=== PATIENT | male | born 1935 | race Caucasian/White ===

== ENCOUNTER 2017-08-25 19:29 | Observation (INO) | payer MEDICARE, OTHER, SELFPAY ==
[2017-08-25] VITALS (11 sets, daily range): BP systolic 167–218; BP diastolic 79–108; PULSE 74–81; RESP 12–24; TEMP 37.1; O2SAT 92–97; BMI 24.2
--- NOTE | 2017-08-25 19:33 | EKG12_ITS ---
Test Reason : STROKE Blood Pressure : / mmHG Vent. Rate : 084 BPM Atrial Rate : 084 BPM P-R Int : 138 ms QRS Dur : 072 ms QT Int : 364 ms P-R-T Axes : 038 -33 -03 degrees QTc Int : 430 ms Normal sinus rhythm Left axis deviation Nonspecific ST abnormality Abnormal ECG Confirmed by DAVE RIVERA, MARTIN ([id number]), photograph editor CORBY JOSUE ([id number]) on 08/29/2017 1:08:22 PM Referred By: DR BARAHONA Confirmed By:MARTIN ACOSTA MD
--- NOTE | 2017-08-25 19:33 | CT_ITS ---
STUDY: CT BRAIN WITHOUT CONTRAST REASON FOR EXAM: Male, 82 years old. Stroke symptoms RADIATION DOSAGE (If Supplied By Facility): CTDIvol = ( 44.99 ) mGy, DLP = ( 796.11 ) mGycm TECHNIQUE: Transaxial CT imaging of the brain was performed without administration of intravenous contrast material. Individualized dose optimization techniques were used for this CT. COMPARISON: None. FINDINGS: Normal soft tissue structures. Normal calvarium. There is mild cerebral atrophy with widening of the extra-axial spaces and ventricular dilatation. There are areas of decreased attenuation within the white matter tracts of the supratentorial brain, consistent with microvascular disease changes. Normal basal ganglia and thalami. Normal brainstem. Normal cerebellum. There is no intracranial hemorrhage. There are no findings of an acute ischemic infarction. Normal visualized paranasal sinuses. CT/Brain/Head without Contrast IMPRESSION: Chronic involutional changes of the brain. There is no intracranial hemorrhage or evidence of acute infarct. If acute infarct is clinically suspected, MRI may be helpful for further evaluation at this time. N.B. : The above information has been verbally conveyed by Wade Wolfe MD to Connor Schreiber, Referring Physician, on 08/25/2017 20:06:56 (ET). Electronically Signed: Wade Wolfe MD at 20:03 EDT , Service support , N.B. : The above information has been verbally conveyed by Wade Wolfe MD to Connor Schreiber, Referring Physician, on 08/25/2017 20:06:56 (ET).
[2017-08-25] MEDS: Labetalol 100 MG/20 ML Vial 10 MG IV (19:52)
[2017-08-25 19:56] LABS: Absolute Lymphocyte Count 2.03 X10^3/ul (0.83-4.51); Absolute Neutrophil Count 5.8 X10^3/uL (2.0-7.7); Basophil# 0.02 X10^3/uL; Basophil% 0.2 % (0-1); Eosinophil# 0.23 X10^3/uL; Eosinophils% 2.5 % (0-5); Hematocrit 41.9 % (40-54); Hemoglobin 14.6 g/dl (13.0-16.5); Lymphocyte # 2.03 X10^3/ul (4.0); Lymphocyte % 22.5 % (19-41); Mean Corp Hgb Conc 34.8 g/gl (32-36); Mean Corpuscular Hgb 31.9 pg (27.0-32.0); Mean Corpuscular Volume 91.5 fL (80-94); Mean Platelet Vol. 11.4 fl (6.2-12.0); Neutrophil # 5.84 X10^3/uL (2.7-7.7); Neutrophil % 64.6 % (47-70); Platelet Count 211 K/mm3 (150-450); RBC Distribution Width CV 12.9 % (11.6-14.6); Red Blood Count 4.58 M/mm3 (4.6-6.2)
[2017-08-25 19:58] LABS: POSITIVE COUNT NO; POSITIVE DIFFERENTIAL NO; POSITIVE MORPHOLOGY NO
[2017-08-25 20:02] LABS: International Normalized Ratio 0.9; Partial Thromboplast Time 34.8 Seconds (24.1-36.2); Prothrombin Time (Protime)PT. 12.4 SECONDS (11.7-14.9)
--- NOTE | 2017-08-25 20:06 | CT_ITS ---
STUDY: CTA OF THE BRAIN REASON FOR EXAM: Male, 82 years old. Stroke. RADIATION DOSAGE (If Supplied By Facility): CTDIvol = ( 22.75 ) mGy, DLP = ( 598.16 ) mGycm TECHNIQUE: CT angiography was performed with a multi-detector CT scanner. Data acquisition was obtained from the skull base through the vertex following intravenous administration of ml of . MIP images were reconstructed from the axial data set. Post-processing of the angiographic images was performed, with multiplanar reformation and 3D reconstruction. Individualized dose optimization techniques were used for this CT. COMPARISON: None. FINDINGS: Normal bilateral petrous carotid arteries. Normal right cavernous carotid artery with a normal supraclinoid bifurcation. Normal left cavernous carotid artery with a normal supraclinoid bifurcation. Normal right A1 segments of the anterior cerebral artery. Normal left A1 segments of the anterior cerebral artery. Normal intact anterior communicating artery (ACOM). Normal bilateral A2 segments of the anterior cerebral arteries. Normal right M1 and M2 segments of the middle cerebral arteries, with a normal M1 bifurcation. Normal left M1 and M2 segments of the middle cerebral arteries, with a normal M1 bifurcation. Normal right posterior communicating artery (PCOM). Normal left posterior communicating artery (PCOM). Normal bilateral vertebral arteries. Normal basilar artery with a normal basilar bifurcation. The visualized bilateral superior cerebellar (SCA) arteries are normal. Normal bilateral P1, P2 and visualized P3 segments of the posterior cerebral arteries. There is no demonstrated aneurysm of the [place]. There is no demonstrated abnormality of the visualized brain. CT/CTA Head W/WO Contrast IMPRESSION: Normal [place] without a demonstrated aneurysm or hemodynamically significant stenosis. Electronically Signed: Lionel Edward MD at 22:46 EDT , Service support ,
--- NOTE | 2017-08-25 20:06 | CT_ITS ---
STUDY: CTA NECK WITH CONTRAST REASON FOR EXAM: Male, 82 years old. Stroke RADIATION DOSAGE (If Supplied By Facility): CTDIvol = ( 22.75 ) mGy, DLP = ( 598.16 ) mGycm TECHNIQUE: CT angiography with multi-detector data acquisition was performed from the aortic arch to the skull base following intravenous administration of 100 ml of Isovue 370 contrast. MIP images were reconstructed from the axial data set. Post-processing of the angiographic images was performed, with multiplanar reformation and 3D reconstruction. Individualized dose optimization techniques were used for this CT. COMPARISON: None. FINDINGS: AORTIC ARCH: Normal visualized aortic arch. Normal origins of the brachiocephalic, left common carotid, and left subclavian arteries. RIGHT CAROTID ARTERIES: Normal right common carotid artery (CCA). Mild eccentric calcified plaque in the carotid bulb. Normal origin of the right internal carotid (ICA) artery without a hemodynamically significant stenosis. Normal visualized cervical portion of the right internal carotid artery. Normal origin of the right external carotid artery (ECA). LEFT CAROTID ARTERIES: Normal left common carotid artery (CCA). Mild eccentric calcified plaque in the carotid bulb. Normal origin of the left internal carotid (ICA) artery without a hemodynamically significant stenosis. Normal visualized cervical portion of the left internal carotid artery. Normal origin of the left external carotid artery (ECA). VERTEBRAL ARTERIES: Normal bilateral vertebral arteries. CT/CTA Neck W/WO Contrast IMPRESSION: No CTA evidence of significant arterial pathology in the neck. Electronically Signed: Kyle Alvarez MD at 22:54 EDT Tel , Service support ,
[2017-08-25 20:11] LABS: Anion Gap 7 (5-15); BUN 24 mg/dL (7-18); BUN/Creat Ratio 22.4 RATIO (10-20); Calcium,Total 9.3 mg/dL (8.5-10.1); Chloride 100 mmol/L (98-107); Creatinine, Serum 1.07 mg/dL (0.70-1.30); EST Glomerular Filtration Rate 70 mL/min (>60); Est Glom Filt Rate - Afr Amer 85 mL/min (>60); Estimated Creatinine Clearance 48.03 ml/min; Glucose 128 mg/dL (74-106); Potassium 4.7 mmol/L (3.5-5.1); Sodium Level 134 mmol/L (136-145)
[2017-08-25] MEDS: 0.9% Normal Saline 1,000 ML 100 ML IV (20:11)
--- NOTE | 2017-08-25 23:57 | HP.PCM_ITS ---
Problem List (1) HTN (hypertension) Status: Chronic (2) DMII (diabetes mellitus, type 2) Status: Acute (3) Lipidemia Status: Acute History of Present Illness Date of Admission: 08/25/17 Chief Complaint: Right facial droop The patient is a 82 year old male w/ h/o HTN, lipidemia and DMII admitted for right facial droop. He is a poor historian. History is taken from staff. He developed right facial droop, right leg weakness and slurred speech while with family. Family noted his symptoms and called parameds. He had improvement of his symptoms over the minutes to hours. He had no other symptoms. Past Medical History Past Medical History (Chronic Problems): Chronic Problems HTN (hypertension) (Chronic) Allergies iodine Allergy (Verified 08/25/17 20:20) Rash Home Medications: Ambulatory Orders Medication Instructions Recorded Lisinopril [Zestril] 20 mg PO DAILY 08/25/17 Metformin HCl [Glucophage] 1,000 mg PO BID 08/25/17 Metoprolol Succinate [Toprol Xl] 25 mg PO DAILY 08/25/17 Oxybutynin [Ditropan] 5 mg PO DAILY 08/25/17 Simvastatin [Zocor] 40 mg PO QHS 08/25/17 glipiZIDE [Glucotrol] 10 mg PO BID 08/25/17 Lives: Spouse/ Significant Other Smoking Status: Never smoker Alcohol: None Drugs: None - *Family History Maternal History Items: No pertinent history Review of Systems Constitutional: Denies: Chills, Fever, Weight Change HEENT: Denies: Head Aches, Sinus Congestion, Sinus Drainage Cardiovascular: Denies: Chest Pain, Palpitations Respiratory: Denies: Cough, Shortness of breath at rest, Sputum production Gastrointestinal: Denies: Abdominal Pain, Nausea, Vomiting Genitourinary: Denies: Dysuria Musculoskeletal: Denies: Joint Pain, Joint Tenderness Skin: Denies: Rash, Wounds Neurological: Reports: Slurred speech, Confusion, Focal weakness - Right sided weakness. Denies: Numbness, Tingling Psychiatric: Denies: Anxiety, Depression, Homicidal Ideations, Suicidal Ideations Hematologic/ Lymphatic: Denies: Easy Bruising, Easy Bleeding VTE Information - Inpt Only VTE Present on Admission: No VTE Mechan Device Prophylaxis: SCD's VTE Pharm Prophylaxis ordered?: Yes Patient Problems: Active and Suspected Problems DMII (diabetes mellitus, type 2) (Acute) Lipidemia (Acute) - Physical Exam General: Alert, Oriented x3, Cooperative HEENT: PERRLA, EOMI, Normocephalic, - - Right eye swelling secondary to trauma Neck: Supple, No JVD, Negative Carotid Bruits Lungs: Clear to auscultation, Normal air movement Cardiovascular: Regular rate, No murmurs Abdomen: Bowel Sounds Present, Soft, Non Tender Extremities: No edema, Capillary Refill Less than 3 Seconds Skin: No rashes, No breakdown Musculoskeletal: No Tenderness to Palpation of Joints or Extremities Neurological: Cranial nerves II-XII grossly intact Psych/Mental Status: Normal Affect, Appropriate Vital Signs Temp Pulse Resp BP Pulse Ox 98.8 F 79 16 167/89 H 94 08/25/17 19:30 08/25/17 23:00 08/25/17 23:00 08/25/17 23:00 08/25/17 23:00 Oxygen Flow Rate (L/min) 2 Oxygen Delivery Method Room Air Weight: 68 kg Body Mass Index (BMI) 24.2 Finger Stick Blood Glucose 124 Laboratory Tests Past 24 Hrs 08/25/17 08/25/17 08/25/17 19:35 19:35 19:35 WBC 9.0 RBC 4.58 L Hgb 14.6 Hct 41.9 MCV 91.5 MCH 31.9 MCHC 34.8 RDW 12.9 RDW Differential 43.0 Plt Count 211 MPV 11.4 Immature Gran % (Auto) 0.200 Neut % (Auto) 64.6 Lymph % (Auto) 22.5 Sharkey % (Auto) 10.0 Eos % (Auto) 2.5 Baso % (Auto) 0.2 Absolute Neuts (auto) 5.8 Absolute Lymphs (auto) 2.03 Total Counted Not Reportable PT 12.4 INR 0.9 APTT 34.8 Sodium 134 L Potassium 4.7 Chloride 100 Carbon Dioxide 27.0 Anion Gap 7 BUN 24 H Creatinine 1.07 Estim Creat Clear Calc 48.03 Est GFR (MDRD) Af Amer 85 Est GFR (MDRD) Non-Af 70 BUN/Creatinine Ratio 22.4 H Glucose 128 H Calcium 9.3 Troponin I < 0.015 Assessment/Plan All Active Problems DMII (diabetes mellitus, type 2) (Acute) Lipidemia (Acute) 82 year old male w/ h/o HTN, lipidemia and DMII admitted for right facial droop. 1) Right facial droop, right leg weakness, slurred speech, and expressive aphasia: Resolved. CT head negative. CTA head shows normal [place]. CTA of the neck shows no significant disease. EKG unremarkable. C/w ASA and statin. Will get ECHO and MRI in AM. 2) HTN: Resume home meds. Labetalol IV PRN. Supportive care. 3) DMII: Resume home meds. 4) Prophylaxis: SCD / heparin.
[2017-08-26] VITALS (21 sets, daily range): BP systolic 158–256; BP diastolic 73–118; PULSE 66–98; RESP 16–18; TEMP 36.6–37.2; O2SAT 93–98; BMI 22.8; BMI 22.9
--- NOTE | 2017-08-26 01:09 | MRI_ITS ---
STUDY: MRI BRAIN WITHOUT CONTRAST REASON FOR EXAM: Male, 82 years old. CVA, bruised eyes and forehead. TECHNIQUE: Standardized multiplanar fat and water weighted pulse sequences were obtained. COMPARISON: None. FINDINGS: There is moderate cerebral atrophy with widening of the extra-axial spaces and ventricular dilatation. There are multiple white matter hyperintensities, distributed throughout the deep white matter tracts of the cerebral hemispheres, consistent with moderate chronic white matter ischemic changes. There is no evidence for recent intracranial ischemia or other cause of cytotoxic edema on diffusion weighted imaging (DWI). Normal T2* images of the brain without demonstrated susceptibility artifact. There is no demonstrated hemosiderin stain. There are prominent perivascular spaces (PVS) involving the basal ganglia. Normal thalami. There is no extra-axial fluid accumulation. Normal flow voids within the major intracranial circulation suggesting patency by spin echo criteria. Normal sella turcica, pituitary gland, infundibular stalk, optic chiasm and hypothalamus. Normal tectal plate and pineal gland. Normal midbrain, genia and medulla. Normal cerebellum. Normal basal cisterns. Normal bilateral temporal bones. Normal bilateral internal auditory canals. No demonstrated orbital abnormality, within the constraints of a routine brain study. Normal visualized paranasal sinuses. Normal calvarium and skull base. Normal visualized soft tissue structures. Normal visualized upper cervical spine. MRI/Brain without Contrast IMPRESSION: Senescent changes with no evidence of acute intracranial bleed, mass or ischemia. Electronically Signed: Shreyas Yusuf DO at 21:24 EDT , Service support ,
--- NOTE | 2017-08-26 01:09 | ECHOD_ITS ---
Reason For Study: TIA/CVA Procedure This was a 2D Doppler, Color Flow transthoracic echocardiogram. Exam performed portable in patient room. Left Ventricle Normal LV size. Mild concentric left ventricular hypertrophy. Left ventricular systolic function is normal. The estimated ejection fraction is 60 %. Transmitral and pulmonary venous doppler flow suggestive of impaired relaxation of left ventricle. Transmitral diastolic flow velocities suggest mild (stage 1) diastolic dysfunction (reversed pattern). No regional wall motion abnormalities noted. Right Ventricle Normal RV size. Normal systolic function. Atria Normal left atrium. Normal right atrium. Bubble contrast study negative for right to left interatrial shunt. Mitral Valve There is mild to moderate mitral annular calcification. Mild (1+) eccentric mitral valve insufficiency. Tricuspid Valve Normal tricuspid valve. Mild (1+) tricuspid valve insufficiency. Pulmonary artery systolic pressure is 33 mmHg. Aortic Valve Trisinus/trileaflet aortic valve. Mild focal aortic valve calcification. Pulmonic Valve The pulmonic valve is not well visualized. Great Vessels Normal aortic root. The pulmonary artery is normal size. Normal inferior vena cava. Pericardium/Pleural No pericardial effusion. Medication Performed a rapid injection of agitated mix of 9 cc saline and 1cc air to assess for atrial septal defect. MMode/2D Measurements & Calculations LVIDd: 4.3 cm IVSd: 1.2 cm Ao root diam: 3.5 cm LVIDs: 3.0 cm LVPWd: 1.2 cm RVDd: 2.4 cm FS: 30.3 % LAV(MOD-bp): 46.3 ml LAV(MOD-bp) Indexed: 26.8 ml/m2 LA A4 area: 15.9 cm2 LAV(MOD-sp2): 43.0 ml LAV(MOD-sp4): 44.1 ml Doppler Measurements & Calculations MV E max gus: 88.8 cm/sec Lat Peak E' Gus: 8.9 cm/sec Med Peak E' Gus: 3.8 cm/sec MV A max gus: 145.2 cm/sec E/E' lat: 10.0 E/E' med: 23.5 MV E/A: 0.61 Ao V2 max: 130.4 cm/sec AI max gus: 304.2 cm/sec LV V1 max: 113.8 cm/sec Ao max P.8 mmHg AI max P.0 mmHg LV V1 max P.2 mmHg AI dec slope: 232.4 cm/sec2 AI P1/2t: 383.4 msec PA V2 max: 95.2 cm/sec TR max gus: 270.4 cm/sec TR max P.3 mmHg Interpretation Summary Normal LV size. Mild concentric left ventricular hypertrophy. Left ventricular systolic function is normal. The estimated ejection fraction is 60 %. Transmitral diastolic flow velocities suggest mild (stage 1) diastolic dysfunction (reversed pattern). Bubble contrast study negative for right to left interatrial shunt. Pulmonary artery systolic pressure is 33 mmHg. Ordering Physician: Lars Torres Referring Physician: Christopher Angeles M.D. Performed By: Natalya Louie RDCS, RVT
--- NOTE | 2017-08-26 01:10 | ED.VISSUMM ---
- ER Visit Summary Date of Service: 08/26/17 Chief Complaint: Stroke History of Present Illness: The patient is a [address] Vora. Family reports that he was in his usual state state of health until approximately 6:30 PM when he developed a right facial droop, right leg weakness, slurred speech, and expressive aphasia. Of note the patient fell 3 days ago. He did not have a loss of consciousness. He is not on any blood thinners. Review of systems: General: No fever, chills, cold sweats. Cardiovascular: No chest pain, palpitations. Respiratory: No cough, shortness of breath, dyspnea on exertion. Gastrointestinal: No abdominal pain, nausea, vomiting, diarrhea, melena, or hematochezia. Genitourinary: No dysuria, frequency, hematuria. Skin: No rash. Neuro: No headache. Physical Examination: Vitals: 98.8, 213/100, 87, 24, 96% on room air which is not hypoxic. General: Well-nourished and well-developed. Head: Normocephalic, contusion/soft tissue swelling to the right eyebrow and right maxilla that appears old. Neck: Supple, no lymphadenopathy. No JVD. Nontender. Cardiovascular: Regular rate and rhythm. 2 out of 6 systolic murmur. Respiratory: No respiratory distress. Clear to auscultation bilaterally. Abdominal: Soft, nontender, nondistended, normal bowel sounds. No guarding, rebound, or peritoneal signs. Back: Nontender. Extremities: Nontender, no edema. Skin: Normal color, no rash. Neurologic: Alert. Upon arrival to the emergency department patient has a paucity of speech. He is unable to tell his birthdate. He does have slurred speech. He has a mild right facial droop. He has normal strength and sensation. He has no hemineglect. His NIH scale is 3. Psych: Normal affect. Test Results: CBC is normal. Chem-7 is more for sodium 134, BUN 24, glucose 128. Coags are normal. Troponins negative. EKG is sinus at [address] head shows no acute disease. CTA head shows normal [place]. CTA of the neck shows no significant disease. Emergency Department Course and Treatment: Upon arrival to the emergency department the patient's symptoms had already improved. Patient's family arrived shortly after the squad. When the patient returned from CT his speech had greatly improved as well. His expressive aphasia headaches essentially resolved. His slurred speech was much improved. His NIH scale was 1. He is not a TPA candidate. Patient was given a dose of labetalol IV. Subsequent blood pressures have ranged from 160-200 systolic. Treatment Plan: Patient was discussed with Dr. Serge bailey and Dr. Torres. He will be admitted to the hospital for further evaluation and treatment. Disposition: Admitted in improved condition. Impression: 1. CVA. 2. Hypertension. 3. Critical care time 30 minutes. This note was generated with [employer] dictation software. It may contain incorrect words, spelling, and punctuation that were not noted in review of the chart prior to signing ED Disposition - Plan for ED Patient: Disposition: Acute Care Hospital [facility] Chief Complaint: Neuro S/Sx
--- NOTE | 2017-08-26 01:13 | ED.DCSUM_ITS ---
- ER Visit Summary Date of Service: 08/26/17 Chief Complaint: Stroke History of Present Illness: The patient is a [address] Vora. Family reports that he was in his usual state state of health until approximately 6:30 PM when he developed a right facial droop, right leg weakness, slurred speech, and expressive aphasia. Of note the patient fell 3 days ago. He did not have a loss of consciousness. He is not on any blood thinners. Review of systems: General: No fever, chills, cold sweats. Cardiovascular: No chest pain, palpitations. Respiratory: No cough, shortness of breath, dyspnea on exertion. Gastrointestinal: No abdominal pain, nausea, vomiting, diarrhea, melena, or hematochezia. Genitourinary: No dysuria, frequency, hematuria. Skin: No rash. Neuro: No headache. Physical Examination: Vitals: 98.8, 213/100, 87, 24, 96% on room air which is not hypoxic. General: Well-nourished and well-developed. Head: Normocephalic, contusion/soft tissue swelling to the right eyebrow and right maxilla that appears old. Neck: Supple, no lymphadenopathy. No JVD. Nontender. Cardiovascular: Regular rate and rhythm. 2 out of 6 systolic murmur. Respiratory: No respiratory distress. Clear to auscultation bilaterally. Abdominal: Soft, nontender, nondistended, normal bowel sounds. No guarding, rebound, or peritoneal signs. Back: Nontender. Extremities: Nontender, no edema. Skin: Normal color, no rash. Neurologic: Alert. Upon arrival to the emergency department patient has a paucity of speech. He is unable to tell his birthdate. He does have slurred speech. He has a mild right facial droop. He has normal strength and sensation. He has no hemineglect. His NIH scale is 3. Psych: Normal affect. Test Results: CBC is normal. Chem-7 is more for sodium 134, BUN 24, glucose 128. Coags are normal. Troponins negative. EKG is sinus at [address] head shows no acute disease. CTA head shows normal [place]. CTA of the neck shows no significant disease. Emergency Department Course and Treatment: Upon arrival to the emergency department the patient's symptoms had already improved. Patient's family arrived shortly after the squad. When the patient returned from CT his speech had greatly improved as well. His expressive aphasia headaches essentially resolved. His slurred speech was much improved. His NIH scale was 1. He is not a TPA candidate. Patient was given a dose of labetalol IV. Subsequent blood pressures have ranged from 160-200 systolic. Treatment Plan: Patient was discussed with Dr. Serge bailey and Dr. Torres. He will be admitted to the hospital for further evaluation and treatment. Disposition: Admitted in improved condition. Impression: 1. CVA. 2. Hypertension. 3. Critical care time 30 minutes. This note was generated with [employer] dictation software. It may contain incorrect words, spelling, and punctuation that were not noted in review of the chart prior to signing ED Disposition - Plan for ED Patient: Disposition: Acute Care Hospital [facility] Chief Complaint: Neuro S/Sx
[2017-08-26] MEDS: 0.9% NaCl Peripheral Flush Adult/Peds IV (02:23)
[2017-08-26 02:39] LABS: Thyroid Stim Hormone (TSH) 3.24 uIU/mL (0.358-3.74)
[2017-08-26] MEDS: Lisinopril 20 MG Tablet PO ×2 (02:41→09:29)
[2017-08-26 02:46] LABS: Amphetamine Urine VISTA NEGATIVE (<1000 ng/mL); Barbiturate Urine VISTA NEGATIVE (< 200 ng/mL); Benzodiazepine Urine VISTA NEGATIVE (< 200 ng/mL); Cocaine Urine VISTA NEGATIVE (< 300 ng/mL); Ecstacy Urine VISTA NEGATIVE (< 500 ng/mL); Methadone Urine VISTA NEGATIVE (< 300 ng/mL); PCP Urine VISTA NEGATIVE (< 25 ng/mL); THC Urine VISTA NEGATIVE (< 50 ng/mL); Vista UDS pH Range 7
[2017-08-26 02:50] LABS: Bedside Glucose 186 mg/dL (70-110)
[2017-08-26 03:52] LABS: Bacteria 0 SEEN /hpf (None Seen); Mucous, Urine 0 SEEN /hpf (<or=2+); Red Blood Cells-Urine 0 SEEN /hpf (0-5); Squamous Epithelial Cells - UA 0 SEEN /hpf (0-5); White Blood Cells 0 SEEN /hpf (0-5)
[2017-08-26 04:42] LABS: Color, Urine Yellow (Yellow); Glucose, Dipstick Normal (Normal); Ketone-Dipstick Negative (Negative); Leukocyte Esterase-Dipstick Negative /ul (Negative); Nitrite-Dipstick Negative (Negative); Occult Blood-Urine Negative /ul (Negative); Protein-Dipstick 100 mg/dl (Negative); Urine Bilirubin Dipstick Negative (Negative); Urine Clarity Clear (Clear); Urine Urobilinogen Normal (Normal)
[2017-08-26 05:08] LABS: Hematocrit 38.4 % (40-54); Hemoglobin 13.6 g/dl (13.0-16.5); Mean Corp Hgb Conc 35.4 g/gl (32-36); Mean Corpuscular Volume 90.4 fL (80-94); Mean Platelet Vol. 11.2 fl (6.2-12.0); Platelet Count 192 K/mm3 (150-450); RBC Distribution Width CV 12.5 % (11.6-14.6); Red Blood Count 4.25 M/mm3 (4.6-6.2); White Blood Count 12.7 K/mm3 (4.4-11.0)
[2017-08-26 06:32] LABS: Scan Indicated on CBC? Y/N NO
[2017-08-26] MEDS: Acetaminophen 325 MG Tablet 650 MG PO ×2 (06:45→20:40)
[2017-08-26 07:06] LABS: Bedside Glucose 168 mg/dL (70-110)
[2017-08-26] MEDS: Aspirin 81 MG TAB.CHEW PO (09:28)
[2017-08-26] MEDS: Metoprolol(XL)Succ 25 MG Tablet PO (09:28)
[2017-08-26] MEDS: glipiZIDE 5 MG Tablet 10 MG PO ×2 (09:28→16:55)
[2017-08-26] MEDS: Oxybutynin 5 MG Tablet PO (09:28)
[2017-08-26 11:35] LABS: Bedside Glucose 182 mg/dL (70-110)
[2017-08-26] MEDS: 0.9% Normal Saline 1,000 ML 100 ML IV ×2 (13:02→23:32)
--- NOTE | 2017-08-26 13:07 | PCM.PN.HOSP ---
Patient Problems: Active and Suspected Problems DMII (diabetes mellitus, type 2) (Acute) Lipidemia (Acute) Subjective: Patient is an 82-year-old male with a history of hypertension, diabetes and hyperlipidemia. He was admitted from home for a complaint of right facial droop. Patient is a poor historian and history could not be obtained from him apparently. Was noted to have developed a right facial droop with right leg weakness and slurred speech as well as with family and so they called the paramedics. Last known well is unknown. Prominent note, he had improvement of his symptoms over minutes. He has been managed for TIA. She is seen and examined. He could not tell me why he was in the hospital. He was alert and oriented ?3. However he said he did not think anything had been wrong with him and he was brought in. He admitted to falling several times over the past few weeks at home and actually had a resolving bruise over the right eye. He lives at home with his and he is able to move around on his own and carry out his activities of daily living. He has no one else coming to help him and is only held by his . He states after a fall he was put in the senior care for rehab some months ago but he does not think it helped much. Vitals/I&O's: Vital Signs Temp Pulse Resp BP Pulse Ox 97.8 F 88 18 178/95 H 98 08/26/17 11:27 08/26/17 11:31 08/26/17 11:27 08/26/17 11:27 08/26/17 11:27 Oxygen Delivery Method Room Air Weight: 145 lb 15.136 oz Body Mass Index (BMI) 22.8 Orthostatic Vital Signs Start: 08/26/17 11:11 Freq: q24h Status: Active Protocol: Activity Type Activity Date Activity User E-Sign Co-Sign Detail Recorded Client Recorded Date Recorded By Document 08/26/17 11:15 TNG [id number] 08/26/17 11:27 TNG 08/26/17 11:15 Orthostatic Vitals Standing -Blood Pressure (90/60-120/80) 178/95 H -Extremity Use Right Arm -Pulse Rate (60-100) 87 Sitting -Blood Pressure (90/60-120/80) 178/88 H -Extremity Use Right Arm -Pulse Rate (60-100) 78 Lying -Blood Pressure (90/60-120/80) 172/82 H -Extremity Use Right Arm -Pulse Rate (60-100) 78 Intake and Output for Last 24 Hours 08/24/17 08/25/17 08/26/17 23:59 23:59 23:59 Intake Total 527 / 527 Output Total 550 / 550 Balance - / General: Alert, Oriented x3, Cooperative, No apparent distress HEENT: Atraumatic, PERRLA, EOMI, Normocephalic, - - Resolving bruise over left eye which he states he sustained after he fell about a week ago. Oral: Moist Mucosa Neck: Supple, No JVD, Negative Carotid Bruits Lungs: Clear to auscultation, Normal air movement, No rhonchi, No wheeze, No rales Cardiovascular: Regular rate, Regular Rhythm, Normal S1, Normal S2, No murmurs Abdomen: Bowel Sounds Present, Soft, Non Tender, Non-Distended, No Hepato-splenomegaly Extremities: No clubbing, No cyanosis, No edema, Capillary Refill Less than 3 Seconds Skin: No rashes, No breakdown Musculoskeletal: No Tenderness to Palpation of Joints or Extremities Lymphatic: No Cervical, Supraclavicular, or Inguinal Adenopathy Neurological: Cranial nerves II-XII grossly intact, Neuro grossly intact, Motor Exam 5/5 strength throughout Psych/Mental Status: Normal Affect, Appropriate, Alert and oriented to time, place, person, mood and affect Laboratory Results 08/26/17 01:17: Troponin I < 0.015, TSH 3.24 08/26/17 01:25: Urine Color Yellow, Urine Clarity Clear, Urine pH 7.0, Ur Specific [place] 1.010, Urine Protein 100 H, Urine Glucose (UA) Normal, Urine Ketones Negative, Urine Occult Blood Negative, Urine Nitrite Negative, Urine Bilirubin Negative, Urine Urobilinogen Normal, Ur Leukocyte Esterase Negative, Urine RBC 0 SEEN, Urine WBC 0 SEEN, Ur Squamous Epith Cells 0 SEEN, Urine Bacteria 0 SEEN, Urine Mucus 0 SEEN 08/26/17 01:45: Urine Opiates Screen NEGATIVE, Urine Methadone Screen NEGATIVE, Ur Barbiturates Screen NEGATIVE, Ur Phencyclidine Scrn NEGATIVE, Ur Amphetamines Screen NEGATIVE, U Methamphetamin-MDMA NEGATIVE, U Benzodiazepines Scrn NEGATIVE, Urine Cocaine Screen NEGATIVE, U Cannabinoids Screen NEGATIVE, Ur Drug Screen Comment 08/26/17 02:48: POC Glucose 186 H 08/26/17 04:46: WBC 12.7 H, RBC 4.25 L, Hgb 13.6, Hct 38.4 L, MCV 90.4, MCH 32.0, MCHC 35.4, RDW 12.5, RDW Differential 41.0, Plt Count 192, MPV 11.2 08/26/17 04:46: Sodium Pending, Potassium Pending, Chloride Pending, Carbon Dioxide Pending, Anion Gap Pending, BUN Pending, Creatinine Pending, Est GFR (MDRD) Af Amer Pending, Est GFR (MDRD) Non-Af Pending, BUN/Creatinine Ratio Pending, Glucose Pending, Calcium Pending, Triglycerides Pending, Cholesterol Pending, LDL Cholesterol Pending, VLDL Cholesterol Pending, HDL Cholesterol Pending 08/26/17 04:46: Troponin I < 0.015 08/26/17 06:43: POC Glucose 168 H 08/26/17 06:47: Troponin I < 0.015 08/26/17 11:09: POC Glucose 182 H Current Medications Acetaminophen (Tylenol) 650 mg PO Q6H PRN PRN PRN Reason: PAIN Last Admin: 08/26/17 06:45 Dose: 650 mg Aspirin (Aspirin, Baby) 81 mg PO DAILY@0800 [facility] Last Admin: 08/26/17 09:28 Dose: 81 mg Atorvastatin Calcium (Lipitor) 20 mg PO QHS [facility] Glipizide (Glucotrol) 10 mg PO BIDAC [facility] Last Admin: 08/26/17 09:28 Dose: 10 mg Sodium Chloride () 1,000 mls @ 100 mls/hr IV .Q10H [facility] Last Admin: 08/26/17 13:02 Dose: 100 mls/hr Lisinopril (Zestril) 20 mg PO DAILY [facility] Last Admin: 08/26/17 09:29 Dose: 20 mg Magnesium Hydroxide (Milk Of Magnesia) 30 ml PO DAILY PRN PRN PRN Reason: Constipation Metformin HCl (Glucophage) 1,000 mg PO BIDCM [facility] Last Admin: 08/26/17 09:30 Dose: Not Given Metoprolol Succinate (Toprol Xl (Beta Sunny)) 25 mg PO DAILY [facility] Last Admin: 08/26/17 09:28 Dose: 25 mg Oxybutynin Chloride (Ditropan) 5 mg PO DAILY [facility] Last Admin: 08/26/17 09:28 Dose: 5 mg Sodium Chloride () 5 - 30 ml IV UD PRN PRN Reason: SALINE FLUSH Last Admin: 08/26/17 02:23 Dose: 10 ml Medical Necessity - Tobacco Use Smoking Status: Never smoker Tobacco Use: Non-smoker Assessment/Plan All Active Problems DMII (diabetes mellitus, type 2) (Acute) Lipidemia (Acute) 82 y/o male with a history of hypertension, hyperlipidemia presenting with a complaint of right facial droop as noted by family. Had resolved by time of presentaion 1. TIA Resolved. Had right facial droop which is not present at time of review. Patient has no recollection of event. He does admit to frequent falls at home. CT of the head was negative and CT showed normal [facility] [place]. Echo and MRI and MRA pending. NIHSS-0 this morning Lipid panel normal Aspirin and statin. Will get neurology consult. 2. Frequent falls due to general debility Patient has been falling very frequently at home and has a resolving bruise over his right eye and healing excoriations from the falls PT/OT consult. denies use of any new meds may need placement 3. HTN poorly controlled. BP is in 170s systolic on lisinopril and metoprolol. Will increase metoprolol from 25mg daily to 50mg daily due to poor BP control. hydralazine prn 4. Diabetes mellitus: on metformin nand glipizide 5. BPH: had a distended bladder this morning, and complained of inability to urinate. On oxybutinin 5mg daily, possibly for incontinence. Mauryt tried passing urine on his own but passed very little. Will pass Beckwith catheter. This is not have an enlarged prostate is not on any medication for it. Will start on Flomax. 6. DVT prophylaxis: Heparin This note was generated with Webcomation software. It may contain incorrect words, spelling, and punctuation that were not noted in checking the note before signing. Code Visit OBSV E&M: 07679 Subsequent observation care L2
[2017-08-26 13:12] LABS: Anion Gap 10 (5-15); BUN 20 mg/dL (7-18); BUN/Creat Ratio 20.1 RATIO (10-20); Calcium,Total 8.6 mg/dL (8.5-10.1); Chloride 100 mmol/L (98-107); Cholesterol 137 mg/dL (200); EST Glomerular Filtration Rate 77 mL/min (>60); Est Glom Filt Rate - Afr Amer 93 mL/min (>60); Estimated Creatinine Clearance 53.25 ml/min; Glucose 174 mg/dL (74-106); High Density Lipoprotein 42 mg/dL; Potassium 4.1 mmol/L (3.5-5.1); Sodium Level 135 mmol/L (136-145); Triglycerides 86 mg/dL; Very Low Density Lipoprotein 17 mg/dL (5-40)
--- NOTE | 2017-08-26 13:29 | PN_ITS ---
Patient Problems: Active and Suspected Problems DMII (diabetes mellitus, type 2) (Acute) Lipidemia (Acute) Subjective: Patient is an 82-year-old male with a history of hypertension, diabetes and hyperlipidemia. He was admitted from home for a complaint of right facial droop. Patient is a poor historian and history could not be obtained from him apparently. Was noted to have developed a right facial droop with right leg weakness and slurred speech as well as with family and so they called the paramedics. Last known well is unknown. Prominent note, he had improvement of his symptoms over minutes. He has been managed for TIA. She is seen and examined. He could not tell me why he was in the hospital. He was alert and oriented ?3. However he said he did not think anything had been wrong with him and he was brought in. He admitted to falling several times over the past few weeks at home and actually had a resolving bruise over the right eye. He lives at home with his and he is able to move around on his own and carry out his activities of daily living. He has no one else coming to help him and is only held by his . He states after a fall he was put in the residential for rehab some months ago but he does not think it helped much. Vitals/I&O's: Vital Signs Temp Pulse Resp BP Pulse Ox 97.8 F 88 18 178/95 H 98 08/26/17 11:27 08/26/17 11:31 08/26/17 11:27 08/26/17 11:27 08/26/17 11:27 Oxygen Delivery Method Room Air Weight: 145 lb 15.136 oz Body Mass Index (BMI) 22.8 Orthostatic Vital Signs Start: 08/26/17 11:11 Freq: q24h Status: Active Protocol: Activity Type Activity Date Activity User E-Sign Co-Sign Detail Recorded Client Recorded Date Recorded By Document 08/26/17 11:15 TNG [id number] 08/26/17 11:27 TNG 08/26/17 11:15 Orthostatic Vitals Standing -Blood Pressure (90/60-120/80) 178/95 H -Extremity Use Right Arm -Pulse Rate (60-100) 87 Sitting -Blood Pressure (90/60-120/80) 178/88 H -Extremity Use Right Arm -Pulse Rate (60-100) 78 Lying -Blood Pressure (90/60-120/80) 172/82 H -Extremity Use Right Arm -Pulse Rate (60-100) 78 Intake and Output for Last 24 Hours 08/24/17 08/25/17 08/26/17 23:59 23:59 23:59 Intake Total 527 / 527 Output Total 550 / 550 Balance - / General: Alert, Oriented x3, Cooperative, No apparent distress HEENT: Atraumatic, PERRLA, EOMI, Normocephalic, - - Resolving bruise over left eye which he states he sustained after he fell about a week ago. Oral: Moist Mucosa Neck: Supple, No JVD, Negative Carotid Bruits Lungs: Clear to auscultation, Normal air movement, No rhonchi, No wheeze, No rales Cardiovascular: Regular rate, Regular Rhythm, Normal S1, Normal S2, No murmurs Abdomen: Bowel Sounds Present, Soft, Non Tender, Non-Distended, No Hepato- splenomegaly Extremities: No clubbing, No cyanosis, No edema, Capillary Refill Less than 3 Seconds Skin: No rashes, No breakdown Musculoskeletal: No Tenderness to Palpation of Joints or Extremities Lymphatic: No Cervical, Supraclavicular, or Inguinal Adenopathy Neurological: Cranial nerves II-XII grossly intact, Neuro grossly intact, Motor Exam 5/5 strength throughout Psych/Mental Status: Normal Affect, Appropriate, Alert and oriented to time, place, person, mood and affect Laboratory Results 08/26/17 01:17: Troponin I < 0.015, TSH 3.24 08/26/17 01:25: Urine Color Yellow, Urine Clarity Clear, Urine pH 7.0, Ur Specific [place] 1.010, Urine Protein 100 H, Urine Glucose (UA) Normal, Urine Ketones Negative, Urine Occult Blood Negative, Urine Nitrite Negative, Urine Bilirubin Negative, Urine Urobilinogen Normal, Ur Leukocyte Esterase Negative, Urine RBC 0 SEEN, Urine WBC 0 SEEN, Ur Squamous Epith Cells 0 SEEN, Urine Bacteria 0 SEEN, Urine Mucus 0 SEEN 08/26/17 01:45: Urine Opiates Screen NEGATIVE, Urine Methadone Screen NEGATIVE, Ur Barbiturates Screen NEGATIVE, Ur Phencyclidine Scrn NEGATIVE, Ur Amphetamines Screen NEGATIVE, U Methamphetamin-MDMA NEGATIVE, U Benzodiazepines Scrn NEGATIVE, Urine Cocaine Screen NEGATIVE, U Cannabinoids Screen NEGATIVE, Ur Drug Screen Comment 08/26/17 02:48: POC Glucose 186 H 08/26/17 04:46: WBC 12.7 H, RBC 4.25 L, Hgb 13.6, Hct 38.4 L, MCV 90.4, MCH 32.0 , MCHC 35.4, RDW 12.5, RDW Differential 41.0, Plt Count 192, MPV 11.2 08/26/17 04:46: Sodium Pending, Potassium Pending, Chloride Pending, Carbon Dioxide Pending, Anion Gap Pending, BUN Pending, Creatinine Pending, Est GFR ( MDRD) Af Amer Pending, Est GFR (MDRD) Non-Af Pending, BUN/Creatinine Ratio Pending, Glucose Pending, Calcium Pending, Triglycerides Pending, Cholesterol Pending, LDL Cholesterol Pending, VLDL Cholesterol Pending, HDL Cholesterol Pending 08/26/17 04:46: Troponin I < 0.015 08/26/17 06:43: POC Glucose 168 H 08/26/17 06:47: Troponin I < 0.015 08/26/17 11:09: POC Glucose 182 H Current Medications Acetaminophen (Tylenol) 650 mg PO Q6H PRN PRN PRN Reason: PAIN Last Admin: 08/26/17 06:45 Dose: 650 mg Aspirin (Aspirin, Baby) 81 mg PO DAILY@0800 [facility] Last Admin: 08/26/17 09:28 Dose: 81 mg Atorvastatin Calcium (Lipitor) 20 mg PO QHS [facility] Glipizide (Glucotrol) 10 mg PO BIDAC [facility] Last Admin: 08/26/17 09:28 Dose: 10 mg Sodium Chloride () 1,000 mls @ 100 mls/hr IV .Q10H [facility] Last Admin: 08/26/17 13:02 Dose: 100 mls/hr Lisinopril (Zestril) 20 mg PO DAILY [facility] Last Admin: 08/26/17 09:29 Dose: 20 mg Magnesium Hydroxide (Milk Of Magnesia) 30 ml PO DAILY PRN PRN PRN Reason: Constipation Metformin HCl (Glucophage) 1,000 mg PO BIDCM [facility] Last Admin: 08/26/17 09:30 Dose: Not Given Metoprolol Succinate (Toprol Xl (Beta Sunny)) 25 mg PO DAILY [facility] Last Admin: 08/26/17 09:28 Dose: 25 mg Oxybutynin Chloride (Ditropan) 5 mg PO DAILY [facility] Last Admin: 08/26/17 09:28 Dose: 5 mg Sodium Chloride () 5 - 30 ml IV UD PRN PRN Reason: SALINE FLUSH Last Admin: 08/26/17 02:23 Dose: 10 ml Medical Necessity - Tobacco Use Smoking Status: Never smoker Tobacco Use: Non-smoker Assessment/Plan All Active Problems DMII (diabetes mellitus, type 2) (Acute) Lipidemia (Acute) 82 y/o male with a history of hypertension, hyperlipidemia presenting with a complaint of right facial droop as noted by family. Had resolved by time of presentaion 1. TIA * Resolved. Had right facial droop which is not present at time of review. * Patient has no recollection of event. He does admit to frequent falls at home. * CT of the head was negative and CT showed normal [place] [facility] [place]. Echo and MRI and MRA pending. * NIHSS-0 this morning * Lipid panel normal * Aspirin and statin. Will get neurology consult. * 2. Frequent falls due to general debility * Patient has been falling very frequently at home and has a resolving bruise over his right eye and healing excoriations from the falls * PT/OT consult. * denies use of any new meds * may need placement * 3. HTN * poorly controlled. BP is in 170s systolic * on lisinopril and metoprolol. Will increase metoprolol from 25mg daily to 50mg daily due to poor BP control. * hydralazine prn * 4. Diabetes mellitus: on metformin nand glipizide 5. BPH: had a distended bladder this morning, and complained of inability to urinate. On oxybutinin 5mg daily, possibly for incontinence. Mauryt tried passing urine on his own but passed very little. Will pass Beckwith catheter. This is not have an enlarged prostate is not on any medication for it. Will start on Flomax. 6. DVT prophylaxis: Heparin This note was generated with [employer] Comp[employer]ation software. It may contain incorrect words, spelling, and punctuation that were not noted in checking the note before signing. Code Visit OBSV E&M: 45997 Subsequent observation care L2
--- NOTE | 2017-08-26 13:32 | CASEMGMT ---
Social Work Note PCU Reason for referral: possible SNF at discharge related to possible Informant: medical record, patient, Gail Joseph, and daughter Angel. Summary: Mental Status: Patient alert and oriented to person, place, situation (knew granddaughter was worried about speech prior to coming to hospital and that fell last ), and aware of his visitors in the room. Patient pleasant, slightly confused with timeframes of events leading up to hospitalization, but overall seemed to do well and was not contradicted by family members when gave input. Patient does reportedly have some confusion, possible diagnosis of dementia. Patient tearful intermittently only stating that things have been happening fast. Medical Diagnoses: HTN, lipidemia and DMII admitted for right facial droop. Patient reportedly with history of Parkinson and possibly early dementia. Outpatient Medical Providers: Patient has a PCP Dr. Angeles and a neurologist, Dr. Valentine. Living Situation: Patient lives with his , one story home, one step into the home. Patient has cane for ambulation, also has access to a forward wheeled walker though does not like to use this. 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 Financial/Insurance: Medicare is primary insurance. Patient is supported by senior care, no concerns or issues reported with finances at this time. 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 Resources/Agencies: Just finished outpatient therapy at [facility]'s outpatient therapy department. Denies any past SNF placement, but Angel reports to have some awareness of this from dealing with patient's parents years ago. Family mentioned familiarity with [facility]. No medical Alert, but discussed this with patient and family as an option at home. Support System: many years helps out. Patient has 3 children locally, a child in [place] (patient and actually just sold their winter home in [place] couple of months ago to stay in [place] fulltime), and a child in [place]. Grandchildren in the area. Patient reports family is supportive and helpful. Daughter Angel is reportedly the [facility]. Asked family to bring in documents. Substance Use History: No tobacco history, no alcohol usage, nor any drug use history. Mental Health: No reported diagnosis of any emotional health issues such as depression or anxiety at this time. Interventions: Educated to social work role and reason for visit. Broached outpatient therapy, HHC, SNF, and Acute rehab as different levels of care that some people need when discharging from hospital. Daughter asked if Medicare covers all services mentioned. Educted that Medicare has benefits for all, but that to access SNF benefits would need to be inpatient for 3 midnights at the hospital, otherwise room and board is private pay but could access therapy through Medicare Part B. Introduced to Rehab level of care, some of the qualifying diagnoses, and 3 hour therapy rule a day. Plan: Will re-evaluate for needs once patient's testing is completed and PT and OT have been able to evaluate patient. Family not indicating thoughts for discharge at this point, so will follow up once it is known further recommendations for aftercare. -DAISHA Fox, [employer]
[2017-08-26] MEDS: Metoprolol Tartrate 25 MG Tablet PO (14:55)
--- NOTE | 2017-08-26 15:27 | CASEMGMT ---
Social Work Note PCU Noted PT and OT evaluations. Recommendations for rehabilitation/further skilled therapy at discharge. Called Ria in [facility] and asked that patient be evaluated for appropriateness of rehab admission. Presented to patient's room. Patient sleeping soundly and at bedside reading. Met with at bedside, updated to therapy evaluations and call to rehab unit. Educted that patient remains observation status, so if rehab is not an option and patient still needed more care, and family wanted to look at SNF this would be private pay. By 's facial expression, private pay does not seem like something that would be interested in, however no outright discussion as to whether feasible or not. in agreement to look at inpatient rehab option and expressed appreciation. Plan: Continue to follow and assist. Await outcome of rehab referral. -DAISHA Fox, JIG INSPECTOR
[2017-08-26 17:05] LABS: Bedside Glucose 238 mg/dL (70-110)
[2017-08-26] MEDS: Atorvastatin Calcium 20 MG Tablet PO (20:40)
[2017-08-26 23:26] LABS: Bedside Glucose 238 mg/dL (70-110)
[2017-08-26] MEDS: Insulin Lispro 100 UNIT/ML INSULN.PEN SC (23:31)
[2017-08-27] VITALS (19 sets, daily range): BP systolic 164–208; BP diastolic 70–97; PULSE 61–80; RESP 16–18; TEMP 36.5–37.2; O2SAT 94–97; BMI 22.8
[2017-08-27 00:50] LABS: Bedside Glucose 232 mg/dL (70-110)
--- NOTE | 2017-08-27 01:09 | EKG12_ITS ---
Test Reason : AM EKG Blood Pressure : / mmHG Vent. Rate : 063 BPM Atrial Rate : 063 BPM P-R Int : 138 ms QRS Dur : 090 ms QT Int : 428 ms P-R-T Axes : 043 -24 -15 degrees QTc Int : 437 ms Normal sinus rhythm Leftward axis Confirmed by DAVE RIVERA, MARTIN ([id number]), advertising editor CORBY JOSUE ([id number] on 08/29/2017 2:03:37 PM Referred By: DIONY Confirmed By:MARTIN ACOSTA MD
[2017-08-27] MEDS: traMADol 50 MG Tablet PO (02:02)
[2017-08-27 02:11] LABS: Bedside Glucose 170 mg/dL (70-110)
[2017-08-27] MEDS: Acetaminophen 325 MG Tablet 650 MG PO (03:43)
[2017-08-27 07:05] LABS: Bedside Glucose 198 mg/dL (70-110)
[2017-08-27] MEDS: amLODIPine 5 MG Tablet PO (07:11)
[2017-08-27 08:12] LABS: Absolute Lymphocyte Count 0.99 X10^3/ul (0.83-4.51); Absolute Neutrophil Count 9.2 X10^3/uL (2.0-7.7); Basophil# 0.01 X10^3/uL; Basophil% 0.1 % (0-1); Eosinophil# 0.06 X10^3/uL; Eosinophils% 0.5 % (0-5); Hemoglobin 13.1 g/dl (13.0-16.5); Lymphocyte # 0.99 X10^3/ul (4.0); Lymphocyte % 8.9 % (19-41); Mean Corp Hgb Conc 34.5 g/gl (32-36); Mean Corpuscular Hgb 31.3 pg (27.0-32.0); Mean Corpuscular Volume 90.7 fL (80-94); Mean Platelet Vol. 11.2 fl (6.2-12.0); Monocyte# 0.94 X10^3/uL; Monocyte% 8.4 % (0-10); Neutrophil # 9.16 X10^3/uL (2.7-7.7); Platelet Count 182 K/mm3 (150-450); RBC Distribution Width SD 42.9 fl (35.1-43.9); Red Blood Count 4.19 M/mm3 (4.6-6.2); White Blood Count 11.2 K/mm3 (4.4-11.0)
[2017-08-27] MEDS: Aspirin 81 MG TAB.CHEW PO (08:12)
[2017-08-27] MEDS: glipiZIDE 5 MG Tablet 10 MG PO ×2 (08:12→17:16)
[2017-08-27] MEDS: Insulin Lispro 100 UNIT/ML INSULN.PEN SC ×4 (08:12→23:08)
[2017-08-27 08:14] LABS: POSITIVE COUNT NO; POSITIVE DIFFERENTIAL NO; POSITIVE MORPHOLOGY NO
[2017-08-27 08:29] LABS: Anion Gap 9 (5-15); BUN 15 mg/dL (7-18); Calcium,Total 8.5 mg/dL (8.5-10.1); Chloride 100 mmol/L (98-107); Creatinine, Serum 0.79 mg/dL (0.70-1.30); EST Glomerular Filtration Rate 100 mL/min (>60); Est Glom Filt Rate - Afr Amer 121 mL/min (>60); Estimated Creatinine Clearance 53.25 ml/min; Glucose 193 mg/dL (74-106); Potassium 3.7 mmol/L (3.5-5.1); Sodium Level 133 mmol/L (136-145)
--- NOTE | 2017-08-27 08:38 | MRI_ITS ---
STUDY: MRI LUMBAR SPINE WITHOUT CONTRAST REASON FOR EXAM: Male, 82 years old. right hip pain/ leg pain, falls. TECHNIQUE: Standardized fat and water weighted pulse sequences were obtained in the sagittal and axial planes. COMPARISON: None FINDINGS: T12-L1: There is minimal disc space narrowing. There is no significant disc herniation, spinal canal or foramina stenosis.. Normal lumbar lordosis. There is no substantial scoliosis. Normal conus medullaris that terminates at the T12 L1-2: There is mild disc space narrowing and endplate spondylosis. There is a mild disc bulge and facet hypertrophy with mild central canal stenosis. There is mild bilateral foraminal stenosis. L2-3: There is mild disc space narrowing and endplate spondylosis. There is a mild disc bulge and bilateral facet hypertrophy with mild central canal stenosis. There is mild bilateral foraminal stenosis. L3-4: There is moderate disc space narrowing and endplate spondylosis. There is mild disc bulge and facet hypertrophy with moderate central canal stenosis. There is inferiorly directed right paracentral disc extrusion (1.4 x 0.8 x 2.0 cm) with severe right lateral recess narrowing. There is mild bilateral foraminal stenosis. L4-5: There is severe disc space narrowing and endplate spondylosis. There is a moderate disc osteophyte complex and facet arthropathy with moderate central canal stenosis. There is moderate right and moderate left foraminal stenosis. L5-S1: There is severe disc space narrowing and endplate spondylosis. There is interbody osseous fusion. There is grade 1 anterolisthesis. There is no significant central canal stenosis. There is severe bilateral foraminal stenosis. Normal visualized sacral ala. Normal visualized paraspinous soft tissue structures. MRI/Spine Lumbar (Routine) IMPRESSION: L3/L4: Right disc extrusion with severe right lateral recess narrowing. Moderate central canal stenosis. L4/L5: Moderate central canal stenosis. Moderate bilateral foraminal stenosis. L5/S1: Grade 1 anterolisthesis. Osseous fusion. Severe bilateral foraminal stenosis. Electronically Signed: Samer Salhab, MD at 13:28 EDT Tel , Service support ,
[2017-08-27 09:31] LABS: Bedside Glucose 124 mg/dL (70-110)
[2017-08-27 09:36] LABS: Hemoglobin A1c 7.1 % (4.2-6.3)
--- NOTE | 2017-08-27 09:44 | NURSING ---
Per Dr. Rodrigues will have loop recorder interrogated if any problem exists Dr. Kirkpatrick will come see patient
--- NOTE | 2017-08-27 09:54 | CON.PCM_ITS ---
Problem List (1) TIA (transient ischemic attack) Status: Acute Reason for Consult Date of Consultation: 08/27/17 Reason for Consultation: TIA History of Present Illness: The patient is a 82 year old CM with PMH HTN, HLD, DM, DM Neuropathy, H/O Syncope s/p loop recorder implantation admitted with slurred speech and right sided weakness. History is obtained from patient, his , and medical records. Per patient and his , he had slurred speech, right sided weakness on Saturday evening (08/25/17), started at about 6 PM, symptoms started improving by the time he came to the [facility] ED, symptoms resolved in about 1 hour per family. Per ED documentation, his NIHSS was 1 on admission,and he was not an Ivtpa candidate. At present patient denies any SUH, visual symptoms, focal motor weakness or sensory loss. Per he had a fall about 3-4 days prior to this event, per patient he had a mechanical fall, he uses cane/walker to ambulate, denies any frequent falls, may have 1 fall in the past 6 months, does not need any assistance for his ADLs, had syncopal episode in April 2016 when he was in [place] and had loop recorder implanted at that time. Patient does complaint of low back pain but denies any radicular symptoms and per has been scheduled for MRI Lumbar spine this Saturday. Denies neck pain or radicular symptoms. MRI brain reported normal since admission, CTA head/neck reported negative for hemodynamically significant stenosis or occlusion. [] Past Medical History Past Medical History (Chronic Problems): Chronic Problems HTN (hypertension) (Chronic) Allergies iodine Allergy (Verified 08/25/17 20:20) Rash Home Medications: Ambulatory Orders Medication Instructions Recorded Lisinopril [Zestril] 20 mg PO DAILY 08/25/17 Metformin HCl [Glucophage] 1,000 mg PO BID 08/25/17 Metoprolol Succinate [Toprol Xl] 25 mg PO DAILY 08/25/17 Oxybutynin [Ditropan] 5 mg PO DAILY 08/25/17 Simvastatin [Zocor] 40 mg PO QHS 08/25/17 glipiZIDE [Glucotrol] 10 mg PO BID 08/25/17 Lives: Spouse/ Significant Other Smoking Status: Never smoker Tobacco Use: Non-smoker Alcohol: None Drugs: None - *Family History Maternal History Items: No pertinent history Review of Systems Constitutional: Reports: - - complete ROS negative except as documented in HPI Patient Problems: Active and Suspected Problems DMII (diabetes mellitus, type 2) (Acute) Lipidemia (Acute) TIA (transient ischemic attack) (Acute) - Physical Exam General: Alert HEENT: Normocephalic Neck: Supple Lungs: Clear to auscultation Cardiovascular: Normal S1, Normal S2 Extremities: No cyanosis Skin: - - Bruise around right eye s/p fall Neurological: - - consious, alert, AoAx3, CN 2-12 grossly intact, power 5/5 all 4 extremities, no sensory loss, gait deferred, Reflexes + B/L B/S/T/K/A, NIHSS 0 at present, mRS 0 at baseline. Psych/Mental Status: Normal Affect Vital Signs Temp Pulse Resp BP Pulse Ox 98.7 F 61 18 195/81 H 97 08/27/17 06:38 08/27/17 07:00 08/27/17 06:38 08/27/17 06:42 08/27/17 06:38 Oxygen Delivery Method Room Air Weight: 66.2 kg Body Mass Index (BMI) 22.8 Orthostatic Vital Signs Start: 08/26/17 11:11 Freq: q24h Status: Active Protocol: Activity Type Activity Date Activity User E-Sign Co-Sign Detail Recorded Client Recorded Date Recorded By Document 08/27/17 06:42 KDB [id number] 08/27/17 06:45 KDB 08/27/17 06:42 Orthostatic Vitals Standing -Blood Pressure (90/60-120/80) 191/97 H -Extremity Use Right Arm -Pulse Rate (60-100) 71 Sitting -Blood Pressure (90/60-120/80) 208/85 H -Extremity Use Right Arm -Pulse Rate (60-100) 62 Lying -Blood Pressure (90/60-120/80) 195/81 H -Extremity Use Right Arm -Pulse Rate (60-100) 63 Intake and Output for Last 24 Hours 08/25/17 08/26/17 08/27/17 23:59 23:59 23:59 Intake Total 2682 / 2682 757 / 757 Output Total 2925 / 2925 750 / 750 Balance -243 / -243 7 / Laboratory Tests Past 24 Hrs 08/26/17 08/27/17 08/27/17 04:46 07:46 07:46 WBC 11.2 H RBC 4.19 L Hgb 13.1 Hct 38.0 L MCV 90.7 MCH 31.3 MCHC 34.5 RDW 13.0 RDW Differential 42.9 Plt Count 182 MPV 11.2 Immature Gran % (Auto) 0.100 Neut % (Auto) 82.0 H Lymph % (Auto) 8.9 L [place] % (Auto) 8.4 Eos % (Auto) 0.5 Baso % (Auto) 0.1 Absolute Neuts (auto) 9.2 H Absolute Lymphs (auto) 0.99 Total Counted Not Reportable Sodium 135 L 133 L Potassium 4.1 3.7 Chloride 100 100 Carbon Dioxide 25.0 24.0 Anion Gap 10 9 BUN 20 H 15 Creatinine 1.00 0.79 Estim Creat Clear Calc 53.25 53.25 Est GFR (MDRD) Af Amer 93 121 Est GFR (MDRD) Non-Af 77 100 BUN/Creatinine Ratio 20.1 H 19.0 Glucose 174 H 193 H Hemoglobin A1c Calcium 8.6 8.5 Triglycerides 86 Cholesterol 137 LDL Cholesterol 78 VLDL Cholesterol 17 HDL Cholesterol 42 08/27/17 07:46 WBC RBC Hgb Hct MCV MCH MCHC RDW RDW Differential Plt Count MPV Immature Gran % (Auto) Neut % (Auto) Lymph % (Auto) [place] % (Auto) Eos % (Auto) Baso % (Auto) Absolute Neuts (auto) Absolute Lymphs (auto) Total Counted Sodium Potassium Chloride Carbon Dioxide Anion Gap BUN Creatinine Estim Creat Clear Calc Est GFR (MDRD) Af Amer Est GFR (MDRD) Non-Af BUN/Creatinine Ratio Glucose Hemoglobin A1c 7.1 H Calcium Triglycerides Cholesterol LDL Cholesterol VLDL Cholesterol HDL Cholesterol POC Glucose 08/27/17 08/27/17 08/26/17 06:47 01:42 23:27 POC Glucose 198 H 170 H 232 H 08/26/17 08/26/17 08/26/17 20:35 16:52 11:09 POC Glucose 238 H 238 H 182 H Assessment/Plan All Active Problems DMII (diabetes mellitus, type 2) (Acute) Lipidemia (Acute) TIA (transient ischemic attack) (Acute) The patient is a 82 year old CM with PMH HTN, HLD, DM, DM Neuropathy, H/O Syncope s/p loop recorder implantation admitted with slurred speech and right sided weakness. History is obtained from patient, his , and medical records. Per patient and his , he had slurred speech, right sided weakness on Saturday evening (08/25/17), started at about 6 PM, symptoms started improving by the time he came to the [facility] ED, symptoms resolved in about 1 hour per family. Per ED documentation, his NIHSS was 1 on admission,and he was not an Ivtpa candidate. At present patient denies any SUH, visual symptoms, focal motor weakness or sensory loss. Per he had a fall about 3-4 days prior to this event, per patient he had a mechanical fall, he uses cane/walker to ambulate, denies any frequent falls, may have 1 fall in the past 6 months, does not need any assistance for his ADLs, does drive, had syncopal episode in April 2016 when he was in [place] and had loop recorder implanted at that time. Patient does complaint of low back pain but denies any radicular symptoms and per has been scheduled for MRI Lumbar spine this Saturday. Denies neck pain or radicular symptoms. Denies any resting tremors, has h/o action tremors per patient, denies REM behavior sleep d/o, visual hallucinations. MRI brain reported normal since admission, CTA head/neck reported negative for hemodynamically significant stenosis or occlusion. Per patient was on ASA at baseline Impression Probable TIA Uncontrolled HTN Plan -On ASA 81 mg PO once daily. Start Plavix 75 mg PO once daily, dual AP for 3 weeks, then switch to single AP. Bleeding risks discussed in detail with the patient. -Increase Lipitor to 40 mg PO q hs -MRI brain images reviewed- no acute infarct -CTA head/neck -no hemodynamically significant stenosis or occlusion -TTE-EF 60%, normal LA size, no PFO -LDL-78, Ziw0d-5.1% -Goal BP < 130/80 mmHg and goal Hba1c < 7% -Better BP control, will defer to primary team. -Cardiology evaluation for loop recorder evaluation -Stroke risk factors discussed in detail and stroke education provided -Recommend MRI L spine w/o contrast -PT/OT/ST -Fall precautions -GI/DVT prophylaxis -Neurology follow up as outpatient, has an appointment with Neurology the coming week -Please call with questions if any -Thank you for allowing us to participate in patient's care and management I spent 60 minutes taking history, doing physical examination, reviewing medical records, coordinating care and counseling the patient. Code Visit Inpatient E&M: 46891 Init Hosp L3
--- NOTE | 2017-08-27 10:02 | NURSING ---
unable to complete vitals on time per [facility]SA d/t pt being at MRI
[2017-08-27] MEDS: Lisinopril 20 MG Tablet PO ×2 (10:04→17:16)
[2017-08-27] MEDS: Metoprolol(XL)Succ 50 MG Tablet PO (10:04)
[2017-08-27] MEDS: Magnesium Hydroxide 30 ML UDC PO (10:04)
[2017-08-27] MEDS: Oxybutynin 5 MG Tablet PO (10:04)
[2017-08-27] MEDS: 0.9% Normal Saline 1,000 ML 100 ML IV ×2 (11:11→23:12)
[2017-08-27] MEDS: Clopidogrel Bisulfate 75 MG Tablet PO (11:11)
--- NOTE | 2017-08-27 13:33 | PCM.DC ---
- Discharge Diagnoses Current Active Problems: Current Active and Chronic Problems HTN (hypertension) (Chronic) DMII (diabetes mellitus, type 2) (Acute) Lipidemia (Acute) TIA (transient ischemic attack) (Acute) You will use the following diet at home:: Cardiac Discharge Activity: Return to Normal Activity Call your doctor if you observe: Shortness of breath, Dizziness, Fainting spells, Chest pain Allergies/Adverse Reactions: Allergies iodine Allergy (Verified 08/25/17 20:20) Rash Medications to take at Discharge Metformin HCl [Glucophage] 1,000 mg PO BID 08/25/17 Oxybutynin [Ditropan] 5 mg PO DAILY 08/25/17 Simvastatin [Zocor] 40 mg PO QHS 08/25/17 glipiZIDE [Glucotrol] 10 mg PO BID 08/25/17 Acetaminophen [Tylenol Tablet] 650 mg PO Q6H PRN PRN tablet 08/27/17 Amlodipine [Norvasc] 10 mg PO DAILY #30 tablet 08/27/17 Aspirin [Aspirin, Baby] 81 mg PO DAILY@0800 tab.chew 08/27/17 Atorvastatin Calcium [Lipitor] 40 mg PO QHS tablet 08/27/17 Clopidogrel Bisulfate [Plavix] 75 mg PO DAILY tablet 08/27/17 Insulin Lispro [Humalog KwikPen] See Protocol SC ACHS insuln.pen 08/27/17 Lisinopril [Zestril] 40 mg PO DAILY #30 tablet 08/27/17 Metoprolol(XL)Succ [Toprol Xl (Beta Sunny)] 50 mg PO DAILY tablet 08/27/17 Tamsulosin HCl [Flomax] 0.4 mg PO DAILY@1730 capsule 08/27/17 The following prescriptions were given: Amlodipine [Norvasc] 10 mg PO DAILY #30 tablet Lisinopril [Zestril] 40 mg PO DAILY #30 tablet Primary Care Physician: Christopher Angeles MD [Primary Care Provider] - Please follow up with your Primary Care Physician in: 1 Week Test Results: Test results from this visit will be discussed in further detail at your follow-up appointment, if applicable. Please Follow Up With: Jessie Valentine MD When: As scheduled Proposed Discharge Date: 08/27/17
--- NOTE | 2017-08-27 13:37 | DCINST_ITS ---
- Discharge Diagnoses Current Active Problems: Current Active and Chronic Problems HTN (hypertension) (Chronic) DMII (diabetes mellitus, type 2) (Acute) Lipidemia (Acute) TIA (transient ischemic attack) (Acute) You will use the following diet at home:: Cardiac Discharge Activity: Return to Normal Activity Call your doctor if you observe: Shortness of breath, Dizziness, Fainting spells , Chest pain Allergies/Adverse Reactions: Allergies iodine Allergy (Verified 08/25/17 20:20) Rash Medications to take at Discharge Metformin HCl [Glucophage] 1,000 mg PO BID 08/25/17 Oxybutynin [Ditropan] 5 mg PO DAILY 08/25/17 Simvastatin [Zocor] 40 mg PO QHS 08/25/17 glipiZIDE [Glucotrol] 10 mg PO BID 08/25/17 Acetaminophen [Tylenol Tablet] 650 mg PO Q6H PRN PRN tablet 08/27/17 Amlodipine [Norvasc] 10 mg PO DAILY #30 tablet 08/27/17 Aspirin [Aspirin, Baby] 81 mg PO DAILY@0800 tab.chew 08/27/17 Atorvastatin Calcium [Lipitor] 40 mg PO QHS tablet 08/27/17 Clopidogrel Bisulfate [Plavix] 75 mg PO DAILY tablet 08/27/17 Insulin Lispro [Humalog KwikPen] See Protocol SC ACHS insuln.pen 08/27/17 Lisinopril [Zestril] 40 mg PO DAILY #30 tablet 08/27/17 Metoprolol(XL)Succ [Toprol Xl (Beta Sunny)] 50 mg PO DAILY tablet 08/27/17 Tamsulosin HCl [Flomax] 0.4 mg PO DAILY@1730 capsule 08/27/17 The following prescriptions were given: Amlodipine [Norvasc] 10 mg PO DAILY #30 tablet Lisinopril [Zestril] 40 mg PO DAILY #30 tablet Primary Care Physician: Christopher Angeles MD [Primary Care Provider] - Please follow up with your Primary Care Physician in: 1 Week Test Results: Test results from this visit will be discussed in further detail at your follow- up appointment, if applicable. Please Follow Up With: Jessie Valentine MD When: As scheduled Proposed Discharge Date: 08/27/17
--- NOTE | 2017-08-27 13:40 | PCM.DC.SUM ---
<Jennifer Arizmendi - Last Filed: 08/27/17 13:52> Discharge Date and Diagnosis Date of Admission: 08/25/17 Date of Discharge: 08/27/17 - Primary Discharge Diagnosis Active and Suspected Problems 1. TIA 2. Frequent falls due to General physical debility 3. Hypertension, poorly controlled 4. Urinary retention secondary to BPH - Secondary Discharge Diagnosis Chronic Problems HTN (hypertension) (Chronic) Type 2 diabetes mellitus Hospital Course and Treatment Imaging Results: Diagnostic Data Brain CT 08/25/17 19:33 IMPRESSION: Chronic involutional changes of the brain. There is no intracranial hemorrhage or evidence of acute infarct. If acute infarct is clinically suspected, MRI may be helpful for further evaluation at this time. N.B. : The above information has been verbally conveyed by Wade Wolfe MD to Connor Schreiber, Referring Physician, on 08/25/2017 20:06:56 (ET). Electronically Signed: Wade Wolfe MD at 20:03 EDT , Service support , N.B. : The above information has been verbally conveyed by Wade Wolfe MD to Connor Schreiber, Referring Physician, on 08/25/2017 20:06:56 (ET). Head CTA 08/25/17 20:06 IMPRESSION: Normal [place] of [place] without a demonstrated aneurysm or hemodynamically significant stenosis. Electronically Signed: Lionel Edward MD at 22:46 EDT , Service support , Neck CTA 08/25/17 20:06 IMPRESSION: No CTA evidence of significant arterial pathology in the neck. Electronically Signed: Kyle Alvarez MD at 22:54 EDT Tel , Service support , Brain MRI 08/26/17 01:09 IMPRESSION: Senescent changes with no evidence of acute intracranial bleed, mass or ischemia. 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 Moderate central canal stenosis. L4/L5: Moderate central canal stenosis. Moderate bilateral foraminal stenosis. L5/S1: Grade 1 anterolisthesis. Osseous fusion. Severe bilateral foraminal stenosis. Electronically Signed: Femi Bolton MD at 13:28 EDT Tel , Service support , Dr. Valentine- Neurology Operations: None Procedures: 2-D Echocardiogram Summary of Care Provided: The patient is a 82 year old M admitted 08/25/2017 due to right facial droop. He has a past medical history of hypertension, hyperlipidemia, type 2 diabetes mellitus. His also reports frequent falls at home and difficulty caring for himself due to generalized weakness. Patient suspected to have TIA which resolved. Neurology consulted. MRI of brain without acute stroke. CT of head negative. Patient will continue aspirin, statin, Plavix with the dual antiplatelet therapy for 3 weeks. Follow-up with neurology as scheduled. Patient will be discharged to rehab unit for general debility with frequent falls. Hypertension poorly controlled during admission. His home lisinopril regimen increased. Patient started on amlodipine 10 mg daily. Metoprolol increased to 50 mg daily. Continue to monitor closely at rehab unit and by primary care physician. Patient was noted to have urinary retention suspected secondary to BPH. Beckwith catheter placed. Patient was started on Flomax. Will need voiding trial prior to discharge from rehab unit. Lumbar spine MRI pending at discharge and can be followed up at upcoming neurology appointment. Echocardiogram showed an EF of 60%, stage I diastolic dysfunction, pulmonary artery systolic pressure 33 mmHg. Next CTA showed no significant arterial pathology in the neck. Patient is stable for discharge to rehab unit for further skilled therapy. General: Alert, Oriented x3, Cooperative HEENT: PERRLA, EOMI, Normocephalic, right eye, facial ecchymosis Neck: Supple, No JVD, Negative Carotid Bruits Lungs: Clear to auscultation, Normal air movement Cardiovascular: Regular rate, No murmurs Abdomen: Bowel Sounds Present, Soft, Non Tender Extremities: No edema, Capillary Refill Less than 3 Seconds Skin: No rashes, No breakdown Musculoskeletal: No Tenderness to Palpation of Joints or Extremities Neurological: Cranial nerves II-XII grossly intact Psych/Mental Status: Normal Affect, Appropriate Patient seen exam prior to discharge. Physical assessment as noted above. Patient stable for discharge to rehab unit. This patient was seen by ANTONINO Bergman under the supervision of Dr. Rodrigues. Discharge Diet: Low fat/ Low Cholesterol Discharge Activity: Return to Normal Activity Call your doctor if you observe: Shortness of breath, Dizziness, Fainting spells, Chest pain Home Medications: Medications to take at Discharge Metformin HCl [Glucophage] 1,000 mg PO BID 08/25/17 Oxybutynin [Ditropan] 5 mg PO DAILY 08/25/17 Simvastatin [Zocor] 40 mg PO QHS 08/25/17 glipiZIDE [Glucotrol] 10 mg PO BID 08/25/17 Acetaminophen [Tylenol Tablet] 650 mg PO Q6H PRN PRN tablet 08/27/17 Amlodipine [Norvasc] 10 mg PO DAILY #30 tablet 08/27/17 Aspirin [Aspirin, Baby] 81 mg PO DAILY@0800 tab.chew 08/27/17 Atorvastatin Calcium [Lipitor] 40 mg PO QHS tablet 08/27/17 Clopidogrel Bisulfate [Plavix] 75 mg PO DAILY tablet 08/27/17 Insulin Lispro [Humalog KwikPen] See Protocol SC ACHS insuln.pen 08/27/17 Lisinopril [Zestril] 40 mg PO DAILY #30 tablet 08/27/17 Metoprolol(XL)Succ [Toprol Xl (Beta Sunny)] 50 mg PO DAILY tablet 08/27/17 Tamsulosin HCl [Flomax] 0.4 mg PO DAILY@1730 capsule 08/27/17 Following Prescrptions Were Given to Patient: Amlodipine [Norvasc] 10 mg PO DAILY #30 tablet Lisinopril [Zestril] 40 mg PO DAILY #30 tablet Primary Care Physician: Christopher Angeles MD [Primary Care Provider] - Please follow up with your Primary Care Physician in: 1 Week Please Follow Up With: Jessie Valentine MD When: As scheduled Disposition: Inpt Rehab Unit/Facility Minutes spent on discharge:: 35 Patient Condition:: Stable Medical Necessity - Tobacco Use Smoking Status: Never smoker Tobacco Use: Non-smoker Meaningful Use Info Meaningful Use Diagnoses (Choose all that apply): None applicable <Oksana Rodrigues - Last Filed: 08/27/17 14:18> Discharge Date and Diagnosis - Secondary Discharge Diagnosis Chronic Problems HTN (hypertension) (Chronic) Hospital Course and Treatment Imaging Results: 08/27/17 08:38 MRI Lumbar [Spine Lumbar (Routine)] [MRI] Urgent Summary of Care Provided: Patient seen by Jennifer MUÑIZ under my supervision. Agree with above note and assessment and plan. The patient is a 82 year old male admitted on 08/25/2017 with complaint of right facial droop. He has a past medical history as mentioned above. He has had a few falls at home and unable to care for himself very well. He was managed for TIA which is now resolved. Neurology was consulted. MRI, CT of the head were both negative. He is on aspirin, statin and Plavix and remained stable. MRI of the lumbar spine showed L3/4 right disc extrusion with severe right lateral recess narrowing and moderate central canal stenosis, moderate canal stenosis in L4-5 and L5/S1 showed grade 1 anterolisthesis, severe bilateral foraminal stenosis. He had urinary obstruction during admission, which was resolved with passage of urinary catheter. Patient remained stable, and was dced to rehab facility on 08/27/17 with urinary catheter in situ. He is to follow up with PCP, neurologist. Referral given to patient to see urologist in one week o/a of urinary retention. Catheter to be taken out in rehab facility within a week to prevent any UTI. Patient seen and examined prior to discharge. He had no complaints and felt well. Review of systems otherwise negative. Daughter and were at his bedside. O/E:[] General: Alert, Oriented x3, Cooperative HEENT: PERRLA, EOMI, Normocephalic, resolving right eye ecchymosis Neck: Supple, No JVD, Negative Carotid Bruits Lungs: Clear to auscultation, Normal air movement Cardiovascular: Regular rate, No murmurs Abdomen: Bowel Sounds Present, Soft, Non Tender Extremities: No edema, Capillary Refill Less than 3 Seconds Skin: No rashes, No breakdown Musculoskeletal: No Tenderness to Palpation of Joints or Extremities Neurological: Cranial nerves II-XII grossly intact Psych/Mental Status: Normal Affect, Appropriate Plan as documented above. Code Visit Inpatient E&M: 79089 Disch Hosp
--- NOTE | 2017-08-27 13:42 | CASEMGMT ---
LUBA spoke with Ira from rehab and Dr Valentine will take patient in the rehab unit. Patient's was going to call their daughter to make sure this is okay. Arminda ALBERT MSW
[2017-08-27 13:46] LABS: Bedside Glucose 239 mg/dL (70-110)
--- NOTE | 2017-08-27 13:51 | DS.PCM_ITS ---
<Jennifer Arizmendi - Last Filed: 08/27/17 13:52> Discharge Date and Diagnosis Date of Admission: 08/25/17 Date of Discharge: 08/27/17 - Primary Discharge Diagnosis Active and Suspected Problems 1. TIA 2. Frequent falls due to General physical debility 3. Hypertension, poorly controlled 4. Urinary retention secondary to BPH - Secondary Discharge Diagnosis Chronic Problems HTN (hypertension) (Chronic) Type 2 diabetes mellitus Hospital Course and Treatment Imaging Results: Diagnostic Data Brain CT 08/25/17 19:33 IMPRESSION: Chronic involutional changes of the brain. There is no intracranial hemorrhage or evidence of acute infarct. If acute infarct is clinically suspected, MRI may be helpful for further evaluation at this time. N.B. : The above information has been verbally conveyed by Wade Wolfe MD to Connor Schreiber, Referring Physician, on 08/25/2017 20:06:56 (ET). Electronically Signed: Wade Wolfe MD at 20:03 EDT , Service support , N.B. : The above information has been verbally conveyed by Wade Wolfe MD to Connor Schreiber, Referring Physician, on 08/25/2017 20:06:56 (ET). Head CTA 08/25/17 20:06 IMPRESSION: Normal [place] without a demonstrated aneurysm or hemodynamically significant stenosis. Electronically Signed: Lionel Edward MD at 22:46 EDT , Service support , Neck CTA 08/25/17 20:06 IMPRESSION: No CTA evidence of significant arterial pathology in the neck. Electronically Signed: Kyle Alvarez MD at 22:54 EDT Tel , Service support , Brain MRI 08/26/17 01:09 IMPRESSION: Senescent changes with no evidence of acute intracranial bleed, mass or ischemia. 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 Moderate central canal stenosis. L4/L5: Moderate central canal stenosis. Moderate bilateral foraminal stenosis. L5/S1: Grade 1 anterolisthesis. Osseous fusion. Severe bilateral foraminal stenosis. Electronically Signed: Femi Bolton MD at 13:28 EDT Tel , Service support , Dr. Valentine- Neurology Operations: None Procedures: 2-D Echocardiogram Summary of Care Provided: The patient is a 82 year old M admitted 08/25/2017 due to right facial droop. He has a past medical history of hypertension, hyperlipidemia, type 2 diabetes mellitus. His also reports frequent falls at home and difficulty caring for himself due to generalized weakness. Patient suspected to have TIA which resolved. Neurology consulted. MRI of brain without acute stroke. CT of head negative. Patient will continue aspirin, statin, Plavix with the dual antiplatelet therapy for 3 weeks. Follow-up with neurology as scheduled. Patient will be discharged to rehab unit for general debility with frequent falls. Hypertension poorly controlled during admission. His home lisinopril regimen increased. Patient started on amlodipine 10 mg daily. Metoprolol increased to 50 mg daily. Continue to monitor closely at rehab unit and by primary care physician. Patient was noted to have urinary retention suspected secondary to BPH. Beckwith catheter placed. Patient was started on Flomax. Will need voiding trial prior to discharge from rehab unit. Lumbar spine MRI pending at discharge and can be followed up at upcoming neurology appointment. Echocardiogram showed an EF of 60%, stage I diastolic dysfunction, pulmonary artery systolic pressure 33 mmHg. Next CTA showed no significant arterial pathology in the neck. Patient is stable for discharge to rehab unit for further skilled therapy. General: Alert, Oriented x3, Cooperative HEENT: PERRLA, EOMI, Normocephalic, right eye, facial ecchymosis Neck: Supple, No JVD, Negative Carotid Bruits Lungs: Clear to auscultation, Normal air movement Cardiovascular: Regular rate, No murmurs Abdomen: Bowel Sounds Present, Soft, Non Tender Extremities: No edema, Capillary Refill Less than 3 Seconds Skin: No rashes, No breakdown Musculoskeletal: No Tenderness to Palpation of Joints or Extremities Neurological: Cranial nerves II-XII grossly intact Psych/Mental Status: Normal Affect, Appropriate Patient seen exam prior to discharge. Physical assessment as noted above. Patient stable for discharge to rehab unit. This patient was seen by ANTONINO Bergman under the supervision of Dr. Rodrigues. Discharge Diet: Low fat/ Low Cholesterol Discharge Activity: Return to Normal Activity Call your doctor if you observe: Shortness of breath, Dizziness, Fainting spells , Chest pain Home Medications: Medications to take at Discharge Metformin HCl [Glucophage] 1,000 mg PO BID 08/25/17 Oxybutynin [Ditropan] 5 mg PO DAILY 08/25/17 Simvastatin [Zocor] 40 mg PO QHS 08/25/17 glipiZIDE [Glucotrol] 10 mg PO BID 08/25/17 Acetaminophen [Tylenol Tablet] 650 mg PO Q6H PRN PRN tablet 08/27/17 Amlodipine [Norvasc] 10 mg PO DAILY #30 tablet 08/27/17 Aspirin [Aspirin, Baby] 81 mg PO DAILY@0800 tab.chew 08/27/17 Atorvastatin Calcium [Lipitor] 40 mg PO QHS tablet 08/27/17 Clopidogrel Bisulfate [Plavix] 75 mg PO DAILY tablet 08/27/17 Insulin Lispro [Humalog KwikPen] See Protocol SC ACHS insuln.pen 08/27/17 Lisinopril [Zestril] 40 mg PO DAILY #30 tablet 08/27/17 Metoprolol(XL)Succ [Toprol Xl (Beta Sunny)] 50 mg PO DAILY tablet 08/27/17 Tamsulosin HCl [Flomax] 0.4 mg PO DAILY@1730 capsule 08/27/17 Following Prescrptions Were Given to Patient: Amlodipine [Norvasc] 10 mg PO DAILY #30 tablet Lisinopril [Zestril] 40 mg PO DAILY #30 tablet Primary Care Physician: Christopher Angeles MD [Primary Care Provider] - Please follow up with your Primary Care Physician in: 1 Week Please Follow Up With: Jessie Valentine MD When: As scheduled Disposition: Inpt Rehab Unit/Facility Minutes spent on discharge:: 35 Patient Condition:: Stable Medical Necessity - Tobacco Use Smoking Status: Never smoker Tobacco Use: Non-smoker Meaningful Use Info Meaningful Use Diagnoses (Choose all that apply): None applicable <Oksana Rodrigues - Last Filed: 08/27/17 14:18> Discharge Date and Diagnosis - Secondary Discharge Diagnosis Chronic Problems HTN (hypertension) (Chronic) Hospital Course and Treatment Imaging Results: 08/27/17 08:38 MRI Lumbar [Spine Lumbar (Routine)] [MRI] Urgent Summary of Care Provided: Patient seen by Jennifer MUÑIZ under my supervision. Agree with above note and assessment and plan. The patient is a 82 year old male admitted on 08/25/2017 with complaint of right facial droop. He has a past medical history as mentioned above. He has had a few falls at home and unable to care for himself very well. He was managed for TIA which is now resolved. Neurology was consulted. MRI, CT of the head were both negative. He is on aspirin, statin and Plavix and remained stable. MRI of the lumbar spine showed L3/4 right disc extrusion with severe right lateral recess narrowing and moderate central canal stenosis, moderate canal stenosis in L4-5 and L5/S1 showed grade 1 anterolisthesis, severe bilateral foraminal stenosis. He had urinary obstruction during admission, which was resolved with passage of urinary catheter. Patient remained stable, and was dced to rehab facility on 08/27/17 with urinary catheter in situ. He is to follow up with PCP, neurologist. Referral given to patient to see urologist in one week o/a of urinary retention. Catheter to be taken out in rehab facility within a week to prevent any UTI. Patient seen and examined prior to discharge. He had no complaints and felt well. Review of systems otherwise negative. Daughter and were at his bedside. O/E:[] General: Alert, Oriented x3, Cooperative HEENT: PERRLA, EOMI, Normocephalic, resolving right eye ecchymosis Neck: Supple, No JVD, Negative Carotid Bruits Lungs: Clear to auscultation, Normal air movement Cardiovascular: Regular rate, No murmurs Abdomen: Bowel Sounds Present, Soft, Non Tender Extremities: No edema, Capillary Refill Less than 3 Seconds Skin: No rashes, No breakdown Musculoskeletal: No Tenderness to Palpation of Joints or Extremities Neurological: Cranial nerves II-XII grossly intact Psych/Mental Status: Normal Affect, Appropriate Plan as documented above. Code Visit Inpatient E&M: 57016 Disch Hosp
--- NOTE | 2017-08-27 14:21 | CASEMGMT ---
Everyone is in agreement with patient going to 4th floor inpatient rehab unit. SW spoke with Ira and she is aware. SW spoke with patient and his and they are in agreement. Plan: [facility] 4th floor rehab unit [place] SHIPMAN
[2017-08-27 16:41] LABS: Bedside Glucose 194 mg/dL (70-110)
--- NOTE | 2017-08-27 16:58 | PCM.PROGNOTE ---
<Jennifer Arizmendi - Last Filed: 08/27/17 17:03> Subjective: Patient seen and examined. Discharge to rehab unit on hold given elevated blood pressure. Medications adjusted. Continue to monitor with plans for discharge to rehab unit tomorrow. Patient denies current complaints. Wishes to discharge to rehab unit for further therapy. - Physical Exam General: Alert, Oriented x3, Cooperative, No apparent distress HEENT: Atraumatic, PERRLA, EOMI, Normocephalic Neck: Supple, No JVD, Negative Carotid Bruits Lungs: Clear to auscultation, Normal air movement Cardiovascular: Regular rate, No murmurs Abdomen: Bowel Sounds Present, Soft, Non Tender, Non-Distended Extremities: No clubbing, No cyanosis, No edema, Capillary Refill Less than 3 Seconds Skin: No rashes, No breakdown Musculoskeletal: No Tenderness to Palpation of Joints or Extremities Neurological: Cranial nerves II-XII grossly intact, Neuro grossly intact Psych/Mental Status: Normal Affect, Appropriate Vital Signs Temp Pulse Resp BP Pulse Ox 98.4 F 71 16 165/70 H 94 08/27/17 13:55 08/27/17 14:29 08/27/17 13:55 08/27/17 13:55 08/27/17 14:43 Oxygen Delivery Method Room Air Weight: 66.2 kg Body Mass Index (BMI) 22.8 Orthostatic Vital Signs Start: 08/26/17 11:11 Freq: q24h Status: Active Protocol: Activity Type Activity Date Activity User E-Sign Co-Sign Detail Recorded Client Recorded Date Recorded By Document 08/27/17 06:42 KD [id number] 08/27/17 06:45 KDB 08/27/17 06:42 Orthostatic Vitals Standing -Blood Pressure (90/60-120/80 mm Hg) 191/97 H -Extremity Use Right Arm -Pulse Rate (60-100 beats/min) 71 Sitting -Blood Pressure (90/60-120/80 mm Hg) 208/85 H -Extremity Use Right Arm -Pulse Rate (60-100 beats/min) 62 Lying -Blood Pressure (90/60-120/80 mm Hg) 195/81 H -Extremity Use Right Arm -Pulse Rate (60-100 beats/min) 63 Intake and Output for Last 24 Hours 08/25/17 08/26/17 08/27/17 23:59 23:59 23:59 Intake Total 2682 / 2682 1841 / 1841 Output Total 2925 / 2925 1400 / 1400 Balance -243 / -243 441 / 441 Laboratory Tests Past 24 Hrs 08/27/17 08/27/17 08/27/17 07:46 07:46 07:46 WBC 11.2 H RBC 4.19 L Hgb 13.1 Hct 38.0 L MCV 90.7 MCH 31.3 MCHC 34.5 RDW 13.0 RDW Differential 42.9 Plt Count 182 MPV 11.2 Immature Gran % (Auto) 0.100 Neut % (Auto) 82.0 H Lymph % (Auto) 8.9 L [place] % (Auto) 8.4 Eos % (Auto) 0.5 Baso % (Auto) 0.1 Absolute Neuts (auto) 9.2 H Absolute Lymphs (auto) 0.99 Total Counted Not Reportable Sodium 133 L Potassium 3.7 Chloride 100 Carbon Dioxide 24.0 Anion Gap 9 BUN 15 Creatinine 0.79 Estim Creat Clear Calc 53.25 Est GFR (MDRD) Af Amer 121 Est GFR (MDRD) Non-Af 100 BUN/Creatinine Ratio 19.0 Glucose 193 H Hemoglobin A1c 7.1 H Calcium 8.5 POC Glucose 08/27/17 08/27/17 08/27/17 16:38 11:10 06:47 POC Glucose 194 H 239 H 198 H 08/27/17 08/26/17 08/26/17 01:42 23:27 20:35 POC Glucose 170 H 232 H 238 H 08/26/17 16:52 POC Glucose 238 H Medical Necessity - Tobacco Use Smoking Status: Never smoker Tobacco Use: Non-smoker Assessment/Plan All Active Problems DMII (diabetes mellitus, type 2) (Acute) Lipidemia (Acute) TIA (transient ischemic attack) (Acute) The patient is a 82 year old M admitted 08/25/2017 due to right facial droop. He has a past medical history of hypertension, hyperlipidemia, type 2 diabetes mellitus. 1. TIA-Neurology consulted. MRI of brain without acute stroke. CT of head negative. Patient will continue aspirin, statin, Plavix with the dual antiplatelet therapy for 3 weeks. Follow-up with neurology as scheduled. Patient will be discharged to rehab unit for general debility with frequent falls. 2. Frequent falls due to General physical debility-PT/OT. Rehab at discharge. 3. Hypertension, uncontrolled-lisinopril regimen increased to 40 mg daily. Amlodipine 10 mg daily. Metoprolol increased to 50 mg daily. Continue to monitor and make adjustments as necessary. 4. Urinary retention suspected secondary to BPH-Beckwith in place. Patient started on Flomax. Will need voiding trial at rehab unit. 5. Lumbar spine stenosis-MRI of lumbar spine showed L3-L4 right disc extrusion with severe right lateral recess narrowing, moderate central canal stenosis. L4-L5 moderate central canal stenosis. Moderate bilateral foraminal stenosis. L5/S1 grade 1 anterolisthesis. Osseous fusion. Severe bilateral foraminal stenosis. Follow-up with orthopedics/configuration management specialist at discharge. 6. Hyperlipidemia-continue statin. 7. Type 2 diabetes [id number] before meals at bedtime with sliding scale insulin. DVT prophylaxis-Lovenox subcu. This patient was seen by ANTONINO Bergman under the supervision of Dr. Rodrigues. <Oksana Rodrigues - Last Filed: 08/27/17 17:29> - Physical Exam Vital Signs Temp Pulse Resp BP Pulse Ox 98.4 F 71 16 165/70 H 94 08/27/17 13:55 08/27/17 14:29 08/27/17 13:55 08/27/17 13:55 08/27/17 14:43 Oxygen Delivery Method Room Air Weight: 145 lb 15.136 oz Body Mass Index (BMI) 22.8 Orthostatic Vital Signs Start: 08/26/17 11:11 Freq: q24h Status: Active Protocol: Activity Type Activity Date Activity User E-Sign Co-Sign Detail Recorded Client Recorded Date Recorded By Document 08/27/17 06:42 KDB [id number] 08/27/17 06:45 KDB 08/27/17 06:42 Orthostatic Vitals Standing -Blood Pressure (90/60-120/80) 191/97 H -Extremity Use Right Arm -Pulse Rate (60-100) 71 Sitting -Blood Pressure (90/60-120/80) 208/85 H -Extremity Use Right Arm -Pulse Rate (60-100) 62 Lying -Blood Pressure (90/60-120/80) 195/81 H -Extremity Use Right Arm -Pulse Rate (60-100) 63 Intake and Output for Last 24 Hours 08/25/17 08/26/17 08/27/17 23:59 23:59 23:59 Intake Total 2682 / 2682 1960 / 1 Output Total 2925 / 2925 1800 / 1800 Balance -243 / -243 161 / 161 Laboratory Tests Past 24 Hrs 08/27/17 08/27/17 08/27/17 07:46 07:46 07:46 WBC 11.2 H RBC 4.19 L Hgb 13.1 Hct 38.0 L MCV 90.7 MCH 31.3 MCHC 34.5 RDW 13.0 RDW Differential 42.9 Plt Count 182 MPV 11.2 Immature Gran % (Auto) 0.100 Neut % (Auto) 82.0 H Lymph % (Auto) 8.9 L [place] % (Auto) 8.4 Eos % (Auto) 0.5 Baso % (Auto) 0.1 Absolute Neuts (auto) 9.2 H Absolute Lymphs (auto) 0.99 Total Counted Not Reportable Sodium 133 L Potassium 3.7 Chloride 100 Carbon Dioxide 24.0 Anion Gap 9 BUN 15 Creatinine 0.79 Estim Creat Clear Calc 53.25 Est GFR (MDRD) Af Amer 121 Est GFR (MDRD) Non-Af 100 BUN/Creatinine Ratio 19.0 Glucose 193 H Hemoglobin A1c 7.1 H Calcium 8.5 POC Glucose 08/27/17 08/27/17 08/27/17 16:38 11:10 06:47 POC Glucose 194 H 239 H 198 H 08/27/17 08/26/17 08/26/17 01:42 23:27 20:35 POC Glucose 170 H 232 H 238 H Assessment/Plan Patient seen by Jennifer Arizmendi NP-David under my supervision. Agree with above note and assessment and plan. The patient is a 82 year old male admitted on 08/25/2017 with complaint of right facial droop. He has a past medical history as mentioned above. He has had a few falls at home and unable to care for himself very well. He was managed for TIA which is now resolved. Neurology was consulted. MRI, CT of the head were both negative. He is on aspirin, statin and Plavix and remained stable. MRI of the lumbar spine showed L3/4 right disc extrusion with severe right lateral recess narrowing and moderate central canal stenosis, moderate canal stenosis in L4-5 and L5/S1 showed grade 1 anterolisthesis, severe bilateral foraminal stenosis. He had urinary obstruction during admission, which was resolved with passage of urinary catheter. Patient remained stable, Blood pressure remains poorly controlled. lisinopril increased to 40mg daily and metoprolol XL increased to 50mg daily. Patient seen and examined today. He had no complaints and felt well. Review of systems otherwise negative. Daughter and were at his bedside. O/E:[] General: Alert, Oriented x3, Cooperative HEENT: PERRLA, EOMI, Normocephalic, resolving right eye ecchymosis Neck: Supple, No JVD, Negative Carotid Bruits Lungs: Clear to auscultation, Normal air movement Cardiovascular: Regular rate, No murmurs Abdomen: Bowel Sounds Present, Soft, Non Tender Extremities: No edema, Capillary Refill Less than 3 Seconds Skin: No rashes, No breakdown Musculoskeletal: No Tenderness to Palpation of Joints or Extremities Neurological: Cranial nerves II-XII grossly intact Psych/Mental Status: Normal Affect, Appropriate Assessment and plan 1. TIA: resolved. Neuro on board. MRI and CT of brain normal 2. Poorly controlled hypertension: home meds were metoprolol XL 25mg daily, lisinopril 20mg daily and amlodipine 5mg daily. Metoprolol increased to 50mg daily, and lisinopril increased to 40mg daily. Will monitor and increase amlodipine tomorrow as neeeded. Rest of management as per Jennifer Arizmendi NP-C's note Code Visit OBSV E&M: 69072 Subsequent observation care L3
--- NOTE | 2017-08-27 17:03 | PN_ITS ---
<Jennifer Arizmendi - Last Filed: 08/27/17 17:03> Subjective: Patient seen and examined. Discharge to rehab unit on hold given elevated blood pressure. Medications adjusted. Continue to monitor with plans for discharge to rehab unit tomorrow. Patient denies current complaints. Wishes to discharge to rehab unit for further therapy. - Physical Exam General: Alert, Oriented x3, Cooperative, No apparent distress HEENT: Atraumatic, PERRLA, EOMI, Normocephalic Neck: Supple, No JVD, Negative Carotid Bruits Lungs: Clear to auscultation, Normal air movement Cardiovascular: Regular rate, No murmurs Abdomen: Bowel Sounds Present, Soft, Non Tender, Non-Distended Extremities: No clubbing, No cyanosis, No edema, Capillary Refill Less than 3 Seconds Skin: No rashes, No breakdown Musculoskeletal: No Tenderness to Palpation of Joints or Extremities Neurological: Cranial nerves II-XII grossly intact, Neuro grossly intact Psych/Mental Status: Normal Affect, Appropriate Vital Signs Temp Pulse Resp BP Pulse Ox 98.4 F 71 16 165/70 H 94 08/27/17 13:55 08/27/17 14:29 08/27/17 13:55 08/27/17 13:55 08/27/17 14:43 Oxygen Delivery Method Room Air Weight: 66.2 kg Body Mass Index (BMI) 22.8 Orthostatic Vital Signs Start: 08/26/17 11:11 Freq: q24h Status: Active Protocol: Activity Type Activity Date Activity User E-Sign Co-Sign Detail Recorded Client Recorded Date Recorded By Document 08/27/17 06:42 KD [id number] 08/27/17 06:45 KDB 08/27/17 06:42 Orthostatic Vitals Standing -Blood Pressure (90/60-120/80 mm Hg) 191/97 H -Extremity Use Right Arm -Pulse Rate (60-100 beats/min) 71 Sitting -Blood Pressure (90/60-120/80 mm Hg) 208/85 H -Extremity Use Right Arm -Pulse Rate (60-100 beats/min) 62 Lying -Blood Pressure (90/60-120/80 mm Hg) 195/81 H -Extremity Use Right Arm -Pulse Rate (60-100 beats/min) 63 Intake and Output for Last 24 Hours 08/25/17 08/26/17 08/27/17 23:59 23:59 23:59 Intake Total 2682 / 2682 1841 / 1841 Output Total 2925 / 2925 1400 / 1400 Balance -243 / -243 441 / 441 Laboratory Tests Past 24 Hrs 08/27/17 08/27/17 08/27/17 07:46 07:46 07:46 WBC 11.2 H RBC 4.19 L Hgb 13.1 Hct 38.0 L MCV 90.7 MCH 31.3 MCHC 34.5 RDW 13.0 RDW Differential 42.9 Plt Count 182 MPV 11.2 Immature Gran % (Auto) 0.100 Neut % (Auto) 82.0 H Lymph % (Auto) 8.9 L Rad[place] % (Auto) 8.4 Eos % (Auto) 0.5 Baso % (Auto) 0.1 Absolute Neuts (auto) 9.2 H Absolute Lymphs (auto) 0.99 Total Counted Not Reportable Sodium 133 L Potassium 3.7 Chloride 100 Carbon Dioxide 24.0 Anion Gap 9 BUN 15 Creatinine 0.79 Estim Creat Clear Calc 53.25 Est GFR (MDRD) Af Amer 121 Est GFR (MDRD) Non-Af 100 BUN/Creatinine Ratio 19.0 Glucose 193 H Hemoglobin A1c 7.1 H Calcium 8.5 POC Glucose 08/27/17 08/27/17 08/27/17 16:38 11:10 06:47 POC Glucose 194 H 239 H 198 H 08/27/17 08/26/17 08/26/17 01:42 23:27 20:35 POC Glucose 170 H 232 H 238 H 08/26/17 16:52 POC Glucose 238 H Medical Necessity - Tobacco Use Smoking Status: Never smoker Tobacco Use: Non-smoker Assessment/Plan All Active Problems DMII (diabetes mellitus, type 2) (Acute) Lipidemia (Acute) TIA (transient ischemic attack) (Acute) The patient is a 82 year old M admitted 08/25/2017 due to right facial droop. He has a past medical history of hypertension, hyperlipidemia, type 2 diabetes mellitus. 1. TIA-Neurology consulted. MRI of brain without acute stroke. CT of head negative. Patient will continue aspirin, statin, Plavix with the dual antiplatelet therapy for 3 weeks. Follow-up with neurology as scheduled. Patient will be discharged to rehab unit for general debility with frequent falls. 2. Frequent falls due to General physical debility-PT/OT. Rehab at discharge. 3. Hypertension, uncontrolled-lisinopril regimen increased to 40 mg daily. Amlodipine 10 mg daily. Metoprolol increased to 50 mg daily. Continue to monitor and make adjustments as necessary. 4. Urinary retention suspected secondary to BPH-Beckwith in place. Patient started on Flomax. Will need voiding trial at rehab unit. 5. Lumbar spine stenosis-MRI of lumbar spine showed L3-L4 right disc extrusion with severe right lateral recess narrowing, moderate central canal stenosis. L4 -L5 moderate central canal stenosis. Moderate bilateral foraminal stenosis. L5 /S1 grade 1 anterolisthesis. Osseous fusion. Severe bilateral foraminal stenosis. Follow-up with orthopedics/chargemaster specialist at discharge. 6. Hyperlipidemia-continue statin. 7. Type 2 diabetes [id number] before meals at bedtime with sliding scale insulin. DVT prophylaxis-Lovenox subcu. This patient was seen by ANTONINO Bergman under the supervision of Dr. Rodrigues. <Oksana Rodrigues - Last Filed: 08/27/17 17:29> - Physical Exam Vital Signs Temp Pulse Resp BP Pulse Ox 98.4 F 71 16 165/70 H 94 08/27/17 13:55 08/27/17 14:29 08/27/17 13:55 08/27/17 13:55 08/27/17 14:43 Oxygen Delivery Method Room Air Weight: 145 lb 15.136 oz Body Mass Index (BMI) 22.8 Orthostatic Vital Signs Start: 08/26/17 11:11 Freq: q24h Status: Active Protocol: Activity Type Activity Date Activity User E-Sign Co-Sign Detail Recorded Client Recorded Date Recorded By Document 08/27/17 06:42 KDB [id number] 08/27/17 06:45 KDB 08/27/17 06:42 Orthostatic Vitals Standing -Blood Pressure (90/60-120/80) 191/97 H -Extremity Use Right Arm -Pulse Rate (60-100) 71 Sitting -Blood Pressure (90/60-120/80) 208/85 H -Extremity Use Right Arm -Pulse Rate (60-100) 62 Lying -Blood Pressure (90/60-120/80) 195/81 H -Extremity Use Right Arm -Pulse Rate (60-100) 63 Intake and Output for Last 24 Hours 08/25/17 08/26/17 08/27/17 23:59 23:59 23:59 Intake Total 2682 / 2682 1960 / 1 Output Total 2925 / 2925 1800 / 1800 Balance -243 / -243 161 / 161 Laboratory Tests Past 24 Hrs 08/27/17 08/27/17 08/27/17 07:46 07:46 07:46 WBC 11.2 H RBC 4.19 L Hgb 13.1 Hct 38.0 L MCV 90.7 MCH 31.3 MCHC 34.5 RDW 13.0 RDW Differential 42.9 Plt Count 182 MPV 11.2 Immature Gran % (Auto) 0.100 Neut % (Auto) 82.0 H Lymph % (Auto) 8.9 L Radford % (Auto) 8.4 Eos % (Auto) 0.5 Baso % (Auto) 0.1 Absolute Neuts (auto) 9.2 H Absolute Lymphs (auto) 0.99 Total Counted Not Reportable Sodium 133 L Potassium 3.7 Chloride 100 Carbon Dioxide 24.0 Anion Gap 9 BUN 15 Creatinine 0.79 Estim Creat Clear Calc 53.25 Est GFR (MDRD) Af Amer 121 Est GFR (MDRD) Non-Af 100 BUN/Creatinine Ratio 19.0 Glucose 193 H Hemoglobin A1c 7.1 H Calcium 8.5 POC Glucose 08/27/17 08/27/17 08/27/17 16:38 11:10 06:47 POC Glucose 194 H 239 H 198 H 08/27/17 08/26/17 08/26/17 01:42 23:27 20:35 POC Glucose 170 H 232 H 238 H Assessment/Plan Patient seen by Jennifer Arizmendi NP-David under my supervision. Agree with above note and assessment and plan. The patient is a 82 year old male admitted on 08/25/2017 with complaint of right facial droop. He has a past medical history as mentioned above. He has had a few falls at home and unable to care for himself very well. He was managed for TIA which is now resolved. Neurology was consulted. MRI, CT of the head were both negative. He is on aspirin, statin and Plavix and remained stable. MRI of the lumbar spine showed L3/4 right disc extrusion with severe right lateral recess narrowing and moderate central canal stenosis, moderate canal stenosis in L4-5 and L5/S1 showed grade 1 anterolisthesis, severe bilateral foraminal stenosis. He had urinary obstruction during admission, which was resolved with passage of urinary catheter. Patient remained stable, Blood pressure remains poorly controlled. lisinopril increased to 40mg daily and metoprolol XL increased to 50mg daily. Patient seen and examined today. He had no complaints and felt well. Review of systems otherwise negative. Daughter and were at his bedside. O/E:[] General: Alert, Oriented x3, Cooperative HEENT: PERRLA, EOMI, Normocephalic, resolving right eye ecchymosis Neck: Supple, No JVD, Negative Carotid Bruits Lungs: Clear to auscultation, Normal air movement Cardiovascular: Regular rate, No murmurs Abdomen: Bowel Sounds Present, Soft, Non Tender Extremities: No edema, Capillary Refill Less than 3 Seconds Skin: No rashes, No breakdown Musculoskeletal: No Tenderness to Palpation of Joints or Extremities Neurological: Cranial nerves II-XII grossly intact Psych/Mental Status: Normal Affect, Appropriate Assessment and plan 1. TIA: resolved. Neuro on board. MRI and CT of brain normal 2. Poorly controlled hypertension: home meds were metoprolol XL 25mg daily, lisinopril 20mg daily and amlodipine 5mg daily. Metoprolol increased to 50mg daily, and lisinopril increased to 40mg daily. Will monitor and increase amlodipine tomorrow as neeeded. Rest of management as per Jennifer Arizmendi NP-C's note Code Visit OBSV E&M: [id number] Subsequent observation care L3
[2017-08-27] MEDS: Tamsulosin HCl 0.4 MG Capsule PO (17:22)
[2017-08-27] MEDS: 0.9% NaCl Peripheral Flush Adult/Peds IV (18:23)
[2017-08-27] MEDS: Atorvastatin Calcium 40 MG Tablet PO (23:10)
[2017-08-27 23:55] LABS: Bedside Glucose 195 mg/dL (70-110)
[2017-08-28] VITALS (11 sets, daily range): BP systolic 145–194; BP diastolic 72–101; PULSE 63–77; RESP 16–18; TEMP 36.5–36.7; O2SAT 94–95; BMI 22.8
[2017-08-28] MEDS: traMADol 50 MG Tablet PO (00:04)
[2017-08-28 02:35] LABS: Bedside Glucose 196 mg/dL (70-110)
[2017-08-28 07:05] LABS: Bedside Glucose 180 mg/dL (70-110)
[2017-08-28] MEDS: amLODIPine 10 MG Tablet PO (08:17)
[2017-08-28] MEDS: Metoprolol(XL)Succ 50 MG Tablet PO (08:17)
[2017-08-28] MEDS: Aspirin 81 MG TAB.CHEW PO (08:17)
[2017-08-28] MEDS: Lisinopril 40 MG Tablet PO (08:17)
[2017-08-28] MEDS: glipiZIDE 5 MG Tablet 10 MG PO (08:17)
[2017-08-28] MEDS: Insulin Lispro 100 UNIT/ML INSULN.PEN SC ×2 (08:18→11:12)
[2017-08-28] MEDS: metFORMIN HCl 1,000 MG Tablet 1000 MG PO (08:18)
[2017-08-28] MEDS: hydrALAZINE 25 MG Tablet PO (08:49)
[2017-08-28] MEDS: Enoxaparin 40 MG/0.4 ML Syringe SC (09:35)
[2017-08-28] MEDS: Oxybutynin 5 MG Tablet PO (09:35)
[2017-08-28] MEDS: Clopidogrel Bisulfate 75 MG Tablet PO (09:35)
[2017-08-28] MEDS: 0.9% Normal Saline 1,000 ML 100 ML IV (09:35)
[2017-08-28 11:21] LABS: Bedside Glucose 262 mg/dL (70-110)
--- NOTE | 2017-08-28 11:40 | NURSING ---
Called report to music rehabilitation therapist
== END 2017-08-28 13:20 ==
LOC: ED 21:37 → PCU 08-26 00:39
PROVIDERS: Psychiatry & Neurology Neurology; Admitting Provider Internal Medicine; Emergency Provider Emergency Medicine; Family Provider Family Medicine; PCP Family Medicine; Visit Provider Student in an Organized Health Care Education/Training Program
DX: G45.9 Transient cerebral ischemic attack, unspecified (principal); I10 Essential (primary) hypertension; E78.5 Hyperlipidemia, unspecified; R53.1 Weakness; R29.810 Facial weakness; R47.81 Slurred speech; Z79.899 Other long term (current) drug therapy; Z79.84 Long term (current) use of oral hypoglycemic drugs; S00.11XD Contusion of right eyelid and periocular area, subsequent encounter; W19.XXXD Unspecified fall, subsequent encounter; E11.40 Type 2 diabetes mellitus with diabetic neuropathy, unspecified; R29.701 NIHSS score 1
CPT/HCPCS: 36415; 70450; 70496; 70498; 70551; 72148; 80048; 80061; 80307; 81001; 82962; 83036; 84443; 84484; 85025; 85027; 85610; 85730; 92523; 93005; 93306; 96361; 96372; 96374; 96376; 97110; 97116; 97162; 97165; 97530; 99218; 99285; J7030; Q9967; A4216; G0378

== ENCOUNTER 2017-08-28 13:25 | Inpatient (IN) | payer MEDICARE, OTHER, SELFPAY ==
[2017-08-28 13:34] VITALS: BP 134/66; PULSE 67; RESP 16; TEMP 36.7; O2SAT 95; BMI 21.9; BMI 22.0
[2017-08-28 13:48] VITALS: BP 134/66; PULSE 67; RESP 16; TEMP 36.7; O2SAT 95
--- NOTE | 2017-08-28 14:26 | NURSING ---
patient has an appt per with dr mercedes aquino at [facility] on 09/12 @ 1020 for his back.
--- NOTE | 2017-08-28 14:28 | REHABEVAL_ITS ---
Admission Information Status Changes from Prescreening?: No changes Identified Actual Problem List:: Mobility Impaired, Self Care Deficit, BP, Hypertension Potential Problem List:: DVT, Bleeding, Infection, UTI, Aspiration, Falls, Skin Integrity, Depression Risk of Complications DVT: LMWH, SOURAV Hose, Sequential Compression Device Bleeding: Monitor Lab Values, Nursing to Teach Precautions for anti-coagulation therapy., Wound, if applicable, to be assessed every shift., Stroke patients assessed for lethargy or change in status. Infection: Clinical Staff to Monitor for S/S of infection:, S/S of infection include fever, redness, warmth, etc. Urinary Tract Infection: Monitor for frequency, burning, discomfort, or incontinence., Nursing will obtain urine sample for urinalysis and C&S when ordered. Aspiration: Clinical staff will monitor for coughing, drooling, congestion., Speech will evaluate swallowing and dsyphasia., Nursing will monitor patient swallowing during meals. Falls: Patient will be evaluated for Fall Precautions, Patient will be placed on Fall Precautions as indicated per protocol. Skin Breakdown: Nursing will assess skin daily using assessment tool., Nursing will place on Skin Breakdown Precautions as indicated. Pain: Clinical staff will assess patient's pain level per protocol., Medications will be given, if needed, and the pain level reassessed., Other methods: Massage, distraction, decrease stimulus, etc. used PRN. Plan of Care Patient requires physician specializing in physical medicine and rehab oversight to provide close medical supervision of rehab issues including: Pain Management, Sleep Problems, Bowel and Bladder, Medical and co-morbidity Management, DVT prophylaxis, Rehabilitation Leadership, Coordination of treatment team Patient needs Physical Therapy: For a minimum of 1 hour, At least 5 out of 7 days Patient needs Physical Therapy to improve:: Mobility, Mobility, Mobility, Strengthening, Transfers, Stretching, ROM, Endurance, Stairs, Gait, Balance Patient needs Occupational Therapy: For a minimum of 1 hour, At least 5 out of 7 days Patient needs Occupational Therapy to improve ADL's incl.: Eating, Grooming, Bathing, Dressing, Toileting, Toilet transfers, Community Reintegration, Higher functioning activities, Household tasks, Adaptive Equipment, Splinting, Other activities as determined Patient requires speech therapy: For a minimum of 1 hour, At least 5 out of 7 days Patient requires speech therapy for: Swallowing, Cognition, Language Skills, Compensatory Strategies Patient requires 10/09 Rehabilitation Nursing for: Pain Issues, Identifying and preventing risk factors, Monitoring and reporting current medical conditions, Assisting with ambulation, transfer, and all ADL's, Teaching patients about disease process and medications, Family teaching, Providing safe environment, Bowel and Bladder Issues, Skin integrity, Medication Management Patient needs Scarfing Machine Operator/ Case Management for: Discharge Planning, Arranging Home Equipment or Services, Family Interventions Patient needs Dietary and Nutrition Services for: Adequate Nutrition, Nutritional Supplements, Nutritional Education Goals Patient will remain: free from falls, or injury at time of discharge. Patient will perform bed mobility at: MOD I level of assist. Patient will complete transfers from bed to chair at: MOD I level of assist. Patient will ambulate: 100 feet, with MOD I assist, with LRD Patient will complete upper body dressing at: MOD I level of assist. Patient will complete lower body dressing at: MOD I level of assist. Patient will complete toileting at: MOD I level of assist. Patient will perform bathing at: MOD I level of assist. Patient will complete grooming at: MOD I level of assist. Patient will complete home management skills at: MOD I level of assist. Patient will achieve: 12 stairs, at MOD I assist Patient will have pain level of: of 3 or less Patient's skin will: remain intact, free from infection. Patient will receive: adequate nutrition. Discharge Planning Pt Prognosis for Sig. Practical Improv. w/in Reasonable Time: Good Estimated Length of stay (days): 16 Anticipated D/C Destination: Home Was Preadmission Assessment Accurate?: Yes
--- NOTE | 2017-08-28 16:26 | PCM.HP.COS ---
History of Present Illness Date of Admission: 08/28/17 Chief Complaint: Debility The patient is a 82 year old right handed male who was admitted to the rehab unit for rehabilitation for debility. Initially he was admitted to [facility] on 08/25/17 with symptoms of a possible stroke, right sided facial droop, slurred speech and right sided weakness. He has a history of HTN, HLD, DM, DM Neuropathy, h/o syncope s/p loop recorder implantation, and some generalized weakness. The patient was suspected of having a TIA symptoms which resolved. A CT head was negative, an MRI brain showed no acute stroke or acute abnormalities. . An Echocardiogram showed an EF of 60%, stage I diastolic dysfunction, pulmonary artery systolic pressure 33 mmHg. CTA head/neck was negative for hemodynamically significant stenosis or occlusion. Per ED documentation, his NIHSS was 1 on admission,and he was not an Ivtpa candidate. It was noted to have poorly controlled blood pressure , he was on metoprolol XL 25 mg daily at home and lisinopril 20 mg daily. the Metoprolol was increased to 50 mg daily and lisinopril was increased 40 mg daily. He was also started on amlodipine 10 mg daily. He lives with his in a two story home with 1 step to get into the home from the garage and no steps to get in using the front door. He was previously completely functionally independent and is admitted to the rehab unit in order to restore her previous level of functional independence. He was on aspirin, Plavix and a statin, prior to this admission. Past Medical History Past Medical History (Chronic Problems): Chronic Problems HTN (hypertension) (Chronic) Allergies iodine Allergy (Verified 08/28/17 16:06) Rash Home Medications: Ambulatory Orders Medication Instructions Recorded Metformin HCl [Glucophage] 1,000 mg PO BID 08/25/17 glipiZIDE [Glucotrol] 10 mg PO BID 08/25/17 Acetaminophen [Tylenol Tablet] 650 mg PO Q6H PRN PRN tablet 08/27/17 Amlodipine [Norvasc] 10 mg PO DAILY 08/28/17 Aspirin [Aspirin, Baby] 81 mg PO DAILY@0800 08/28/17 Atorvastatin Calcium [Lipitor] 40 mg PO QHS 08/28/17 Clopidogrel Bisulfate [Plavix] 75 mg PO DAILY 08/28/17 Lisinopril [Zestril] 40 mg PO DAILY 08/28/17 Metoprolol(XL)Succ [Toprol Xl 50 mg PO DAILY 08/28/17 (Beta Sunny)] Tamsulosin HCl [Flomax] 0.4 mg PO DAILY@1730 08/28/17 Lives: Spouse/ Significant Other Smoking Status: Never smoker Tobacco Use: Non-smoker Alcohol: None Drugs: None - *Family History Maternal History Items: No pertinent history Review of Systems Constitutional: Denies: Chills, Fever, Weight Change HEENT: Denies: Head Aches, Sinus Congestion, Sinus Drainage Cardiovascular: Denies: Chest Pain, Palpitations Respiratory: Denies: Cough, Shortness of breath at rest, Sputum production Gastrointestinal: Denies: Abdominal Pain, Nausea, Vomiting Genitourinary: Denies: Dysuria Musculoskeletal: Denies: Joint Pain, Joint Tenderness Skin: Denies: Rash, Wounds Neurological: Denies: Numbness, Tingling, Focal weakness Psychiatric: Denies: Anxiety, Depression, Homicidal Ideations, Suicidal Ideations Hematologic/ Lymphatic: Denies: Easy Bruising, Easy Bleeding VTE Information - Inpt Only VTE Present on Admission: No VTE Mechan Device Prophylaxis: SCD's, Knee High SOURAV Hose VTE Pharm Prophylaxis ordered?: Yes - Physical Exam General: Alert, Oriented x3, Cooperative HEENT: Atraumatic, PERRLA, EOMI, Normocephalic Neck: Supple, No JVD, Negative Carotid Bruits Lungs: Clear to auscultation, Normal air movement Cardiovascular: Regular rate, No murmurs Abdomen: Bowel Sounds Present, Soft, Non Tender Extremities: No edema, Capillary Refill Less than 3 Seconds Skin: No rashes, No breakdown Musculoskeletal: No Tenderness to Palpation of Joints or Extremities Neurological: Cranial nerves II-XII grossly intact Psych/Mental Status: Normal Affect, Appropriate, Alert and oriented to time, place, person, mood and affect Vital Signs Temp Pulse Resp BP Pulse Ox 98.0 F 67 16 134/66 H 95 08/28/17 13:48 08/28/17 13:48 08/28/17 13:48 08/28/17 13:48 08/28/17 13:48 Oxygen Delivery Method Room Air Weight: 63.6 kg Body Mass Index (BMI) 21.9 Finger Stick Blood Glucose 124 Active Medications Acetaminophen (Tylenol) 650 mg PO Q6H PRN PRN PRN Reason: PAIN Amlodipine Besylate (Norvasc) 10 mg PO DAILY [facility] Aspirin (Aspirin, Baby) 81 mg PO DAILY@0800 [facility] Atorvastatin Calcium (Lipitor) 40 mg PO QHS [facility] Bisacodyl (Dulcolax) 10 mg RECTAL .PRN X 1 PRN PRN Reason: Constipation Clopidogrel Bisulfate (Plavix) 75 mg PO DAILY [facility] Enoxaparin Sodium (Lovenox) 40 mg SC DAILY@0600 [facility] Glipizide (Glucotrol) 10 mg PO BIDAC [facility] Insulin Human Lispro (Humalog Kwikpen (Bkc)) 0 unit SC ACHS [facility] PRN Reason: Protocol Lisinopril (Zestril) 40 mg PO DAILY [facility] Magnesium Hydroxide (Milk Of Magnesia) 30 ml PO .PRN X 1 PRN PRN Reason: Constipation Metformin HCl (Glucophage) 1,000 mg PO BIDCM [facility] Metoprolol Succinate (Toprol Xl (Beta Sunny)) 50 mg PO DAILY [facility] Senna/Docusate Sodium (Senokot-S, Margarita-Colace) 2 tablet PO BID [facility] Tamsulosin HCl (Flomax) 0.4 mg PO DAILY@1730 [facility] Assessment/Plan All Active Problems DMII (diabetes mellitus, type 2) (Acute) Lipidemia (Acute) TIA (transient ischemic attack) (Acute) Debility s/p generalized weakness. Complicated by HTN, HLD, frequent falls, dm, and peripheral neuropathy due to diabetes. Goal of rehab is yazidi of functional independence. Plan: - Physical therapy for gait and balance - Occupational Therapy for ADLs - As needed analgesics - Bowel protocol - Stroke prevention on ASA, Statin and Plavix 75mg dual AP for 3 weeks, then switch to single AP. - DVT prophylaxis: SCDs, ASA, Lovenox - Hypertension: Stable with good control, continue home medication. Keep BP < 130/80 mmHg - Diabetes type 2 => continue home medication. - CTA head/neck -no hemodynamically significant stenosis or occlusion - TTE-EF 60%, normal LA size, no PFO - LDL-78, Vwi9u-1.1% - Cardiology evaluation for loop recorder evaluation - Fall precautions
--- NOTE | 2017-08-28 16:47 | HP.PCM.COS_ITS ---
History of Present Illness Date of Admission: 08/28/17 Chief Complaint: Debility The patient is a 82 year old right handed male who was admitted to the rehab unit for rehabilitation for debility. Initially he was admitted to [facility] on with symptoms of a possible stroke, right sided facial droop, slurred speech and right sided weakness. He has a history of HTN, HLD, DM, DM Neuropathy , h/o syncope s/p loop recorder implantation, and some generalized weakness. The patient was suspected of having a TIA symptoms which resolved. A CT head was negative, an MRI brain showed no acute stroke or acute abnormalities. . An Echocardiogram showed an EF of 60%, stage I diastolic dysfunction, pulmonary artery systolic pressure 33 mmHg. CTA head/neck was negative for hemodynamically significant stenosis or occlusion. Per ED documentation, his NIHSS was 1 on admission,and he was not an Ivtpa candidate. It was noted to have poorly controlled blood pressure , he was on metoprolol XL 25 mg daily at home and lisinopril 20 mg daily. the Metoprolol was increased to 50 mg daily and lisinopril was increased 40 mg daily. He was also started on amlodipine 10 mg daily. He lives with his in a two story home with 1 step to get into the home from the garage and no steps to get in using the front door. He was previously completely functionally independent and is admitted to the rehab unit in order to restore her previous level of functional independence. He was on aspirin, Plavix and a statin, prior to this admission. Past Medical History Past Medical History (Chronic Problems): Chronic Problems HTN (hypertension) (Chronic) Allergies iodine Allergy (Verified 08/28/17 16:06) Rash Home Medications: Ambulatory Orders Medication Instructions Recorded Metformin HCl [Glucophage] 1,000 mg PO BID 08/25/17 glipiZIDE [Glucotrol] 10 mg PO BID 08/25/17 Acetaminophen [Tylenol Tablet] 650 mg PO Q6H PRN PRN tablet 08/27/17 Amlodipine [Norvasc] 10 mg PO DAILY 08/28/17 Aspirin [Aspirin, Baby] 81 mg PO DAILY@0800 08/28/17 Atorvastatin Calcium [Lipitor] 40 mg PO QHS 08/28/17 Clopidogrel Bisulfate [Plavix] 75 mg PO DAILY 08/28/17 Lisinopril [Zestril] 40 mg PO DAILY 08/28/17 Metoprolol(XL)Succ [Toprol Xl 50 mg PO DAILY 08/28/17 (Beta Sunny)] Tamsulosin HCl [Flomax] 0.4 mg PO DAILY@1730 08/28/17 Lives: Spouse/ Significant Other Smoking Status: Never smoker Tobacco Use: Non-smoker Alcohol: None Drugs: None - *Family History Maternal History Items: No pertinent history Review of Systems Constitutional: Denies: Chills, Fever, Weight Change HEENT: Denies: Head Aches, Sinus Congestion, Sinus Drainage Cardiovascular: Denies: Chest Pain, Palpitations Respiratory: Denies: Cough, Shortness of breath at rest, Sputum production Gastrointestinal: Denies: Abdominal Pain, Nausea, Vomiting Genitourinary: Denies: Dysuria Musculoskeletal: Denies: Joint Pain, Joint Tenderness Skin: Denies: Rash, Wounds Neurological: Denies: Numbness, Tingling, Focal weakness Psychiatric: Denies: Anxiety, Depression, Homicidal Ideations, Suicidal Ideations Hematologic/ Lymphatic: Denies: Easy Bruising, Easy Bleeding VTE Information - Inpt Only VTE Present on Admission: No VTE Mechan Device Prophylaxis: SCD's, Knee High SOURAV Hose VTE Pharm Prophylaxis ordered?: Yes - Physical Exam General: Alert, Oriented x3, Cooperative HEENT: Atraumatic, PERRLA, EOMI, Normocephalic Neck: Supple, No JVD, Negative Carotid Bruits Lungs: Clear to auscultation, Normal air movement Cardiovascular: Regular rate, No murmurs Abdomen: Bowel Sounds Present, Soft, Non Tender Extremities: No edema, Capillary Refill Less than 3 Seconds Skin: No rashes, No breakdown Musculoskeletal: No Tenderness to Palpation of Joints or Extremities Neurological: Cranial nerves II-XII grossly intact Psych/Mental Status: Normal Affect, Appropriate, Alert and oriented to time, place, person, mood and affect Vital Signs Temp Pulse Resp BP Pulse Ox 98.0 F 67 16 134/66 H 95 08/28/17 13:48 08/28/17 13:48 08/28/17 13:48 08/28/17 13:48 08/28/17 13:48 Oxygen Delivery Method Room Air Weight: 63.6 kg Body Mass Index (BMI) 21.9 Finger Stick Blood Glucose 124 Active Medications Acetaminophen (Tylenol) 650 mg PO Q6H PRN PRN PRN Reason: PAIN Amlodipine Besylate (Norvasc) 10 mg PO DAILY [facility] Aspirin (Aspirin, Baby) 81 mg PO DAILY@0800 [facility] Atorvastatin Calcium (Lipitor) 40 mg PO QHS [facility] Bisacodyl (Dulcolax) 10 mg RECTAL .PRN X 1 PRN PRN Reason: Constipation Clopidogrel Bisulfate (Plavix) 75 mg PO DAILY [facility] Enoxaparin Sodium (Lovenox) 40 mg SC DAILY@0600 [facility] Glipizide (Glucotrol) 10 mg PO BIDAC [facility] Insulin Human Lispro (Humalog Kwikpen (Bkc)) 0 unit SC ACHS [facility] PRN Reason: Protocol Lisinopril (Zestril) 40 mg PO DAILY [facility] Magnesium Hydroxide (Milk Of Magnesia) 30 ml PO .PRN X 1 PRN PRN Reason: Constipation Metformin HCl (Glucophage) 1,000 mg PO BIDCM [facility] Metoprolol Succinate (Toprol Xl (Beta Sunny)) 50 mg PO DAILY [facility] Senna/Docusate Sodium (Senokot-S, Margarita-Colace) 2 tablet PO BID [facility] Tamsulosin HCl (Flomax) 0.4 mg PO DAILY@1730 [facility] Assessment/Plan All Active Problems DMII (diabetes mellitus, type 2) (Acute) Lipidemia (Acute) TIA (transient ischemic attack) (Acute) Debility s/p generalized weakness. Complicated by HTN, HLD, frequent falls, dm , and peripheral neuropathy due to diabetes. Goal of rehab is jew of functional independence. Plan: - Physical therapy for gait and balance - Occupational Therapy for ADLs - As needed analgesics - Bowel protocol - Stroke prevention on ASA, Statin and Plavix 75mg dual AP for 3 weeks, then switch to single AP. - DVT prophylaxis: SCDs, ASA, Lovenox - Hypertension: Stable with good control, continue home medication. Keep BP < 130/80 mmHg - Diabetes type 2 => continue home medication. - CTA head/neck -no hemodynamically significant stenosis or occlusion - TTE-EF 60%, normal LA size, no PFO - LDL-78, Smp0i-0.1% - Cardiology evaluation for loop recorder evaluation - Fall precautions
[2017-08-28 17:11] LABS: Bedside Glucose 145 mg/dL (70-110)
[2017-08-28] MEDS: metFORMIN HCl 1,000 MG Tablet 1000 MG PO (17:14)
[2017-08-28] MEDS: Tamsulosin HCl 0.4 MG Capsule PO (17:14)
[2017-08-28] MEDS: glipiZIDE 5 MG Tablet 10 MG PO (17:14)
[2017-08-28 19:29] VITALS: BP 97/61; PULSE 76; RESP 16; TEMP 36.7; O2SAT 92
[2017-08-28 20:56] LABS: Bedside Glucose 192 mg/dL (70-110)
[2017-08-28] MEDS: Acetaminophen 325 MG Tablet 650 MG PO (21:00)
[2017-08-28] MEDS: Insulin Lispro 100 UNIT/ML INSULN.PEN SC (21:06)
[2017-08-28] MEDS: Atorvastatin Calcium 40 MG Tablet PO (21:07)
[2017-08-29] MEDS: Enoxaparin 40 MG/0.4 ML Syringe SC (05:31)
[2017-08-29 05:47] LABS: Hematocrit 38.9 % (40-54); Hemoglobin 13.9 g/dl (13.0-16.5); Mean Corp Hgb Conc 35.7 g/gl (32-36); Mean Corpuscular Hgb 31.8 pg (27.0-32.0); Platelet Count 199 K/mm3 (150-450); RBC Distribution Width CV 12.3 % (11.6-14.6); RBC Distribution Width SD 39.1 fl (35.1-43.9); Red Blood Count 4.37 M/mm3 (4.6-6.2); White Blood Count 9.3 K/mm3 (4.4-11.0)
[2017-08-29 06:00] LABS: Anion Gap 10 (5-15); BUN 15 mg/dL (7-18); Chloride 100 mmol/L (98-107); Creatinine, Serum 0.83 mg/dL (0.70-1.30); EST Glomerular Filtration Rate 94 mL/min (>60); Est Glom Filt Rate - Afr Amer 113 mL/min (>60); Estimated Creatinine Clearance 61.73 ml/min; Glucose 180 mg/dL (74-106); Magnesium 1.6 mg/dL (1.6-2.6); Potassium 3.8 mmol/L (3.5-5.1); Sodium Level 136 mmol/L (136-145)
[2017-08-29 06:01] LABS: Scan Indicated on CBC? Y/N NO
[2017-08-29 06:06] LABS: Phosphorus 2.3 mg/dL (2.5-4.9)
[2017-08-29 06:31] LABS: Bedside Glucose 250 mg/dL (70-110)
[2017-08-29 06:45] VITALS: O2SAT 94
[2017-08-29 07:27] VITALS: BP 156/86; PULSE 72; RESP 18; TEMP 36.8; O2SAT 96
[2017-08-29 07:46] VITALS: PULSE 72
[2017-08-29] MEDS: glipiZIDE 5 MG Tablet 10 MG PO ×2 (07:46→17:51)
[2017-08-29] MEDS: amLODIPine 10 MG Tablet PO (07:46)
[2017-08-29] MEDS: Metoprolol(XL)Succ 50 MG Tablet PO (07:46)
[2017-08-29] MEDS: Aspirin 81 MG TAB.CHEW PO (07:46)
[2017-08-29] MEDS: Insulin Lispro 100 UNIT/ML INSULN.PEN SC ×4 (07:46→20:26)
[2017-08-29] MEDS: metFORMIN HCl 1,000 MG Tablet 1000 MG PO ×2 (07:46→17:51)
[2017-08-29] MEDS: Clopidogrel Bisulfate 75 MG Tablet PO (07:46)
[2017-08-29] MEDS: Lisinopril 40 MG Tablet PO (07:47)
[2017-08-29 11:30] LABS: Bedside Glucose 161 mg/dL (70-110)
--- NOTE | 2017-08-29 15:07 | NURSING ---
urine was clear this am to a yellow color from yesterday on admission was bright red. This afternoon now urine in dark red with small blood clots. dr cantu here and seen patient new order to consult urology, dr rosario consulted, PSA level, scds, and d/c lovenox.
--- NOTE | 2017-08-29 15:29 | PCM.PN.HOSP ---
Subjective: The patient is a 82 year old M admitted in the rehab unit on 08/28/17. He was initially admitted on 08/28/17 in [facility] with a complaitn of right facial droop. He has a past medical history of hypertension, hyperlipidemia, type 2 diabetes mellitus. His also reports frequent falls at home and difficulty caring for himself due to generalized weakness. Patient suspected to have TIA which resolved. Neurology consulted. MRI of brain without acute stroke. CT of head negative. Patient was noted to have very poorly controlled blood pressure. Echocardiogram showed an EF of 60%, stage I diastolic dysfunction, pulmonary artery systolic pressure 33 mmHg. Next CTA showed no significant arterial pathology in the neck. He was on aspirin, plavix and statin, which he was to continue. He was on metoprolol XL 25 mg daily at home and lisinopril 20 mg daily. Metoprolol was increased to 50 mg daily and lisinopril was increased 40 mg daily. He was also started on amlodipine 10 mg daily. Also on admission, he was noted to be in urinary retention and a catheter was passed. Patient was initially slightly bloody and was thought to be due to a traumatic catheter passage. Urine subsequently cleared up and was discharged to rehab with a catheter in place, for voiding trial whilst in rehab and urology follow-up. Patient seen and examined in the rehab unit today. Per his nurse, urine was noted to be bloody again today with passage of blood clots. Patient feels well and has no complaints. He denies any fever or chills, and cough or chest pain, shortness of breath, abdominal pain, any diarrhea vomiting. Review of systems otherwise negative. He is on Flomax. Vitals/I&O's: Vital Signs Temp Pulse Resp BP Pulse Ox 98.2 F 72 18 156/86 H 96 08/29/17 07:27 08/29/17 07:46 08/29/17 07:27 08/29/17 07:27 08/29/17 07:27 Oxygen Delivery Method Room Air Weight: 140 lb 3.424 oz Body Mass Index (BMI) 21.9 Finger Stick Blood Glucose 124 Intake and Output for Last 24 Hours 08/27/17 08/28/17 08/29/17 23:59 23:59 23:59 Intake Total 360 / 360 Output Total 1800 / 1800 Balance -1440 / -1440 General: Alert, Oriented x3, Cooperative, No apparent distress HEENT: Atraumatic, PERRLA, EOMI, Normocephalic Oral: Moist Mucosa Neck: Supple, No JVD, Negative Carotid Bruits Lungs: Clear to auscultation, Normal air movement, No rhonchi, No wheeze, No rales Cardiovascular: Regular rate, Regular Rhythm, Normal S1, Normal S2, No murmurs Abdomen: Bowel Sounds Present, Soft, Non Tender, Non-Distended, No Hepato-splenomegaly Extremities: No clubbing, No cyanosis, No edema, Capillary Refill Less than 3 Seconds Skin: No rashes, No breakdown Musculoskeletal: No Tenderness to Palpation of Joints or Extremities Lymphatic: No Cervical, Supraclavicular, or Inguinal Adenopathy Neurological: Cranial nerves II-XII grossly intact Psych/Mental Status: Normal Affect, Appropriate, Alert and oriented to time, place, person, mood and affect Comment: urine bag contained blood tinged urine. urine in catheter tubing was clear Laboratory Results 08/28/17 17:06: POC Glucose 145 H 08/28/17 20:47: POC Glucose 192 H 08/29/17 05:35: WBC 9.3, RBC 4.37 L, Hgb 13.9, Hct 38.9 L, MCV 89.0, MCH 31.8, MCHC 35.7, RDW 12.3, RDW Differential 39.1, Plt Count 199, MPV 11.0 08/29/17 05:35: Sodium 136, Potassium 3.8, Chloride 100, Carbon Dioxide 26.0, Anion Gap 10, BUN 15, Creatinine 0.83, Estim Creat Clear Calc 61.73, Est GFR (MDRD) Af Amer 113, Est GFR (MDRD) Non-Af 94, BUN/Creatinine Ratio 18.0, Glucose 180 H, Calcium 9.0, Magnesium 1.6 08/29/17 05:35: Phosphorus 2.3 L 08/29/17 06:19: POC Glucose 250 H 08/29/17 11:26: POC Glucose 161 H Current Medications Acetaminophen (Tylenol) 650 mg PO Q6H PRN PRN PRN Reason: PAIN Last Admin: 08/28/17 21:00 Dose: 650 mg Amlodipine Besylate (Norvasc) 10 mg PO DAILY [facility] Last Admin: 08/29/17 07:46 Dose: 10 mg Aspirin (Aspirin, Baby) 81 mg PO DAILY@0800 [facility] Last Admin: 08/29/17 07:46 Dose: 81 mg Atorvastatin Calcium (Lipitor) 40 mg PO QHS [facility] Last Admin: 08/28/17 21:07 Dose: 40 mg Bisacodyl (Dulcolax) 10 mg RECTAL .PRN X 1 PRN PRN Reason: Constipation Clopidogrel Bisulfate (Plavix) 75 mg PO DAILY [facility] Last Admin: 08/29/17 07:46 Dose: 75 mg Glipizide (Glucotrol) 10 mg PO BIDAC [facility] Last Admin: 08/29/17 07:46 Dose: 10 mg Insulin Human Lispro (Humalog Kwikpen (Bkc)) 0 unit SC ACHS [facility] PRN Reason: Protocol Last Admin: 08/29/17 11:47 Dose: 1 u Lisinopril (Zestril) 40 mg PO DAILY [facility] Last Admin: 08/29/17 07:47 Dose: 40 mg Magnesium Hydroxide (Milk Of Magnesia) 30 ml PO .PRN X 1 PRN PRN Reason: Constipation Metformin HCl (Glucophage) 1,000 mg PO BIDCM [facility] Last Admin: 08/29/17 07:46 Dose: 1,000 mg Metoprolol Succinate (Toprol Xl (Beta Sunny)) 50 mg PO DAILY [facility] Last Admin: 08/29/17 07:46 Dose: 50 mg Senna/Docusate Sodium (Senokot-S, Margarita-Colace) 2 tablet PO BID [facility] Last Admin: 08/29/17 07:47 Dose: Not Given Tamsulosin HCl (Flomax) 0.4 mg PO DAILY@1730 [facility] Last Admin: 08/28/17 17:14 Dose: 0.4 mg Medical Necessity - Tobacco Use Smoking Status: Never smoker Tobacco Use: Non-smoker Assessment/Plan All Active Problems DMII (diabetes mellitus, type 2) (Acute) Lipidemia (Acute) TIA (transient ischemic attack) (Acute) 1. Hematuria due to BPH had urinary retention whilst on admission on the floor; had a catheter inserted. Urine was initially bloody on the floor, but it cleared up. Was thought to be due to traumatic catheter insertion. was dced to the TCU with the catheter in situ. Was started on flomax whilst on admission. now having hematuria, with passage of clots earlier today will check PSH. urology consulted hold heparin for now, and give SCDs for dvt prophylaxis 2. Frequent falls due to debility stable PT/OT on board 3. HTN: poorly controlled. ON lisinopril 40mg daily, amlodipine 10mg daily and metoprolol XL 50mg daily. WIll monitor 4. History of TIA resolved on aspirin, plavix and statin 5. Diabetes mellitus: on metformin and glipizide. Accuchecks ACHS. ISS 6, DVT prophylaxis: SCDs Code Visit Inpatient E&M: 80720 Subs Hosp L3
--- NOTE | 2017-08-29 15:37 | PN_ITS ---
Subjective: The patient is a 82 year old M admitted in the rehab unit on 08/28/17. He was initially admitted on 08/28/17 in [facility] with a complaitn of right facial droop. He has a past medical history of hypertension, hyperlipidemia, type 2 diabetes mellitus. His also reports frequent falls at home and difficulty caring for himself due to generalized weakness. Patient suspected to have TIA which resolved. Neurology consulted. MRI of brain without acute stroke. CT of head negative. Patient was noted to have very poorly controlled blood pressure. Echocardiogram showed an EF of 60%, stage I diastolic dysfunction, pulmonary artery systolic pressure 33 mmHg. Next CTA showed no significant arterial pathology in the neck. He was on aspirin, plavix and statin, which he was to continue. He was on metoprolol XL 25 mg daily at home and lisinopril 20 mg daily. Metoprolol was increased to 50 mg daily and lisinopril was increased 40 mg daily. He was also started on amlodipine 10 mg daily. Also on admission, he was noted to be in urinary retention and a catheter was passed. Patient was initially slightly bloody and was thought to be due to a traumatic catheter passage. Urine subsequently cleared up and was discharged to rehab with a catheter in place, for voiding trial whilst in rehab and urology follow-up. Patient seen and examined in the rehab unit today. Per his nurse, urine was noted to be bloody again today with passage of blood clots. Patient feels well and has no complaints. He denies any fever or chills, and cough or chest pain, shortness of breath, abdominal pain, any diarrhea vomiting. Review of systems otherwise negative. He is on Flomax. Vitals/I&O's: Vital Signs Temp Pulse Resp BP Pulse Ox 98.2 F 72 18 156/86 H 96 08/29/17 07:27 08/29/17 07:46 08/29/17 07:27 08/29/17 07:27 08/29/17 07:27 Oxygen Delivery Method Room Air Weight: 140 lb 3.424 oz Body Mass Index (BMI) 21.9 Finger Stick Blood Glucose 124 Intake and Output for Last 24 Hours 08/27/17 08/28/17 08/29/17 23:59 23:59 23:59 Intake Total 360 / 360 Output Total 1800 / 1800 Balance -1440 / -1440 General: Alert, Oriented x3, Cooperative, No apparent distress HEENT: Atraumatic, PERRLA, EOMI, Normocephalic Oral: Moist Mucosa Neck: Supple, No JVD, Negative Carotid Bruits Lungs: Clear to auscultation, Normal air movement, No rhonchi, No wheeze, No rales Cardiovascular: Regular rate, Regular Rhythm, Normal S1, Normal S2, No murmurs Abdomen: Bowel Sounds Present, Soft, Non Tender, Non-Distended, No Hepato- splenomegaly Extremities: No clubbing, No cyanosis, No edema, Capillary Refill Less than 3 Seconds Skin: No rashes, No breakdown Musculoskeletal: No Tenderness to Palpation of Joints or Extremities Lymphatic: No Cervical, Supraclavicular, or Inguinal Adenopathy Neurological: Cranial nerves II-XII grossly intact Psych/Mental Status: Normal Affect, Appropriate, Alert and oriented to time, place, person, mood and affect Comment: urine bag contained blood tinged urine. urine in catheter tubing was clear Laboratory Results 08/28/17 17:06: POC Glucose 145 H 08/28/17 20:47: POC Glucose 192 H 08/29/17 05:35: WBC 9.3, RBC 4.37 L, Hgb 13.9, Hct 38.9 L, MCV 89.0, MCH 31.8, MCHC 35.7, RDW 12.3, RDW Differential 39.1, Plt Count 199, MPV 11.0 08/29/17 05:35: Sodium 136, Potassium 3.8, Chloride 100, Carbon Dioxide 26.0, Anion Gap 10, BUN 15, Creatinine 0.83, Estim Creat Clear Calc 61.73, Est GFR ( MDRD) Af Amer 113, Est GFR (MDRD) Non-Af 94, BUN/Creatinine Ratio 18.0, Glucose 180 H, Calcium 9.0, Magnesium 1.6 08/29/17 05:35: Phosphorus 2.3 L 08/29/17 06:19: POC Glucose 250 H 08/29/17 11:26: POC Glucose 161 H Current Medications Acetaminophen (Tylenol) 650 mg PO Q6H PRN PRN PRN Reason: PAIN Last Admin: 08/28/17 21:00 Dose: 650 mg Amlodipine Besylate (Norvasc) 10 mg PO DAILY [facility] Last Admin: 08/29/17 07:46 Dose: 10 mg Aspirin (Aspirin, Baby) 81 mg PO DAILY@0800 [facility] Last Admin: 08/29/17 07:46 Dose: 81 mg Atorvastatin Calcium (Lipitor) 40 mg PO QHS [facility] Last Admin: 08/28/17 21:07 Dose: 40 mg Bisacodyl (Dulcolax) 10 mg RECTAL .PRN X 1 PRN PRN Reason: Constipation Clopidogrel Bisulfate (Plavix) 75 mg PO DAILY [facility] Last Admin: 08/29/17 07:46 Dose: 75 mg Glipizide (Glucotrol) 10 mg PO BIDAC [facility] Last Admin: 08/29/17 07:46 Dose: 10 mg Insulin Human Lispro (Humalog Kwikpen (Bkc)) 0 unit SC ACHS [facility] PRN Reason: Protocol Last Admin: 08/29/17 11:47 Dose: 1 u Lisinopril (Zestril) 40 mg PO DAILY [facility] Last Admin: 08/29/17 07:47 Dose: 40 mg Magnesium Hydroxide (Milk Of Magnesia) 30 ml PO .PRN X 1 PRN PRN Reason: Constipation Metformin HCl (Glucophage) 1,000 mg PO BIDCM [facility] Last Admin: 08/29/17 07:46 Dose: 1,000 mg Metoprolol Succinate (Toprol Xl (Beta Sunny)) 50 mg PO DAILY [facility] Last Admin: 08/29/17 07:46 Dose: 50 mg Senna/Docusate Sodium (Senokot-S, Margarita-Colace) 2 tablet PO BID [facility] Last Admin: 08/29/17 07:47 Dose: Not Given Tamsulosin HCl (Flomax) 0.4 mg PO DAILY@1730 [facility] Last Admin: 08/28/17 17:14 Dose: 0.4 mg Medical Necessity - Tobacco Use Smoking Status: Never smoker Tobacco Use: Non-smoker Assessment/Plan All Active Problems DMII (diabetes mellitus, type 2) (Acute) Lipidemia (Acute) TIA (transient ischemic attack) (Acute) 1. Hematuria due to BPH * had urinary retention whilst on admission on the floor; had a catheter inserted. Urine was initially bloody on the floor, but it cleared up. Was thought to be due to traumatic catheter insertion. * was dced to the TCU with the catheter in situ. Was started on flomax whilst on admission. * now having hematuria, with passage of clots earlier today * will check PSH. urology consulted * hold heparin for now, and give SCDs for dvt prophylaxis * 2. Frequent falls due to debility * stable * PT/OT on board * 3. HTN: poorly controlled. ON lisinopril 40mg daily, amlodipine 10mg daily and metoprolol XL 50mg daily. WIll monitor 4. History of TIA * resolved * on aspirin, plavix and statin * 5. Diabetes mellitus: on metformin and glipizide. Accuchecks ACHS. ISS * 6, DVT prophylaxis: SCDs Code Visit Inpatient E&M: 66361 Subs Hosp L3
[2017-08-29 16:30] LABS: Bedside Glucose 238 mg/dL (70-110)
[2017-08-29] MEDS: Tamsulosin HCl 0.4 MG Capsule PO (17:52)
[2017-08-29] MEDS: Atorvastatin Calcium 40 MG Tablet PO (20:27)
[2017-08-29 20:36] VITALS: BP 157/76; PULSE 79; RESP 18; TEMP 36.5; O2SAT 94
--- NOTE | 2017-08-30 00:48 | NURSING ---
Reviewed and agree with LPNs fims and handoff
[2017-08-30 02:35] LABS: Bedside Glucose 288 mg/dL (70-110)
[2017-08-30 06:36] LABS: Bedside Glucose 179 mg/dL (70-110)
[2017-08-30 07:15] VITALS: O2SAT 98
[2017-08-30 08:00] VITALS: BP 132/80; PULSE 80; RESP 18; TEMP 36.4; O2SAT 93
[2017-08-30] MEDS: Lisinopril 40 MG Tablet PO (08:05)
[2017-08-30] MEDS: Clopidogrel Bisulfate 75 MG Tablet PO (08:05)
[2017-08-30] MEDS: Insulin Lispro 100 UNIT/ML INSULN.PEN SC ×4 (08:05→21:54)
[2017-08-30 08:06] VITALS: PULSE 80
[2017-08-30] MEDS: Metoprolol(XL)Succ 50 MG Tablet PO (08:06)
[2017-08-30] MEDS: metFORMIN HCl 1,000 MG Tablet 1000 MG PO ×2 (08:06→17:11)
[2017-08-30] MEDS: Aspirin 81 MG TAB.CHEW PO (08:06)
[2017-08-30] MEDS: amLODIPine 10 MG Tablet PO (08:06)
[2017-08-30] MEDS: glipiZIDE 5 MG Tablet 10 MG PO ×2 (08:06→17:11)
--- NOTE | 2017-08-30 10:03 | PCM.PN.NEU ---
Subjective: Patient seen and examined. Right eye is still slightly swollen. Denies any blurry vision, double vision, or trouble seeing. Denies any shortness of breath or weakness. Tolerating therapy. No issue with GI/. - Physical Exam General: Alert, Oriented x3, Cooperative HEENT: Atraumatic, PERRLA, EOMI, Normocephalic Neck: Supple, No JVD, Negative Carotid Bruits Lungs: Clear to auscultation, Normal air movement Cardiovascular: Regular rate, No murmurs Abdomen: Bowel Sounds Present, Soft, Non Tender Extremities: No edema, Capillary Refill Less than 3 Seconds Skin: No rashes, No breakdown Musculoskeletal: No Tenderness to Palpation of Joints or Extremities Neurological: Cranial nerves II-XII grossly intact Psych/Mental Status: Normal Affect, Appropriate, Alert and oriented to time, place, person, mood and affect Vital Signs Temp Pulse Resp BP Pulse Ox 97.7 F L 80 18 157/76 H 98 08/29/17 20:36 08/30/17 08:06 08/29/17 20:36 08/29/17 20:36 08/30/17 07:15 Oxygen Delivery Method Room Air Weight: 63.6 kg Body Mass Index (BMI) 21.9 Finger Stick Blood Glucose 124 Intake and Output for Last 24 Hours 08/28/17 08/29/17 08/30/17 23:59 23:59 23:59 Intake Total 720 / 720 Output Total 2325 / 2325 Balance -1605 / -1605 Laboratory Tests Past 24 Hrs 08/29/17 21:03 Total PSA 36.20 H POC Glucose 08/30/17 08/29/17 08/29/17 06:30 20:25 16:27 POC Glucose 179 H 288 H 238 H 08/29/17 11:26 POC Glucose 161 H Active Medications Acetaminophen (Tylenol) 650 mg PO Q6H PRN PRN PRN Reason: PAIN Last Admin: 08/28/17 21:00 Dose: 650 mg Amlodipine Besylate (Norvasc) 10 mg PO DAILY [facility] Last Admin: 08/30/17 08:06 Dose: 10 mg Aspirin (Aspirin, Baby) 81 mg PO DAILY@0800 [facility] Last Admin: 08/30/17 08:06 Dose: 81 mg Atorvastatin Calcium (Lipitor) 40 mg PO QHS [facility] Last Admin: 08/29/17 20:27 Dose: 40 mg Bisacodyl (Dulcolax) 10 mg RECTAL .PRN X 1 PRN PRN Reason: Constipation Clopidogrel Bisulfate (Plavix) 75 mg PO DAILY [facility] Last Admin: 08/30/17 08:05 Dose: 75 mg Glipizide (Glucotrol) 10 mg PO BIDAC [facility] Last Admin: 08/30/17 08:06 Dose: 10 mg Insulin Human Lispro (Humalog Kwikpen (Bkc)) 0 unit SC ACHS [facility] PRN Reason: Protocol Last Admin: 08/30/17 08:05 Dose: 1 u Lisinopril (Zestril) 40 mg PO DAILY [facility] Last Admin: 08/30/17 08:05 Dose: 40 mg Magnesium Hydroxide (Milk Of Magnesia) 30 ml PO .PRN X 1 PRN PRN Reason: Constipation Metformin HCl (Glucophage) 1,000 mg PO BIDCM [facility] Last Admin: 08/30/17 08:06 Dose: 1,000 mg Metoprolol Succinate (Toprol Xl (Beta Sunny)) 50 mg PO DAILY [facility] Last Admin: 08/30/17 08:06 Dose: 50 mg Senna/Docusate Sodium (Senokot-S, Margarita-Colace) 2 tablet PO BID [facility] Last Admin: 08/30/17 08:07 Dose: Not Given Tamsulosin HCl (Flomax) 0.4 mg PO DAILY@1730 [facility] Last Admin: 08/29/17 17:52 Dose: 0.4 mg Medical Necessity - Tobacco Use Smoking Status: Never smoker Tobacco Use: Non-smoker Assessment/Plan All Active Problems DMII (diabetes mellitus, type 2) (Acute) Lipidemia (Acute) TIA (transient ischemic attack) (Acute) Debility s/p generalized weakness. Complicated by HTN, HLD, frequent falls, dm, and peripheral neuropathy due to diabetes. Goal of rehab is latter day of functional independence. Plan: - Physical therapy for gait and balance - Occupational Therapy for ADLs - As needed analgesics - Bowel protocol - Stroke prevention on ASA, Statin and Plavix 75mg dual AP for 3 weeks, then switch to single AP. - DVT prophylaxis: SCDs, ASA, Lovenox - Hypertension: Stable with good control, continue home medication. Keep BP < 130/80 mmHg - Diabetes type 2 => continue home medication. - CTA head/neck -no hemodynamically significant stenosis or occlusion - TTE-EF 60%, normal LA size, no PFO - LDL-78, Pmg4s-3.1% - Cardiology evaluation for loop recorder evaluation - Fall precautions
[2017-08-30 11:41] LABS: Bedside Glucose 183 mg/dL (70-110)
--- NOTE | 2017-08-30 14:57 | CHAPLAIN ---
Type of Pastoral Visit _x__ Initial Visit ___ Follow-up Visit ___ On-call Visit ___ General Patient Visit ___ Spiritual Assessment ___ Family Conference ___ Bereavement ___ Rapid Response ___ Code Blue ___ Other (describe below) Pastoral Care Referral From _x__ Patient ___ Family ___ Nurse ___ Physician ___ Cyber Security Analyst ___ Hide House Supervisor ___ Other (describe below) Sacrament/Intervention _x__ Active listening ___ Anointing ___ Methodist ___ Bereavement ___ Communion _x__ Lyly exploration ___ _x__ Life review _x__ Prayer ___ Reconciliation ___ Sacrament of Sick ___ Supportive presence ___ Wedding ___ Other (describe below) Pastoral Comments
--- NOTE | 2017-08-30 15:50 | PN_ITS ---
Subjective: The patient is a 82 year old M admitted in the rehab unit on 08/28/17. He was initially admitted on 08/28/17 in [facility] with a complaitn of right facial droop. He has a past medical history of hypertension, hyperlipidemia, type 2 diabetes mellitus. His also reports frequent falls at home and difficulty caring for himself due to generalized weakness. Patient suspected to have TIA which resolved. Neurology consulted. MRI of brain without acute stroke. CT of head negative. Patient was noted to have very poorly controlled blood pressure. Echocardiogram showed an EF of 60%, stage I diastolic dysfunction, pulmonary artery systolic pressure 33 mmHg. Next CTA showed no significant arterial pathology in the neck. He was on aspirin, plavix and statin, which he was to continue. He was on metoprolol XL 25 mg daily at home and lisinopril 20 mg daily. Metoprolol was increased to 50 mg daily and lisinopril was increased 40 mg daily. He was also started on amlodipine 10 mg daily. Also on admission, he was noted to be in urinary retention and a catheter was passed. Patient was initially slightly bloody and was thought to be due to a traumatic catheter passage. Urine subsequently cleared up and was discharged to rehab with a catheter in place, for voiding trial whilst in rehab and urology follow-up. Patient started having worsening hematuria in the TCU on 08/29/2017 and urology was consulted. Patient seen and examined today. He was sitting comfortably in bed and had no complaints. According to his notes, hematuria is getting better and is likely because patient keeps on pulling on his catheter resulted in the hematuria. 12 system review otherwise negative. Vitals/I&O's: Vital Signs Temp Pulse Resp BP Pulse Ox 97.6 F L 80 18 132/80 H 93 08/30/17 08:00 08/30/17 08:06 08/30/17 08:00 08/30/17 08:00 08/30/17 08:00 Oxygen Delivery Method Room Air Weight: 140 lb 3.424 oz Body Mass Index (BMI) 21.9 Finger Stick Blood Glucose 124 Intake and Output for Last 24 Hours 08/28/17 08/29/17 08/30/17 23:59 23:59 23:59 Intake Total 720 / 720 240 / 240 Output Total 2325 / 2325 Balance -1605 / -1605 240 / 240 General: Alert, Oriented x3, Cooperative, No apparent distress HEENT: Atraumatic, PERRLA, EOMI, Normocephalic Oral: Moist Mucosa Neck: Supple, No JVD, Negative Carotid Bruits Lungs: Clear to auscultation, Normal air movement, No rhonchi, No wheeze, No rales Cardiovascular: Regular rate, Regular Rhythm, Normal S1, Normal S2, No murmurs Abdomen: Bowel Sounds Present, Soft, Non Tender, Non-Distended, No Hepato- splenomegaly Extremities: No clubbing, No cyanosis, No edema, Capillary Refill Less than 3 Seconds Skin: No rashes, No breakdown, - - resolving bruise over right eye; nearly healed Musculoskeletal: No Tenderness to Palpation of Joints or Extremities Lymphatic: No Cervical, Supraclavicular, or Inguinal Adenopathy Neurological: Cranial nerves II-XII grossly intact, Motor Exam 5/5 strength throughout Psych/Mental Status: Normal Affect, Appropriate, Alert and oriented to time, place, person, mood and affect Laboratory Results 08/29/17 16:27: POC Glucose 238 H 08/29/17 20:25: POC Glucose 288 H 08/29/17 21:03: Total PSA 36.20 H 08/30/17 06:30: POC Glucose 179 H 08/30/17 11:37: POC Glucose 183 H Current Medications Acetaminophen (Tylenol) 650 mg PO Q6H PRN PRN PRN Reason: PAIN Last Admin: 08/28/17 21:00 Dose: 650 mg Amlodipine Besylate (Norvasc) 10 mg PO DAILY [facility] Last Admin: 08/30/17 08:06 Dose: 10 mg Aspirin (Aspirin, Baby) 81 mg PO DAILY@0800 [facility] Last Admin: 08/30/17 08:06 Dose: 81 mg Atorvastatin Calcium (Lipitor) 40 mg PO QHS [facility] Last Admin: 08/29/17 20:27 Dose: 40 mg Bisacodyl (Dulcolax) 10 mg RECTAL .PRN X 1 PRN PRN Reason: Constipation Clopidogrel Bisulfate (Plavix) 75 mg PO DAILY [facility] Last Admin: 08/30/17 08:05 Dose: 75 mg Glipizide (Glucotrol) 10 mg PO BIDAC [facility] Last Admin: 08/30/17 08:06 Dose: 10 mg Insulin Human Lispro (Humalog Kwikpen (Bkc)) 0 unit SC ACHS [facility] PRN Reason: Protocol Last Admin: 08/30/17 12:00 Dose: 1 u Lisinopril (Zestril) 40 mg PO DAILY [facility] Last Admin: 08/30/17 08:05 Dose: 40 mg Magnesium Hydroxide (Milk Of Magnesia) 30 ml PO .PRN X 1 PRN PRN Reason: Constipation [facility] Last Admin: 08/30/17 08:06 Dose: 1,000 mg Metoprolol Succinate (Toprol Xl (Beta Sunny)) 50 mg PO DAILY [facility] Last Admin: 08/30/17 08:06 Dose: 50 mg Senna/Docusate Sodium (Senokot-S, Margarita-Colace) 2 tablet PO BID [facility] Last Admin: 08/30/17 08:07 Dose: Not Given Tamsulosin HCl (Flomax) 0.4 mg PO DAILY@1730 [facility] Last Admin: 08/29/17 17:52 Dose: 0.4 mg Medical Necessity - Tobacco Use Smoking Status: Never smoker Tobacco Use: Non-smoker Assessment/Plan All Active Problems DMII (diabetes mellitus, type 2) (Acute) Lipidemia (Acute) TIA (transient ischemic attack) (Acute) 1. Hematuria due to BPH * improving. Patient's frequent pulling on catheter is also a contributory factor * urine in catheter tubing is clear * PSA:36.20 * on flomax * urology consulted. Will await rec's * 2. Frequent falls due to debility * stable * PT/OT on board * 3. HTN: * control improving. ON lisinopril 40mg daily, amlodipine 10mg daily and metoprolol XL 50mg daily. WIll monitor 4. History of TIA * resolved * on aspirin, plavix and statin * 5. Diabetes mellitus: on metformin and glipizide. Accuchecks ACHS. ISS * 6, DVT prophylaxis: SCDs; will resume heparin as hematuria is resolving Code Visit Inpatient E&M: 24741 Subs Hosp L2
--- NOTE | 2017-08-30 16:42 | PCM.CONS.U ---
Reason for Consult Date of Consultation: 08/30/17 Reason for Consultation: hematuria after gonzáles placed History of Present Illness: The patient is a 82 year old male with TIA had gonzáles placed, started on flomax. h/o tuna procedure in the past also reported pulling on catheter. PSA check high at 36 but could be trauma. Past Medical History Past Medical History (Chronic Problems): Chronic Problems HTN (hypertension) (Chronic) Allergies iodine Allergy (Verified 08/28/17 16:06) Rash Home Medications: Ambulatory Orders Medication Instructions Recorded Metformin HCl [Glucophage] 1,000 mg PO BID 08/25/17 glipiZIDE [Glucotrol] 10 mg PO BID 08/25/17 Acetaminophen [Tylenol Tablet] 650 mg PO Q6H PRN PRN tablet 08/27/17 Amlodipine [Norvasc] 10 mg PO DAILY 08/28/17 Aspirin [Aspirin, Baby] 81 mg PO DAILY@0800 08/28/17 Atorvastatin Calcium [Lipitor] 40 mg PO QHS 08/28/17 Clopidogrel Bisulfate [Plavix] 75 mg PO DAILY 08/28/17 Lisinopril [Zestril] 40 mg PO DAILY 08/28/17 Metoprolol(XL)Succ [Toprol Xl 50 mg PO DAILY 08/28/17 (Beta Sunny)] Tamsulosin HCl [Flomax] 0.4 mg PO DAILY@1730 08/28/17 Lives: Spouse/ Significant Other Smoking Status: Never smoker Tobacco Use: Non-smoker Alcohol: None Drugs: None - *Family History Maternal History Items: No pertinent history Review of Systems Constitutional: Denies: Chills, Fever, Weight Change HEENT: Denies: Head Aches, Sinus Congestion, Sinus Drainage Cardiovascular: Denies: Chest Pain, Palpitations Respiratory: Denies: Cough, Shortness of breath at rest, Sputum production Gastrointestinal: Denies: Abdominal Pain, Nausea, Vomiting Genitourinary: Reports: Retention Musculoskeletal: Denies: Joint Pain, Joint Tenderness Skin: Denies: Rash, Wounds Neurological: Denies: Numbness, Tingling, Focal weakness Physical Exam - Physical Exam Vital Signs Temp 97.6 F L 08/30/17 08:00 Pulse 80 08/30/17 08:06 Resp 18 08/30/17 08:00 BP 132/80 H 08/30/17 08:00 Pulse Ox 93 08/30/17 08:00 Intake & Output 08/28/17 08/29/17 08/30/17 23:59 23:59 23:59 Intake Total 720 / 720 240 / 240 Output Total 2325 / 2325 Balance -1605 / -1605 240 / 240 Weight: 63.6 kg 63.6 kg Intake: Oral 720 / 720 240 / 240 Output: Urine 2325 / 2325 Other: Number of Bowel Movements 1 General: Alert, Oriented x3 HEENT: Atraumatic Oral: Moist Mucosa Neck: Supple Lungs: Normal air movement Cardiovascular: Regular Rhythm Abdomen: Bowel Sounds Present Laboratory Tests Past 24 Hrs 08/29/17 21:03 Total PSA 36.20 H Assessment/Plan All Active Problems DMII (diabetes mellitus, type 2) (Acute) Lipidemia (Acute) TIA (transient ischemic attack) (Acute) remove gonzáles for voiding trial per protocol after starting flomax psa high. have him follow up with me in the office for check up, PVR, CHRISTINE and recheck of PSA in a few weeks call with questions.
[2017-08-30 17:11] LABS: Bedside Glucose 173 mg/dL (70-110)
[2017-08-30] MEDS: Tamsulosin HCl 0.4 MG Capsule PO (17:11)
[2017-08-30] MEDS: Heparin Injection (Vial) 5,000 UNIT/ML VIAL 5000 UNIT SC (21:54)
[2017-08-30] MEDS: Atorvastatin Calcium 40 MG Tablet PO (21:55)
[2017-08-30 22:00] VITALS: BP 137/70; PULSE 72; RESP 18; TEMP 36.6; O2SAT 95
[2017-08-30 22:06] LABS: Bedside Glucose 228 mg/dL (70-110)
--- NOTE | 2017-08-31 02:40 | NURSING ---
REVIEWED AND AGREE WITH CUSTODIAL OFFICER'S FIM AND HANDOFF CHARTING.
[2017-08-31] MEDS: Heparin Injection (Vial) 5,000 UNIT/ML VIAL 5000 UNIT SC ×3 (06:36→20:59)
[2017-08-31 06:51] LABS: Bedside Glucose 160 mg/dL (70-110)
[2017-08-31 07:30] VITALS: BP 140/72; PULSE 73; RESP 20; TEMP 36.7; O2SAT 96
[2017-08-31 07:59] VITALS: PULSE 77
[2017-08-31] MEDS: Clopidogrel Bisulfate 75 MG Tablet PO (07:59)
[2017-08-31] MEDS: Metoprolol(XL)Succ 50 MG Tablet PO (07:59)
[2017-08-31] MEDS: metFORMIN HCl 1,000 MG Tablet 1000 MG PO ×2 (07:59→16:51)
[2017-08-31] MEDS: amLODIPine 10 MG Tablet PO (07:59)
[2017-08-31] MEDS: Aspirin 81 MG TAB.CHEW PO (07:59)
[2017-08-31] MEDS: glipiZIDE 5 MG Tablet 10 MG PO ×2 (07:59→16:54)
[2017-08-31] MEDS: Lisinopril 40 MG Tablet PO (07:59)
[2017-08-31] MEDS: Insulin Lispro 100 UNIT/ML INSULN.PEN SC ×4 (08:00→20:59)
[2017-08-31 11:24] VITALS: O2SAT 95
[2017-08-31 12:11] LABS: Bedside Glucose 178 mg/dL (70-110)
[2017-08-31] MEDS: Tamsulosin HCl 0.4 MG Capsule PO (16:52)
[2017-08-31 16:55] LABS: Bedside Glucose 186 mg/dL (70-110)
[2017-08-31 19:44] VITALS: BP 136/74; PULSE 76; RESP 18; TEMP 36.6; O2SAT 95
[2017-08-31 21:00] VITALS: PULSE 76; RESP 18; O2SAT 95
[2017-08-31] MEDS: Atorvastatin Calcium 40 MG Tablet PO (21:00)
[2017-08-31 21:11] LABS: Bedside Glucose 169 mg/dL (70-110)
--- NOTE | 2017-09-01 02:28 | NURSING ---
REVIEWED AND AGREE WITH PRINTED CIRCUIT BOARDS BEVELER'S HANDOFF CHARTING.
[2017-09-01] MEDS: Heparin Injection (Vial) 5,000 UNIT/ML VIAL 5000 UNIT SC ×3 (05:28→21:04)
--- NOTE | 2017-09-01 05:42 | NURSING ---
gonzáles d/c'd at this time and pt tolerated the procedure well. 1125cc of clear yellow urine was emptied from gonzáles bag. will continue to monitor urine out put today
[2017-09-01 07:05] LABS: Bedside Glucose 161 mg/dL (70-110)
[2017-09-01] MEDS: Aspirin 81 MG TAB.CHEW PO (07:29)
[2017-09-01] MEDS: glipiZIDE 5 MG Tablet 10 MG PO ×2 (07:29→16:32)
[2017-09-01] MEDS: metFORMIN HCl 1,000 MG Tablet 1000 MG PO ×2 (07:29→16:33)
[2017-09-01] MEDS: Clopidogrel Bisulfate 75 MG Tablet PO (07:29)
[2017-09-01] MEDS: Insulin Lispro 100 UNIT/ML INSULN.PEN SC ×4 (07:30→21:03)
[2017-09-01 07:35] VITALS: BP 139/72; PULSE 75; RESP 18; TEMP 36.8; O2SAT 95
[2017-09-01 08:05] VITALS: PULSE 70
[2017-09-01] MEDS: Metoprolol(XL)Succ 50 MG Tablet PO (08:05)
[2017-09-01] MEDS: amLODIPine 10 MG Tablet PO (08:05)
[2017-09-01] MEDS: Lisinopril 40 MG Tablet PO (08:05)
[2017-09-01 11:31] LABS: Bedside Glucose 181 mg/dL (70-110)
[2017-09-01] MEDS: Tamsulosin HCl 0.4 MG Capsule PO (16:32)
[2017-09-01 16:45] LABS: Bedside Glucose 164 mg/dL (70-110)
[2017-09-01 20:00] VITALS: BP 147/89; PULSE 82; RESP 18; TEMP 36.9; O2SAT 95
[2017-09-01] MEDS: Atorvastatin Calcium 40 MG Tablet PO (21:03)
[2017-09-01 21:16] LABS: Bedside Glucose 173 mg/dL (70-110)
[2017-09-01] MEDS: Acetaminophen 325 MG Tablet 650 MG PO (22:01)
--- NOTE | 2017-09-02 03:47 | NURSING ---
REVIEWED AND AGREE WITH PIANO PLAYER'S FIM AND HANDOFF CHARTING.
[2017-09-02] MEDS: Heparin Injection (Vial) 5,000 UNIT/ML VIAL 5000 UNIT SC ×3 (05:28→20:21)
[2017-09-02] MEDS: Acetaminophen 325 MG Tablet 650 MG PO ×2 (06:11→20:19)
[2017-09-02 07:01] LABS: Bedside Glucose 154 mg/dL (70-110)
[2017-09-02 07:26] VITALS: BP 142/71; PULSE 71; RESP 18; TEMP 36.5; O2SAT 98
[2017-09-02 07:27] VITALS: PULSE 71
[2017-09-02] MEDS: glipiZIDE 5 MG Tablet 10 MG PO ×2 (07:27→17:07)
[2017-09-02] MEDS: Insulin Lispro 100 UNIT/ML INSULN.PEN SC ×4 (07:27→20:20)
[2017-09-02] MEDS: metFORMIN HCl 1,000 MG Tablet 1000 MG PO ×2 (07:27→17:08)
[2017-09-02] MEDS: Clopidogrel Bisulfate 75 MG Tablet PO (07:27)
[2017-09-02] MEDS: Lisinopril 40 MG Tablet PO (07:27)
[2017-09-02] MEDS: Aspirin 81 MG TAB.CHEW PO (07:27)
[2017-09-02] MEDS: Metoprolol(XL)Succ 50 MG Tablet PO (07:27)
[2017-09-02] MEDS: amLODIPine 10 MG Tablet PO (07:28)
--- NOTE | 2017-09-02 10:22 | PCM.PN.NEU ---
Subjective: Staffed in team. Family was at bedside, questions answered. With Physical therapy, he requires a light hand to get to his feet. He is able to walk 250 feet with a waker with a light hand for balance at times. He does occasionally require cues to take longer steps. He is able to go up and down 6 steps using 2 hand rails at contact guard. With Occupational therapy, he is able to do his personal care with minimal assistance for balance. He occasionally requires a light hand for toileting while pulling up his pants. With Speech therapy, he requires help with cognitive issues, memory strategies, and word finding strategies, will continue to work on these issues. With Nursing, his Beckwith catheter was removed, he is urinating with difficulty He has a follow up appointment with Dr. Norberto Chatman for lumbar spinal stenosis. The family asked about tremors, which is causing problems when he is eating or drinking, will start low dose of Primidone 50mg early evening. Will re-team next Saturday 09/09. - Physical Exam General: Alert, Oriented x3, Cooperative HEENT: Atraumatic, PERRLA, EOMI, Normocephalic Neck: Supple, No JVD, Negative Carotid Bruits Lungs: Clear to auscultation, Normal air movement Cardiovascular: Regular rate, No murmurs Abdomen: Bowel Sounds Present, Soft, Non Tender Extremities: No edema, Capillary Refill Less than 3 Seconds Skin: No rashes, No breakdown Musculoskeletal: No Tenderness to Palpation of Joints or Extremities Neurological: Cranial nerves II-XII grossly intact Psych/Mental Status: Normal Affect, Appropriate, Alert and oriented to time, place, person, mood and affect Vital Signs Temp Pulse Resp BP Pulse Ox 97.7 F L 71 18 142/71 H 98 09/02/17 07:26 09/02/17 07:27 09/02/17 07:26 09/02/17 07:26 09/02/17 07:26 Oxygen Delivery Method Room Air Weight: 63.6 kg Body Mass Index (BMI) 21.9 Finger Stick Blood Glucose 124 Intake and Output for Last 24 Hours 08/31/17 09/01/17 09/02/17 23:59 23:59 23:59 Intake Total 960 / 960 600 / 600 260 / 260 Output Total 800 / 800 2525 / 2525 250 / 250 Balance 160 / 160 -1925 / -1925 POC Glucose 09/02/17 09/01/17 09/01/17 06:31 21:02 16:31 POC Glucose 154 H 173 H 164 H 09/01/17 11:23 POC Glucose 181 H Active Medications Acetaminophen (Tylenol) 650 mg PO Q6H PRN PRN PRN Reason: PAIN Last Admin: 09/02/17 06:11 Dose: 650 mg Amlodipine Besylate (Norvasc) 10 mg PO DAILY [facility] Last Admin: 09/02/17 07:28 Dose: 10 mg Aspirin (Aspirin, Baby) 81 mg PO DAILY@0800 [facility] Last Admin: 09/02/17 07:27 Dose: 81 mg Atorvastatin Calcium (Lipitor) 40 mg PO QHS [facility] Last Admin: 09/01/17 21:03 Dose: 40 mg Bisacodyl (Dulcolax) 10 mg RECTAL .PRN X 1 PRN PRN Reason: Constipation Clopidogrel Bisulfate (Plavix) 75 mg PO DAILY [facility] Last Admin: 09/02/17 07:27 Dose: 75 mg Glipizide (Glucotrol) 10 mg PO BIDAC [facility] Last Admin: 09/02/17 07:27 Dose: 10 mg Heparin Sodium (Porcine) (Heparin Na) 5,000 unit SC Q8 [facility] Last Admin: 09/02/17 05:28 Dose: 5,000 u Insulin Human Lispro (Humalog Kwikpen (Bkc)) 0 unit SC ACHS [facility] PRN Reason: Protocol Last Admin: 09/02/17 07:27 Dose: 1 u Lisinopril (Zestril) 40 mg PO DAILY [facility] Last Admin: 09/02/17 07:27 Dose: 40 mg Magnesium Hydroxide (Milk Of Magnesia) 30 ml PO .PRN X 1 PRN PRN Reason: Constipation Metformin HCl (Glucophage) 1,000 mg PO BIDCM [facility] Last Admin: 09/02/17 07:27 Dose: 1,000 mg Metoprolol Succinate (Toprol Xl (Beta Sunny)) 50 mg PO DAILY [facility] Last Admin: 09/02/17 07:27 Dose: 50 mg Primidone (Mysoline) 50 mg PO 1600 [facility] Senna/Docusate Sodium (Senokot-S, Margarita-Colace) 2 tablet PO BID [facility] Last Admin: 09/02/17 07:28 Dose: Not Given Tamsulosin HCl (Flomax) 0.4 mg PO DAILY@1730 [facility] Last Admin: 09/01/17 16:32 Dose: 0.4 mg Medical Necessity - Tobacco Use Smoking Status: Never smoker Tobacco Use: Non-smoker Assessment/Plan All Active Problems DMII (diabetes mellitus, type 2) (Acute) Lipidemia (Acute) TIA (transient ischemic attack) (Acute) Debility s/p generalized weakness. Complicated by HTN, HLD, frequent falls, dm, and peripheral neuropathy due to diabetes. Goal of rehab is taoist of functional independence. Plan: - Physical therapy for gait and balance - Occupational Therapy for ADLs - As needed analgesics - Bowel protocol - Stroke prevention on ASA, Statin and Plavix 75mg dual AP for 3 weeks, then switch to single AP. - DVT prophylaxis: SCDs, ASA, Lovenox - Hypertension: Stable with good control, continue home medication. Keep BP < 130/80 mmHg - Diabetes type 2 => continue home medication. - CTA head/neck -no hemodynamically significant stenosis or occlusion - TTE-EF 60%, normal LA size, no PFO - LDL-78, [id number]-7.1% - Cardiology evaluation for loop recorder evaluation - Fall precautions - Tremors -> start low dose of Primidone 50mg at 1600 hours - Hx Lumbar spinal stenosis on MRI has an appointment with Dr. Norberto Chatman on 09/12 for evaluation and treatment plan
--- NOTE | 2017-09-02 10:36 | PN.NEURO_ITS ---
Subjective: Staffed in team. Family was at bedside, questions answered. With Physical therapy, he requires a light hand to get to his feet. He is able to walk 250 feet with a waker with a light hand for balance at times. He does occasionally require cues to take longer steps. He is able to go up and down 6 steps using 2 hand rails at contact guard. With Occupational therapy, he is able to do his personal care with minimal assistance for balance. He occasionally requires a light hand for toileting while pulling up his pants. With Speech therapy, he requires help with cognitive issues, memory strategies, and word finding strategies, will continue to work on these issues. With Nursing, his Beckwith catheter was removed, he is urinating with difficulty He has a follow up appointment with Dr. Norberto Chatman for lumbar spinal stenosis. The family asked about tremors, which is causing problems when he is eating or drinking, will start low dose of Primidone 50mg early evening. Will re-team next Saturday 09/09. - Physical Exam General: Alert, Oriented x3, Cooperative HEENT: Atraumatic, PERRLA, EOMI, Normocephalic Neck: Supple, No JVD, Negative Carotid Bruits Lungs: Clear to auscultation, Normal air movement Cardiovascular: Regular rate, No murmurs Abdomen: Bowel Sounds Present, Soft, Non Tender Extremities: No edema, Capillary Refill Less than 3 Seconds Skin: No rashes, No breakdown Musculoskeletal: No Tenderness to Palpation of Joints or Extremities Neurological: Cranial nerves II-XII grossly intact Psych/Mental Status: Normal Affect, Appropriate, Alert and oriented to time, place, person, mood and affect Vital Signs Temp Pulse Resp BP Pulse Ox 97.7 F L 71 18 142/71 H 98 09/02/17 07:26 09/02/17 07:27 09/02/17 07:26 09/02/17 07:26 09/02/17 07:26 Oxygen Delivery Method Room Air Weight: 63.6 kg Body Mass Index (BMI) 21.9 Finger Stick Blood Glucose 124 Intake and Output for Last 24 Hours 08/31/17 09/01/17 09/02/17 23:59 23:59 23:59 Intake Total 960 / 960 600 / 600 260 / 260 Output Total 800 / 800 2525 / 2525 250 / 250 Balance 160 / 160 -1925 / -1925 POC Glucose 09/02/17 09/01/17 09/01/17 06:31 21:02 16:31 POC Glucose 154 H 173 H 164 H 09/01/17 11:23 POC Glucose 181 H Active Medications Acetaminophen (Tylenol) 650 mg PO Q6H PRN PRN PRN Reason: PAIN Last Admin: 09/02/17 06:11 Dose: 650 mg Amlodipine Besylate (Norvasc) 10 mg PO DAILY [facility] Last Admin: 09/02/17 07:28 Dose: 10 mg Aspirin (Aspirin, Baby) 81 mg PO DAILY@0800 [facility] Last Admin: 09/02/17 07:27 Dose: 81 mg Atorvastatin Calcium (Lipitor) 40 mg PO QHS [facility] Last Admin: 09/01/17 21:03 Dose: 40 mg Bisacodyl (Dulcolax) 10 mg RECTAL .PRN X 1 PRN PRN Reason: Constipation Clopidogrel Bisulfate (Plavix) 75 mg PO DAILY [facility] Last Admin: 09/02/17 07:27 Dose: 75 mg Glipizide (Glucotrol) 10 mg PO BIDAC [facility] Last Admin: 09/02/17 07:27 Dose: 10 mg Heparin Sodium (Porcine) (Heparin Na) 5,000 unit SC Q8 [facility] Last Admin: 09/02/17 05:28 Dose: 5,000 u Insulin Human Lispro (Humalog Kwikpen (Bkc)) 0 unit SC ACHS [facility] PRN Reason: Protocol Last Admin: 09/02/17 07:27 Dose: 1 u Lisinopril (Zestril) 40 mg PO DAILY [facility] Last Admin: 09/02/17 07:27 Dose: 40 mg Magnesium Hydroxide (Milk Of Magnesia) 30 ml PO .PRN X 1 PRN PRN Reason: Constipation Metformin HCl (Glucophage) 1,000 mg PO BIDCM [facility] Last Admin: 09/02/17 07:27 Dose: 1,000 mg Metoprolol Succinate (Toprol Xl (Beta Sunny)) 50 mg PO DAILY [facility] Last Admin: 09/02/17 07:27 Dose: 50 mg Primidone (Mysoline) 50 mg PO 1600 [facility] Senna/Docusate Sodium (Senokot-S, Margarita-Colace) 2 tablet PO BID [facility] Last Admin: 09/02/17 07:28 Dose: Not Given Tamsulosin HCl (Flomax) 0.4 mg PO DAILY@1730 [facility] Last Admin: 09/01/17 16:32 Dose: 0.4 mg Medical Necessity - Tobacco Use Smoking Status: Never smoker Tobacco Use: Non-smoker Assessment/Plan All Active Problems DMII (diabetes mellitus, type 2) (Acute) Lipidemia (Acute) TIA (transient ischemic attack) (Acute) Debility s/p generalized weakness. Complicated by HTN, HLD, frequent falls, dm , and peripheral neuropathy due to diabetes. Goal of rehab is roman catholic of functional independence. Plan: - Physical therapy for gait and balance - Occupational Therapy for ADLs - As needed analgesics - Bowel protocol - Stroke prevention on ASA, Statin and Plavix 75mg dual AP for 3 weeks, then switch to single AP. - DVT prophylaxis: SCDs, ASA, Lovenox - Hypertension: Stable with good control, continue home medication. Keep BP < 130/80 mmHg - Diabetes type 2 => continue home medication. - CTA head/neck -no hemodynamically significant stenosis or occlusion - TTE-EF 60%, normal LA size, no PFO - LDL-78, Usq5e-6.1% - Cardiology evaluation for loop recorder evaluation - Fall precautions - Tremors -> start low dose of Primidone 50mg at 1600 hours - Hx Lumbar spinal stenosis on MRI has an appointment with Dr. Norberto Chatman on for evaluation and treatment plan
[2017-09-02 11:45] LABS: Bedside Glucose 201 mg/dL (70-110)
--- NOTE | 2017-09-02 11:56 | CASEMGMT ---
Team meeting held. Patient present as well as patient spouse and family. No discharge date set at this time. Patient to continue with further care and treatment on the Inpatient Rehab Unit. Patient approved 15 Medicare days with a discharge on or by 09/12/17. Patient plans to discharge home with spouse at time of discharge. Patient to continue and be re-teamed next week. Support given. Will continue to follow. Susan HERNANDEZ, WAREHOUSE SHIPPING ASSOCIATE
--- NOTE | 2017-09-02 16:18 | PCM.PN.HOSP ---
Subjective: Patient is an 82-year-old gentleman admitted with strokelike symptoms later diagnosed with TIA transferred to the inpatient rehab unit where patient has since been managed Objective: GENERAL: cooperative HEENT: Clear conjunctiva, NECK; supple, normal thyroid, CHEST: Clear to auscultation bilaterally, HEART: Regular S1 S2, ABDOMEN: soft, normoactive bowel sounds, RECTAL: deferred EXTREMITIES: No edema, no clubbing, PRINTING ASSISTANT: Awake; SKIN: No Rash Vitals/I&O's: Vital Signs Temp Pulse Resp BP Pulse Ox 97.7 F L 71 18 142/71 H 98 09/02/17 07:26 09/02/17 07:27 09/02/17 07:26 09/02/17 07:26 09/02/17 07:26 Oxygen Delivery Method Room Air Weight: 63.6 kg Body Mass Index (BMI) 21.9 Finger Stick Blood Glucose 124 Intake and Output for Last 24 Hours 08/31/17 09/01/17 09/02/17 23:59 23:59 23:59 Intake Total 960 / 960 600 / 600 260 / 260 Output Total 800 / 800 2525 / 2525 250 / 250 Balance 160 / 160 -1925 / -1925 10 Laboratory Results 09/01/17 16:31: POC Glucose 164 H 09/01/17 21:02: POC Glucose 173 H 09/02/17 06:31: POC Glucose 154 H 09/02/17 11:30: POC Glucose 201 H Current Medications Acetaminophen (Tylenol) 650 mg PO Q6H PRN PRN PRN Reason: PAIN Last Admin: 09/02/17 06:11 Dose: 650 mg Amlodipine Besylate (Norvasc) 10 mg PO DAILY [facility] Last Admin: 09/02/17 07:28 Dose: 10 mg Aspirin (Aspirin, Baby) 81 mg PO DAILY@0800 [facility] Last Admin: 09/02/17 07:27 Dose: 81 mg Atorvastatin Calcium (Lipitor) 40 mg PO QHS [facility] Last Admin: 09/01/17 21:03 Dose: 40 mg Bisacodyl (Dulcolax) 10 mg RECTAL .PRN X 1 PRN PRN Reason: Constipation Clopidogrel Bisulfate (Plavix) 75 mg PO DAILY [facility] Last Admin: 09/02/17 07:27 Dose: 75 mg Glipizide (Glucotrol) 10 mg PO BIDAC [facility] Last Admin: 09/02/17 07:27 Dose: 10 mg Heparin Sodium (Porcine) (Heparin Na) 5,000 unit SC Q8 [facility] Last Admin: 09/02/17 13:43 Dose: 5,000 u Insulin Human Lispro (Humalog Kwikpen (Bkc)) 0 unit SC ACHS [facility] PRN Reason: Protocol Last Admin: 09/02/17 11:54 Dose: 1 u Lisinopril (Zestril) 40 mg PO DAILY [facility] Last Admin: 09/02/17 07:27 Dose: 40 mg Magnesium Hydroxide (Milk Of Magnesia) 30 ml PO .PRN X 1 PRN PRN Reason: Constipation Metformin HCl (Glucophage) 1,000 mg PO BIDCM [facility] Last Admin: 09/02/17 07:27 Dose: 1,000 mg Metoprolol Succinate (Toprol Xl (Beta Sunny)) 50 mg PO DAILY [facility] Last Admin: 09/02/17 07:27 Dose: 50 mg Primidone (Mysoline) 50 mg PO 1600 [facility] Senna/Docusate Sodium (Senokot-S, Margarita-Colace) 2 tablet PO BID [facility] Last Admin: 09/02/17 07:28 Dose: Not Given Tamsulosin HCl (Flomax) 0.4 mg PO DAILY@1730 [facility] Last Admin: 09/01/17 16:32 Dose: 0.4 mg Medical Necessity - Tobacco Use Smoking Status: Never smoker Tobacco Use: Non-smoker Assessment/Plan All Active Problems DMII (diabetes mellitus, type 2) (Acute) Lipidemia (Acute) TIA (transient ischemic attack) (Acute) Patient is an 82-year-old gentleman admitted with strokelike symptoms later diagnosed with TIA transferred to the inpatient rehab unit where patient has since been managed 1. TIA-like symptoms: PT OT as tolerated currently on dual antiplatelet therapy in addition to starting therapy 2. Hematuria secondary to BPH with elevated PSA patient is on Flomax consultation was placed to Dr. Haddad with urology 3. Physical debility with frequent falls PT OT as tolerated 4. Diabetes mellitus type 2 on metformin and glipizide in addition to Accu-Cheks before meals and at bedtime with sliding scale coverage 5. Assessment hypertension 6. DVT prophylaxis: SCDs; Code Visit Inpatient E&M: [id number] [facility] Hosp L2
--- NOTE | 2017-09-02 16:21 | PN_ITS ---
Subjective: Patient is an 82-year-old gentleman admitted with strokelike symptoms later diagnosed with TIA transferred to the inpatient rehab unit where patient has since been managed Objective: GENERAL: cooperative HEENT: Clear conjunctiva, NECK; supple, normal thyroid, CHEST: Clear to auscultation bilaterally, HEART: Regular S1 S2, ABDOMEN: soft, normoactive bowel sounds, RECTAL: deferred EXTREMITIES: No edema, no clubbing, JAVA DEVELOPMENT MANAGER: Awake; SKIN: No Rash Vitals/I&O's: Vital Signs Temp Pulse Resp BP Pulse Ox 97.7 F L 71 18 142/71 H 98 09/02/17 07:26 09/02/17 07:27 09/02/17 07:26 09/02/17 07:26 09/02/17 07:26 Oxygen Delivery Method Room Air Weight: 63.6 kg Body Mass Index (BMI) 21.9 Finger Stick Blood Glucose 124 Intake and Output for Last 24 Hours 08/31/17 09/01/17 09/02/17 23:59 23:59 23:59 Intake Total 960 / 960 600 / 600 260 / 260 Output Total 800 / 800 2525 / 2525 250 / 250 Balance 160 / 160 -1925 / -1925 10 Laboratory Results 09/01/17 16:31: POC Glucose 164 H 09/01/17 21:02: POC Glucose 173 H 09/02/17 06:31: POC Glucose 154 H 09/02/17 11:30: POC Glucose 201 H Current Medications Acetaminophen (Tylenol) 650 mg PO Q6H PRN PRN PRN Reason: PAIN Last Admin: 09/02/17 06:11 Dose: 650 mg Amlodipine Besylate (Norvasc) 10 mg PO DAILY [facility] Last Admin: 09/02/17 07:28 Dose: 10 mg Aspirin (Aspirin, Baby) 81 mg PO DAILY@0800 [facility] Last Admin: 09/02/17 07:27 Dose: 81 mg Atorvastatin Calcium (Lipitor) 40 mg PO QHS [facility] Last Admin: 09/01/17 21:03 Dose: 40 mg Bisacodyl (Dulcolax) 10 mg RECTAL .PRN X 1 PRN PRN Reason: Constipation Clopidogrel Bisulfate (Plavix) 75 mg PO DAILY [facility] Last Admin: 09/02/17 07:27 Dose: 75 mg Glipizide (Glucotrol) 10 mg PO BIDAC [facility] Last Admin: 09/02/17 07:27 Dose: 10 mg Heparin Sodium (Porcine) (Heparin Na) 5,000 unit SC Q8 [facility] Last Admin: 09/02/17 13:43 Dose: 5,000 u Insulin Human Lispro (Humalog Kwikpen (Bkc)) 0 unit SC ACHS [facility] PRN Reason: Protocol Last Admin: 09/02/17 11:54 Dose: 1 u Lisinopril (Zestril) 40 mg PO DAILY [facility] Last Admin: 09/02/17 07:27 Dose: 40 mg Magnesium Hydroxide (Milk Of Magnesia) 30 ml PO .PRN X 1 PRN PRN Reason: Constipation Metformin HCl (Glucophage) 1,000 mg PO BIDCM [facility] Last Admin: 09/02/17 07:27 Dose: 1,000 mg Metoprolol Succinate (Toprol Xl (Beta Sunny)) 50 mg PO DAILY [facility] Last Admin: 09/02/17 07:27 Dose: 50 mg Primidone (Mysoline) 50 mg PO 1600 [facility] Senna/Docusate Sodium (Senokot-S, Margarita-Colace) 2 tablet PO BID [facility] Last Admin: 09/02/17 07:28 Dose: Not Given Tamsulosin HCl (Flomax) 0.4 mg PO DAILY@1730 [facility] Last Admin: 09/01/17 16:32 Dose: 0.4 mg Medical Necessity - Tobacco Use Smoking Status: Never smoker Tobacco Use: Non-smoker Assessment/Plan All Active Problems DMII (diabetes mellitus, type 2) (Acute) Lipidemia (Acute) TIA (transient ischemic attack) (Acute) Patient is an 82-year-old gentleman admitted with strokelike symptoms later diagnosed with TIA transferred to the inpatient rehab unit where patient has since been managed 1. TIA-like symptoms: PT OT as tolerated currently on dual antiplatelet therapy in addition to starting therapy 2. Hematuria secondary to BPH with elevated PSA patient is on Flomax consultation was placed to Dr. Haddad with urology 3. Physical debility with frequent falls PT OT as tolerated 4. Diabetes mellitus type 2 on metformin and glipizide in addition to Accu- Cheks before meals and at bedtime with sliding scale coverage 5. Assessment hypertension 6. DVT prophylaxis: SCDs; Code Visit Inpatient E&M: [id number] [facility] Hosp L2
[2017-09-02 16:51] LABS: Bedside Glucose 167 mg/dL (70-110)
[2017-09-02] MEDS: Primidone 50 MG Tablet PO (17:08)
[2017-09-02] MEDS: Tamsulosin HCl 0.4 MG Capsule PO (17:08)
[2017-09-02] MEDS: Atorvastatin Calcium 40 MG Tablet PO (20:20)
[2017-09-02 20:30] VITALS: BP 119/74; PULSE 81; RESP 16; TEMP 36.6; O2SAT 96
[2017-09-02 20:36] LABS: Bedside Glucose 196 mg/dL (70-110)
[2017-09-03 00:52] VITALS: BP 127/72; PULSE 86; RESP 18; TEMP 36.8; O2SAT 94
--- NOTE | 2017-09-03 00:54 | NURSING ---
0010 pt bed alarm was going off and pt was noted to have legs dangling oob and leaning heavily to the right. pt speech was delayed when asked questions and blinking eyes several times like he was trying to focus. pt was asked several questions and had difficulty answering. patient was assisted back into the bed. pt was asked to bagman/woman this workers hands pt looked at me then closed his eyes. 0015 rn called to come and assess pt, vs take and were as follows t-98.2, ap-86, resp-18, bp-127/72 and spo2 was 94% on ra; blood sugar was 123. pt was then noted to be incontinent of a large amt of urine. pt was able to state were he was and his name when asked by the rn. pt continued to blink, looking around room, and had lengthy pauses in answering questions by staff. pt asked if he was having pain and he whispered no. pt also denied h/a or changes in vision. staff to clean up pt from urine incontinence, still needed to be cued to raise his arms to be changed and cued frequently to roll when bed linens were changed. When assessed earlier pt was alert and oriented times 3, was able to ambulate to the bathroom with walker and one assist; pt was smiling and responded immediately to questions asked; able to get into bed per self. pt was noted to more unsteady in the br while brushing teeth this evening no other unusual observations were noted at that time
--- NOTE | 2017-09-03 01:21 | NURSING ---
nurse rechecked pt and found pt resting quietly. pt gave prompt answers in identifying name and place. Pt answered query of identifying any needs to which pt replied, I don't think so. Pt smiled at nurse and provided clear answers. Pt denies pain and denies needs. Will continue to monitor.
--- NOTE | 2017-09-03 01:32 | NURSING ---
Reviewed and agree with BASTING MARKER documentation and [facility] charting.
[2017-09-03 02:36] LABS: Bedside Glucose 123 mg/dL (70-110)
--- NOTE | 2017-09-03 02:54 | NURSING ---
pt used call light to alert staff of toileting needs. Pt walked with assistance to toilet and was continent. Pt able to state name, birthdate, and current day. Pt denies pain and further needs.
--- NOTE | 2017-09-03 03:05 | NURSING ---
0225 pt rings to go the br, when questioned how he was feeling, pt reports that he felt confused earlier and didn't understand what had happened pt follows commands well, alert and oriented x's 3 and continent of urine. pt denied any h/a, swallowing issues or changes in vision, is noted to be more steady at this time.
[2017-09-03] MEDS: Heparin Injection (Vial) 5,000 UNIT/ML VIAL 5000 UNIT SC ×3 (05:13→21:30)
[2017-09-03 07:06] LABS: Bedside Glucose 166 mg/dL (70-110)
[2017-09-03 07:15] LABS: ALB/GLOB Ratio 0.9 RATIO (0.9-2.4); AST(SGOT) 17 U/L (15-37); Alanine Aminotransfer ALT/SGPT 33 U/L (16-61); Albumin, Serum 3.6 g/dL (3.2-5.0); Alkaline Phosphatase 73 U/L (45-117); Anion Gap 9 (5-15); BUN 23 mg/dL (7-18); BUN/Creat Ratio 21.7 RATIO (10-20); Calcium,Total 9.2 mg/dL (8.5-10.1); Chloride 99 mmol/L (98-107); Creatinine, Serum 1.06 mg/dL (0.70-1.30); EST Glomerular Filtration Rate 71 mL/min (>60); Est Glom Filt Rate - Afr Amer 86 mL/min (>60); Estimated Creatinine Clearance 48.33 ml/min; Globulin 3.9 g/dL (2.2-4.2); Glucose 163 mg/dL (74-106); Potassium 4.4 mmol/L (3.5-5.1); Protein, Total 7.5 g/dL (6.4-8.2); Sodium Level 134 mmol/L (136-145)
[2017-09-03 07:31] VITALS: BP 120/66; PULSE 78; RESP 18; TEMP 36.6; O2SAT 96
[2017-09-03] MEDS: Insulin Lispro 100 UNIT/ML INSULN.PEN SC ×4 (07:42→21:30)
[2017-09-03 07:43] VITALS: PULSE 78
[2017-09-03] MEDS: metFORMIN HCl 1,000 MG Tablet 1000 MG PO ×2 (07:43→17:24)
[2017-09-03] MEDS: glipiZIDE 5 MG Tablet 10 MG PO ×2 (07:43→17:24)
[2017-09-03] MEDS: Aspirin 81 MG TAB.CHEW PO (07:43)
[2017-09-03] MEDS: Metoprolol(XL)Succ 50 MG Tablet PO (07:43)
[2017-09-03] MEDS: amLODIPine 10 MG Tablet PO (07:43)
[2017-09-03] MEDS: Lisinopril 40 MG Tablet PO (07:44)
[2017-09-03] MEDS: Clopidogrel Bisulfate 75 MG Tablet PO (07:44)
--- NOTE | 2017-09-03 10:39 | PCM.PN.NEU ---
Subjective: Patient seen, lying quietly in bed napping, easily aroused. During the night around midnight, woke from a deep sleep very confused and disoriented, was easily reoriented, and quickly return to baseline, with no further incidence noted. Tolerating therapy. Denies any blurry vision, double vision or dizziness. No issues with GI/. - Physical Exam General: Alert, Oriented x3, Cooperative HEENT: Atraumatic, PERRLA, EOMI, Normocephalic Neck: Supple, No JVD, Negative Carotid Bruits Lungs: Clear to auscultation, Normal air movement Cardiovascular: Regular rate, No murmurs Abdomen: Bowel Sounds Present, Soft, Non Tender Extremities: No edema, Capillary Refill Less than 3 Seconds Skin: No rashes, No breakdown Musculoskeletal: No Tenderness to Palpation of Joints or Extremities Neurological: Cranial nerves II-XII grossly intact Psych/Mental Status: Normal Affect, Appropriate, Alert and oriented to time, place, person, mood and affect Vital Signs Temp Pulse Resp BP Pulse Ox 97.8 F 78 18 120/66 96 09/03/17 07:31 09/03/17 07:43 09/03/17 07:31 09/03/17 07:31 09/03/17 07:31 Oxygen Delivery Method Room Air Weight: 63.6 kg Body Mass Index (BMI) 21.9 Finger Stick Blood Glucose 124 Intake and Output for Last 24 Hours 09/01/17 09/02/17 09/03/17 23:59 23:59 23:59 Intake Total 600 / 600 260 / 260 Output Total 2525 / 2525 250 / 250 Balance -192 / -192 Laboratory Tests Past 24 Hrs 09/03/17 06:40 Sodium 134 L Potassium 4.4 Chloride 99 Carbon Dioxide 26.0 Anion Gap 9 BUN 23 H Creatinine 1.06 Estim Creat Clear Calc 48.33 Est GFR (MDRD) Af Amer 86 Est GFR (MDRD) Non-Af 71 BUN/Creatinine Ratio 21.7 H Glucose 163 H Calcium 9.2 Phosphorus 3.0 Total Bilirubin 0.50 AST 17 ALT 33 Alkaline Phosphatase 73 Total Protein 7.5 Albumin 3.6 Globulin 3.9 Albumin/Globulin Ratio 0.9 POC Glucose 09/03/17 09/03/17 09/02/17 06:32 00:28 20:18 POC Glucose 166 H 123 H 196 H 07/16/18 07/16/18 16:45 11:30 POC Glucose 167 H 201 H Active Medications Acetaminophen (Tylenol) 650 mg PO Q6H PRN PRN PRN Reason: PAIN Last Admin: 09/02/17 20:19 Dose: 650 mg Amlodipine Besylate (Norvasc) 10 mg PO DAILY [facility] Last Admin: 09/03/17 07:43 Dose: 10 mg Aspirin (Aspirin, Baby) 81 mg PO DAILY@0800 [facility] Last Admin: 09/03/17 07:43 Dose: 81 mg Atorvastatin Calcium (Lipitor) 40 mg PO QHS [facility] Last Admin: 09/02/17 20:20 Dose: 40 mg Bisacodyl (Dulcolax) 10 mg RECTAL .PRN X 1 PRN PRN Reason: Constipation Clopidogrel Bisulfate (Plavix) 75 mg PO DAILY [facility] Last Admin: 09/03/17 07:44 Dose: 75 mg Glipizide (Glucotrol) 10 mg PO BIDAC [facility] Last Admin: 09/03/17 07:43 Dose: 10 mg Heparin Sodium (Porcine) (Heparin Na) 5,000 unit SC Q8 [facility] Last Admin: 09/03/17 05:13 Dose: 5,000 u Insulin Human Lispro (Humalog Kwikpen (Bkc)) 0 unit SC ACHS [facility] PRN Reason: Protocol Last Admin: 09/03/17 07:42 Dose: 1 u Lisinopril (Zestril) 40 mg PO DAILY [facility] Last Admin: 09/03/17 07:44 Dose: 40 mg Magnesium Hydroxide (Milk Of Magnesia) 30 ml PO .PRN X 1 PRN PRN Reason: Constipation Metformin HCl (Glucophage) 1,000 mg PO BIDCM [facility] Last Admin: 09/03/17 07:43 Dose: 1,000 mg Metoprolol Succinate (Toprol Xl (Beta Sunny)) 50 mg PO DAILY [facility] Last Admin: 09/03/17 07:43 Dose: 50 mg Primidone (Mysoline) 50 mg PO 1600 [facility] Last Admin: 09/02/17 17:08 Dose: 50 mg Senna/Docusate Sodium (Senokot-S, Margarita-Colace) 2 tablet PO BID [facility] Last Admin: 09/03/17 07:33 Dose: Not Given Tamsulosin HCl (Flomax) 0.4 mg PO DAILY@1730 [facility] Last Admin: 09/02/17 17:08 Dose: 0.4 mg Medical Necessity - Tobacco Use Smoking Status: Never smoker Tobacco Use: Non-smoker Assessment/Plan All Active Problems DMII (diabetes mellitus, type 2) (Acute) Lipidemia (Acute) TIA (transient ischemic attack) (Acute) Debility s/p generalized weakness. Complicated by HTN, HLD, frequent falls, dm, and peripheral neuropathy due to diabetes. Goal of rehab is buddhism of functional independence. Plan: - Physical therapy for gait and balance - Occupational Therapy for ADLs - As needed analgesics - Bowel protocol - Stroke prevention on ASA, Statin and Plavix 75mg dual AP for 3 weeks, then switch to single AP. - DVT prophylaxis: SCDs, ASA, Lovenox - Hypertension: Stable with good control, continue home medication. Keep BP < 130/80 mmHg - Diabetes type 2 => continue home medication. - CTA head/neck -no hemodynamically significant stenosis or occlusion - TTE-EF 60%, normal LA size, no PFO - LDL-78, Nrg5i-1.1% - Cardiology evaluation for loop recorder evaluation - Fall precautions - Tremors -> start low dose of Primidone 50mg at 1600 hours - Hx Lumbar spinal stenosis on MRI has an appointment with Dr. Norberto Chatman on 09/12 for evaluation and treatment plan
[2017-09-03 11:26] LABS: Bedside Glucose 224 mg/dL (70-110)
--- NOTE | 2017-09-03 11:26 | NURSING ---
a/o x3 this shift, denies blurred vision, sob, dizziness, headache, chest pain or tightness. no acute distress noted.
[2017-09-03] MEDS: Primidone 50 MG Tablet PO (16:32)
[2017-09-03 16:45] LABS: Bedside Glucose 158 mg/dL (70-110)
[2017-09-03] MEDS: Tamsulosin HCl 0.4 MG Capsule PO (17:24)
[2017-09-03 19:42] VITALS: BP 125/56; PULSE 83; RESP 18; TEMP 36.9; O2SAT 94
[2017-09-03] MEDS: Atorvastatin Calcium 40 MG Tablet PO (21:31)
[2017-09-03 21:45] LABS: Bedside Glucose 187 mg/dL (70-110)
--- NOTE | 2017-09-04 01:39 | NURSING ---
Reviewed and agree with WELDING MACHINE OPERATOR THERMIT documentation and [facility] charting.
[2017-09-04] MEDS: Heparin Injection (Vial) 5,000 UNIT/ML VIAL 5000 UNIT SC ×3 (06:32→21:02)
[2017-09-04 06:50] LABS: Bedside Glucose 161 mg/dL (70-110)
[2017-09-04 07:33] VITALS: BP 133/71; PULSE 69; RESP 17; TEMP 36.6; O2SAT 95
[2017-09-04] MEDS: Insulin Lispro 100 UNIT/ML INSULN.PEN SC ×4 (07:55→20:58)
[2017-09-04] MEDS: Clopidogrel Bisulfate 75 MG Tablet PO (07:56)
[2017-09-04] MEDS: metFORMIN HCl 1,000 MG Tablet 1000 MG PO ×2 (07:56→17:16)
[2017-09-04] MEDS: glipiZIDE 5 MG Tablet 10 MG PO ×2 (07:56→17:16)
[2017-09-04] MEDS: Aspirin 81 MG TAB.CHEW PO (07:56)
[2017-09-04 07:57] VITALS: PULSE 77
[2017-09-04] MEDS: Metoprolol(XL)Succ 50 MG Tablet PO (07:57)
[2017-09-04] MEDS: amLODIPine 10 MG Tablet PO (07:57)
[2017-09-04] MEDS: Lisinopril 40 MG Tablet PO (07:58)
--- NOTE | 2017-09-04 09:23 | PN.NEURO_ITS ---
Subjective: Patient seen and examined. Complaining of frequency, and urgency, had a Beckwith on admission, which was removed several days ago. Will obtain a UA, for possible UTI. Tolerating therapy. Denies any shortness of breath, dizziness or double vision. His right eye is no longer ecchymotic, or swollen, still has a faint abrasion over the eyebrow. Tolerating regular diet, no issues with GI. - Physical Exam General: Alert, Oriented x3, Cooperative HEENT: Atraumatic, PERRLA, EOMI, Normocephalic Neck: Supple, No JVD, Negative Carotid Bruits Lungs: Clear to auscultation, Normal air movement Cardiovascular: Regular rate, No murmurs Abdomen: Bowel Sounds Present, Soft, Non Tender Extremities: No edema, Capillary Refill Less than 3 Seconds Skin: No rashes, No breakdown Musculoskeletal: No Tenderness to Palpation of Joints or Extremities Neurological: Cranial nerves II-XII grossly intact Psych/Mental Status: Normal Affect, Appropriate, Alert and oriented to time, place, person, mood and affect Vital Signs Temp Pulse Resp BP Pulse Ox 98 F 77 17 133/71 H 95 09/04/17 07:33 09/04/17 07:57 09/04/17 07:33 09/04/17 07:33 09/04/17 07:33 Oxygen Delivery Method Room Air Weight: 64.7 kg Body Mass Index (BMI) 21.9 Finger Stick Blood Glucose 124 Intake and Output for Last 24 Hours 09/02/17 09/03/17 09/04/17 23:59 23:59 23:59 Intake Total 260 / 260 240 / 240 Output Total 250 / 250 Balance 240 / 240 POC Glucose 09/04/17 09/03/17 09/03/17 06:39 21:29 16:30 POC Glucose 161 H 187 H 158 H 09/03/17 11:21 POC Glucose 224 H Active Medications Acetaminophen (Tylenol) 650 mg PO Q6H PRN PRN PRN Reason: PAIN Last Admin: 09/02/17 20:19 Dose: 650 mg Amlodipine Besylate (Norvasc) 10 mg PO DAILY [facility] Last Admin: 09/04/17 07:57 Dose: 10 mg Aspirin (Aspirin, Baby) 81 mg PO DAILY@0800 [facility] Last Admin: 09/04/17 07:56 Dose: 81 mg Atorvastatin Calcium (Lipitor) 40 mg PO QHS [facility] Last Admin: 09/03/17 21:31 Dose: 40 mg Bisacodyl (Dulcolax) 10 mg RECTAL .PRN X 1 PRN PRN Reason: Constipation Clopidogrel Bisulfate (Plavix) 75 mg PO DAILY [facility] Last Admin: 09/04/17 07:56 Dose: 75 mg Glipizide (Glucotrol) 10 mg PO BIDAC [facility] Last Admin: 09/04/17 07:56 Dose: 10 mg Heparin Sodium (Porcine) (Heparin Na) 5,000 unit SC Q8 [facility] Last Admin: 09/04/17 06:32 Dose: 5,000 u Insulin Human Lispro (Humalog Kwikpen (Bkc)) 0 unit SC ACHS [facility] PRN Reason: Protocol Last Admin: 09/04/17 07:55 Dose: 1 u Lisinopril (Zestril) 40 mg PO DAILY [facility] Last Admin: 09/04/17 07:58 Dose: 40 mg Magnesium Hydroxide (Milk Of Magnesia) 30 ml PO .PRN X 1 PRN PRN Reason: Constipation Metformin HCl (Glucophage) 1,000 mg PO BIDCM [facility] Last Admin: 09/04/17 07:56 Dose: 1,000 mg Metoprolol Succinate (Toprol Xl (Beta Sunny)) 50 mg PO DAILY [facility] Last Admin: 09/04/17 07:57 Dose: 50 mg Primidone (Mysoline) 50 mg PO 1600 [facility] Last Admin: 09/03/17 16:32 Dose: 50 mg Senna/Docusate Sodium (Senokot-S, Margarita-Colace) 2 tablet PO BID [facility] Last Admin: 09/04/17 08:00 Dose: Not Given Tamsulosin HCl (Flomax) 0.4 mg PO DAILY@1730 [facility] Last Admin: 09/03/17 17:24 Dose: 0.4 mg Medical Necessity - Tobacco Use Smoking Status: Never smoker Tobacco Use: Non-smoker Assessment/Plan All Active Problems DMII (diabetes mellitus, type 2) (Acute) Lipidemia (Acute) TIA (transient ischemic attack) (Acute) Debility s/p generalized weakness. Complicated by HTN, HLD, frequent falls, dm , and peripheral neuropathy due to diabetes. Goal of rehab is hindu of functional independence. Plan: - Physical therapy for gait and balance - Occupational Therapy for ADLs - As needed analgesics - Bowel protocol - Stroke prevention on ASA, Statin and Plavix 75mg dual AP for 3 weeks, then switch to single AP. - DVT prophylaxis: SCDs, ASA, Lovenox - Hypertension: Stable with good control, continue home medication. Keep BP < 130/80 mmHg - Diabetes type 2 => continue home medication. - CTA head/neck -no hemodynamically significant stenosis or occlusion - TTE-EF 60%, normal LA size, no PFO - LDL-78, Mpw5i-0.1% - Cardiology evaluation for loop recorder evaluation - Fall precautions - Tremors -> start low dose of Primidone 50mg at 1600 hours - Hx Lumbar spinal stenosis on MRI has an appointment with Dr. Norberto Chatman on for evaluation and treatment plan - Urinalysis to check for possible UTI, has frequency, and urgency.
[2017-09-04 11:51] LABS: Bedside Glucose 222 mg/dL (70-110)
[2017-09-04 12:24] LABS: Mucous, Urine 0 SEEN /hpf (<or=2+); Squamous Epithelial Cells - UA 0 SEEN /hpf (0-5)
[2017-09-04 12:31] LABS: Color, Urine Yellow (Yellow); Glucose, Dipstick 250 mg/dl (Normal); Ketone-Dipstick Negative (Negative); Leukocyte Esterase-Dipstick 500 /ul (Negative); Nitrite-Dipstick Negative (Negative); Occult Blood-Urine 50 /ul (Negative); Protein-Dipstick 30 mg/dl (Negative); Urine Bilirubin Dipstick Negative (Negative); Urine Clarity Sl. Cloudy (Clear); Urine Urobilinogen Normal (Normal)
[2017-09-04 12:40] LABS: White Blood Cells 50-100 SEEN /hpf (0-5)
[2017-09-04 12:41] LABS: Bacteria RARE /hpf (None Seen); Red Blood Cells-Urine 0-5 SEEN /hpf (0-5)
--- NOTE | 2017-09-04 13:36 | PCM.PN.HOSP ---
Subjective: Patient seen participating in physical therapy. Patient did complain of urinary incontinence as well as frequency urinalysis obtained came back consistent with acute cystitis subsequently started on Keflex Objective: GENERAL: cooperative HEENT: Clear conjunctiva, NECK; supple, normal thyroid, CHEST: Clear to auscultation bilaterally, HEART: Regular S1 S2, ABDOMEN: soft, normoactive bowel sounds, RECTAL: deferred EXTREMITIES: No edema, no clubbing, [employer]: Awake; SKIN: No Rash Vitals/I&O's: Vital Signs Temp Pulse Resp BP Pulse Ox 98 F 77 17 133/71 H 95 09/04/17 07:33 09/04/17 07:57 09/04/17 07:33 09/04/17 07:33 09/04/17 07:33 Oxygen Delivery Method Room Air Weight: 64.7 kg Body Mass Index (BMI) 21.9 Finger Stick Blood Glucose 124 Intake and Output for Last 24 Hours 09/02/17 09/03/17 09/04/17 23:59 23:59 23:59 Intake Total 260 / 260 240 / 240 Output Total 250 / 250 Balance 240 / 240 Laboratory Results 09/03/17 16:30: POC Glucose 158 H 09/03/17 21:29: POC Glucose 187 H 09/04/17 06:39: POC Glucose 161 H 09/04/17 11:47: POC Glucose 222 H 09/04/17 12:00: Urine Color Yellow, Urine Clarity Sl. Cloudy, Urine pH 6.0, Ur Specific [place] 1.010, Urine Protein 30 H, Urine Glucose (UA) 250 H, Urine Ketones Negative, Urine Occult Blood 50 H, Urine Nitrite Negative, Urine Bilirubin Negative, Urine Urobilinogen Normal, Ur Leukocyte Esterase 500 H, Urine RBC 0-5 SEEN, Urine WBC 50-100 SEEN, Ur Squamous Epith Cells 0 SEEN, Urine Bacteria RARE, Urine Mucus 0 SEEN Current Medications Acetaminophen (Tylenol) 650 mg PO Q6H PRN PRN PRN Reason: PAIN Last Admin: 09/02/17 20:19 Dose: 650 mg Amlodipine Besylate (Norvasc) 10 mg PO DAILY [facility] Last Admin: 09/04/17 07:57 Dose: 10 mg Aspirin (Aspirin, Baby) 81 mg PO DAILY@0800 [facility] Last Admin: 09/04/17 07:56 Dose: 81 mg Atorvastatin Calcium (Lipitor) 40 mg PO QHS [facility] Last Admin: 09/03/17 21:31 Dose: 40 mg Bisacodyl (Dulcolax) 10 mg RECTAL .PRN X 1 PRN PRN Reason: Constipation Clopidogrel Bisulfate (Plavix) 75 mg PO DAILY [facility] Last Admin: 09/04/17 07:56 Dose: 75 mg Glipizide (Glucotrol) 10 mg PO BIDAC [facility] Last Admin: 09/04/17 07:56 Dose: 10 mg Heparin Sodium (Porcine) (Heparin Na) 5,000 unit SC Q8 [facility] Last Admin: 09/04/17 13:32 Dose: 5,000 u Insulin Human Lispro (Humalog Kwikpen (Bkc)) 0 unit SC ACHS [facility] PRN Reason: Protocol Last Admin: 09/04/17 11:53 Dose: 1 u Lisinopril (Zestril) 40 mg PO DAILY [facility] Last Admin: 09/04/17 07:58 Dose: 40 mg Magnesium Hydroxide (Milk Of Magnesia) 30 ml PO .PRN X 1 PRN PRN Reason: Constipation Metformin HCl (Glucophage) 1,000 mg PO BIDCM [facility] Last Admin: 09/04/17 07:56 Dose: 1,000 mg Metoprolol Succinate (Toprol Xl (Beta Sunny)) 50 mg PO DAILY [facility] Last Admin: 09/04/17 07:57 Dose: 50 mg Primidone (Mysoline) 50 mg PO 1600 [facility] Last Admin: 09/03/17 16:32 Dose: 50 mg Senna/Docusate Sodium (Senokot-S, Margarita-Colace) 2 tablet PO BID [facility] Last Admin: 09/04/17 08:00 Dose: Not Given Tamsulosin HCl (Flomax) 0.4 mg PO DAILY@1730 [facility] Last Admin: 09/03/17 17:24 Dose: 0.4 mg Medical Necessity - Tobacco Use Smoking Status: Never smoker Tobacco Use: Non-smoker Assessment/Plan All Active Problems DMII (diabetes mellitus, type 2) (Acute) Lipidemia (Acute) TIA (transient ischemic attack) (Acute) Patient is an 82-year-old gentleman admitted with strokelike symptoms later diagnosed with TIA transferred to the inpatient rehab unit where patient has since been managed 1. TIA-like symptoms: PT OT as tolerated currently on dual antiplatelet therapy in addition to starting therapy 2. Hematuria secondary to BPH with elevated PSA patient is on Flomax consultation was placed to Dr. Haddad with urology 3. Physical debility with frequent falls PT OT as tolerated 4. Diabetes mellitus type 2 on metformin and glipizide in addition to Accu-Cheks before meals and at bedtime with sliding scale coverage 5. Assessment hypertension 6. DVT prophylaxis: SCDs; 7. Acute cystitis patient started on Keflex waiting for cultures Code Visit Inpatient E&M: 56956 Subs Hosp L2
[2017-09-04] MEDS: Cephalexin 500 MG Capsule PO ×2 (15:05→21:05)
[2017-09-04 16:35] LABS: Bedside Glucose 157 mg/dL (70-110)
[2017-09-04] MEDS: Tamsulosin HCl 0.4 MG Capsule PO (17:16)
[2017-09-04] MEDS: Primidone 50 MG Tablet PO (17:16)
[2017-09-04 20:50] VITALS: BP 128/65; PULSE 83; RESP 17; TEMP 36.9; O2SAT 94
[2017-09-04] MEDS: Acetaminophen 325 MG Tablet 650 MG PO (20:57)
[2017-09-04] MEDS: Atorvastatin Calcium 40 MG Tablet PO ×2 (20:58→21:05)
[2017-09-04 21:16] LABS: Bedside Glucose 219 mg/dL (70-110)
--- NOTE | 2017-09-05 01:24 | NURSING ---
REviewed and agree with LPNs fims and handoff
[2017-09-05] MEDS: Heparin Injection (Vial) 5,000 UNIT/ML VIAL 5000 UNIT SC ×3 (05:51→21:10)
[2017-09-05 07:06] LABS: Bedside Glucose 173 mg/dL (70-110)
[2017-09-05] MEDS: Insulin Lispro 100 UNIT/ML INSULN.PEN SC ×4 (07:23→21:10)
[2017-09-05] MEDS: Clopidogrel Bisulfate 75 MG Tablet PO (07:24)
[2017-09-05] MEDS: glipiZIDE 5 MG Tablet 10 MG PO ×2 (07:24→17:08)
[2017-09-05] MEDS: Aspirin 81 MG TAB.CHEW PO (07:24)
[2017-09-05] MEDS: metFORMIN HCl 1,000 MG Tablet 1000 MG PO ×2 (07:24→17:08)
[2017-09-05 07:30] VITALS: PULSE 80
[2017-09-05] MEDS: amLODIPine 10 MG Tablet PO (07:30)
[2017-09-05] MEDS: Lisinopril 40 MG Tablet PO (07:30)
[2017-09-05] MEDS: Metoprolol(XL)Succ 50 MG Tablet PO (07:30)
[2017-09-05 07:50] VITALS: BP 145/70; PULSE 71; RESP 16; TEMP 36.6; O2SAT 97
[2017-09-05] MEDS: Cephalexin 500 MG Capsule PO ×2 (08:47→21:11)
--- NOTE | 2017-09-05 10:15 | PCM.PN.NEU ---
Subjective: Patient seating quietly in bedside recliner. Urinalysis was sent yesterday for possible UTI, the Urinalysis was positive was started on Keflex 500mg BID last night by the Hospitalist. - Physical Exam General: Alert, Oriented x3, Cooperative HEENT: Atraumatic, PERRLA, EOMI, Normocephalic Neck: Supple, No JVD, Negative Carotid Bruits Lungs: Clear to auscultation, Normal air movement Cardiovascular: Regular rate, No murmurs Abdomen: Bowel Sounds Present, Soft, Non Tender Extremities: No edema, Capillary Refill Less than 3 Seconds Skin: No rashes, No breakdown Musculoskeletal: No Tenderness to Palpation of Joints or Extremities Neurological: Cranial nerves II-XII grossly intact Psych/Mental Status: Normal Affect, Appropriate, Alert and oriented to time, place, person, mood and affect Vital Signs Temp Pulse Resp BP Pulse Ox 97.8 F 71 16 145/70 H 97 09/05/17 07:50 09/05/17 07:50 09/05/17 07:50 09/05/17 07:50 09/05/17 07:50 Oxygen Delivery Method Room Air Weight: 64.7 kg Body Mass Index (BMI) 21.9 Finger Stick Blood Glucose 124 Intake and Output for Last 24 Hours 09/03/17 09/04/17 09/05/17 23:59 23:59 23:59 Intake Total 240 / 240 Balance 240 / 240 Laboratory Tests Past 24 Hrs 09/04/17 12:00 Urine Color Yellow Urine Clarity Sl. Cloudy Urine pH 6.0 Ur Specific [place] 1.010 Urine Protein 30 H Urine Glucose (UA) 250 H Urine Ketones Negative Urine Occult Blood 50 H Urine Nitrite Negative Urine Bilirubin Negative Urine Urobilinogen Normal Ur Leukocyte Esterase 500 H Urine RBC 0-5 SEEN Urine WBC 50-100 SEEN Ur Squamous Epith Cells 0 SEEN Urine Bacteria RARE Urine Mucus 0 SEEN POC Glucose 09/05/17 09/04/17 09/04/17 06:56 20:57 16:27 POC Glucose 173 H 219 H 157 H 09/04/17 11:47 POC Glucose 222 H Active Medications Acetaminophen (Tylenol) 650 mg PO Q6H PRN PRN PRN Reason: PAIN Last Admin: 09/04/17 20:57 Dose: 650 mg Amlodipine Besylate (Norvasc) 10 mg PO DAILY [facility] Last Admin: 09/05/17 07:30 Dose: 10 mg Aspirin (Aspirin, Baby) 81 mg PO DAILY@0800 [facility] Last Admin: 09/05/17 07:24 Dose: 81 mg Atorvastatin Calcium (Lipitor) 40 mg PO QHS [facility] Last Admin: 09/04/17 21:05 Dose: 40 mg Bisacodyl (Dulcolax) 10 mg RECTAL .PRN X 1 PRN PRN Reason: Constipation Cephalexin (Keflex) 500 mg PO Q12 [facility] Stop: 09/10/17 22:01 Last Admin: 09/05/17 08:47 Dose: 500 mg Clopidogrel Bisulfate (Plavix) 75 mg PO DAILY [facility] Last Admin: 09/05/17 07:24 Dose: 75 mg Glipizide (Glucotrol) 10 mg PO BIDAC [facility] Last Admin: 09/05/17 07:24 Dose: 10 mg Heparin Sodium (Porcine) (Heparin Na) 5,000 unit SC Q8 [facility] Last Admin: 09/05/17 05:51 Dose: 5,000 units Insulin Human Lispro (Humalog Kwikpen (Bkc)) 0 unit SC ACHS [facility] PRN Reason: Protocol Last Admin: 09/05/17 07:23 Dose: 1 u Lisinopril (Zestril) 40 mg PO DAILY [facility] Last Admin: 09/05/17 07:30 Dose: 40 mg Magnesium Hydroxide (Milk Of Magnesia) 30 ml PO .PRN X 1 PRN PRN Reason: Constipation Metformin HCl (Glucophage) 1,000 mg PO BIDCM [facility] Last Admin: 09/05/17 07:24 Dose: 1,000 mg Metoprolol Succinate (Toprol Xl (Beta Sunny)) 50 mg PO DAILY [facility] Last Admin: 09/05/17 07:30 Dose: 50 mg Primidone (Mysoline) 50 mg PO 1600 [facility] Last Admin: 09/04/17 17:16 Dose: 50 mg Senna/Docusate Sodium (Senokot-S, Margarita-Colace) 2 tablet PO BID [facility] Last Admin: 09/05/17 08:47 Dose: Not Given Tamsulosin HCl (Flomax) 0.4 mg PO DAILY@1730 [facility] Last Admin: 09/04/17 17:16 Dose: 0.4 mg Medical Necessity - Tobacco Use Smoking Status: Never smoker Tobacco Use: Non-smoker Assessment/Plan All Active Problems DMII (diabetes mellitus, type 2) (Acute) Lipidemia (Acute) TIA (transient ischemic attack) (Acute) Debility s/p generalized weakness. Complicated by HTN, HLD, frequent falls, dm, and peripheral neuropathy due to diabetes. Goal of rehab is hindu of functional independence. Plan: - Physical therapy for gait and balance - Occupational Therapy for ADLs - As needed analgesics - Bowel protocol - Stroke prevention on ASA, Statin and Plavix 75mg dual AP for 3 weeks, then switch to single AP. - DVT prophylaxis: SCDs, ASA, Lovenox - Hypertension: Stable with good control, continue home medication. Keep BP < 130/80 mmHg - Diabetes type 2 => continue home medication. - CTA head/neck -no hemodynamically significant stenosis or occlusion - TTE-EF 60%, normal LA size, no PFO - LDL-78, Xfx2q-7.1% - Cardiology evaluation for loop recorder evaluation - Fall precautions - Tremors -> start low dose of Primidone 50mg at 1600 hours - Hx Lumbar spinal stenosis on MRI has an appointment with Dr. Norberto Chatman on 09/12 for evaluation and treatment plan - Urinalysis positive for UTI, Hospitalist started him on Keflex 500mg BID x 7 days.
--- NOTE | 2017-09-05 10:20 | PN.NEURO_ITS ---
Subjective: Patient seating quietly in bedside recliner. Urinalysis was sent yesterday for possible UTI, the Urinalysis was positive was started on Keflex 500mg BID last night by the Hospitalist. - Physical Exam General: Alert, Oriented x3, Cooperative HEENT: Atraumatic, PERRLA, EOMI, Normocephalic Neck: Supple, No JVD, Negative Carotid Bruits Lungs: Clear to auscultation, Normal air movement Cardiovascular: Regular rate, No murmurs Abdomen: Bowel Sounds Present, Soft, Non Tender Extremities: No edema, Capillary Refill Less than 3 Seconds Skin: No rashes, No breakdown Musculoskeletal: No Tenderness to Palpation of Joints or Extremities Neurological: Cranial nerves II-XII grossly intact Psych/Mental Status: Normal Affect, Appropriate, Alert and oriented to time, place, person, mood and affect Vital Signs Temp Pulse Resp BP Pulse Ox 97.8 F 71 16 145/70 H 97 09/05/17 07:50 09/05/17 07:50 09/05/17 07:50 09/05/17 07:50 09/05/17 07:50 Oxygen Delivery Method Room Air Weight: 64.7 kg Body Mass Index (BMI) 21.9 Finger Stick Blood Glucose 124 Intake and Output for Last 24 Hours 09/03/17 09/04/17 09/05/17 23:59 23:59 23:59 Intake Total 240 / 240 Balance 240 / 240 Laboratory Tests Past 24 Hrs 09/04/17 12:00 Urine Color Yellow Urine Clarity Sl. Cloudy Urine pH 6.0 Ur Specific [place] 1.010 Urine Protein 30 H Urine Glucose (UA) 250 H Urine Ketones Negative Urine Occult Blood 50 H Urine Nitrite Negative Urine Bilirubin Negative Urine Urobilinogen Normal Ur Leukocyte Esterase 500 H Urine RBC 0-5 SEEN Urine WBC 50-100 SEEN Ur Squamous Epith Cells 0 SEEN Urine Bacteria RARE Urine Mucus 0 SEEN POC Glucose 09/05/17 09/04/17 09/04/17 06:56 20:57 16:27 POC Glucose 173 H 219 H 157 H 09/04/17 11:47 POC Glucose 222 H Active Medications Acetaminophen (Tylenol) 650 mg PO Q6H PRN PRN PRN Reason: PAIN Last Admin: 09/04/17 20:57 Dose: 650 mg Amlodipine Besylate (Norvasc) 10 mg PO DAILY [facility] Last Admin: 09/05/17 07:30 Dose: 10 mg Aspirin (Aspirin, Baby) 81 mg PO DAILY@0800 [facility] Last Admin: 09/05/17 07:24 Dose: 81 mg Atorvastatin Calcium (Lipitor) 40 mg PO QHS [facility] Last Admin: 09/04/17 21:05 Dose: 40 mg Bisacodyl (Dulcolax) 10 mg RECTAL .PRN X 1 PRN PRN Reason: Constipation Cephalexin (Keflex) 500 mg PO Q12 [facility] Stop: 09/10/17 22:01 Last Admin: 09/05/17 08:47 Dose: 500 mg Clopidogrel Bisulfate (Plavix) 75 mg PO DAILY [facility] Last Admin: 09/05/17 07:24 Dose: 75 mg Glipizide (Glucotrol) 10 mg PO BIDAC [facility] Last Admin: 09/05/17 07:24 Dose: 10 mg Heparin Sodium (Porcine) (Heparin Na) 5,000 unit SC Q8 [facility] Last Admin: 09/05/17 05:51 Dose: 5,000 units Insulin Human Lispro (Humalog Kwikpen (Bkc)) 0 unit SC ACHS [facility] PRN Reason: Protocol Last Admin: 09/05/17 07:23 Dose: 1 u Lisinopril (Zestril) 40 mg PO DAILY [facility] Last Admin: 09/05/17 07:30 Dose: 40 mg Magnesium Hydroxide (Milk Of Magnesia) 30 ml PO .PRN X 1 PRN PRN Reason: Constipation Metformin HCl (Glucophage) 1,000 mg PO BIDCM [facility] Last Admin: 09/05/17 07:24 Dose: 1,000 mg Metoprolol Succinate (Toprol Xl (Beta Sunny)) 50 mg PO DAILY [facility] Last Admin: 09/05/17 07:30 Dose: 50 mg Primidone (Mysoline) 50 mg PO 1600 [facility] Last Admin: 09/04/17 17:16 Dose: 50 mg Senna/Docusate Sodium (Senokot-S, Margarita-Colace) 2 tablet PO BID [facility] Last Admin: 09/05/17 08:47 Dose: Not Given Tamsulosin HCl (Flomax) 0.4 mg PO DAILY@1730 [facility] Last Admin: 09/04/17 17:16 Dose: 0.4 mg Medical Necessity - Tobacco Use Smoking Status: Never smoker Tobacco Use: Non-smoker Assessment/Plan All Active Problems DMII (diabetes mellitus, type 2) (Acute) Lipidemia (Acute) TIA (transient ischemic attack) (Acute) Debility s/p generalized weakness. Complicated by HTN, HLD, frequent falls, dm , and peripheral neuropathy due to diabetes. Goal of rehab is bahai of functional independence. Plan: - Physical therapy for gait and balance - Occupational Therapy for ADLs - As needed analgesics - Bowel protocol - Stroke prevention on ASA, Statin and Plavix 75mg dual AP for 3 weeks, then switch to single AP. - DVT prophylaxis: SCDs, ASA, Lovenox - Hypertension: Stable with good control, continue home medication. Keep BP < 130/80 mmHg - Diabetes type 2 => continue home medication. - CTA head/neck -no hemodynamically significant stenosis or occlusion - TTE-EF 60%, normal LA size, no PFO - LDL-78, Vsi2p-4.1% - Cardiology evaluation for loop recorder evaluation - Fall precautions - Tremors -> start low dose of Primidone 50mg at 1600 hours - Hx Lumbar spinal stenosis on MRI has an appointment with Dr. Norberto Chatman on for evaluation and treatment plan - Urinalysis positive for UTI, Hospitalist started him on Keflex 500mg BID x 7 days.
[2017-09-05 11:50] LABS: Bedside Glucose 199 mg/dL (70-110)
[2017-09-05 16:50] LABS: Bedside Glucose 219 mg/dL (70-110)
[2017-09-05] MEDS: Primidone 50 MG Tablet PO (17:08)
[2017-09-05] MEDS: Tamsulosin HCl 0.4 MG Capsule PO (17:08)
[2017-09-05] MEDS: Atorvastatin Calcium 40 MG Tablet PO (21:22)
[2017-09-05 21:36] LABS: Bedside Glucose 159 mg/dL (70-110)
[2017-09-05 22:00] VITALS: BP 153/77; PULSE 78; RESP 18; TEMP 36.7; O2SAT 95
--- NOTE | 2017-09-06 03:19 | NURSING ---
Reviewed and agree with LPNs fims and handoff
[2017-09-06] MEDS: Heparin Injection (Vial) 5,000 UNIT/ML VIAL 5000 UNIT SC ×3 (05:52→21:23)
[2017-09-06 06:35] LABS: Bedside Glucose 164 mg/dL (70-110)
[2017-09-06 07:53] VITALS: BP 131/70; PULSE 69; RESP 18; TEMP 36.9; O2SAT 95
[2017-09-06] MEDS: glipiZIDE 5 MG Tablet 10 MG PO ×2 (08:00→18:11)
[2017-09-06] MEDS: Aspirin 81 MG TAB.CHEW PO (08:00)
[2017-09-06] MEDS: metFORMIN HCl 1,000 MG Tablet 1000 MG PO ×2 (08:00→18:10)
[2017-09-06] MEDS: Clopidogrel Bisulfate 75 MG Tablet PO (08:00)
[2017-09-06 08:01] VITALS: BP 131/70; PULSE 69
[2017-09-06] MEDS: Metoprolol(XL)Succ 50 MG Tablet PO (08:01)
[2017-09-06] MEDS: Insulin Lispro 100 UNIT/ML INSULN.PEN SC ×3 (08:01→21:24)
[2017-09-06] MEDS: Lisinopril 40 MG Tablet PO (08:01)
[2017-09-06] MEDS: amLODIPine 10 MG Tablet PO (08:01)
[2017-09-06] MEDS: Cephalexin 500 MG Capsule PO (08:01)
[2017-09-06] MEDS: Senna/Docusate Sodium 1 Tablet 2 TABLET PO (08:04)
--- NOTE | 2017-09-06 11:45 | PCM.PN.NEU ---
Subjective: Patient seen and examined. Continues to have some frequency, the urgency and burning has improved some, culture shows Staphylococcus epidermidis, and it does not have a sensitivity to the current antibiotic, will change to Nitrofurantoin 100mg BID x 7 days. - Physical Exam General: Alert, Oriented x3, Cooperative HEENT: Atraumatic, PERRLA, EOMI, Normocephalic Neck: Supple, No JVD, Negative Carotid Bruits Lungs: Clear to auscultation, Normal air movement Cardiovascular: Regular rate, No murmurs Abdomen: Bowel Sounds Present, Soft, Non Tender Extremities: No edema, Capillary Refill Less than 3 Seconds Skin: No rashes, No breakdown Musculoskeletal: No Tenderness to Palpation of Joints or Extremities Neurological: Cranial nerves II-XII grossly intact Psych/Mental Status: Normal Affect, Appropriate, Alert and oriented to time, place, person, mood and affect Vital Signs Temp Pulse Resp BP Pulse Ox 98.4 F 69 18 131/70 H 95 09/06/17 07:53 09/06/17 08:01 09/06/17 07:53 09/06/17 08:01 09/06/17 07:53 Oxygen Delivery Method Room Air Weight: 64.7 kg Body Mass Index (BMI) 21.9 Finger Stick Blood Glucose 124 Intake and Output for Last 24 Hours 09/04/17 09/05/17 09/06/17 23:59 23:59 23:59 Intake Total 240 / 240 Balance 240 / 240 Microbiology Past 72 Hours 09/04/17 12:00 Urine Culture - Final Urine, Clean Catch Staphylococcus epidermidis POC Glucose 09/06/17 09/05/17 09/05/17 06:26 21:09 16:42 POC Glucose 164 H 159 H 219 H 09/05/17 11:44 POC Glucose 199 H Active Medications Acetaminophen (Tylenol) 650 mg PO Q6H PRN PRN PRN Reason: PAIN Last Admin: 09/04/17 20:57 Dose: 650 mg Amlodipine Besylate (Norvasc) 10 mg PO DAILY [facility] Last Admin: 09/06/17 08:01 Dose: 10 mg Aspirin (Aspirin, Baby) 81 mg PO DAILY@0800 [facility] Last Admin: 09/06/17 08:00 Dose: 81 mg Atorvastatin Calcium (Lipitor) 40 mg PO QHS [facility] Last Admin: 09/05/17 21:22 Dose: 40 mg Bisacodyl (Dulcolax) 10 mg RECTAL .PRN X 1 PRN PRN Reason: Constipation Cephalexin (Keflex) 500 mg PO Q12 [facility] Stop: 09/10/17 22:01 Last Admin: 09/06/17 08:01 Dose: 500 mg Clopidogrel Bisulfate (Plavix) 75 mg PO DAILY [facility] Last Admin: 09/06/17 08:00 Dose: 75 mg Glipizide (Glucotrol) 10 mg PO BIDAC [facility] Last Admin: 09/06/17 08:00 Dose: 10 mg Heparin Sodium (Porcine) (Heparin Na) 5,000 unit SC Q8 [facility] Last Admin: 09/06/17 05:52 Dose: 5,000 units Insulin Human Lispro (Humalog Kwikpen (Bkc)) 0 unit SC ACHS [facility] PRN Reason: Protocol Last Admin: 09/06/17 08:01 Dose: 1 u Lisinopril (Zestril) 40 mg PO DAILY [facility] Last Admin: 09/06/17 08:01 Dose: 40 mg Magnesium Hydroxide (Milk Of Magnesia) 30 ml PO .PRN X 1 PRN PRN Reason: Constipation Metformin HCl (Glucophage) 1,000 mg PO BIDCM [facility] Last Admin: 09/06/17 08:00 Dose: 1,000 mg Metoprolol Succinate (Toprol Xl (Beta Sunny)) 50 mg PO DAILY [facility] Last Admin: 09/06/17 08:01 Dose: 50 mg Primidone (Mysoline) 50 mg PO 1600 [facility] Last Admin: 09/05/17 17:08 Dose: 50 mg Senna/Docusate Sodium (Senokot-S, Margarita-Colace) 2 tablet PO BID [facility] Last Admin: 09/06/17 08:04 Dose: 2 tablet Tamsulosin HCl (Flomax) 0.4 mg PO DAILY@1730 [facility] Last Admin: 09/05/17 17:08 Dose: 0.4 mg Medical Necessity - Tobacco Use Smoking Status: Never smoker Tobacco Use: Non-smoker Assessment/Plan All Active Problems DMII (diabetes mellitus, type 2) (Acute) Lipidemia (Acute) TIA (transient ischemic attack) (Acute) Debility s/p generalized weakness. Complicated by HTN, HLD, frequent falls, dm, and peripheral neuropathy due to diabetes. Goal of rehab is caodaism of functional independence. Plan: - Physical therapy for gait and balance - Occupational Therapy for ADLs - As needed analgesics - Bowel protocol - Stroke prevention on ASA, Statin and Plavix 75mg dual AP for 3 weeks, then switch to single AP. - DVT prophylaxis: SCDs, ASA, Lovenox - Hypertension: Stable with good control, continue home medication. Keep BP < 130/80 mmHg - Diabetes type 2 => continue home medication. - CTA head/neck -no hemodynamically significant stenosis or occlusion - TTE-EF 60%, normal LA size, no PFO - LDL-78, Btt0s-4.1% - Cardiology evaluation for loop recorder evaluation - Fall precautions - Tremors -> start low dose of Primidone 50mg at 1600 hours - Hx Lumbar spinal stenosis on MRI has an appointment with Dr. Norberto Chatman on 09/12 for evaluation and treatment plan - Acute cystitis with staph epidermis -> Hospitalist started him on Keflex 500mg BID x 7 days. Culture => Staphylococcus epidermidis stop Keflex and started Nitrofurantoin 100mg BID x 7 days.
[2017-09-06 11:55] LABS: Bedside Glucose 153 mg/dL (70-110)
--- NOTE | 2017-09-06 11:58 | PN.NEURO_ITS ---
Subjective: Patient seen and examined. Continues to have some frequency, the urgency and burning has improved some, culture shows Staphylococcus epidermidis, and it does not have a sensitivity to the current antibiotic, will change to Nitrofurantoin 100mg BID x 7 days. - Physical Exam General: Alert, Oriented x3, Cooperative HEENT: Atraumatic, PERRLA, EOMI, Normocephalic Neck: Supple, No JVD, Negative Carotid Bruits Lungs: Clear to auscultation, Normal air movement Cardiovascular: Regular rate, No murmurs Abdomen: Bowel Sounds Present, Soft, Non Tender Extremities: No edema, Capillary Refill Less than 3 Seconds Skin: No rashes, No breakdown Musculoskeletal: No Tenderness to Palpation of Joints or Extremities Neurological: Cranial nerves II-XII grossly intact Psych/Mental Status: Normal Affect, Appropriate, Alert and oriented to time, place, person, mood and affect Vital Signs Temp Pulse Resp BP Pulse Ox 98.4 F 69 18 131/70 H 95 09/06/17 07:53 09/06/17 08:01 09/06/17 07:53 09/06/17 08:01 09/06/17 07:53 Oxygen Delivery Method Room Air Weight: 64.7 kg Body Mass Index (BMI) 21.9 Finger Stick Blood Glucose 124 Intake and Output for Last 24 Hours 09/04/17 09/05/17 09/06/17 23:59 23:59 23:59 Intake Total 240 / 240 Balance 240 / 240 Microbiology Past 72 Hours 09/04/17 12:00 Urine Culture - Final Urine, Clean Catch Staphylococcus epidermidis POC Glucose 09/06/17 09/05/17 09/05/17 06:26 21:09 16:42 POC Glucose 164 H 159 H 219 H 09/05/17 11:44 POC Glucose 199 H Active Medications Acetaminophen (Tylenol) 650 mg PO Q6H PRN PRN PRN Reason: PAIN Last Admin: 09/04/17 20:57 Dose: 650 mg Amlodipine Besylate (Norvasc) 10 mg PO DAILY [facility] Last Admin: 09/06/17 08:01 Dose: 10 mg Aspirin (Aspirin, Baby) 81 mg PO DAILY@0800 [facility] Last Admin: 09/06/17 08:00 Dose: 81 mg Atorvastatin Calcium (Lipitor) 40 mg PO QHS [facility] Last Admin: 09/05/17 21:22 Dose: 40 mg Bisacodyl (Dulcolax) 10 mg RECTAL .PRN X 1 PRN PRN Reason: Constipation Cephalexin (Keflex) 500 mg PO Q12 [facility] Stop: 09/10/17 22:01 Last Admin: 09/06/17 08:01 Dose: 500 mg Clopidogrel Bisulfate (Plavix) 75 mg PO DAILY [facility] Last Admin: 09/06/17 08:00 Dose: 75 mg Glipizide (Glucotrol) 10 mg PO BIDAC [facility] Last Admin: 09/06/17 08:00 Dose: 10 mg Heparin Sodium (Porcine) (Heparin Na) 5,000 unit SC Q8 [facility] Last Admin: 09/06/17 05:52 Dose: 5,000 units Insulin Human Lispro (Humalog Kwikpen (Bkc)) 0 unit SC ACHS [facility] PRN Reason: Protocol Last Admin: 09/06/17 08:01 Dose: 1 u Lisinopril (Zestril) 40 mg PO DAILY [facility] Last Admin: 09/06/17 08:01 Dose: 40 mg Magnesium Hydroxide (Milk Of Magnesia) 30 ml PO .PRN X 1 PRN PRN Reason: Constipation Metformin HCl (Glucophage) 1,000 mg PO BIDCM [facility] Last Admin: 09/06/17 08:00 Dose: 1,000 mg Metoprolol Succinate (Toprol Xl (Beta Sunny)) 50 mg PO DAILY [facility] Last Admin: 09/06/17 08:01 Dose: 50 mg Primidone (Mysoline) 50 mg PO 1600 [facility] Last Admin: 09/05/17 17:08 Dose: 50 mg Senna/Docusate Sodium (Senokot-S, Margarita-Colace) 2 tablet PO BID [facility] Last Admin: 09/06/17 08:04 Dose: 2 tablet Tamsulosin HCl (Flomax) 0.4 mg PO DAILY@1730 [facility] Last Admin: 09/05/17 17:08 Dose: 0.4 mg Medical Necessity - Tobacco Use Smoking Status: Never smoker Tobacco Use: Non-smoker Assessment/Plan All Active Problems DMII (diabetes mellitus, type 2) (Acute) Lipidemia (Acute) TIA (transient ischemic attack) (Acute) Debility s/p generalized weakness. Complicated by HTN, HLD, frequent falls, dm , and peripheral neuropathy due to diabetes. Goal of rehab is oriental orthodox of functional independence. Plan: - Physical therapy for gait and balance - Occupational Therapy for ADLs - As needed analgesics - Bowel protocol - Stroke prevention on ASA, Statin and Plavix 75mg dual AP for 3 weeks, then switch to single AP. - DVT prophylaxis: SCDs, ASA, Lovenox - Hypertension: Stable with good control, continue home medication. Keep BP < 130/80 mmHg - Diabetes type 2 => continue home medication. - CTA head/neck -no hemodynamically significant stenosis or occlusion - TTE-EF 60%, normal LA size, no PFO - LDL-78, Rga0u-6.1% - Cardiology evaluation for loop recorder evaluation - Fall precautions - Tremors -> start low dose of Primidone 50mg at 1600 hours - Hx Lumbar spinal stenosis on MRI has an appointment with Dr. Norberto Chatman on for evaluation and treatment plan - Acute cystitis with staph epidermis -> Hospitalist started him on Keflex 500mg BID x 7 days. Culture => Staphylococcus epidermidis stop Keflex and started Nitrofurantoin 100mg BID x 7 days.
--- NOTE | 2017-09-06 12:27 | PCM.PN.HOSP ---
Subjective: Patient urine cultures came back positive for staph epi antibiotic regimen subsequently adjusted Objective: GENERAL: cooperative HEENT: Clear conjunctiva, NECK; supple, normal thyroid, CHEST: Clear to auscultation bilaterally, HEART: Regular S1 S2, ABDOMEN: soft, normoactive bowel sounds, RECTAL: deferred EXTREMITIES: No edema, no clubbing, ASSISTANT FRONT DESK MANAGER: Awake; SKIN: No Rash Vitals/I&O's: Vital Signs Temp Pulse Resp BP Pulse Ox 98.4 F 69 18 131/70 H 95 09/06/17 07:53 09/06/17 08:01 09/06/17 07:53 09/06/17 08:01 09/06/17 07:53 Oxygen Delivery Method Room Air Weight: 64.7 kg Body Mass Index (BMI) 21.9 Finger Stick Blood Glucose 124 Intake and Output for Last 24 Hours 09/04/17 09/05/17 09/06/17 23:59 23:59 23:59 Intake Total 240 / 240 Balance 240 / 240 Microbiology Past 72 Hours 09/04/17 12:00 Urine, Clean Catch Urine Culture - Final Staphylococcus epidermidis Laboratory Results 09/05/17 16:42: POC Glucose 219 H 09/05/17 21:09: POC Glucose 159 H 09/06/17 06:26: POC Glucose 164 H 09/06/17 11:43: POC Glucose 153 H Current Medications Acetaminophen (Tylenol) 650 mg PO Q6H PRN PRN PRN Reason: PAIN Last Admin: 09/04/17 20:57 Dose: 650 mg Amlodipine Besylate (Norvasc) 10 mg PO DAILY [facility] Last Admin: 09/06/17 08:01 Dose: 10 mg Aspirin (Aspirin, Baby) 81 mg PO DAILY@0800 [facility] Last Admin: 09/06/17 08:00 Dose: 81 mg Atorvastatin Calcium (Lipitor) 40 mg PO QHS [facility] Last Admin: 09/05/17 21:22 Dose: 40 mg Bisacodyl (Dulcolax) 10 mg RECTAL .PRN X 1 PRN PRN Reason: Constipation Clopidogrel Bisulfate (Plavix) 75 mg PO DAILY [facility] Last Admin: 09/06/17 08:00 Dose: 75 mg Glipizide (Glucotrol) 10 mg PO BIDAC [facility] Last Admin: 09/06/17 08:00 Dose: 10 mg Heparin Sodium (Porcine) (Heparin Na) 5,000 unit SC Q8 [facility] Last Admin: 09/06/17 05:52 Dose: 5,000 units Insulin Human Lispro (Humalog Kwikpen (Bkc)) 0 unit SC ACHS [facility] PRN Reason: Protocol Last Admin: 09/06/17 08:01 Dose: 1 u Lisinopril (Zestril) 40 mg PO DAILY [facility] Last Admin: 09/06/17 08:01 Dose: 40 mg Magnesium Hydroxide (Milk Of Magnesia) 30 ml PO .PRN X 1 PRN PRN Reason: Constipation Metformin HCl (Glucophage) 1,000 mg PO BIDCM [facility] Last Admin: 09/06/17 08:00 Dose: 1,000 mg Metoprolol Succinate (Toprol Xl (Beta Sunny)) 50 mg PO DAILY [facility] Last Admin: 09/06/17 08:01 Dose: 50 mg Nitrofurantoin Macrocrystals (Macrobid) 100 mg PO BID [facility] Stop: 09/14/17 10:00 Primidone (Mysoline) 50 mg PO 1600 [facility] Last Admin: 09/05/17 17:08 Dose: 50 mg Senna/Docusate Sodium (Senokot-S, Margarita-Colace) 2 tablet PO BID [facility] Last Admin: 09/06/17 08:04 Dose: 2 tablet Tamsulosin HCl (Flomax) 0.4 mg PO DAILY@1730 [facility] Last Admin: 09/05/17 17:08 Dose: 0.4 mg Medical Necessity - Tobacco Use Smoking Status: Never smoker Tobacco Use: Non-smoker Assessment/Plan All Active Problems DMII (diabetes mellitus, type 2) (Acute) Lipidemia (Acute) TIA (transient ischemic attack) (Acute) Patient is an 82-year-old gentleman admitted with strokelike symptoms later diagnosed with TIA transferred to the inpatient rehab unit where patient has since been managed 1. TIA-like symptoms: PT OT as tolerated currently on dual antiplatelet therapy in addition to starting therapy 2. Hematuria secondary to BPH with elevated PSA patient is on Flomax consultation was placed to Dr. Haddad with urology 3. Physical debility with frequent falls PT OT as tolerated 4. Diabetes mellitus type 2 on metformin and glipizide in addition to Accu-Cheks before meals and at bedtime with sliding scale coverage 5. Hypertension-blood pressure controlled, home medications continued with dose adjustment as needed 6. DVT prophylaxis: SCDs; 7. Acute cystitis with staph epidermis Code Visit Inpatient E&M: 27245 Subs Hosp L2
[2017-09-06 17:25] LABS: Bedside Glucose 138 mg/dL (70-110)
[2017-09-06] MEDS: Tamsulosin HCl 0.4 MG Capsule PO (18:10)
[2017-09-06] MEDS: Primidone 50 MG Tablet PO (18:11)
[2017-09-06] MEDS: levoFLOXacin 500 MG Tablet PO (18:11)
[2017-09-06 20:00] VITALS: BP 144/68; PULSE 84; RESP 18; TEMP 36.8; O2SAT 96
[2017-09-06 20:30] VITALS: PULSE 84; RESP 18; O2SAT 96
[2017-09-06] MEDS: Acetaminophen 325 MG Tablet 650 MG PO (21:23)
[2017-09-06] MEDS: Atorvastatin Calcium 40 MG Tablet PO (21:24)
[2017-09-06 21:26] LABS: Bedside Glucose 178 mg/dL (70-110)
--- NOTE | 2017-09-07 00:21 | NURSING ---
REVIEWED AND AGREE WITH REGIONAL OPERATIONS MANAGER'S FIM AND HANDOFF CHARTING.
[2017-09-07] MEDS: Heparin Injection (Vial) 5,000 UNIT/ML VIAL 5000 UNIT SC ×3 (05:18→21:48)
[2017-09-07] MEDS: levoFLOXacin 500 MG Tablet PO (05:19)
[2017-09-07 06:51] LABS: Bedside Glucose 172 mg/dL (70-110)
[2017-09-07 07:29] VITALS: BP 139/67; PULSE 68; RESP 18; TEMP 36.6; O2SAT 95
[2017-09-07] MEDS: Acetaminophen 325 MG Tablet 650 MG PO ×2 (09:07→21:51)
[2017-09-07] MEDS: Insulin Lispro 100 UNIT/ML INSULN.PEN SC ×3 (09:08→21:51)
[2017-09-07] MEDS: metFORMIN HCl 1,000 MG Tablet 1000 MG PO ×2 (10:33→16:49)
[2017-09-07] MEDS: Aspirin 81 MG TAB.CHEW PO (10:33)
[2017-09-07] MEDS: glipiZIDE 5 MG Tablet 10 MG PO ×2 (10:33→16:50)
[2017-09-07 10:34] VITALS: BP 139/67; PULSE 68
[2017-09-07] MEDS: Metoprolol(XL)Succ 50 MG Tablet PO (10:34)
[2017-09-07] MEDS: Senna/Docusate Sodium 1 Tablet 2 TABLET PO (10:34)
[2017-09-07] MEDS: Clopidogrel Bisulfate 75 MG Tablet PO (10:34)
[2017-09-07] MEDS: Lisinopril 40 MG Tablet PO (10:34)
[2017-09-07] MEDS: amLODIPine 10 MG Tablet PO (10:34)
[2017-09-07 12:30] LABS: Bedside Glucose 178 mg/dL (70-110)
[2017-09-07] MEDS: Tamsulosin HCl 0.4 MG Capsule PO (16:50)
[2017-09-07] MEDS: Primidone 50 MG Tablet PO (16:50)
[2017-09-07 17:00] LABS: Bedside Glucose 87 mg/dL (70-110)
[2017-09-07 20:35] VITALS: BP 122/67; PULSE 79; RESP 16; TEMP 36.9; O2SAT 94
[2017-09-07 20:40] VITALS: PULSE 79; RESP 16; O2SAT 94
[2017-09-07 21:46] LABS: Bedside Glucose 238 mg/dL (70-110)
[2017-09-07] MEDS: Atorvastatin Calcium 40 MG Tablet PO (21:48)
--- NOTE | 2017-09-08 01:40 | NURSING ---
Reviewed and agree with CODING COMPLIANCE AUDITOR documentation and FIMS charting
[2017-09-08] MEDS: levoFLOXacin 500 MG Tablet PO (05:11)
[2017-09-08] MEDS: Heparin Injection (Vial) 5,000 UNIT/ML VIAL 5000 UNIT SC ×3 (05:11→21:26)
[2017-09-08 07:01] LABS: Bedside Glucose 171 mg/dL (70-110)
[2017-09-08] MEDS: glipiZIDE 5 MG Tablet 10 MG PO ×2 (07:32→17:20)
[2017-09-08] MEDS: Aspirin 81 MG TAB.CHEW PO (07:32)
[2017-09-08] MEDS: Insulin Lispro 100 UNIT/ML INSULN.PEN SC ×3 (07:32→21:25)
[2017-09-08] MEDS: metFORMIN HCl 1,000 MG Tablet 1000 MG PO ×2 (07:32→17:20)
[2017-09-08 08:17] VITALS: BP 116/62; PULSE 70; RESP 18; TEMP 36.5; O2SAT 95
[2017-09-08 09:44] VITALS: BP 116/62; PULSE 70
[2017-09-08] MEDS: amLODIPine 10 MG Tablet PO (09:44)
[2017-09-08] MEDS: Clopidogrel Bisulfate 75 MG Tablet PO (09:44)
[2017-09-08] MEDS: Metoprolol(XL)Succ 50 MG Tablet PO (09:44)
[2017-09-08] MEDS: Lisinopril 40 MG Tablet PO (09:45)
[2017-09-08 11:51] LABS: Bedside Glucose 161 mg/dL (70-110)
[2017-09-08] MEDS: Primidone 50 MG Tablet PO (17:20)
[2017-09-08] MEDS: Tamsulosin HCl 0.4 MG Capsule PO (17:20)
[2017-09-08 17:35] LABS: Bedside Glucose 97 mg/dL (70-110)
[2017-09-08 19:32] VITALS: BP 111/59; PULSE 75; RESP 16; TEMP 37; O2SAT 94
[2017-09-08] MEDS: Acetaminophen 325 MG Tablet 650 MG PO (19:48)
[2017-09-08 19:53] VITALS: PULSE 75; RESP 16; O2SAT 94
[2017-09-08] MEDS: Atorvastatin Calcium 40 MG Tablet PO (21:28)
[2017-09-08 21:46] LABS: Bedside Glucose 153 mg/dL (70-110)
--- NOTE | 2017-09-09 00:56 | NURSING ---
Reviewed and agree with EXTRUSION ENGINEER documentation and FIMs charting.
[2017-09-09] MEDS: Heparin Injection (Vial) 5,000 UNIT/ML VIAL 5000 UNIT SC ×3 (05:07→21:19)
[2017-09-09 06:45] LABS: Bedside Glucose 136 mg/dL (70-110)
[2017-09-09 07:30] VITALS: BP 127/57; PULSE 72; RESP 16; TEMP 36.5; O2SAT 97
[2017-09-09 07:57] VITALS: PULSE 72
[2017-09-09] MEDS: Lisinopril 40 MG Tablet PO (07:57)
[2017-09-09] MEDS: metFORMIN HCl 1,000 MG Tablet 1000 MG PO ×2 (07:57→16:11)
[2017-09-09] MEDS: Clopidogrel Bisulfate 75 MG Tablet PO (07:57)
[2017-09-09] MEDS: Metoprolol(XL)Succ 50 MG Tablet PO (07:57)
[2017-09-09] MEDS: Aspirin 81 MG TAB.CHEW PO (07:57)
[2017-09-09] MEDS: amLODIPine 10 MG Tablet PO (07:57)
[2017-09-09] MEDS: glipiZIDE 5 MG Tablet 10 MG PO ×2 (07:57→16:11)
[2017-09-09] MEDS: Acetaminophen 325 MG Tablet 650 MG PO ×2 (07:59→21:17)
--- NOTE | 2017-09-09 09:50 | CASEMGMT ---
Team meeting held. Patient present as well as patient family. Discharge date set for 09/11/17. Patient plans to discharge home with spouse at time of discharge. Physical therapy recommending for patient to have continued therapy through outpatient physical therapy services pending how doctor appointment goes on . Plan is to provide patient with an order for outpatient physical therapy and then family/patient can set up appointment if approved by doctor at doctors appointment on 09/12/17. Patient requesting for outpatient physical therapy to be set up through [facility]. Support given. Proposed discharge date: 09/11/17 PLAN: Discharge home with spouse and outpatient therapy. Will continue to follow. Susan HERNANDEZ, DESKTOP ARCHITECT
[2017-09-09 11:26] LABS: Bedside Glucose 151 mg/dL (70-110)
[2017-09-09] MEDS: Insulin Lispro 100 UNIT/ML INSULN.PEN SC ×2 (11:38→16:11)
--- NOTE | 2017-09-09 11:44 | PCM.PN.NEU ---
Subjective: Staffed in team. Family was at bedside, questions answered. With Physical therapy, he requires a light hand to get to his feet. He is able to walk 250 feet with a waker with a light hand for balance at times. He is taking nice big steps without any cues, an improvement over last week when he required cues constantly. He is able to go up and down 6 steps using 2 hand rails at stand by assist. With Occupational therapy, he is able to do his personal care at stand by assist. He occasionally requires a light hand for toileting while pulling up his pants. With Speech therapy, he stills requires help with cognitive issues, such as memory, and processing information, some days are better than others, the family states they feel he is at his baseline that these issues where ones he had before, with some improvement. With Nursing, he had a UTI which has resolved. At the last team meeting the family asked about tremors that was interfering with ADL, he was started on a low dose of Primidone 50mg in the early evening, and seems to be benefitting from treatment. The plan is for discharge the afternoon of Monday 09/11, with outpatient Physical therapy, and Occupational therapy. - Physical Exam General: Alert, Oriented x3, Cooperative HEENT: Atraumatic, PERRLA, EOMI, Normocephalic Neck: Supple, No JVD, Negative Carotid Bruits Lungs: Clear to auscultation, Normal air movement Cardiovascular: Regular rate, No murmurs Abdomen: Bowel Sounds Present, Soft, Non Tender Extremities: No edema, Capillary Refill Less than 3 Seconds Skin: No rashes, No breakdown Musculoskeletal: No Tenderness to Palpation of Joints or Extremities Neurological: Cranial nerves II-XII grossly intact Psych/Mental Status: Normal Affect, Appropriate, Alert and oriented to time, place, person, mood and affect Vital Signs Temp Pulse Resp BP Pulse Ox 97.7 F L 72 16 127/57 H 97 09/09/17 07:30 09/09/17 07:57 09/09/17 07:30 09/09/17 07:30 09/09/17 07:30 Oxygen Delivery Method Room Air Weight: 64.7 kg Body Mass Index (BMI) 21.9 Finger Stick Blood Glucose 124 Intake and Output for Last 24 Hours 09/07/17 09/08/17 09/09/17 23:59 23:59 23:59 Intake Total 700 / 700 700 / 700 320 / 320 Balance 700 / 700 700 / 700 320 / 320 Microbiology Past 72 Hours 09/04/17 12:00 Urine Culture - Final Urine, Clean Catch Staphylococcus epidermidis POC Glucose 09/09/17 09/09/17 09/08/17 11:16 06:40 21:24 POC Glucose 151 H 136 H 153 H 09/08/17 09/08/17 17:19 11:45 POC Glucose 97 161 H Active Medications Acetaminophen (Tylenol) 650 mg PO Q6H PRN PRN PRN Reason: PAIN Last Admin: 09/09/17 07:59 Dose: 650 mg Amlodipine Besylate (Norvasc) 10 mg PO DAILY [facility] Last Admin: 09/09/17 07:57 Dose: 10 mg Aspirin (Aspirin, Baby) 81 mg PO DAILY@0800 [facility] Last Admin: 09/09/17 07:57 Dose: 81 mg Atorvastatin Calcium (Lipitor) 40 mg PO QHS [facility] Last Admin: 09/08/17 21:28 Dose: 40 mg Bisacodyl (Dulcolax) 10 mg RECTAL .PRN X 1 PRN PRN Reason: Constipation Clopidogrel Bisulfate (Plavix) 75 mg PO DAILY [facility] Last Admin: 09/09/17 07:57 Dose: 75 mg Glipizide (Glucotrol) 10 mg PO BIDAC [facility] Last Admin: 09/09/17 07:57 Dose: 10 mg Heparin Sodium (Porcine) (Heparin Na) 5,000 unit SC Q8 [facility] Last Admin: 09/09/17 05:07 Dose: 5,000 units Insulin Human Lispro (Humalog Kwikpen (Bkc)) 0 unit SC ACHS [facility] PRN Reason: Protocol Last Admin: 09/09/17 11:38 Dose: 1 u Lisinopril (Zestril) 40 mg PO DAILY [facility] Last Admin: 09/09/17 07:57 Dose: 40 mg Magnesium Hydroxide (Milk Of Magnesia) 30 ml PO .PRN X 1 PRN PRN Reason: Constipation Metformin HCl (Glucophage) 1,000 mg PO BIDCM [facility] Last Admin: 09/09/17 07:57 Dose: 1,000 mg Metoprolol Succinate (Toprol Xl (Beta Sunny)) 50 mg PO DAILY [facility] Last Admin: 09/09/17 07:57 Dose: 50 mg Primidone (Mysoline) 50 mg PO 1600 [facility] Last Admin: 09/08/17 17:20 Dose: 50 mg Senna/Docusate Sodium (Senokot-S, Margarita-Colace) 2 tablet PO BID [facility] Last Admin: 09/09/17 07:55 Dose: Not Given Tamsulosin HCl (Flomax) 0.4 mg PO DAILY@1730 [facility] Last Admin: 09/08/17 17:20 Dose: 0.4 mg Medical Necessity - Tobacco Use Smoking Status: Never smoker Tobacco Use: Non-smoker Assessment/Plan All Active Problems DMII (diabetes mellitus, type 2) (Acute) Lipidemia (Acute) TIA (transient ischemic attack) (Acute) Debility s/p generalized weakness. Complicated by HTN, HLD, frequent falls, dm, and peripheral neuropathy due to diabetes. Goal of rehab is yarsanism of functional independence. Plan: - Physical therapy for gait and balance - Occupational Therapy for ADLs - As needed analgesics - Bowel protocol - Stroke prevention on ASA, Statin and Plavix 75mg dual AP for 3 weeks, then switch to single AP. - DVT prophylaxis: SCDs, ASA, Lovenox - Hypertension: Stable with good control, continue home medication. Keep BP < 130/80 mmHg - Diabetes type 2 => continue home medication. - CTA head/neck -no hemodynamically significant stenosis or occlusion - TTE-EF 60%, normal LA size, no PFO - LDL-78, Hod8f-5.1% - Cardiology evaluation for loop recorder evaluation - Fall precautions - Tremors -> start low dose of Primidone 50mg at 1600 hours - Hx Lumbar spinal stenosis on MRI has an appointment with Dr. Norberto Chatman on 09/12 for evaluation and treatment plan - Acute cystitis with staph epidermis -> Resolved - Plan is for discharge the afternoon of Monday 09/11.
[2017-09-09] MEDS: Primidone 50 MG Tablet PO (16:11)
[2017-09-09 16:15] LABS: Bedside Glucose 150 mg/dL (70-110)
[2017-09-09] MEDS: Tamsulosin HCl 0.4 MG Capsule PO (16:32)
[2017-09-09 20:45] VITALS: PULSE 60; RESP 17; O2SAT 95
[2017-09-09] MEDS: Atorvastatin Calcium 40 MG Tablet PO (21:18)
[2017-09-09 22:50] LABS: Bedside Glucose 147 mg/dL (70-110)
--- NOTE | 2017-09-10 02:18 | NURSING ---
REVIEWED AND AGREE WITH PRESS TENDER SMOKE SIGNAL'S FIM AND HANDOFF CHARTING.
[2017-09-10] MEDS: Heparin Injection (Vial) 5,000 UNIT/ML VIAL 5000 UNIT SC ×3 (06:08→20:13)
[2017-09-10 07:05] LABS: Bedside Glucose 131 mg/dL (70-110)
[2017-09-10 07:29] VITALS: BP 152/74; PULSE 68; RESP 12; TEMP 36.8; O2SAT 98
[2017-09-10 07:44] VITALS: BP 152/74; PULSE 68
[2017-09-10] MEDS: Metoprolol(XL)Succ 50 MG Tablet PO (07:44)
[2017-09-10] MEDS: Lisinopril 40 MG Tablet PO (07:44)
[2017-09-10] MEDS: metFORMIN HCl 1,000 MG Tablet 1000 MG PO ×2 (07:44→17:02)
[2017-09-10] MEDS: Clopidogrel Bisulfate 75 MG Tablet PO (07:44)
[2017-09-10] MEDS: amLODIPine 10 MG Tablet PO (07:44)
[2017-09-10] MEDS: Aspirin 81 MG TAB.CHEW PO (07:44)
[2017-09-10] MEDS: glipiZIDE 5 MG Tablet 10 MG PO ×2 (07:45→17:02)
[2017-09-10] MEDS: Acetaminophen 325 MG Tablet 650 MG PO ×2 (07:49→21:20)
--- NOTE | 2017-09-10 10:59 | PCM.PN.NEU ---
Subjective: Patient sitting quietly in bedside recliner reading. No new complaints. Tolerating therapy. Denies any blurry vision or double vision. No issues with GI/. Tolerating calorie controlled/diabetic diet. - Physical Exam General: Alert, Oriented x3, Cooperative HEENT: Atraumatic, PERRLA, EOMI, Normocephalic Neck: Supple, No JVD, Negative Carotid Bruits Lungs: Clear to auscultation, Normal air movement Cardiovascular: Regular rate, No murmurs Abdomen: Bowel Sounds Present, Soft, Non Tender Extremities: No edema, Capillary Refill Less than 3 Seconds Skin: No rashes, No breakdown Musculoskeletal: No Tenderness to Palpation of Joints or Extremities Neurological: Cranial nerves II-XII grossly intact Psych/Mental Status: Normal Affect, Appropriate, Alert and oriented to time, place, person, mood and affect Vital Signs Temp Pulse Resp BP Pulse Ox 98.2 F 68 12 152/74 H 98 09/10/17 07:29 09/10/17 07:44 09/10/17 07:29 09/10/17 07:44 09/10/17 07:29 Oxygen Delivery Method Room Air Weight: 64.7 kg Body Mass Index (BMI) 21.9 Finger Stick Blood Glucose 124 Intake and Output for Last 24 Hours 09/08/17 09/09/17 09/10/17 23:59 23:59 23:59 Intake Total 700 / 700 1000 / 1000 240 / 240 Balance 700 / 700 1000 / 1000 240 / 240 POC Glucose 09/10/17 09/09/17 09/09/17 06:31 21:16 16:09 POC Glucose 131 H 147 H 150 H 09/09/17 11:16 POC Glucose 151 H Active Medications Acetaminophen (Tylenol) 650 mg PO Q6H PRN PRN PRN Reason: PAIN Last Admin: 09/10/17 07:49 Dose: 650 mg Amlodipine Besylate (Norvasc) 10 mg PO DAILY [facility] Last Admin: 09/10/17 07:44 Dose: 10 mg Aspirin (Aspirin, Baby) 81 mg PO DAILY@0800 [facility] Last Admin: 09/10/17 07:44 Dose: 81 mg Atorvastatin Calcium (Lipitor) 40 mg PO QHS [facility] Last Admin: 09/09/17 21:18 Dose: 40 mg Bisacodyl (Dulcolax) 10 mg RECTAL .PRN X 1 PRN PRN Reason: Constipation Clopidogrel Bisulfate (Plavix) 75 mg PO DAILY [facility] Last Admin: 09/10/17 07:44 Dose: 75 mg Glipizide (Glucotrol) 10 mg PO BIDAC [facility] Last Admin: 09/10/17 07:45 Dose: 10 mg Heparin Sodium (Porcine) (Heparin Na) 5,000 unit SC Q8 [facility] Last Admin: 09/10/17 06:08 Dose: 5,000 units Insulin Human Lispro (Humalog Kwikpen (Bkc)) 0 unit SC ACHS [facility] PRN Reason: Protocol Last Admin: 09/10/17 06:32 Dose: Not Given Lisinopril (Zestril) 40 mg PO DAILY [facility] Last Admin: 09/10/17 07:44 Dose: 40 mg Magnesium Hydroxide (Milk Of Magnesia) 30 ml PO .PRN X 1 PRN PRN Reason: Constipation Metformin HCl (Glucophage) 1,000 mg PO BIDCM [facility] Last Admin: 09/10/17 07:44 Dose: 1,000 mg Metoprolol Succinate (Toprol Xl (Beta Sunny)) 50 mg PO DAILY [facility] Last Admin: 09/10/17 07:44 Dose: 50 mg Primidone (Mysoline) 50 mg PO 1600 [facility] Last Admin: 09/09/17 16:11 Dose: 50 mg Senna/Docusate Sodium (Senokot-S, Margarita-Colace) 2 tablet PO BID [facility] Last Admin: 09/10/17 07:42 Dose: Not Given Tamsulosin HCl (Flomax) 0.4 mg PO DAILY@1730 [facility] Last Admin: 09/09/17 16:32 Dose: 0.4 mg Medical Necessity - Tobacco Use Smoking Status: Never smoker Tobacco Use: Non-smoker Assessment/Plan All Active Problems DMII (diabetes mellitus, type 2) (Acute) Lipidemia (Acute) TIA (transient ischemic attack) (Acute) Debility s/p generalized weakness. Complicated by HTN, HLD, frequent falls, dm, and peripheral neuropathy due to diabetes. Goal of rehab is buddhist of functional independence. Plan: - Physical therapy for gait and balance - Occupational Therapy for ADLs - As needed analgesics - Bowel protocol - Stroke prevention on ASA, Statin and Plavix 75mg dual AP for 3 weeks, then switch to single AP. - DVT prophylaxis: SCDs, ASA, Lovenox - Hypertension: Stable with good control, continue home medication. Keep BP < 130/80 mmHg - Diabetes type 2 => continue home medication. - CTA head/neck -no hemodynamically significant stenosis or occlusion - TTE-EF 60%, normal LA size, no PFO - LDL-78, Ikj8u-3.1% - Cardiology evaluation for loop recorder evaluation - Fall precautions - Tremors -> start low dose of Primidone 50mg at 1600 hours - Hx Lumbar spinal stenosis on MRI has an appointment with Dr. Norberto Chatman on 09/12 for evaluation and treatment plan - Acute cystitis with staph epidermis -> Resolved - Plan is for discharge the afternoon of Monday 09/11.
[2017-09-10 11:26] LABS: Bedside Glucose 182 mg/dL (70-110)
[2017-09-10] MEDS: Insulin Lispro 100 UNIT/ML INSULN.PEN SC ×2 (11:57→21:20)
--- NOTE | 2017-09-10 16:34 | CASEMGMT ---
Social Work Spoke with patient and patient spouse in room to confirm discharge plan. Patient plans to discharge home with spouse. Physical therapy recommending for patient to have continued services through outpatient physical therapy pending doctors appointment outcome on 09/12/17, patient will be provided with an outpatient physical therapy appointment order when given discharge information. Patient reporting to have needed durable medical equipment already set up within the home. Patient family to provide transportation home for patient at time of discharge. Support given. Order for outpatient physical therapy obtained and will be placed with patient discharge information. Proposed discharge date: 09/11/17 PLAN: Discharge home with spouse and outpatient physical therapy . Susan HERNANDEZ, COGNOS LEAD
[2017-09-10] MEDS: Tamsulosin HCl 0.4 MG Capsule PO (17:02)
[2017-09-10] MEDS: Primidone 50 MG Tablet PO (17:02)
[2017-09-10 17:16] LABS: Bedside Glucose 121 mg/dL (70-110)
[2017-09-10 19:57] VITALS: BP 150/67; PULSE 70; RESP 17; TEMP 36.7; O2SAT 93
[2017-09-10] MEDS: Atorvastatin Calcium 40 MG Tablet PO (20:13)
--- NOTE | 2017-09-10 21:09 | NURSING ---
patient survey provided to pt.
[2017-09-10 22:00] VITALS: PULSE 76; RESP 17
[2017-09-10 22:26] LABS: Bedside Glucose 163 mg/dL (70-110)
[2017-09-11] MEDS: Heparin Injection (Vial) 5,000 UNIT/ML VIAL 5000 UNIT SC (06:51)
[2017-09-11] MEDS: Acetaminophen 325 MG Tablet 650 MG PO (06:57)
[2017-09-11 07:01] LABS: Bedside Glucose 145 mg/dL (70-110)
[2017-09-11 07:39] VITALS: BP 143/69; PULSE 96
[2017-09-11] MEDS: Metoprolol(XL)Succ 50 MG Tablet PO (07:39)
[2017-09-11] MEDS: Lisinopril 40 MG Tablet PO (07:39)
[2017-09-11] MEDS: Clopidogrel Bisulfate 75 MG Tablet PO (07:40)
[2017-09-11] MEDS: metFORMIN HCl 1,000 MG Tablet 1000 MG PO (07:40)
[2017-09-11] MEDS: Senna/Docusate Sodium 1 Tablet 2 TABLET PO (07:40)
[2017-09-11] MEDS: amLODIPine 10 MG Tablet PO (07:40)
[2017-09-11] MEDS: Aspirin 81 MG TAB.CHEW PO (07:41)
[2017-09-11] MEDS: glipiZIDE 5 MG Tablet 10 MG PO (07:41)
[2017-09-11 07:44] VITALS: BP 143/69; PULSE 96; RESP 18; TEMP 36.3; O2SAT 97
[2017-09-11 07:46] VITALS: PULSE 96; RESP 18; O2SAT 97
--- NOTE | 2017-09-11 08:58 | PCM.RU.DC ---
Rehab Discharge Summary DATE OF ADMISSION: 08/28/17 DATE OF DISCHARGE: 09/11/17 - Rehab Diagnosis Debility Discharge Diet: 1800 Calorie Control Diet, Carb Control Diet Discharge Activity: May Not Drive, May Shower, May Take a Tub Bath, Use Walker Weight Bearing Status: Weight bearing as tolerated Call your doctor if you observe: Fever of 101 or Higher, Coldness, Increased Pain, Numbness or Tingling, Change in Color, Inability to urinate, Inability to have a bowel movement, Using more than one pad per hour, Shortness of breath, Dizziness, Fainting spells, Swelling in the ankles, Chest pain, Prolonged hiccoughing, Increased palpitations (irregular heartbeat), Calf discomfort, Uncontrolled pain Home Medications: Medications to take at Discharge Metformin HCl [Glucophage] 1,000 mg PO BID 08/25/17 glipiZIDE [Glucotrol] 10 mg PO BID 08/25/17 Acetaminophen [Tylenol Tablet] 650 mg PO Q6H PRN PRN tablet 08/27/17 Amlodipine [Norvasc] 10 mg PO DAILY 08/28/17 Aspirin [Aspirin, Baby] 81 mg PO DAILY@0800 08/28/17 Atorvastatin Calcium [Lipitor] 40 mg PO QHS 08/28/17 Clopidogrel Bisulfate [Plavix] 75 mg PO DAILY 08/28/17 Lisinopril [Zestril] 40 mg PO DAILY 08/28/17 Metoprolol(XL)Succ [Toprol Xl (Beta Sunny)] 50 mg PO DAILY 08/28/17 Tamsulosin HCl [Flomax] 0.4 mg PO DAILY@1730 08/28/17 Primidone [Mysoline] 50 mg PO 1600 #60 tab 09/11/17 Following Prescrptions Were Given to Patient: Primidone [Mysoline] 50 mg PO 1600 #60 tab Primary Care Physician: Christopher Angeles MD [Primary Care Provider] - Disposition: Home Minutes spent on discharge:: 35 Patient Condition:: Good Rehab Course The patient is a 82 year old right handed male who was admitted to the rehab unit for rehabilitation for debility. Initially he was admitted to [facility] on 08/25/17 with symptoms of a possible stroke, right sided facial droop, slurred speech and right sided weakness. He has a history of HTN, HLD, DM, DM Neuropathy, h/o syncope s/p loop recorder implantation, and some generalized weakness. The patient was suspected of having a TIA symptoms which resolved. A CT head was negative, an MRI brain showed no acute stroke or acute abnormalities. An Echocardiogram showed an EF of 60%, stage I diastolic dysfunction, pulmonary artery systolic pressure 33 mmHg. CTA head/neck was negative for hemodynamically significant stenosis or occlusion. Per ED documentation, his NIHSS was 1 on admission,and he was not an Ivtpa candidate. It was noted to have poorly controlled blood pressure , he was on metoprolol XL 25 mg daily at home and lisinopril 20 mg daily. the Metoprolol was increased to 50 mg daily and lisinopril was increased 40 mg daily. He was also started on amlodipine 10 mg daily. He lives with his in a two story home with 1 step to get into the home from the garage and no steps to get in using the front door. He was previously completely functionally independent and is admitted to the rehab unit in order to restore her previous level of functional independence. He was on aspirin, Plavix and a statin, prior to this admission. With Physical therapy, he requires a light hand to get to his feet. He is able to walk 250 feet with a waker with a light hand for balance at times. He is taking nice big steps without any cues, an improvement over last week when he required cues constantly. He is able to go up and down 6 steps using 2 hand rails at stand by assist. With Occupational therapy, he is able to do his personal care at stand by assist. He occasionally requires a light hand for toileting while pulling up his pants. With Speech therapy, he stills requires help with cognitive issues, such as memory, and processing information, some days are better than others, the family states they feel he is at his baseline that these issues where ones he had before, with some improvement. With Nursing, he had a UTI which has resolved. At the last team meeting the family asked about tremors that was interfering with ADL, he was started on a low dose of Primidone 50mg in the early evening, and seems to be benefitting from treatment. The plan is for discharge the afternoon of Monday 09/11, with outpatient Physical therapy, and Occupational therapy, he refused outpatient Speech therapy. Meaningful Use Info Meaningful Use Diagnoses (Choose all that apply): None applicable
--- NOTE | 2017-09-11 09:01 | DS.PCM_ITS ---
Rehab Discharge Summary DATE OF ADMISSION: 08/28/17 DATE OF DISCHARGE: 09/11/17 - Rehab Diagnosis Debility Discharge Diet: 1800 Calorie Control Diet, Carb Control Diet Discharge Activity: May Not Drive, May Shower, May Take a Tub Bath, Use Walker Weight Bearing Status: Weight bearing as tolerated Call your doctor if you observe: Fever of 101 or Higher, Coldness, Increased Pain, Numbness or Tingling, Change in Color, Inability to urinate, Inability to have a bowel movement, Using more than one pad per hour, Shortness of breath, Dizziness, Fainting spells, Swelling in the ankles, Chest pain, Prolonged hiccoughing, Increased palpitations (irregular heartbeat), Calf discomfort, Uncontrolled pain Home Medications: Medications to take at Discharge Metformin HCl [Glucophage] 1,000 mg PO BID 08/25/17 glipiZIDE [Glucotrol] 10 mg PO BID 08/25/17 Acetaminophen [Tylenol Tablet] 650 mg PO Q6H PRN PRN tablet 08/27/17 Amlodipine [Norvasc] 10 mg PO DAILY 08/28/17 Aspirin [Aspirin, Baby] 81 mg PO DAILY@0800 08/28/17 Atorvastatin Calcium [Lipitor] 40 mg PO QHS 08/28/17 Clopidogrel Bisulfate [Plavix] 75 mg PO DAILY 08/28/17 Lisinopril [Zestril] 40 mg PO DAILY 08/28/17 Metoprolol(XL)Succ [Toprol Xl (Beta Sunny)] 50 mg PO DAILY 08/28/17 Tamsulosin HCl [Flomax] 0.4 mg PO DAILY@1730 08/28/17 Primidone [Mysoline] 50 mg PO 1600 #60 tab 09/11/17 Following Prescrptions Were Given to Patient: Primidone [Mysoline] 50 mg PO 1600 #60 tab Primary Care Physician: Christopher Angeles MD [Primary Care Provider] - Disposition: Home Minutes spent on discharge:: 35 Patient Condition:: Good Rehab Course The patient is a 82 year old right handed male who was admitted to the rehab unit for rehabilitation for debility. Initially he was admitted to [facility] on with symptoms of a possible stroke, right sided facial droop, slurred speech and right sided weakness. He has a history of HTN, HLD, DM, DM Neuropathy , h/o syncope s/p loop recorder implantation, and some generalized weakness. The patient was suspected of having a TIA symptoms which resolved. A CT head was negative, an MRI brain showed no acute stroke or acute abnormalities. An Echocardiogram showed an EF of 60%, stage I diastolic dysfunction, pulmonary artery systolic pressure 33 mmHg. CTA head/neck was negative for hemodynamically significant stenosis or occlusion. Per ED documentation, his NIHSS was 1 on admission,and he was not an Ivtpa candidate. It was noted to have poorly controlled blood pressure , he was on metoprolol XL 25 mg daily at home and lisinopril 20 mg daily. the Metoprolol was increased to 50 mg daily and lisinopril was increased 40 mg daily. He was also started on amlodipine 10 mg daily. He lives with his in a two story home with 1 step to get into the home from the garage and no steps to get in using the front door. He was previously completely functionally independent and is admitted to the rehab unit in order to restore her previous level of functional independence. He was on aspirin, Plavix and a statin, prior to this admission. With Physical therapy , he requires a light hand to get to his feet. He is able to walk 250 feet with a waker with a light hand for balance at times. He is taking nice big steps without any cues, an improvement over last week when he required cues constantly. He is able to go up and down 6 steps using 2 hand rails at stand by assist. With Occupational therapy, he is able to do his personal care at stand by assist. He occasionally requires a light hand for toileting while pulling up his pants. With Speech therapy, he stills requires help with cognitive issues , such as memory, and processing information, some days are better than others, the family states they feel he is at his baseline that these issues where ones he had before, with some improvement. With Nursing, he had a UTI which has resolved. At the last team meeting the family asked about tremors that was interfering with ADL, he was started on a low dose of Primidone 50mg in the early evening, and seems to be benefitting from treatment. The plan is for discharge the afternoon of Monday 09/11, with outpatient Physical therapy, and Occupational therapy, he refused outpatient Speech therapy. Meaningful Use Info Meaningful Use Diagnoses (Choose all that apply): None applicable
--- NOTE | 2017-09-11 09:02 | DCINST_ITS ---
- Discharge Diagnoses Reason(s) for Visit for Discharge Instructions: Debility You will use the following diet at home:: Calorie/Carbohydrate Controlled ( specify 1200, 1400, etc) - 1800 Your food should be the consistency of: Regular Your liquids should be the consistency of: Regular/Thin Discharge Activity: May Not Drive, May Shower, May Take a Tub Bath, Use Walker Weight Bearing Status: Weight bearing as tolerated Call your doctor if you observe: Fever of 101 or Higher, Coldness, Increased Pain, Numbness or Tingling, Change in Color, Inability to urinate, Inability to have a bowel movement, Using more than one pad per hour, Shortness of breath, Dizziness, Fainting spells, Swelling in the ankles, Chest pain, Prolonged hiccoughing, Increased palpitations (irregular heartbeat), Calf discomfort, Uncontrolled pain Allergies/Adverse Reactions: Allergies iodine Allergy (Verified 08/28/17 16:06) Rash Medications to take at Discharge Metformin HCl [Glucophage] 1,000 mg PO BID 08/25/17 glipiZIDE [Glucotrol] 10 mg PO BID 08/25/17 Acetaminophen [Tylenol Tablet] 650 mg PO Q6H PRN PRN tablet 08/27/17 Amlodipine [Norvasc] 10 mg PO DAILY 08/28/17 Aspirin [Aspirin, Baby] 81 mg PO DAILY@0800 08/28/17 Atorvastatin Calcium [Lipitor] 40 mg PO QHS 08/28/17 Clopidogrel Bisulfate [Plavix] 75 mg PO DAILY 08/28/17 Lisinopril [Zestril] 40 mg PO DAILY 08/28/17 Metoprolol(XL)Succ [Toprol Xl (Beta Sunny)] 50 mg PO DAILY 08/28/17 Tamsulosin HCl [Flomax] 0.4 mg PO DAILY@1730 08/28/17 Primidone [Mysoline] 50 mg PO 1600 #60 tab 09/11/17 The following prescriptions were given: Primidone [Mysoline] 50 mg PO 1600 #60 tab Primary Care Physician: Christopher Angeles MD [Primary Care Provider] - Test Results: Test results from this visit will be discussed in further detail at your follow- up appointment, if applicable. Proposed Discharge Date: 09/11/17
--- NOTE | 2017-09-11 14:37 | NURSING ---
Went over discharge instructions and medications with pt and spouse, both verbalized understanding. Pt left with all personal belongings, in stable condition.
[2017-09-11 14:40] VITALS: BP 143/69; PULSE 96; RESP 18; TEMP 36.3; O2SAT 97
== END 2017-09-11 13:30 | disposition home or self-care (01) | DRG 948 ==
PROVIDERS: Internal Medicine; Nurse Practitioner Acute Care; Student in an Organized Health Care Education/Training Program; Admitting Provider Psychiatry & Neurology Neurology; Family Provider Family Medicine; PCP Family Medicine; Visit Provider Hospitalist
DX: R53.81 Other malaise (principal); N30.01 Acute cystitis with hematuria; T83.511A Infection and inflammatory reaction due to indwelling urethral catheter, initial encounter; I10 Essential (primary) hypertension; E78.5 Hyperlipidemia, unspecified; E11.42 Type 2 diabetes mellitus with diabetic polyneuropathy; R29.6 Repeated falls; Z86.73 Personal history of transient ischemic attack (TIA), and cerebral infarction without residual deficits; N40.1 Benign prostatic hyperplasia with lower urinary tract symptoms; R33.8 Other retention of urine; B95.7 Other staphylococcus as the cause of diseases classified elsewhere; M48.061 Spinal stenosis, lumbar region without neurogenic claudication; R25.1 Tremor, unspecified; Y73.8 Miscellaneous gastroenterology and urology devices associated with adverse incidents, not elsewhere classified
CPT/HCPCS: 36415; 80048; 80053; 81001; 82962; 83735; 84100; 84153; 85027; 87077; 87086; 87088; 87186; 92507; 92523; 97110; 97112; 97116; 97162; 97166; 97530; 97535; 97802

== ENCOUNTER → 2017-12-03 13:55 | Outpatient (CLI) | payer MEDICARE, OTHER, SELFPAY ==
[2017-12-03 15:43] LABS: Anion Gap 10 (5-15); BUN 27 mg/dL (7-18); BUN/Creat Ratio 21.6 RATIO (10-20); Calcium,Total 9.3 mg/dL (8.5-10.1); Chloride 100 mmol/L (98-107); Creatinine, Serum 1.25 mg/dL (0.70-1.30); EST Glomerular Filtration Rate 59 mL/min (>60); Est Glom Filt Rate - Afr Amer 71 mL/min (>60); Glucose 210 mg/dL (74-106); PSA,Total- Diagnostic 8.01 ng/mL (0.0-4.0); Potassium 4.4 mmol/L (3.5-5.1); Sodium Level 135 mmol/L (136-145)
== END ==
PROVIDERS: Family Provider Internal Medicine; PCP Internal Medicine; Visit Provider Internal Medicine
DX: R97.20 Elevated prostate specific antigen [PSA] (principal); I10 Essential (primary) hypertension
CPT/HCPCS: 36415; 80048; 84153

== ENCOUNTER → 2017-12-17 10:26 | Outpatient (CLI) | payer MEDICARE, OTHER, SELFPAY ==
[2017-12-17 11:07] LABS: Hemoglobin A1c 6.8 % (4.2-6.3)
[2017-12-17 11:10] LABS: Microalbumin:Creatinine Ratio 108.7 mg/g CRE (<30 mg/g CRE)
== END ==
PROVIDERS: Family Provider Internal Medicine; PCP Internal Medicine; Referring Provider Internal Medicine; Visit Provider Internal Medicine
DX: E11.9 Type 2 diabetes mellitus without complications (principal)
CPT/HCPCS: 36415; 82043; 82570; 83036

== ENCOUNTER → 2018-03-18 11:39 | Outpatient (CLI) | payer MEDICARE, OTHER, SELFPAY ==
[2018-03-18 10:12] VITALS: BMI 25.7
[2018-03-18 14:09] LABS: Anion Gap 9 (5-15); BUN 25 mg/dL (7-18); BUN/Creat Ratio 21.7 RATIO (10-20); Calcium,Total 9.8 mg/dL (8.5-10.1); Chloride 104 mmol/L (98-107); Creatinine, Serum 1.15 mg/dL (0.70-1.30); EST Glomerular Filtration Rate 65 mL/min (>60); Est Glom Filt Rate - Afr Amer 78 mL/min (>60); Glucose 155 mg/dL (74-106); Potassium 4.7 mmol/L (3.5-5.1); Sodium Level 140 mmol/L (136-145)
== END ==
PROVIDERS: Family Provider Internal Medicine; PCP Internal Medicine; Visit Provider Internal Medicine
DX: I10 Essential (primary) hypertension (principal)
CPT/HCPCS: 36415; 80048

== ENCOUNTER → 2018-12-22 09:56 | Outpatient (CLI) | payer MEDICARE, OTHER, SELFPAY ==
[2018-12-22 09:16] VITALS: BMI 24.8
[2018-12-22 12:19] LABS: Absolute Lymphocyte Count 1.26 X10^3/uL (0.83-4.51); Absolute Neutrophil Count 4.9 X10^3/uL (2.0-7.7); Basophil# 0.04 X10^3/uL; Basophil% 0.6 % (0-1); Eosinophil# 0.13 X10^3/uL; Eosinophils% 1.8 % (0-5); Hematocrit 39.8 % (40-54); Hemoglobin 13.3 g/dL (13.0-16.5); Lymphocyte # 1.26 X10^3/ul (4.0); Lymphocyte % 17.8 % (19-41); Mean Corp Hgb Conc 33.4 g/dL (32-36); Mean Corpuscular Hgb 31.6 pg (27.0-32.0); Mean Corpuscular Volume 94.5 fL (80-94); Mean Platelet Vol. 11.7 fl (6.2-12.0); Monocyte# 0.77 X10^3/uL; Monocyte% 10.9 % (0-10); NRBC Flagged by Analyzer 0 % (0-5); Neutrophil # 4.86 X10^3/uL (2.7-7.7); Neutrophil % 68.5 % (47-70); Platelet Count 184 K/mm3 (150-450); RBC Distribution Width CV 13.2 % (11.6-14.6); RBC Distribution Width SD 45.3 fl (35.1-43.9); Red Blood Count 4.21 M/mm3 (4.6-6.2); White Blood Count 7.1 K/mm3 (4.4-11.0)
[2018-12-22 12:24] LABS: PSA,Total - Annual Screen 5.46 ng/mL (0.00-4.00)
[2018-12-22 17:57] LABS: ALB/GLOB Ratio 1.2 RATIO (0.9-2.4); AST(SGOT) 15 U/L (15-37); Alanine Aminotransfer ALT/SGPT 21 U/L (16-61); Alkaline Phosphatase 44 U/L (45-117); Anion Gap 6 (5-15); BUN 24 mg/dL (7-18); Calcium,Total 9.3 mg/dL (8.5-10.1); Chloride 100 mmol/L (98-107); Cholesterol 172 mg/dL (200); Creatinine, Serum 1.26 mg/dL (0.70-1.30); EST Glomerular Filtration Rate 58 mL/min (>60); Est Glom Filt Rate - Afr Amer 70 mL/min (>60); Globulin 3.3 g/dL (2.2-4.2); Glucose 174 mg/dL (74-106); High Density Lipoprotein 40 mg/dL; Potassium 4.7 mmol/L (3.5-5.1); Protein, Total 7.3 g/dL (6.4-8.2); Sodium Level 136 mmol/L (136-145); Triglycerides 114 mg/dL; Very Low Density Lipoprotein 23 mg/dL (5-40)
== END ==
PROVIDERS: Family Provider Internal Medicine; PCP Internal Medicine; Visit Provider Internal Medicine
DX: M25.512 Pain in left shoulder (principal); M25.511 Pain in right shoulder; I10 Essential (primary) hypertension; N40.0 Benign prostatic hyperplasia without lower urinary tract symptoms; E11.9 Type 2 diabetes mellitus without complications
CPT/HCPCS: 36415; 73030; 80053; 80061; 84153; 85025; G0103

== ENCOUNTER → 2018-12-22 10:42 | Outpatient (CLI) | payer MEDICARE, OTHER, SELFPAY ==
[2018-12-22 09:16] VITALS: BMI 24.8
--- NOTE | 2018-12-22 10:45 | RAD_ITS ---
STUDY: X-RAY - RIGHT SHOULDER REASON FOR EXAM: Male, 83 years old. Bilateral shoulder pain. TECHNIQUE: 4 view(s) of the shoulder. COMPARISON: None FINDINGS: There is mild degenerative arthrosis of the glenohumeral articulation. Normal acromioclavicular joint. Normal acromion. There is no acute fracture, dislocation or destructive osseous pathology. Normal humeral head and visualized proximal humerus. The soft tissue structures are unremarkable. Normal visualized pulmonary apex. RAD/Shoulder min 2 Views IMPRESSION: Mild arthrosis of the glenohumeral joint. Electronically Signed: Carson Bauer DO at 17:14 EST Tel [phone], Service support ,
--- NOTE | 2018-12-22 10:50 | RAD_ITS ---
STUDY: X-RAY - LEFT SHOULDER REASON FOR EXAM: Male, 83 years old. Bilateral shoulder pain. TECHNIQUE: 4 view(s) of the shoulder. COMPARISON: None. FINDINGS: There is moderate degenerative arthrosis of the glenohumeral articulation. There is degenerative arthrosis of the acromioclavicular joint without inferior osseous spur formation. Normal acromion. There is no acute fracture, dislocation or destructive osseous pathology. Normal humeral head and visualized proximal humerus. The soft tissue structures are unremarkable. Normal visualized pulmonary apex. RAD/Shoulder min 2 Views IMPRESSION: Degenerative changes of the left shoulder. Electronically Signed: Carson Bauer DO at 17:18 EST Tel [phone], Service support ,
== END ==
PROVIDERS: Family Provider Internal Medicine; PCP Internal Medicine; Referring Provider Internal Medicine; Visit Provider Internal Medicine
DX: M25.512 Pain in left shoulder (principal); M25.511 Pain in right shoulder
CPT/HCPCS: 73030

== ENCOUNTER 2019-05-07 12:00 | Outpatient (RCR) | payer MEDICARE, OTHER, SELFPAY ==
[2019-04-07 13:01] VITALS: BMI 24.8
--- NOTE | 2019-04-15 14:53 | HP.PTEVAL_ITS ---
Patient's Visit Information FANI DHILLON is a 83 year old M referred to Physical Therapy by Aron Patricia MD with a diagnosis of AGE-RELATED PHYSICAL DEBITITY. Date of Evaluation: 04/15/19 Physical Therapist: Elias Pathak, PT, Cert MDT, OCS - Visit Plan Frequency: 2x /Week Duration: 4 Weeks Plan: PT INTERVENTIONS ENDURANCE PROGRAM,STRENGTHENING BLE, BALANCE PROGRAM - Subjective Findings: This 83 y/o male presnets to physical with disability.Patient reports generalized weakness and decrease endurance for example extended walking legs feel weak.Patient has h/o falling many years ago. Patient seen DR for routine visit recommned PT. Patient reports comorbities influence condition TIA ,NEUROPATHY affects balance. Patient denies pain. Patient sleeping okay at night. Patient able do stairs. Patient I with all ADLS' . Patient condition affects QOL and function. SOCAIL: . VOCATION : retired - Objective POSTURE: rounded shoulders mild foward posture. GAIT:reciprocal pattern slow lester. NEURO: denies parathesia/tingling reflexes intact. MMT: quads/hams/hip right 4-/5,/eft quads/hams 4/5,hip flexion 4-/5,ankle 4/5. FLEXABLITY: hams mild tight. STAIRS: alternate with rails - Balance Scores Functional Gait Assessment Score: 19 % Disability: 36.6700 CATSIB Score (Max score 120 seconds): 85 - Goals Goal 1:: Independant with HEP Goal Time Frame: 4-6 Weeks Goal 2:: Improve BLE strength by 1/2 grade to improve function Goal Time Frame: 4-6 Weeks Goal 3:: Pateint improve CATSIB by 5 points or > to improve function/balance Goal Time Frame: 4-6 Weeks Goal 4:: Patient to improve functional gait assessment score by 5 points or > to improve gait. Goal Time Frame: 4-6 Weeks Goal 5:: Patient to LFES score by 5 points or > to improve QOL. Goal Time Frame: 4-6 Weeks - Rehabilitation Potential Physical Therapy Diagnosis: This pateint hase generalized weakness and endurance affecting daily function thus benifit from skilled PT Rehabilitation Potential: Good - Anticipated Interventions Patient/Client Instruction: Educate patient on: Condition, Plan of Care For the Purpose of:: To decrease pain, To increase ROM, To improve muscle performance and motor function, To improve ability to perform ADL's, To increase tolerance to activity/condition/position, To improve ability of physical actions for home/community/work/leisure, To increase flexibility/ROM, To improve endurance, To improve ability to perform tasks related to life management Therapeutic Exercise to Include: Strength training, Endurance training, Balance training, Flexibilty training Comment: BLE For the Purpose of:: To decrease pain, To increase ROM, To improve muscle performance and motor function, To increase tolerance to activity/condition/position, To improve ability of physical actions for home/community/work/leisure, To improve health of tissue, To decrease soft tissue restriction, To increase flexibility/ROM, To improve ability to perform tasks related to life management Thank you for the opportunity to evaluate your patient. For Medicare and Medicare HMO plans, please review the plan of care and approve it. It will need to be FAXED BACK to us at [phone] for Medicare purposes. For Medicare only, by signing this I certify the plan of care. Please let me know if there are questions or concerns regarding this plan of care. Physician Signature: Date:
--- NOTE | 2019-06-15 15:53 | HP.PTDCNRP_ITS ---
FANI DHILLON was seen in my office for initial evaluation on 04/15/19. The following Plan of Care was established for this patient: Initial Frequency: 2x /Week Initial Duration: 4 Weeks Patient/Client Instruction: Educate patient on: Condition, Plan of Care For the Purpose of:: To decrease pain, To increase ROM, To improve muscle performance and motor function, To improve ability to perform ADL's, To increase tolerance to activity/condition/position, To improve ability of physical actions for home/community/work/leisure, To increase flexibility/ROM, To improve endurance, To improve ability to perform tasks related to life management Therapeutic Exercise to Include: Strength training, Endurance training, Balance training, Flexibilty training For the Purpose of:: To decrease pain, To increase ROM, To improve muscle perf ormance and motor function, To increase tolerance to activity/condition/position, To improve ability of physical actions for home/community/work/leisure, To improve health of tissue, To decrease soft tissue restriction, To increase flexibility/ROM, To improve ability to perform tasks related to life management This patient was last seen in our office . Pertinent comments regarding their Physical therapy will appear below: Patient seen for PT for generalized weakness focusing on BLE strength,balance ,endurance program this d/c. At this point I will be discontinuing this patient from physical therapy. I would be happy to see this patient again in the future if found appropriate by the physician. Thank you! Elias Pathak, PT, Cert MDT, OCS
== END 2019-05-07 19:00 | disposition home or self-care (01) ==
LOC: PT 12:00
PROVIDERS: PCP Internal Medicine; Referring Provider Internal Medicine; Visit Provider Internal Medicine
DX: R54 Age-related physical debility (principal)
CPT/HCPCS: 97110; 97162

== ENCOUNTER → 2019-07-28 11:06 | Outpatient (CLI) | payer MEDICARE, OTHER, SELFPAY ==
[2019-06-24 09:08] VITALS: BMI 24.8
[2019-07-28 12:49] LABS: Anion Gap 6 (5-15); BUN 25 mg/dL (7-18); BUN/Creat Ratio 19.8 RATIO (10-20); Calcium,Total 9.3 mg/dL (8.5-10.1); Chloride 104 mmol/L (98-107); Creatinine, Serum 1.26 mg/dL (0.70-1.30); EST Glomerular Filtration Rate 58 mL/min (>60); Est Glom Filt Rate - Afr Amer 70 mL/min (>60); Glucose 143 mg/dL (74-106); Potassium 4.3 mmol/L (3.5-5.1); Sodium Level 137 mmol/L (136-145)
[2019-07-28 13:21] LABS: Hemoglobin A1c 6.6 % (3.8-5.6)
== END ==
PROVIDERS: PCP Internal Medicine; Referring Provider Internal Medicine; Visit Provider Internal Medicine
DX: E11.9 Type 2 diabetes mellitus without complications (principal); I10 Essential (primary) hypertension
CPT/HCPCS: 36415; 80048; 83036

== ENCOUNTER → 2019-12-01 11:48 | Outpatient (CLI) | payer MEDICARE, OTHER, SELFPAY ==
[2019-12-01 11:48] VITALS: BMI 24.8
[2019-12-01 16:18] LABS: ALB/GLOB Ratio 1.1 RATIO (0.9-2.4); AST(SGOT) 12 U/L (15-37); Alanine Aminotransfer ALT/SGPT 29 U/L (16-61); Albumin, Serum 4.2 g/dL (3.2-5.0); Alkaline Phosphatase 41 U/L (45-117); Anion Gap 8 (5-15); BUN 24 mg/dL (7-18); BUN/Creat Ratio 19.7 RATIO (10-20); Calcium,Total 9.3 mg/dL (8.5-10.1); Chloride 102 mmol/L (98-107); Cholesterol 175 mg/dL (200); Creatinine, Serum 1.22 mg/dL (0.70-1.30); EST Glomerular Filtration Rate 60 mL/min (>60); Est Glom Filt Rate - Afr Amer 73 mL/min (>60); Globulin 3.9 g/dL (2.2-4.2); Glucose 117 mg/dL (74-106); High Density Lipoprotein 47 mg/dL; Potassium 4.2 mmol/L (3.5-5.1); Protein, Total 8.1 g/dL (6.4-8.2); Sodium Level 136 mmol/L (136-145); Triglycerides 166 mg/dL; Very Low Density Lipoprotein 33 mg/dL (5-40)
[2019-12-01 16:21] LABS: Microalbumin:Creatinine Ratio 490.4 mg/g CRE (<30 mg/g CRE)
[2019-12-01 20:11] LABS: Hemoglobin A1c 6.8 % (3.8-5.6)
== END ==
PROVIDERS: Nurse Practitioner Family; PCP Internal Medicine; Referring Provider Internal Medicine; Visit Provider Internal Medicine
DX: E78.5 Hyperlipidemia, unspecified (principal); E11.9 Type 2 diabetes mellitus without complications; I10 Essential (primary) hypertension
CPT/HCPCS: 36415; 80053; 80061; 82043; 82570; 83036

== ENCOUNTER → 2019-12-25 10:11 | Outpatient (CLI) | payer MEDICARE, OTHER, SELFPAY ==
[2019-12-01 11:48] VITALS: BMI 24.8
--- NOTE | 2019-12-25 10:15 | EKG12_ITS ---
Test Reason : ROUTINE Blood Pressure : / mmHG Vent. Rate : 061 BPM Atrial Rate : 061 BPM P-R Int : 146 ms QRS Dur : 084 ms QT Int : 404 ms P-R-T Axes : 050 -19 -19 degrees QTc Int : 406 ms Normal sinus rhythm Nonspecific ST abnormality Abnormal ECG Confirmed by JEY RIVERA, SARAH ([id number]), newspaper managing editor GLENDY JOEL ([id number]) on 12/28/2019 2:32:49 PM Referred By: Aron Patricia Confirmed By:ANT KHANNA MD
== END ==
PROVIDERS: PCP Internal Medicine; Referring Provider Internal Medicine; Visit Provider Internal Medicine
DX: R07.9 Chest pain, unspecified (principal); I10 Essential (primary) hypertension
CPT/HCPCS: 93005

== ENCOUNTER → 2020-01-27 07:11 | Outpatient (CLI) | payer MEDICARE, OTHER, SELFPAY ==
[2020-01-25 11:00] VITALS: BMI 24.4
--- NOTE | 2020-01-27 18:03 | STRESSREP ---
Stress Test Report Pharmacologic myocardial perfusion stress test. 84-year-old man with a history of chest pain. Stress protocol: Resting EKG demonstrates normal sinus rhythm with a rate of 61 bpm normal intervals are noted T wave inversions noted in lead III and aVF. Resting blood pressure is 1 and 32/70 6 mmHg. 0.4 mg of regadenoson was infused per usual protocol followed by rapid intravenous saline flush injection continuous EKG monitoring was performed. The patient maintained sinus rhythm throughout the recording. Post infusion patient was noted to develop approximately [address] depression noted in leads II, III and aVF and T wave inversions noted in V5 and V6. The patient did experience chest discomfort as well as elevated blood pressure. Sublingual nitroglycerin was administered as well as 2 L of oxygen. This resulted in subsequent improvement in the chest discomfort. Normalization of the EKG changes were noted. The maximum heart rate was 91 bpm which was 66% of max impacted heart rate. The resting blood pressure was 132/76 with a peak blood pressure of 170/80 mmHg. Myocardial perfusion protocol. 11.5 mCi of technetium 99m sestamibi was injected at rest. 0.4 mg of regadenoson was infused per usual protocol. At peak infusion 32.2 mCi of technetium 99m sestamibi was injected stress images were obtained stress and rest images were reconstructed and compared in the short axis vertical long horizontal long axis. Gated images were also obtained Perfusion SPECT analysis: Review of the stress images demonstrate a normal cardiac silhouette size. There is a medium to large size defect noted involving the mid to distal anterior wall extending to the apex. The resting images demonstrate complete improvement in the above suggesting moderate to severe ischemia involving the mid anterior wall to distal anterior wall and apex. No evidence of infarct is noted. Gated SPECT analysis: The gated ejection fraction is 65%. Conclusion: Abnormal pharmacologic myocardial perfusion stress test with a moderate area of significant ischemia involving the mid to distal anterior wall and apex. Preserved ejection fraction.
== END ==
PROVIDERS: PCP Internal Medicine; Referring Provider Physician Assistant Medical; Visit Provider Physician Assistant Medical
DX: R07.9 Chest pain, unspecified (principal); I10 Essential (primary) hypertension
CPT/HCPCS: 78452; 93017; A9500; A4216; J2785

== ENCOUNTER 2020-01-29 10:16 | Day surgery (SDC) | payer MEDICARE, OTHER, SELFPAY ==
[2020-01-25 11:00] VITALS: BMI 24.4
--- NOTE | 2020-01-28 10:08 | RAD_ITS ---
STUDY: X-RAY CHEST REASON FOR EXAM: Male, 84 years old. HAVING HEART CATH PROCEDURE DONE, ABNORMAL STRESS TEST, HTN TECHNIQUE: PA and lateral views of the chest. COMPARISON: None. FINDINGS: The lungs are clear and expanded. There is no demonstrated pleural abnormality. Normal size heart. A loop recorder device is seen overlying the left lower hemithorax. Normal mediastinum and brie. Normal visualized pulmonary arteries. There is atherosclerotic calcification of the aortic arch with tortuosity. There are degenerative changes of the visualized thoracic spine. Normal visualized ribs, clavicles, and shoulders. There is no demonstrated abnormality of the visualized soft tissue structures of the upper abdomen. RAD/Chest PA and Lateral IMPRESSION: No acute abnormality is seen. Electronically Signed: Jameson Joy, at 12:33 EST , Service support ,
[2020-01-28 10:40] LABS: Absolute Lymphocyte Count 0.95 X10^3/uL (0.83-4.51); Absolute Neutrophil Count 5.6 X10^3/uL (2.0-7.7); Basophil# 0.03 X10^3/uL; Basophil% 0.4 % (0-1); Eosinophil# 0.11 X10^3/uL; Eosinophils% 1.4 % (0-5); Hematocrit 37.1 % (40-54); Hemoglobin 12.4 g/dL (13.0-16.5); Lymphocyte # 0.95 X10^3/ul (4.0); Lymphocyte % 12.5 % (19-41); Mean Corp Hgb Conc 33.4 g/dL (32-36); Mean Corpuscular Hgb 31.2 pg (27.0-32.0); Mean Corpuscular Volume 93.5 fL (80-94); Mean Platelet Vol. 11.3 fl (6.2-12.0); Monocyte# 0.83 X10^3/uL; Monocyte% 10.9 % (0-10); NRBC Flagged by Analyzer 0 % (0-5); Neutrophil # 5.64 X10^3/uL (2.7-7.7); Neutrophil % 74.4 % (47-70); Platelet Count 208 K/mm3 (150-450); RBC Distribution Width CV 12.7 % (11.6-14.6); RBC Distribution Width SD 43.8 fl (35.1-43.9); Red Blood Count 3.97 M/mm3 (4.6-6.2); White Blood Count 7.6 K/mm3 (4.4-11.0)
[2020-01-28 10:58] LABS: Anion Gap 6 (5-15); BUN 30 mg/dL (7-18); BUN/Creat Ratio 22.4 RATIO (10-20); Calcium,Total 9.3 mg/dL (8.5-10.1); Chloride 101 mmol/L (98-107); Creatinine, Serum 1.34 mg/dL (0.70-1.30); EST Glomerular Filtration Rate 54 mL/min (>60); Est Glom Filt Rate - Afr Amer 65 mL/min (>60); Glucose 216 mg/dL (74-106); Potassium 4.1 mmol/L (3.5-5.1); Sodium Level 135 mmol/L (136-145)
--- NOTE | 2020-01-29 05:57 | HP_ITS ---
HPI HPI History of Present Illness Details: This is an 84-year-old gentleman that presents here today for concerns over chest discomfort on referral from his primary care doctor. He does have a history of hypertension, TIAs with implantable loop recorder. Pt had chest pain a few weeks ago. This in the middle of the night. This lasted approx 15 minutes. According to his PCP notes he had CP a few weeks prior. He does not have any worsening SOB. He does not have any palpitations, lightheadedness/dizziness, edema. EKG demonstrates sinus rhythm with nonspecific ST changes. Intake Vital Signs 01/25/20 Height 5 ft 7 in 01/25/20 Weight: 156 lb 01/25/20 BMI 24.4 01/25/20 BP 176/83 H 01/25/20 Blood Pressure Location Lt brachial 01/25/20 Position Sitting 01/25/20 Respiration 18 01/25/20 Pulse 58 L 01/25/20 Pulse Source Monitor 01/25/20 Pulse Oximetry (%) 96 Intake Visit Reasons: per PCP - abn EKG Pit Hand Required: No Is patient in pain?: No Allergies iodine Allergy (Verified 01/25/20 10:58) Rash Medications Acetaminophen [Tylenol Tablet] 650 mg PO Q6H PRN PRN tab 08/27/17 [Rx Confirmed 12/01/19] Aspirin [Aspirin, Baby] 81 mg PO DAILY@0800 08/28/17 [History Confirmed 01/25/20] blood sugar diagnostic See Dose Instructions .ROUTE .MEDSUPPLY #100 ea 05/16/18 [Rx Confirmed 12/01/19] metformin 1,000 mg tablet 1,000 mg PO BID #180 tab 02/02/19 [Rx Confirmed 01/25/20] hydrochlorothiazide 12.5 mg tablet 12.5 mg PO DAILY #90 tab 04/07/19 [Rx Confirmed 01/25/20] lisinopril 40 mg tablet 40 mg PO QDAY #90 tab 06/15/19 [Rx Confirmed 01/25/20] One touch ultra blue strip #100 ea 07/17/19 [Rx Confirmed 12/01/19] glipizide 5 mg tablet 5 mg PO BID #180 tab 09/01/19 [Rx Confirmed 01/25/20] metoprolol succinate 50 mg tablet,extended release 24 hr 50 mg PO DAILY #90 tab 09/01/19 [Rx Confirmed 01/25/20] amlodipine 10 mg tablet 10 mg PO QPM tab 10/22/19 [History Confirmed 01/25/20] tamsulosin 0.4 mg capsule 0.4 mg PO DAILY #90 cap 11/17/19 [Rx Confirmed 01/25/20] Curcumed See Rx Instructions PO .COMPLEX 12/01/19 [History] His Defense PO DAILY 12/01/19 [History] Tri Motion PO 12/01/19 [History] nerve renew PO 12/01/19 [History] primidone 50 mg tablet 50 mg PO 1600 #90 tab 12/23/19 [Rx Confirmed 01/25/20] simvastatin 20 mg tablet 20 mg PO QPM #90 tab 01/11/20 [Rx Confirmed 01/25/20] isosorbide mononitrate 30 mg tablet,extended release 24 hr 30 mg PO DAILY #30 tab 01/25/20 [Rx Confirmed 01/25/20] PFS Medical History Bilateral lower extremity edema (Chronic) TIA (transient ischemic attack) (Chronic 08/2017) Premature atrial complexes (Chronic) Essential (primary) hypertension (Chronic) Hyperlipidemia (Chronic) Type 2 diabetes mellitus (Chronic) BPH (benign prostatic hyperplasia) (Chronic) Hearing loss (Chronic) Radiculopathy due to lumbar intervertebral disc disorder (Chronic) Urinary frequency (Chronic) Syncope and collapse (Resolved) Surgical History History of loop recorder (Chronic 04/2016) History of back surgery (Resolved) History of electrophysiologic study (Resolved 04/2016) History of eyelid surgery (Resolved 09/2018) History of prostate surgery (Resolved) transurethral needle ablation of prostrate (Resolved) Family History Sister Hypertension Parkinson disease Diabetes Father Heart disease Mother Heart disease Brother Heart disease age 34 from congenital heart disease Social History (Updated 01/25/20 @ 12:41 by Isadora HINKLE, PA) Smoking Status: Never smoker alcohol intake: never substance use type: does not use what type of physical activity do you participate in: none ROS Const Const: Negative for fatigue, weakness, fever(s) or headache(s) Eyes Eyes: Negative for blind spots, loss of peripheral vision or transient loss of vision ENT ENT: Negative for headache(s), dizziness, tinnitus or Nosebleed/epistaxis Cardio Chest Pain: Yes (see HPI) Palpitations: No Edema: None Muscle aches with walking: None Resp Respiratory: Negative for SOB with activity, SOB at rest, SOB orthopnea\SOB lying down or Cough GI GI: Negative nausea, vomiting, heartburn or vomiting blood/hematemesis : Negative for hematuria Musc Musc: Negative for muscle aches/ myalgia Neuro Neuro: Negative for dizziness, lightheadedness, near syncope, syncope, orthostatic symptoms, headache(s) or weakness Fede Hematologic/Lymphatic: Negative for easy bleeding Endo Endo: Negative for fatigue Cardiology Exam Const Appearance: cooperative, no acute distress and well developed Orientation: alert, awake and oriented x3 Head Head: normocephalic and atraumatic Mouth: moist mucous membranes Eyes General: appearance normal, both eyes and all related structures Conjunctivae: conjunctivae normal Pupils: PERRL EOM: EOM intact bilaterally Neck Neck: normal visual inspection, no lymphadenopathy and no JVD Carotids: Negative bruit Neck Mass: Negative Neck mass Chest Chest inspection: normal inspection of the chest and symmetric chest movement Auscultation: Bilateral: Clear to Auscultation Cardio Palpation: normal PMI Rate: regular rate Rhythm: regular rhythm Heart sounds: S1 normal and S2 normal; negative rub, gallop or murmur GI GI: normal to inspection, soft, no hepatosplenomegaly and bowel sounds present; negative tender Neuro General: alert, awake, oriented x3, CN's II-XI intact bilaterally and moves all extremities Extremities Pulses: Normal: Right Posterior Tibial Pulse, Left Posterior Tibial Pulse, Right Radial Pulse, Left Radial Pulse Lower Extremity Edema: None: Bilateral Psych Psychological: normal affect Assessment & Plan 1. Essential hypertension I10 Plan BP at home averages between 120-160 systolically. Blood pressures are slightly higher than I would like them to be. I will add isosorbide at 30 mg. He is already on 10 mg of amlodipine, 40 mg of lisinopril and 50 mg of metoprolol. We will continue to adjust accordingly. Patient Instructions I sent over isosorbide 30 mg a day, this is a long acting nitrate, it should help with the chest discomfort but also with your blood pressure Orders Orders: Nuclear Stress Test - Chemical Today 2. Pure hypercholesterolemia E78.00 Plan Patient will continue with his low intensity statin. 3. Chest pain R07.9 Plan With patient's atypical chest discomfort, would like to obtain a stress test as this could be an anginal equivalent. Blood pressure is also high. I am adding isosorbide. This should also help with any chest discomfort. Patient Instructions I ordered a stress test to eval your chest pain Orders Orders: Nuclear Stress Test - Chemical Today Plan Detail Other Medications New: isosorbide mononitrate ER 30 mg PO DAILY 30 tabs 11RF Follow Up 6 Weeks (6-8 weeks) Coding Level of Care Code Off vis,est,level 4 Diagnoses Essential hypertension I10 Pure hypercholesterolemia E78.00 ??Hyperlipidemia type: pure hypercholesterolemia Chest pain R07.9 Coding Level of Care Code Off vis,est,level 4 Diagnoses Essential hypertension I10 Pure hypercholesterolemia E78.00 ??Hyperlipidemia type: pure hypercholesterolemia Chest pain R07.9 Supplemental Info Supplemental Information Echocardiogram in 2018 demonstrates: Normal LV size. Mild concentric left ventricular hypertrophy. Left ventricular systolic function is normal. The estimated ejection fraction is 60 %. Transmitral diastolic flow velocities suggest mild (stage 1) diastolic dysfunction (reversed pattern). Bubble contrast study negative for right to left interatrial shunt. Pulmonary artery systolic pressure is 33 mmHg. Stress test in 2014 demonstrates: Negative for ischemia. Labs LDL Cholesterol 95 mg/dL (0-130) 12/01/19 HDL Cholesterol 47 mg/dL (40-) 12/01/19 Triglycerides 166 mg/dL (-199) 12/01/19 VLDL Cholesterol 33 mg/dL (5-40) 12/01/19 Diagnostics Electrocardiogram 12/25/19 Pacemaker Check 05/08/19
[2020-01-29 07:13] VITALS: BMI 24.4
--- NOTE | 2020-02-02 13:04 | CL.D_ITS ---
Patient Name: FANI DHILLON Study Date: 01/29/2020 Performing: Brent Kirkpatrick MD Ht: 66.93 inches 170 cm : 1935 Wt: 156.53 lbs 71 kg Age: 84 Gender: male BSA: 1.82 PROCEDURE(S) PERFORMED [id number]/[id number]/LV CLINICAL PROFILE AND INDICATIONS Indications: Chest Pain Heart Failure: None CONCLUSIONS Long, calcified LAD with 80% stenosis RECOMMENDATIONS PCI with rotablation to LAD DESCRIPTION OF PROCEDURE The patient arrived to the procedure lab. The risks and benefits of the procedure as well as a full d escription of our services here and current unavailability of surgical backup were fully explained to the patient and/or their significant other prior to the catheterization. The Timeout was completed, verifying the correct patient and procedure. The patient's procedural site was prepped and draped in the usual fashion. Local anesthetic was given subcutaneously to right radial region with Lidocaine 2% . Local anesthetic was given subcutaneously to right groin region with Lidocaine 2%. Using a modified Seldinger technique, arterial access was obtained via the right radial artery, a 6Fr sheath was inse rted., arterial access was obtained via the right femoral artery, a 5Fr sheath was inserted. Left Co ronary Artery selective angiography was performed in multiple views using a 5 Fr. JL4 catheter. Left Coronary Artery selective angiography was performed in multiple views using a 5 Fr. JL 5 catheter. Right Coronary Artery selective angiography was then performed in multiple views using a 5 Fr. 3DRC (Adal) catheter. Left Ventriculography was performed in BETTS projection using a 5 Fr. Pig tail catheter. LV to AO pullback pressures were then recorded.The radial arterial sheath was pulled a nd a TR Band was applied for hemostasis. The arterial sheath was pulled and manual compression applie d until hemostasis is achieved. CORONARY ANGIOGRAPHY DOMINANCE: Left Dominant LEFT HEART ASSESSMENT Left Ventricular Ejection Fraction: by LV Gram normal LEFT ANTERIOR DESCENDING ARTERY: Long, calcified LAD with 80% stenosis CIRCUMFLEX ARTERY: mild disease RIGHT CORONARY ARTERY: Angiographically normal COMPLICATIONS No Complications PROCEDURE MEDICATIONS Fentanyl 25 mcg IV Versed 0.5 mg IV Oxygen: 2 L/min via nasal cannula Benadryl 25 mg IV @ 01/29/2020 12:00:28 Heparin diluted in 23cc Heparinized saline. Patient given 10cc IA of this solution. 01/29/2020 12:12 :56 Solu-medrol 125 mg IV 01/29/2020 12:00:33 SUMMARY OF HEMODYNAMIC DATA Time AIR REST ECG 10:40:36 AO 141/75 (100) SA 12:15:41 AO 171/74 (113) 12:35:24 LV 177/9, 16 12:45:58 LV 174/9, 15 12:46:04 LV 171/12, 19 12:46:51 LV 172/13, 18 12:46:57 LVp 177/23, 23 12:47:01 AOp 156/66 (102) 12:47:06 Signed By Brent Kirkpatrick MD On 02/02/2020 1:03:38 PM Brent Kirkpatrick MD
== END 2020-01-29 16:48 | disposition home or self-care (01) ==
LOC: CLSP 10:17
PROVIDERS: PCP Internal Medicine; Referring Provider Internal Medicine Cardiovascular Disease; Visit Provider Internal Medicine Cardiovascular Disease
DX: I25.10 Atherosclerotic heart disease of native coronary artery without angina pectoris (principal); I10 Essential (primary) hypertension; E11.9 Type 2 diabetes mellitus without complications; N40.0 Benign prostatic hyperplasia without lower urinary tract symptoms; M51.16 Intervertebral disc disorders with radiculopathy, lumbar region; H91.90 Unspecified hearing loss, unspecified ear; E78.00 Pure hypercholesterolemia, unspecified; Z86.73 Personal history of transient ischemic attack (TIA), and cerebral infarction without residual deficits; Z79.82 Long term (current) use of aspirin; Z79.84 Long term (current) use of oral hypoglycemic drugs; Z79.899 Other long term (current) drug therapy
CPT/HCPCS: 36415; 71046; 80048; 85025; 93458; 99152; 99153; J7040; Q9967; C1769; C1894

== ENCOUNTER → 2020-06-08 14:05 | Outpatient (CLI) | payer MEDICARE, OTHER, SELFPAY ==
[2020-05-11 16:10] VITALS: BMI 24.3
[2020-06-08 14:06] LABS: Bacteria 0 SEEN /hpf (None Seen); Mucous, Urine 0 SEEN /hpf (<or=2+); Red Blood Cells-Urine 0 SEEN /hpf (0-5); Squamous Epithelial Cells - UA 0 SEEN /hpf (0-5); White Blood Cells 0 SEEN /hpf (0-5)
[2020-06-08 14:23] LABS: Absolute Lymphocyte Count 0.63 X10^3/uL (0.83-4.51); Basophil# 0.04 X10^3/uL; Basophil% 0.5 % (0-1); Eosinophil# 0.25 X10^3/uL; Eosinophils% 3.2 % (0-5); Hemoglobin 12.4 g/dL (13.0-16.5); Lymphocyte # 0.63 X10^3/ul (0.83-4.51); Mean Corp Hgb Conc 32.6 g/dL (32-36); Mean Corpuscular Hgb 30.8 pg (27.0-32.0); Mean Corpuscular Volume 94.5 fL (80-94); Mean Platelet Vol. 10.9 fl (6.2-12.0); Monocyte# 0.88 X10^3/uL; Monocyte% 11.2 % (0-10); NRBC Flagged by Analyzer 0 % (0-5); Neutrophil # 6.01 X10^3/uL (2.7-7.7); Neutrophil % 76.7 % (47-70); Platelet Count 218 K/mm3 (150-450); RBC Distribution Width CV 13.1 % (11.6-14.6); RBC Distribution Width SD 45.4 fl (35.1-43.9); Red Blood Count 4.02 M/mm3 (4.6-6.2); White Blood Count 7.8 K/mm3 (4.4-11.0)
--- NOTE | 2020-06-08 14:51 | MRI_ITS ---
We are attempting to reach an attending provider to discuss findings. An addendum with communication details will be sent when the communication is complete. STUDY: MRI BRAIN WITHOUT CONTRAST REASON FOR EXAM: Male, 84 years old. Change in Mental Status TECHNIQUE: Standardized multiplanar fat and water weighted pulse sequences were obtained. COMPARISON: 08/26/2017 FINDINGS: There is moderate cerebral atrophy with widening of the extra-axial spaces and ventricular dilatation. There are multiple white matter hyperintensities, distributed throughout the deep white matter tracts of the cerebral hemispheres, consistent with moderate chronic white matter ischemic changes. Hyperintensity of the right caudate nucleus demonstrates restricted diffusion consistent with an acute/subacute infarct. Normal T2* images of the brain without demonstrated susceptibility artifact. There is no demonstrated hemosiderin stain. Normal bilateral basal ganglia. Normal thalami. There is no extra-axial fluid accumulation. Normal flow voids within the major intracranial circulation suggesting patency by spin echo criteria. Normal sella turcica, pituitary gland, infundibular stalk, optic chiasm and hypothalamus. Normal tectal plate and pineal gland. There are chronic white matter ischemic changes of the genia. The midbrain and medulla are otherwise normal. Normal cerebellum. Normal basal cisterns. Normal bilateral temporal bones. Normal bilateral internal auditory canals. There are bilateral ocular lens implants with otherwise normal intraorbital contents. Normal visualized paranasal sinuses. Normal calvarium and skull base. Normal visualized soft tissue structures. Normal visualized upper cervical spine. MRI/Brain without Contrast IMPRESSION: Involutional changes of the brain, as described above. 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 Electronically Signed: Parish Mann MD at 15:58 EDT Tel , Service support ,
[2020-06-08 15:03] LABS: AST(SGOT) 15 U/L (15-37); Alanine Aminotransfer ALT/SGPT 23 U/L (16-61); Albumin, Serum 3.8 g/dL (3.2-5.0); Alkaline Phosphatase 36 U/L (45-117); Anion Gap 7 (5-15); BUN 25 mg/dL (7-18); BUN/Creat Ratio 20.5 RATIO (10-20); Calcium,Total 9.3 mg/dL (8.5-10.1); Chloride 101 mmol/L (98-107); Creatinine, Serum 1.22 mg/dL (0.70-1.30); EST Glomerular Filtration Rate 60 mL/min (>60); Est Glom Filt Rate - Afr Amer 73 mL/min (>60); Globulin 3.7 g/dL (2.2-4.2); Glucose 164 mg/dL (74-106); Potassium 4.1 mmol/L (3.5-5.1); Protein, Total 7.5 g/dL (6.4-8.2); Sodium Level 134 mmol/L (136-145); Thyroid Stim Hormone (TSH) 3.97 uIU/mL (0.358-3.74)
[2020-06-08 15:20] LABS: Ammonia < 10.0 umol/L (11-32)
[2020-06-08 15:48] LABS: Color, Urine Yellow (Yellow); Glucose, Dipstick Normal (Normal); Ketone-Dipstick Negative (Negative); Leukocyte Esterase-Dipstick Negative /ul (Negative); Nitrite-Dipstick Negative (Negative); Occult Blood-Urine 10 /ul (Negative); Protein-Dipstick 100 mg/dl (Negative); Specific Gravity, Urine 1.015 (1.002-1.030); Urine Bilirubin Dipstick Negative (Negative); Urine Clarity Clear (Clear); Urine Urobilinogen Normal (Normal)
== END ==
LOC: BIMLAB 14:44 → MRI 14:45
PROVIDERS: PCP Internal Medicine; Visit Provider Internal Medicine
DX: R41.82 Altered mental status, unspecified (principal)
CPT/HCPCS: 36415; 70551; 80053; 81001; 82140; 84443; 85025

== ENCOUNTER 2020-06-08 16:20 | Inpatient (IN) | payer MEDICARE, OTHER, SELFPAY ==
[2020-06-08] VITALS (9 sets, daily range): BP systolic 177–194; BP diastolic 75–89; PULSE 57–68; RESP 14–19; TEMP 36.2–36.8; O2SAT 95–97; BMI 24.1; BMI 23.6; BMI 24.2
--- NOTE | 2020-06-08 17:01 | ED.RN ---
patient and state they were sent in by dr. martinez after mri for possible mini stroke. per patients patient was having balance issues, confusion, and dizziness on Saturday. Per patient he feels back to normal at this time, agrees he seems normal again. NIH score of 0.
--- NOTE | 2020-06-08 17:13 | EKG12_ITS ---
Test Reason : NEURO Blood Pressure : / mmHG Vent. Rate : 063 BPM Atrial Rate : 063 BPM P-R Int : 148 ms QRS Dur : 090 ms QT Int : 414 ms P-R-T Axes : 044 -20 -21 degrees QTc Int : 423 ms Normal sinus rhythm Normal ECG Confirmed by JEY RIVERA, SARAH ([id number]), advertising editor GLENDY JOEL ([id number]) on 06/10/2020 8:12:55 AM Referred By: PRISCILLA Confirmed By:ANT KHANNA MD
--- NOTE | 2020-06-08 17:13 | ED.VIS.GEN ---
History of Present Illness Chief Complaint: Neuro S/Sx Past Medical History - Allergies and Home Meds Allergies/Adverse Reactions: Allergies iodine Allergy (Verified 06/08/20 16:24) Rash Primary Care Physician: Aron Patricia MD [Primary Care Provider] - Smoking Status: Never smoker - Family History Maternal Family History: Family History (Last Reviewed 05/11/20 @ 16:17 by Silva Richards) Sister Hypertension Parkinson disease Diabetes Father Heart disease Mother Heart disease Brother Heart disease Family History: Reports: No pertinent history Physical Exam Vital Signs/Narrative: Vital Signs Temp Pulse Resp BP Pulse Ox 06/08/20 16:59 65 18 96 06/08/20 16:22 97.1 F L 68 14 193/89 H 95 ED Disposition - Plan for ED Patient: Referrals: Aron Patricia MD [Primary Care Provider] -
--- NOTE | 2020-06-08 17:18 | ED.VIS.STROK ---
History of Present Illness Chief Complaint: Neuro S/Sx Informant: Patient, Family Narrative: 84-year-old male with history of diabetes, hypertension, hyperlipidemia, CAD on Plavix presenting with left-sided facial droop. He and his are unable to state the exact time this started. Sometime overnight on Saturday night to Saturday morning. When asked if he woke up with it his said I do not know. Patient was noted to be having some delayed responses and some slight confusion initially. Patient was seen outpatient by Dr. Patricia who ordered a Lloyd. This returned today and shows a stroke. Patient was sent to the ED for further evaluation. Patient denies any arm or leg paresthesias. He is able to ambulate. He has no visual changes. His states he is acting at baseline. - Past Medical History (1) Atherosclerotic heart disease of [place] coronary artery without angina pectoris Status: Chronic (2) Essential (primary) hypertension Status: Chronic (3) History of coronary artery stent placement Status: Chronic Comment: LAT-QBP-Iwyz LAD w/ 2.5 x 48 mm Synergy DS 04/28/2020 (4) Hyperlipidemia Status: Chronic (5) TIA (transient ischemic attack) Status: Chronic Past Medical History - Allergies and Home Meds Allergies/Adverse Reactions: Allergies iodine Allergy (Verified 06/08/20 16:24) Rash Prior records reviewed: Yes Past Medical History: - - Reviewed in problem list Surgical History: noncontributory Lives: Spouse/ Significant Other Smoking Status: Never smoker Alcohol: None Drugs: None - Family History Maternal Family History: Family History (Last Reviewed 05/11/20 @ 16:17 by Silva Richards) Sister Hypertension Parkinson disease Diabetes Father Heart disease Mother Heart disease Brother Heart disease Family History: Reports: No pertinent history Review of Systems General: Denies: Chills, Fever, Sweats Eyes: Denies: Visual changes - bilaterally, Diplopia ENT: Denies: Rhinorrhea, Sore throat Cardiovascular: Denies: Chest pain, Palpitations Respiratory: Denies: Dyspnea, Cough, Dyspnea on exertion Gastrointestinal: Denies: Abdominal pain, Nausea, Vomiting, Diarrhea, Melena, Hematochezia Genitourinary: Denies: Dysuria, Hematuria, Frequency Musculoskeletal: Denies: Back pain, Extremity Pain Skin: Denies: Rash, Wounds Neurological: Reports: - - Left sided facial droop. Denies: Headache Psych: Denies: Depression, Anxiety Endocrine: Denies: Polyuria, Polydipsia Hematologic: Denies: Easy bruising, Easy bleeding STROKE Vital Signs/Narrative: Vital Signs Temp Pulse Resp BP Pulse Ox 06/08/20 16:59 65 18 96 06/08/20 16:22 97.1 F L 68 14 193/89 H 95 Inital Vital Signs reviewed: Yes General: Well nourished Head: Normocephalic, Atraumatic Eyes: Perrl, EOMI ENT: Moist mucous membranes, No rhinorrhea Neck: Supple, Nontender Cardiovascular: Regular rate, Regular rhythm Respiratory: No distress, CTA bilaterally Extremities: Nontender, Edema Skin: Normal color, No rash Neurological: Alert, Oriented x3, - - Left-sided facial droop at the nasolabial fold and the corner of the left mouth. Slight slurred speech. NIH equals 2 Psychological: Normal affect, Normal Mood Diagnostic/Tx/Re-eval Clinical Impression(s) from Imaging Studies Chest X-Ray 06/08/20 17:45 IMPRESSION: Poor inspiration with some bibasilar atelectasis per Electronically Signed: Parish Mann MD at 18:01 EDT Tel , Service support , Laboratory Data 06/08/20 06/08/20 06/08/20 17:35 17:35 17:35 WBC 6.9 RBC 4.00 L Hgb 12.7 L Hct 37.6 L MCV 94.0 MCH 31.8 MCHC 33.8 RDW Std Deviation 44.2 H RDW Coeff of Arturo 12.8 Plt Count 203 MPV 10.7 Immature Gran % (Auto) 0.400 Neut % (Auto) 76.7 H Lymph % (Auto) 8.4 L Cataño % (Auto) 10.9 H Eos % (Auto) 3.2 Baso % (Auto) 0.4 Absolute Neuts (auto) 5.3 Absolute Lymphs (auto) 0.58 L Nucleated RBC % 0 PT 13.1 INR 1.0 APTT 34.8 Sodium 134 L Potassium 3.9 Chloride 101 Carbon Dioxide 27.0 Anion Gap 6 BUN 24 H Creatinine 1.23 Estim Creat Clear Calc 41.80 Est GFR (MDRD) Af Amer 72 Est GFR (MDRD) Non-Af 60 BUN/Creatinine Ratio 19.5 Glucose 166 H Calcium 9.5 Troponin I < 0.015 - EKG Initial EKG Interpretation: Sinus Rhythm, No Acute Injury Pattern - Medical Decision Making Stroke Team Activated: No Reviewed Inclusion/Exclusion criteria: No Was Patient considered for Endovascular Intervention?: No IV Alteplase (t-PA) Administered: No No contraindications for IV Alteplase (t-PA) administration.: Yes Alteplase (t-PA) risks, benefits, alternative discussed: No Not given: Patient refusal: No 84-year-old male presenting with left-sided facial droop and mild slurred speech. NIH is 2. Patient vital signs are stable and he is afebrile. Patient had symptoms which started 4 to 4-1/2 days ago. He is outside the window for TPA. Patient is on Plavix and is given 324 mg of p.o. aspirin. Medical record was reviewed as he had had an MRI outpatient before coming. MRI shows involutional changes of the brain, as described above. 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 And the findings I do not believe patient need a CT brain. Patient's lab work-up was unremarkable. Patient had EKG performed on arrival which shows a sinus rhythm at 63 beats a minute without signs of ischemic changes. Chest x-ray shows no acute cardiopulmonary process as interpreted by myself and radiology does agree. Given patient's findings of stroke he will be admitted to the hospital for further testing. Impression: 1. Stroke ED Disposition - Plan for ED Patient: Disposition: Acute Care Hospital [facility]
--- NOTE | 2020-06-08 17:45 | RAD_ITS ---
STUDY: X-RAY CHEST REASON FOR EXAM: Male, 84 years old. Neuro deficit, acute, stroke suspected. left sided facial droop, confusion, trouble with balance. Had MRI today. TECHNIQUE: Single AP portable view of the chest. COMPARISON: 01/28/2020 FINDINGS: Insertable cardiac care nurse which is unchanged. Poor inspiration with some bibasilar atelectasis. There is no demonstrated pleural abnormality. Normal size heart. Normal mediastinum and brie. Normal visualized pulmonary arteries. Normal visualized aortic arch and descending thoracic aorta. Normal visualized thoracic spine. Normal visualized ribs, clavicles, and shoulders. There is no demonstrated abnormality of the visualized soft tissue structures of the upper abdomen. RAD/Chest 1 View IMPRESSION: Poor inspiration with some bibasilar atelectasis per Electronically Signed: Parish Mann MD at 18:01 EDT Tel , Service support ,
[2020-06-08 17:46] LABS: Absolute Lymphocyte Count 0.58 X10^3/uL (0.83-4.51); Absolute Neutrophil Count 5.3 X10^3/uL (2.0-7.7); Basophil# 0.03 X10^3/uL; Basophil% 0.4 % (0-1); Eosinophil# 0.22 X10^3/uL; Eosinophils% 3.2 % (0-5); Hematocrit 37.6 % (40-54); Hemoglobin 12.7 g/dL (13.0-16.5); Lymphocyte # 0.58 X10^3/ul (0.83-4.51); Lymphocyte % 8.4 % (19-41); Mean Corp Hgb Conc 33.8 g/dL (32-36); Mean Corpuscular Hgb 31.8 pg (27.0-32.0); Mean Platelet Vol. 10.7 fl (6.2-12.0); Monocyte# 0.75 X10^3/uL; Monocyte% 10.9 % (0-10); NRBC Flagged by Analyzer 0 % (0-5); Neutrophil # 5.27 X10^3/uL (2.7-7.7); Neutrophil % 76.7 % (47-70); POSITIVE DIFFERENTIAL YES; Platelet Count 203 K/mm3 (150-450); RBC Distribution Width CV 12.8 % (11.6-14.6); RBC Distribution Width SD 44.2 fl (35.1-43.9); White Blood Count 6.9 K/mm3 (4.4-11.0)
[2020-06-08] MEDS: Aspirin 81 MG TAB.CHEW 324 MG PO (17:51)
[2020-06-08 17:58] LABS: Differential Indicated SCAN CRITERIA MET
[2020-06-08 18:01] LABS: Partial Thromboplast Time 34.8 Seconds (24.1-36.2); Prothrombin Time (Protime)PT. 13.1 SECONDS (11.7-14.9)
[2020-06-08 18:07] LABS: Anion Gap 6 (5-15); BUN 24 mg/dL (7-18); BUN/Creat Ratio 19.5 RATIO (10-20); Calcium,Total 9.5 mg/dL (8.5-10.1); Chloride 101 mmol/L (98-107); Creatinine, Serum 1.23 mg/dL (0.70-1.30); EST Glomerular Filtration Rate 60 mL/min (>60); Est Glom Filt Rate - Afr Amer 72 mL/min (>60); Glucose 166 mg/dL (74-106); Potassium 3.9 mmol/L (3.5-5.1); Sodium Level 134 mmol/L (136-145)
--- NOTE | 2020-06-08 20:32 | PCM.HP.STD ---
Problem List (1) CVA (cerebral vascular accident) Status: Acute Qualifiers: CVA mechanism: unspecified Qualified Code(s): I63.9 - Cerebral infarction, unspecified (2) Atherosclerotic heart disease of [place] coronary artery without angina pectoris Status: Chronic Qualifiers: [place] vs. transplanted heart: unspecified whether [place] or transplanted heart Qualified Code(s): I25.10 - Atherosclerotic heart disease of [place] coronary artery without angina pectoris (3) History of coronary artery stent placement Status: Chronic Comment: [id number] LAD w/ 2.5 x 48 mm Synergy DS 04/28/2020 (4) Essential (primary) hypertension Status: Chronic (5) Hyperlipidemia Status: Chronic Qualifiers: Hyperlipidemia type: pure hypercholesterolemia Qualified Code(s): E78.00 - Pure hypercholesterolemia, unspecified; E78.0 - Pure hypercholesterolemia (6) TIA (transient ischemic attack) Status: Chronic (7) Type 2 diabetes mellitus Status: Chronic Qualifiers: Diabetes mellitus salvage determiner insulin use: without shelter use Diabetes mellitus complication status: with other specified complication Qualified Code(s): E11.69 - Type 2 diabetes mellitus with other specified complication History of Present Illness Date of Admission: 06/08/20 Chief Complaint: L sided mild facial droop, aphasia, slurred speech starting x 5 days. The patient is a 84 y/o M w/ PMHx: HTN, HLD, BPH, CAD s/p MELISSA PCI proximal LAD 04/28/20, Hx TIA, Diabetes mellitus type II who presents to the [facility] ED on 06/08/20 per PCP referral with history of onset 5 days prior to current presentation on Saturday, specifically noted mild L sided mild facial droop, aphasia with difficulty with his sentences in addition to delayed responses and choppy sentences in addition to slurred speech prompting PCP evaluation with MRI brain on day of ED presentation with reported subacute/acute large infarct of the right caudate nucleus prompting PCP to refer patient to the ED for evaluation. Work-up in the ED included T 97.1, heart rate 68, BP 193/89 initially with improvement to 178/75 in the ED, respiratory rate 14, 96% on room air, CBC with WC 6.9, hemoglobin 12.7, platelet 2 3 with mild lymphopenia, unremarkable coags, BMP with sodium 134, BUN/creatinine 24/1.23, glucose 166, troponin less than 0.015, EKG was sinus rhythm with no acute evidence of ischemia, chest x-ray with bibasilar mild atelectasis with poor inspiratory effort otherwise no acute cardiopulmonary findings. In the ED patient ministered aspirin 324 mg p.o. x1. Past Medical History Past Medical History (Chronic Problems): Chronic Problems (Last Reviewed 05/11/20 @ 16:17 by Silva Richards) Atherosclerotic heart disease of [place] coronary artery without angina pectoris (Chronic) History of coronary artery stent placement (Chronic 04/28/20) AUI-VXS-Rset LAD w/ 2.5 x 48 mm Synergy DS 04/28/2020 Essential (primary) hypertension (Chronic) Hyperlipidemia (Chronic) Bilateral lower extremity edema (Chronic) TIA (transient ischemic attack) (Chronic 08/2017) Premature atrial complexes (Chronic) History of loop recorder (Chronic 04/2016) Type 2 diabetes mellitus (Chronic) Medical History: Medical History (Last Reviewed 05/11/20 @ 16:17 by Silva Richards) Atherosclerotic heart disease of [place] coronary artery without angina pectoris (Chronic) I25.10 Essential (primary) hypertension (Chronic) I10 Hyperlipidemia (Chronic) E78.5 Bilateral lower extremity edema (Chronic) R60.0 TIA (transient ischemic attack) (Chronic) Onset Date: 08/2017 G45.9 Premature atrial complexes (Chronic) I49.1 Type 2 diabetes mellitus (Chronic) E11.9 BPH (benign prostatic hyperplasia) N40.0 Hearing loss H91.90 Radiculopathy due to lumbar intervertebral disc disorder M51.16 Urinary frequency R35.0 Syncope and collapse R55 Allergies iodine Allergy (Verified 06/08/20 16:24) Rash Home Medications: Ambulatory Orders Medication Instructions Recorded Acetaminophen [Tylenol Tablet] 650 mg PO Q6H PRN PRN tab 08/27/17 Aspirin [Aspirin, Baby] 81 mg PO DAILY@0800 08/28/17 blood sugar diagnostic See Dose Instructions .ROUTE 05/16/18 .MEDSUPPLY #100 ea lisinopril 40 mg tablet 40 mg PO QDAY #90 tab 06/15/19 glipizide 5 mg tablet 5 mg PO BID #180 tab 09/01/19 amlodipine 10 mg tablet 10 mg PO QPM tab 10/22/19 tamsulosin 0.4 mg capsule 0.4 mg PO DAILY #90 cap 11/17/19 Curcumed See Rx Instructions PO .COMPLEX 12/01/19 His Defense PO DAILY 12/01/19 Tri Motion PO 12/01/19 nerve renew PO 12/01/19 primidone 50 mg tablet 50 mg PO 1600 #90 tab 12/23/19 simvastatin 20 mg tablet 20 mg PO QPM #90 tab 01/11/20 isosorbide mononitrate 30 mg 30 mg PO DAILY #30 tab 01/25/20 tablet,extended release 24 hr metformin 1,000 mg tablet 1,000 mg PO BID #180 tab 02/02/20 blood-glucose meter See Rx Instructions .ROUTE 03/29/20 .MEDSUPPLY #1 ea metoprolol succinate 50 mg 50 mg PO DAILY #90 tab 04/04/20 tablet,extended release 24 hr hydrochlorothiazide 12.5 mg tablet 12.5 mg PO DAILY #90 tab 04/05/20 clopidogrel 75 mg tablet 75 mg PO DAILY #30 tab 04/07/20 One touch ultra blue strip #100 ea 06/06/20 Surgical History: Surgical History (Last Reviewed 05/11/20 @ 16:17 by Silva Richards) History of coronary artery stent placement (Chronic) Onset Date: 04/28/20 Z95.5 YEX-TCF-Pzbm LAD w/ 2.5 x 48 mm Synergy DS 04/28/2020 History of loop recorder (Chronic) Onset Date: 04/2016 Z98.890 History of cardiac cath Z98.890 History of back surgery Z98.890 10/2017 History of electrophysiologic study Onset Date: 04/2016 Z98.890 History of eyelid surgery Onset Date: 09/2018 Z98.890 History of prostate surgery Z98.890 polyp removal transurethral needle ablation of prostrate Surgical History: - - PCI proximal LAD recently, eyelid surgery, back surgery, loop recorder placement, polyp removal, prostate surgery. Psychiatric History: No pertinent psych hx Lives: Spouse/ Significant Other Smoking Status: Never smoker Tobacco Use: Non-smoker Alcohol: None Drugs: None - *Family History Maternal Family History: Family History (Last Reviewed 05/11/20 @ 16:17 by Silva Richards) Sister Hypertension Parkinson disease Diabetes Father Heart disease Mother Heart disease Brother Heart disease History Items: High Cholesterol, Heart Disease, Hypertension Paternal Family History: Family History (Last Reviewed 05/11/20 @ 16:17 by Silva Richards) Sister Hypertension Parkinson disease Diabetes Father Heart disease Mother Heart disease Brother Heart disease History Items: High Cholesterol, Heart Disease, Hypertension Review of Systems Constitutional: Reports: Anorexia, Fatigue. Denies: Chills, Fever, Malaise, Weakness, Weight Change HEENT: Reports: - - L sided mild facial droop, slurred speech.. Denies: Head Aches, Sinus Congestion, Sinus Drainage Cardiovascular: Denies: Chest Pain, Palpitations Respiratory: Denies: Cough, Shortness of breath at rest, Sputum production Gastrointestinal: Denies: Abdominal Pain, Nausea, Vomiting Genitourinary: Denies: Dysuria Musculoskeletal: Reports: Back Pain, Joint Pain. Denies: Joint Tenderness Skin: Denies: Rash, Wounds Neurological: Reports: Change in Speech, Slurred speech, - - Mild L sided facial droop.. Denies: Focal weakness, Numbness, Tingling Psychiatric: Denies: Anxiety, Depression, Homicidal Ideations, Suicidal Ideations Hematologic/ Lymphatic: Reports: Anemia, Easy Bruising, Easy Bleeding VTE Information - Inpt Only VTE Present on Admission: No VTE Mechan Device Prophylaxis: SCD's VTE Pharm Prophylaxis ordered?: Yes Subjective: Patient laying in the ED bed, mildly flat affect, denies any acute complaints, remains completely oriented but speech is mildly slurred and mild aphasia present. Objective: Physical Examination: General: awake, alert, oriented x 3 and cooperative, seated upright in the ED bed, mildly flat affect, no acute distress. Skin: normal color, turgor, no icterus, cyanosis. HEENT: AT/NC, EOMI, PERRLA, mildly dry MM, mild left-sided facial droop, corrects with smiling, no carotid bruits or JVD noted. Lungs: Diminished breath sounds, greater bases, appropriate effort, no rales, ronchi or wheezing. Heart: Regular rate and rhythm; no gallop, rub audible. Abdomen: soft, NTTP, ND, normal BS, no HSM. Extremities: no cyanosis or clubbing, mild bilateral ankle edema, chronic. Neurological: patient awake, alert, oriented as noted; cognitive function appears intact; pupils equally reactive to light and accomodation; cranial nerves II-XII grossly normal except for mild left-sided facial droop and associated mildly slurred speech, moving all 4 extremities, no focal deficits, strength preserved, [id number] and [id number] appropriate, negative Babinski. Psychiatric: affect appears fatigued, flat, no acute evidence of depressive or anxiety feelings. - Physical Exam Vitals/I&O's: Vital Signs Temp Pulse Resp BP Pulse Ox 98.2 F 63 19 H 178/75 H 95 06/08/20 20:26 06/08/20 20:26 06/08/20 20:26 06/08/20 20:26 06/08/20 20:26 Oxygen Delivery Method Nasal Cannula Weight: 154 lb 5.177 oz Body Mass Index (BMI) 24.1 Finger Stick Blood Glucose 166 Laboratory Results 06/08/20 17:35: WBC 6.9, RBC 4.00 L, Hgb 12.7 L, Hct 37.6 L, MCV 94.0, MCH 31.8, MCHC 33.8, RDW Std Deviation 44.2 H, RDW Coeff of Arturo 12.8, Plt Count 203, MPV 10.7, Immature Gran % (Auto) 0.400, Neut % (Auto) 76.7 H, Lymph % (Auto) 8.4 L, Kleberg % (Auto) 10.9 H, Eos % (Auto) 3.2, Baso % (Auto) 0.4, Absolute Neuts (auto) 5.3, Absolute Lymphs (auto) 0.58 L, Nucleated RBC % 0 06/08/20 17:35: PT 13.1, INR 1.0, APTT 34.8 06/08/20 17:35: Sodium 134 L, Potassium 3.9, Chloride 101, Carbon Dioxide 27.0, Anion Gap 6, BUN 24 H, Creatinine 1.23, Estim Creat Clear Calc 41.80, Est GFR (MDRD) Af Amer 72, Est GFR (MDRD) Non-Af 60, BUN/Creatinine Ratio 19.5, Glucose 166 H, Calcium 9.5, Troponin I < 0.015 Current Medications Labetalol HCl (Labetalol (Prefilled) 20 Mg/4 Ml) 20 mg IV X1 PRN PRN Reason: BLOOD PRESSURE Assessment/Plan All Active Problems (Last Reviewed 05/11/20 @ 16:17 by Silva Richards) CVA (cerebral vascular accident) (Acute) Preop cardiovascular exam (Resolved) The patient is a 84 y/o M w/ PMHx: HTN, HLD, BPH, CAD s/p MELISSA PCI proximal LAD 04/28/20, Hx TIA, Diabetes mellitus type II who presents to the [facility] ED on 06/08/20 per PCP referral with history of onset 5 days prior to current presentation on Saturday, specifically noted mild L sided mild facial droop, aphasia with difficulty with his sentences in addition to delayed responses and choppy sentences in addition to slurred speech prompting PCP evaluation with MRI brain on day of ED presentation with reported subacute/acute large infarct of the right caudate nucleus. 1. Left-sided mild facial droop, aphasia, slurred speech secondary to subacute/acute large infarct of the right caudate nucleus: Will admit to PCU, MRI of the brain obtained 06/08/2020 as noted, will obtain MRA Head and Neck, ECHO, PT/OT/Speech/Nutrition evaluation per protocol. Will consult Neurology for evaluation once work-up completed as noted. Given timeline will continue home HTN regimen with adjustments as needed to achieve control, maintain on asa, plavix, statin therapy. Maintain on aspiration and fall precautions. Mag, TSH, FLP, HgbA1c requested. Discussed with patient and family potential for acute rehab and if appropriate candidate the patient and family and amenable. 2. CAD: Status post MELISSA PCI proximal LAD 04/28/2020 (stenting of his LAD with rotational arthrectomy) performed at [facility] secondary to high risk PCI for the LAD for most recent cardiology report, maintain on aspirin, Plavix, statin, metoprolol, lisinopril home regimen. 3. Hypertension: Continue home regimen including amlodipine, hydrochlorothiazide, isosorbide, lisinopril, metoprolol with alterations as needed to achieve control and awaiting clarification of this home regimen, PRN hydralazine. 4. Hyperlipidemia: Continue home statin regimen. AM FLP. 5. Diabetes mellitus type II: Hold oral home regimen, hemoglobin A1c requested, nutrition consultation for education and teaching, ADA diet, accu checks w/ ISS. 6. Chronic normocytic anemia: Admission hemoglobin 12.7, baseline prior similar, continue to trend, recommend continued outpatient evaluation. 7. BPH: We will continue patient home Flomax regimen. 8. DVT prophylaxis: SCDs, Lovenox. 9. CODE status: Patient TREMAYNE is his daughter Angel Gagnon and living will is currently in place. Discussed CODE status at length including difference between FULL code, DNR-CCA and DNR-CC status. Following discussions about the differences in these status, requested Full Code status but following discussions had evidently not been discussing these items with his family therefore encourage strongly that they review these and alter following family discussions especially with his healthcare power of banking attorney. Advanced Care Planning Face to Face Time: 16 minutes. Inpatient E&M: 94656 Init Hosp L3 Procedures: 01110 Advncd Care Plan 30 Min
--- NOTE | 2020-06-08 21:15 | MRI_ITS ---
STUDY: MRA OF THE HEAD WITHOUT CONTRAST REASON FOR EXAM: Male, 84 years old. CVA TECHNIQUE: 3-D [id number] (TOF) imaging was performed with MIPs. The study was performed unenhanced. COMPARISON: CTA 08/25/2017 FINDINGS: Normal bilateral petrous carotid arteries. Focal severe (80%) stenosis of the lacerum segment of the right internal carotid artery with decreased signal throughout the remainder of the right internal carotid artery and right middle cerebral artery consistent with a significant stenosis. Normal right cavernous carotid artery with a normal supraclinoid bifurcation. Normal left cavernous carotid artery with a normal supraclinoid bifurcation. There is non-visualization of the right A1 segment of the anterior cerebral arteries consistent with either aplastic development or an occlusion. Normal left A1 segments of the anterior cerebral artery. Normal intact anterior communicating artery (ACOM). Normal bilateral A2 segments of the anterior cerebral arteries. Normal right M1 and M2 segments of the middle cerebral arteries, with a normal M1 bifurcation. Normal left M1 and M2 segments of the middle cerebral arteries, with a normal M1 bifurcation. Normal right posterior communicating artery (PCOM). Normal left posterior communicating artery (PCOM). Normal bilateral vertebral arteries. Normal basilar artery with a normal basilar bifurcation. The visualized bilateral superior cerebellar (SCA) arteries are normal. Normal bilateral P1, P2 and visualized P3 segments of the right posterior cerebral artery. Focal severe (90%) stenosis of the origin of the P1 segment the left posterior cerebral artery with some poststenotic dilatation. There is no demonstrated aneurysm of the [place] of [place]. There is no major vessel occlusion or hemodynamically significant stenosis. There is no demonstrated abnormality of the visualized brain. MRI/MRA Head ONLY without Contrast IMPRESSION: 1. 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 2. 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 Electronically Signed: Parish Mann MD at 11:22 EDT Tel , Service support ,
--- NOTE | 2020-06-08 21:15 | MRI_ITS ---
STUDY: MRA NECK WITHOUT CONTRAST REASON FOR EXAM: Male, 84 years old. CVA TECHNIQUE: Source images were obtained, MIPs were performed. The study was performed unenhanced. COMPARISON: None. FINDINGS: RIGHT CAROTID ARTERIES: Normal right common carotid artery (CCA). There is mild atherosclerotic plaque formation with minimal narrowing of the right carotid bulb. There is mild atherosclerotic plaque formation of the origin of the right internal carotid artery with less than 50% cross sectional diameter stenosis. Normal visualized cervical portion of the right internal carotid artery. Normal origin of the right external carotid artery (ECA). LEFT CAROTID ARTERIES: Normal left common carotid artery (CCA). There is mild atherosclerotic plaque formation with minimal narrowing of the left carotid bulb. There is mild atherosclerotic plaque formation of the origin of the left internal carotid artery with less than 50% cross sectional diameter stenosis. Normal visualized cervical portion of the left internal carotid artery. Normal origin of the left external carotid artery (ECA). VERTEBRAL ARTERIES: Normal antegrade flow within the bilateral vertebral artery without a hemodynamically significant stenosis. MRI/MRA Neck without Contrast IMPRESSION: 1. Mild (20%) carotid stenosis bilaterally. 2. Patent vertebral arteries bilaterally. Electronically Signed: Parish Mann MD at 11:31 EDT Tel , Service support ,
--- NOTE | 2020-06-08 21:15 | ECHOD_ITS ---
Reason For Study: CVA Procedure This was a 2D Doppler, Color Flow transthoracic echocardiogram. Exam performed portable in patient room. Left Ventricle Normal LV size. The estimated ejection fraction is 65 %. No evidence for diastolic dysfunction. No regional wall motion abnormalities noted. Right Ventricle Normal RV size. Normal systolic function. Atria Normal left atrium. Normal right atrium. No doppler evidence for ASD. Mitral Valve There is moderate mitral annular calcification. There is no mitral valve stenosis. No mitral valve insufficiency. Tricuspid Valve There is no tricuspid stenosis. Trivial tricuspid valve insufficiency. Pulmonary artery systolic pressure is 30 mmHg. Aortic Valve Aortic sclerosis, no stenosis. Trisinus/trileaflet aortic valve. There is no aortic stenosis. Mild (1+) aortic valve insufficiency. Pulmonic Valve There is no pulmonic valvular stenosis. Mild (1+) pulmonic valve insufficiency. Great Vessels Normal aortic root. Pericardium/Pleural No pericardial effusion. MMode/2D Measurements & Calculations LVIDd: 4.1 cm IVSd: 1.1 cm Ao root diam: 3.5 cm LVIDs: 2.8 cm LVPWd: 1.1 cm RVDd: 3.0 cm FS: 32.0 % LAV(MOD-bp): 55.0 ml LVAd ap4: 23.8 cm2 LVAd ap2: 21.7 cm2 LAV(MOD-bp) Indexed: 30.7 ml/m2 LVLd ap4: 7.1 cm LVLd ap2: 7.4 cm LAV(MOD-sp2): 50.8 ml EDV(MOD-sp4): 63.6 ml EDV(MOD-sp2): 52.0 ml LAV(MOD-sp4): 44.4 ml EDV(sp4-el): 67.8 ml EDV(sp2-el): 54.0 ml LVAs ap4: 12.9 cm2 LVAs ap2: 12.3 cm2 LVLs ap4: 5.5 cm LVLs ap2: 6.4 cm ESV(MOD-sp4): 25.3 ml ESV(MOD-sp2): 22.1 ml ESV(sp4-el): 25.9 ml ESV(sp2-el): 20.2 ml EF(MOD-sp4): 60.2 % EF(MOD-sp2): 57.5 % EF(sp4-el): 61.8 % SV(MOD-sp4): 38.3 ml SV(MOD-sp2): 29.9 ml SV(sp4-el): 41.9 ml LA dimension(2D): 3.6 cm LA A4 area: 15.9 cm2 Time Measurements MV dec time: 0.39 sec Doppler Measurements & Calculations MV E max gus: 91.3 cm/sec Lat Peak E' Gus: 8.2 cm/sec Med Peak E' Gus: 5.1 cm/sec MV A max gus: 138.9 cm/sec E/E' lat: 11.1 E/E' med: 17.9 MV E/A: 0.66 Ao V2 max: 144.0 cm/sec LV V1 max: 125.3 cm/sec PA V2 max: 97.1 cm/sec Ao max P.3 mmHg LV V1 max P.3 mmHg PI dec slope: 141.5 cm/sec2 TR max gus: 257.4 cm/sec TR max P.5 mmHg ECHO/Echo Complete Interpretation Summary The estimated ejection fraction is 65 %. No evidence for diastolic dysfunction. Mild (1+) aortic valve insufficiency. Ordering Physician: Pream Xiao Referring Physician: Aron Patricia Performed By: Natalya Louie, TONO, RVT
[2020-06-08 21:36] LABS: Magnesium 1.6 mg/dL (1.6-2.6)
[2020-06-08 22:36] LABS: Bedside Glucose 127 mg/dL (70-110)
[2020-06-08] MEDS: Atorvastatin Calcium 10 MG Tablet PO (22:37)
[2020-06-08] MEDS: amLODIPine 10 MG Tablet PO (22:37)
[2020-06-08] MEDS: Isosorbide Mononitrate 30 MG Tablet PO (23:51)
[2020-06-09] VITALS (12 sets, daily range): BP systolic 123–158; BP diastolic 66–81; PULSE 60–79; RESP 16–17; TEMP 36.2–36.9; O2SAT 92–95; BMI 23.6
[2020-06-09 05:07] LABS: Absolute Lymphocyte Count 0.74 X10^3/uL (0.83-4.51); Absolute Neutrophil Count 5.2 X10^3/uL (2.0-7.7); Basophil# 0.03 X10^3/uL; Basophil% 0.4 % (0-1); Eosinophil# 0.28 X10^3/uL; Eosinophils% 3.9 % (0-5); Hematocrit 37.3 % (40-54); Hemoglobin 12.9 g/dL (13.0-16.5); Lymphocyte # 0.74 X10^3/ul (0.83-4.51); Lymphocyte % 10.3 % (19-41); Mean Corp Hgb Conc 34.6 g/dL (32-36); Mean Corpuscular Hgb 32.2 pg (27.0-32.0); Mean Platelet Vol. 10.9 fl (6.2-12.0); Monocyte# 0.91 X10^3/uL; Monocyte% 12.7 % (0-10); NRBC Flagged by Analyzer 0 % (0-5); Neutrophil # 5.18 X10^3/uL (2.7-7.7); Neutrophil % 72.4 % (47-70); Platelet Count 213 K/mm3 (150-450); RBC Distribution Width CV 12.7 % (11.6-14.6); RBC Distribution Width SD 43.9 fl (35.1-43.9); Red Blood Count 4.01 M/mm3 (4.6-6.2); White Blood Count 7.2 K/mm3 (4.4-11.0)
[2020-06-09 05:31] LABS: ALB/GLOB Ratio 1.1 RATIO (0.9-2.4); AST(SGOT) 15 U/L (15-37); Alanine Aminotransfer ALT/SGPT 22 U/L (16-61); Albumin, Serum 3.6 g/dL (3.2-5.0); Alkaline Phosphatase 35 U/L (45-117); Anion Gap 6 (5-15); BUN 18 mg/dL (7-18); BUN/Creat Ratio 18.2 RATIO (10-20); Calcium,Total 9.1 mg/dL (8.5-10.1); Chloride 101 mmol/L (98-107); Cholesterol 178 mg/dL (200); Creatinine, Serum 0.99 mg/dL (0.70-1.30); EST Glomerular Filtration Rate 77 mL/min (>60); Est Glom Filt Rate - Afr Amer 93 mL/min (>60); Estimated Creatinine Clearance 51.93 ml/min; Globulin 3.3 g/dL (2.2-4.2); Glucose 137 mg/dL (74-106); High Density Lipoprotein 46 mg/dL; Potassium 3.8 mmol/L (3.5-5.1); Protein, Total 6.9 g/dL (6.4-8.2); Sodium Level 134 mmol/L (136-145); Thyroid Stim Hormone (TSH) 5.52 uIU/mL (0.358-3.74); Triglycerides 130 mg/dL; Very Low Density Lipoprotein 26 mg/dL (5-40)
[2020-06-09] MEDS: Insulin Lispro 100 UNIT/ML INSULN.PEN SC ×3 (06:37→16:53)
[2020-06-09 06:41] LABS: Bedside Glucose 166 mg/dL (70-110)
[2020-06-09 08:33] LABS: Hemoglobin A1c 6.4 % (3.8-5.6)
[2020-06-09] MEDS: Aspirin 81 MG TAB.CHEW PO (09:24)
[2020-06-09] MEDS: Tamsulosin HCl 0.4 MG Capsule PO (09:24)
[2020-06-09] MEDS: hydroCHLOROthiazide 12.5mg 12.5 MG PO (09:24)
[2020-06-09] MEDS: Clopidogrel Bisulfate 75 MG Tablet PO (09:25)
[2020-06-09] MEDS: Isosorbide Mononitrate 30 MG Tablet PO (09:25)
--- NOTE | 2020-06-09 09:25 | CASEMGMT ---
[place] Face to Face with patient for initial transition planning/care coordination assessment. RN CM introduced self and role at [facility]. Patient lying in bed, alert and oriented. Patient willing to participate in assessment and is able to answer all questions appropriately. Care providers, pharmacy, and demographics verified. Patient wishes to discharge home, will monitor therapy for discharge needs. Patient states he has no further needs or concerns at this time. CM to follow for discharge planning needs that may arise. PCP: [facility] Specialists: Jyotsna Crespo import/export specialist Preferred Pharmacy: [facility] Insurance: [employer] Prescription Benefit: yes Living Will/HPOA: yes, Gail Gagnon LNOK: Living Arrangements: Patient lives with in a single story home with 1 step to enter the home. Patient states she is independent at home. Transportation: self/ DME/HHC: Patient states he has raised toilet, cane, and walker. Patient has been to rehab unit in the past. Will monitor therapy notes for possible RU or HHC Disposition Plan: Patient to discharge home with family support and follow-up plans in place. Will monitor for therapy needs. Breanne FRANK, RN, CM
[2020-06-09] MEDS: Metoprolol(XL)Succ 50 MG Tablet PO (09:26)
[2020-06-09] MEDS: Enoxaparin 40 MG/0.4 ML Syringe SC (09:29)
[2020-06-09 11:55] LABS: Bedside Glucose 271 mg/dL (70-110)
--- NOTE | 2020-06-09 12:09 | CASEMGMT ---
Social Work Pt presenting with CVA. SW met with pt and in room and introduced self and role of SW. Pt agreeable to talk with social psychologist with present. SW completed PHQ9 depression screen. Pt score of 2/27 indicating no or minimal depression. Pt educated on connection of Stroke and depression. No further SW needs at this time. MARY Santana
--- NOTE | 2020-06-09 13:47 | CASEMGMT ---
Addendum entered by Arminda Vences 06/09/20 14:16: Patient was accepted in the Inpatient Rehab Unit and he can go today. SW notified patient and his as well as physician. Plan: d/c to [facility] 4th floor Rehab Unit. Arminda ALBERT Original Note: SW spoke with therapy and patient would benefit from going to Inpatient Rehab. SW spoke with patient and his . Introduced self and role at [facility]. SW explained therapy is recommending patient go to Inpatient Rehab. Patient said he has gone to [facility] Inpatient Rehab in the past and would be in agreement with going there. SW offered a list of other facilities and they declined stating they want [facility] Inpatient Rehab. [facility] called [facility] with referral. They can take patient, but they may not be able to take him until tomorrow. She will get back to [facility]. SW will notify physician. [facility] did give patient and his a brochure on [facility] Inpatient Rehab with revised visitation. Arminda ALBERT
[2020-06-09] MEDS: Primidone 50 MG Tablet PO (16:53)
[2020-06-09 17:20] LABS: Bedside Glucose 268 mg/dL (70-110)
--- NOTE | 2020-06-09 18:16 | DCINST_ITS ---
- Discharge Diagnoses Current Active Problems: Current Active and Chronic Problems (Last Reviewed 05/11/20 @ 16:17 by Silva Richards) CVA (cerebral vascular accident) (Acute) Atherosclerotic heart disease of [place] coronary artery without angina pectoris (Chronic) History of coronary artery stent placement (Chronic 04/28/20) [id number] LAD w/ 2.5 x 48 mm Synergy DS 04/28/2020 Essential (primary) hypertension (Chronic) Hyperlipidemia (Chronic) TIA (transient ischemic attack) (Chronic 08/2017) Type 2 diabetes mellitus (Chronic) You will use the following diet at home:: Calorie/Carbohydrate Controlled (specify 1200, 1400, etc) - 1800 ronald Your liquids should be the consistency of: Regular/Thin Discharge Activity: Return to Normal Activity Weight Bearing Status: Full weight bearing Additional Instructions: Case management will call to set up PT/OT services and home health if desired Allergies/Adverse Reactions: Allergies iodine Allergy (Verified 06/08/20 16:24) Rash Medications to take at Discharge Aspirin [Aspirin, Baby] 81 mg PO QHS 08/28/17 blood sugar diagnostic See Dose Instructions .ROUTE .MEDSUPPLY #100 ea 05/16/18 glipizide 5 mg tablet 5 mg PO BID #180 tab 09/01/19 amlodipine 10 mg tablet 10 mg PO QHS tab 10/22/19 tamsulosin 0.4 mg capsule 0.4 mg PO DAILY #90 cap 11/17/19 Curcumed See Rx Instructions PO .COMPLEX 12/01/19 His Defense PO DAILY 12/01/19 nerve renew PO 12/01/19 primidone 50 mg tablet 50 mg PO 1600 #90 tab 12/23/19 isosorbide mononitrate 30 mg tablet,extended release 24 hr 30 mg PO DAILY #30 tab 01/25/20 metformin 1,000 mg tablet 1,000 mg PO BID #180 tab 02/02/20 blood-glucose meter See Rx Instructions .ROUTE .MEDSUPPLY #1 ea 03/29/20 metoprolol succinate 50 mg tablet,extended release 24 hr 50 mg PO DAILY #90 tab 04/04/20 hydrochlorothiazide 12.5 mg tablet 12.5 mg PO DAILY #90 tab 04/05/20 clopidogrel 75 mg tablet 75 mg PO DAILY #30 tab 04/07/20 One touch ultra blue strip #100 ea 06/06/20 Acetaminophen [Tylenol Tablet] 650 mg PO Q6H PRN PRN tablet 06/09/20 Atorvastatin Calcium [Lipitor] 80 mg PO QHS #30 tab 06/09/20 Lisinopril 40 mg PO QDAY 06/09/20 Melatonin 3 mg PO QHS PRN PRN tablet 06/09/20 Senna/Docusate Sodium [Senokot-S] 2 tablet PO BID PRN PRN tablet 06/09/20 The following prescriptions were given: Atorvastatin Calcium [Lipitor] 80 mg PO QHS #30 tab Transmission Status: Pending to [id number] Primary Care Physician: Aron Patricia MD [Primary Care Provider] - Please follow up with your Primary Care Physician in: next week Test Results: Test results from this visit will be discussed in further detail at your follow- up appointment, if applicable.
[2020-06-09] MEDS: Atorvastatin Calcium 80 MG Tablet PO (19:28)
--- NOTE | 2020-06-10 10:02 | CASEMGMT ---
Pt decided not to go to IP rehab last evening and was discharged home but wanted [facility] PT/OT set up per message left for this RN CM. Call to pt and he is agreeable to [facility] PT/OT and states no preference for [facility] company and declines verbal list at this time. Call to Aby at [facility] and updated on referral. She states they can take pt and that SOC would likely be saturday. Order placed for PT/OT. Per Dr. Wells, pt declined senior living [facility]. Danuta FISH CM
--- NOTE | 2020-06-11 09:24 | DS.PCM_ITS ---
Discharge Date and Diagnosis - Problem List Patient Problems: Active and Suspected Problems (Last Reviewed 05/11/20 @ 16:17 by Silva Richards) CVA (cerebral vascular accident) (Acute) Date of Admission: 06/08/20 Date of Discharge: 06/09/20 - Primary Discharge Diagnosis Acute Problems: Active Problems (Last Reviewed 05/11/20 @ 16:17 by Silva Richards) #1 acute ischemic infarct of the right caudate nucleus #2 coronary artery disease #3 essential hypertension #4 hyperlipidemia #5 type 2 diabetes - Secondary Discharge Diagnosis Chronic Problems: Chronic Problems (Last Reviewed 05/11/20 @ 16:17 by Silva Richards) Atherosclerotic heart disease of [place] coronary artery without angina pectoris (Chronic) History of coronary artery stent placement (Chronic 04/28/20) [id number] LAD w/ 2.5 x 48 mm Synergy DS 04/28/2020 Essential (primary) hypertension (Chronic) Hyperlipidemia (Chronic) Bilateral lower extremity edema (Chronic) TIA (transient ischemic attack) (Chronic 08/2017) Premature atrial complexes (Chronic) History of loop recorder (Chronic 04/2016) Type 2 diabetes mellitus (Chronic) Hospital Course and Treatment Operations: None Procedures: 2-D Echocardiogram Summary of Care Provided: The patient is a 84 year old M emergency room at [facility] after undergoing an outpatient MRI which showed an acute ischemic stroke. Patient complained of left-sided facial droop, this started over the past several days and he saw his family physician today in the office who ordered an MRI which showed an acute/subacute stroke. Labs were obtained in the emergency room, CBC was unremarkable, chemistry panel was remarkable for a glucose of 166 and a BUN of 24. Patient was admitted to PCU, seen by PT and OT as well as speech therapy. Echocardiogram was obtained which was unremarkable. Since patient was already on aspirin, Plavix, and a statin, no further treatment was necessary. Initially patient agreed to go to the rehab unit at [facility] for inpatient rehab services but then the talked with her family members who felt that the patient did not need this transfer to the rehab unit and requested the patient go home. Outpatient PT and OT was set up. On 06/09/2020, patient was seen and examined: On examination he appeared in good health and spirits. Vital signs as documented. Skin warm and dry and without overt rashes. Neck without JVD, neck was supple, trachea midline, thyroid was normal. Lungs clear bilaterally, normal air movement was noted. Heart exam notable for regular rhythm, normal sounds and absence of murmurs, rubs or gallops. Abdomen unremarkable and without evidence of organomegaly, masses, or abdominal aortic enlargement. Bowel sounds are present, abdomen is not distended. Extremities nonedematous, no cyanosis was noted, no clubbing was noted. Neuro: Cranial nerves II through XII are grossly intact, no focal motor deficits were noted, sensation to light touch and pinprick intact, motor exam 5/5 throughout. Psych: Patient is alert and oriented x3, he does not appear anxious or depressed, he does not appear agitated. Patient was discharged home in stable condition on 06/09/2020. Patient Problems: Active and Suspected Problems (Last Reviewed 05/11/20 @ 16:17 by Silva Richards) CVA (cerebral vascular accident) (Acute) - Physical Exam Vitals/I&O's: Vital Signs Temp Pulse Resp BP Pulse Ox 97.8 F 63 17 158/81 H 94 06/09/20 18:18 06/09/20 18:18 06/09/20 18:18 06/09/20 18:18 06/09/20 18:18 Oxygen Delivery Method Room Air Weight: 68.4 kg Body Mass Index (BMI) 23.6 Finger Stick Blood Glucose 166 Intake and Output for Last 24 Hours 06/09/20 06/10/20 06/11/20 23:59 23:59 23:59 Intake Total 850 / 850 Balance 850 / 850 Discharge Activity: Return to Normal Activity Weight Bearing Status: Full weight bearing Home Medications: Medications to take at Discharge Aspirin [Aspirin, Baby] 81 mg PO QHS 08/28/17 blood sugar diagnostic See Dose Instructions .ROUTE .MEDSUPPLY #100 ea 05/16/18 glipizide 5 mg tablet 5 mg PO BID #180 tab 09/01/19 amlodipine 10 mg tablet 10 mg PO QHS tab 10/22/19 tamsulosin 0.4 mg capsule 0.4 mg PO DAILY #90 cap 11/17/19 Curcumed See Rx Instructions PO .COMPLEX 12/01/19 His Defense PO DAILY 12/01/19 nerve renew PO 12/01/19 primidone 50 mg tablet 50 mg PO 1600 #90 tab 12/23/19 isosorbide mononitrate 30 mg tablet,extended release 24 hr 30 mg PO DAILY #30 tab 01/25/20 metformin 1,000 mg tablet 1,000 mg PO BID #180 tab 02/02/20 blood-glucose meter See Rx Instructions .ROUTE .MEDSUPPLY #1 ea 03/29/20 metoprolol succinate 50 mg tablet,extended release 24 hr 50 mg PO DAILY #90 tab 04/04/20 hydrochlorothiazide 12.5 mg tablet 12.5 mg PO DAILY #90 tab 04/05/20 clopidogrel 75 mg tablet 75 mg PO DAILY #30 tab 04/07/20 One touch ultra blue strip #100 ea 06/06/20 Acetaminophen [Tylenol Tablet] 650 mg PO Q6H PRN PRN tablet 06/09/20 Atorvastatin Calcium [Lipitor] 80 mg PO QHS #30 tab 06/09/20 Lisinopril 40 mg PO QDAY 06/09/20 Melatonin 3 mg PO QHS PRN PRN tablet 06/09/20 Senna/Docusate Sodium [Senokot-S] 2 tablet PO BID PRN PRN tablet 06/09/20 Following Prescriptions Were Given to Patient: Atorvastatin Calcium [Lipitor] 80 mg PO QHS #30 tab Transmission [id number] Primary Care Physician: Aron Patricia MD [Primary Care Provider] - Please follow up with your Primary Care Physician in: next week Disposition: Home with Home Health Minutes spent on discharge:: 31 Patient Condition:: Stable Medical Necessity - Tobacco Use Smoking Status: Never smoker Tobacco Use: Non-smoker Meaningful Use Info Meaningful Use Diagnoses (Choose all that apply): Ischemic CVA - CVA Therapy Assessed for PT,OT and/or ST?: Yes - Ischemic Stroke Antithrombotic order at d/c?: Yes Dx of Atrial fib/flutter?: No Anticoagulant at discharge?: No Reason anticoagulant not ordered: Treatment not Indicated Statins at discharge?: Yes Primary Dx Acute Ischemic CVA?: Yes IV tPA ordered during stay?: No Reason IV t-PA not ordered: Treatment not Indicated Inpatient E&M: 27429 Disch Hosp
== END 2020-06-09 19:35 | disposition home or self-care (01) | DRG 66 ==
LOC: ED 19:58 → PCU 21:19
PROVIDERS: Admitting Provider Family Medicine; Emergency Provider Student in an Organized Health Care Education/Training Program; PCP Internal Medicine; Visit Provider Internal Medicine
DX: I63.9 Cerebral infarction, unspecified (principal); R29.810 Facial weakness; R47.81 Slurred speech; R47.01 Aphasia; R29.702 NIHSS score 2; D64.9 Anemia, unspecified; E11.9 Type 2 diabetes mellitus without complications; I49.1 Atrial premature depolarization; E78.00 Pure hypercholesterolemia, unspecified; R60.0 Localized edema; E78.5 Hyperlipidemia, unspecified; H91.90 Unspecified hearing loss, unspecified ear; I10 Essential (primary) hypertension; M51.16 Intervertebral disc disorders with radiculopathy, lumbar region; I25.10 Atherosclerotic heart disease of native coronary artery without angina pectoris; N40.0 Benign prostatic hyperplasia without lower urinary tract symptoms; Z79.02 Long term (current) use of antithrombotics/antiplatelets; Z79.82 Long term (current) use of aspirin; Z95.5 Presence of coronary angioplasty implant and graft; Z86.73 Personal history of transient ischemic attack (TIA), and cerebral infarction without residual deficits; Z79.899 Other long term (current) drug therapy; Z79.84 Long term (current) use of oral hypoglycemic drugs
CPT/HCPCS: 36415; 70544; 70547; 70551; 71045; 80048; 80053; 80061; 81001; 82140; 82962; 83036; 83735; 84443; 84484; 85025; 85610; 85730; 92523; 92610; 93005; 93306; 94762; 97162; 97166; 97802; 99251; 99285; G0463

== ENCOUNTER → 2020-07-12 11:01 | Outpatient (CLI) | payer MEDICARE, OTHER, SELFPAY ==
[2020-06-15 09:27] VITALS: BMI 23.6
[2020-07-12 12:28] LABS: ALB/GLOB Ratio 1.1 RATIO (0.9-2.4); AST(SGOT) 21 U/L (15-37); Alanine Aminotransfer ALT/SGPT 31 U/L (16-61); Alkaline Phosphatase 41 U/L (45-117); Anion Gap 7 (5-15); BUN 17 mg/dL (7-18); BUN/Creat Ratio 14.4 RATIO (10-20); CPK Total, Creatine Kinase 157 U/L (39-308); Calcium,Total 9.2 mg/dL (8.5-10.1); Chloride 93 mmol/L (98-107); Creatinine, Serum 1.18 mg/dL (0.70-1.30); EST Glomerular Filtration Rate 62 mL/min (>60); Est Glom Filt Rate - Afr Amer 76 mL/min (>60); Globulin 3.5 g/dL (2.2-4.2); Glucose 204 mg/dL (74-106); Potassium 4.1 mmol/L (3.5-5.1); Protein, Total 7.5 g/dL (6.4-8.2); Sodium Level 129 mmol/L (136-145)
== END ==
PROVIDERS: PCP Internal Medicine; Referring Provider Internal Medicine; Visit Provider Internal Medicine
DX: M62.81 Muscle weakness (generalized) (principal)
CPT/HCPCS: 36415; 80053; 82550

== ENCOUNTER → 2020-08-09 14:47 | Outpatient (CLI) | payer MEDICARE, OTHER, SELFPAY ==
[2020-08-09 14:03] VITALS: BMI 23.6
[2020-08-09 16:59] LABS: Anion Gap 8 (5-15); BUN 21 mg/dL (7-18); BUN/Creat Ratio 18.9 RATIO (10-20); Calcium,Total 9.1 mg/dL (8.5-10.1); Chloride 95 mmol/L (98-107); Creatinine, Serum 1.11 mg/dL (0.70-1.30); EST Glomerular Filtration Rate 67 mL/min (>60); Est Glom Filt Rate - Afr Amer 81 mL/min (>60); Glucose 171 mg/dL (74-106); Potassium 4.2 mmol/L (3.5-5.1); Sodium Level 127 mmol/L (136-145)
== END ==
PROVIDERS: PCP Internal Medicine; Referring Provider Physician Assistant; Visit Provider Physician Assistant
DX: I10 Essential (primary) hypertension (principal)
CPT/HCPCS: 36415; 80048

== ENCOUNTER → 2020-08-11 13:35 | Outpatient (CLI) | payer MEDICARE, OTHER, SELFPAY ==
[2020-08-09 14:03] VITALS: BMI 23.6
[2020-08-11 15:27] LABS: Anion Gap 8 (5-15); BUN 19 mg/dL (7-18); BUN/Creat Ratio 17.3 RATIO (10-20); Calcium,Total 9.1 mg/dL (8.5-10.1); Chloride 95 mmol/L (98-107); EST Glomerular Filtration Rate 68 mL/min (>60); Est Glom Filt Rate - Afr Amer 82 mL/min (>60); Glucose 189 mg/dL (74-106); Potassium 4.8 mmol/L (3.5-5.1); Sodium Level 129 mmol/L (136-145)
[2020-08-11 15:29] LABS: Osmolality, Serum 282 mOsm/KG (280-301)
[2020-08-11 16:54] LABS: Osmolality, Urine 364 mOsm/KG
[2020-08-11 16:57] LABS: Urine Sodium 49 mmol/L (Not Establ.)
== END ==
PROVIDERS: PCP Internal Medicine; Referring Provider Physician Assistant; Visit Provider Physician Assistant
DX: E87.1 Hypo-osmolality and hyponatremia (principal)
CPT/HCPCS: 36415; 80048; 82570; 83930; 83935; 84300

== ENCOUNTER → 2020-08-23 10:09 | Outpatient (CLI) | payer MEDICARE, OTHER, SELFPAY ==
[2020-08-23 09:22] VITALS: BMI 23.6
[2020-08-23 10:11] LABS: Bacteria 0 SEEN /hpf (None Seen); Mucous, Urine 0 SEEN /hpf (<or=2+); Red Blood Cells-Urine 0 SEEN /hpf (0-5); Squamous Epithelial Cells - UA 0 SEEN /hpf (0-5); White Blood Cells 0 SEEN /hpf (0-5)
[2020-08-23 12:14] LABS: Color, Urine Yellow (Yellow); Glucose, Dipstick 50 mg/dl (Normal); Ketone-Dipstick Negative (Negative); Leukocyte Esterase-Dipstick Negative /ul (Negative); Nitrite-Dipstick Negative (Negative); Occult Blood-Urine Negative /ul (Negative); Protein-Dipstick 30 mg/dl (Negative); Specific Gravity, Urine 1.015 (1.002-1.030); Urine Bilirubin Dipstick Negative (Negative); Urine Clarity Clear (Clear); Urine Urobilinogen Normal (Normal)
[2020-08-23 12:27] LABS: Anion Gap 6 (5-15); BUN 22 mg/dL (7-18); BUN/Creat Ratio 17.9 RATIO (10-20); Calcium,Total 9.2 mg/dL (8.5-10.1); Chloride 97 mmol/L (98-107); Creatinine, Serum 1.23 mg/dL (0.70-1.30); EST Glomerular Filtration Rate 59 mL/min (>60); Est Glom Filt Rate - Afr Amer 72 mL/min (>60); Glucose 214 mg/dL (74-106); PSA,Total - Annual Screen 5.96 ng/mL (0.00-4.00); Potassium 4.6 mmol/L (3.5-5.1); Sodium Level 128 mmol/L (136-145)
== END ==
PROVIDERS: Physician Assistant; PCP Internal Medicine; Visit Provider Internal Medicine
DX: N40.1 Benign prostatic hyperplasia with lower urinary tract symptoms (principal); R35.1 Nocturia; E87.1 Hypo-osmolality and hyponatremia; Z12.5 Encounter for screening for malignant neoplasm of prostate
CPT/HCPCS: 36415; 80048; 81001; 84153; G0103

== ENCOUNTER → 2020-11-09 14:12 | Outpatient (CLI) | payer MEDICARE, OTHER, SELFPAY ==
[2020-11-09 15:20] LABS: Absolute Lymphocyte Count 0.65 X10^3/uL (0.83-4.51); Absolute Neutrophil Count 6.4 X10^3/uL (2.0-7.7); Basophil# 0.02 X10^3/uL; Basophil% 0.2 % (0-1); Eosinophil# 0.12 X10^3/uL; Eosinophils% 1.4 % (0-5); Hematocrit 39.1 % (40-54); Hemoglobin 13.1 g/dL (13.0-16.5); Lymphocyte # 0.65 X10^3/ul (0.83-4.51); Lymphocyte % 7.8 % (19-41); Mean Corp Hgb Conc 33.5 g/dL (32-36); Mean Corpuscular Hgb 32.3 pg (27.0-32.0); Mean Corpuscular Volume 96.5 fL (80-94); Mean Platelet Vol. 11.2 fl (6.2-12.0); Monocyte# 1.08 X10^3/uL; NRBC Flagged by Analyzer 0 % (0-5); Neutrophil # 6.39 X10^3/uL (2.7-7.7); Neutrophil % 77.2 % (47-70); Platelet Count 222 K/mm3 (150-450); RBC Distribution Width CV 12.8 % (11.6-14.6); RBC Distribution Width SD 45.6 fl (35.1-43.9); Red Blood Count 4.05 M/mm3 (4.6-6.2); White Blood Count 8.3 K/mm3 (4.4-11.0)
[2020-11-09 15:44] LABS: Anion Gap 6 (5-15); BUN 19 mg/dL (7-18); BUN/Creat Ratio 18.6 RATIO (10-20); Calcium,Total 9.1 mg/dL (8.5-10.1); Chloride 99 mmol/L (98-107); Creatinine, Serum 1.02 mg/dL (0.70-1.30); EST Glomerular Filtration Rate 74 mL/min (>60); Est Glom Filt Rate - Afr Amer 89 mL/min (>60); Glucose 165 mg/dL (74-106); Potassium 4.2 mmol/L (3.5-5.1); Sodium Level 132 mmol/L (136-145)
== END ==
PROVIDERS: PCP Internal Medicine; Referring Provider Internal Medicine; Visit Provider Internal Medicine
DX: I10 Essential (primary) hypertension (principal); E11.69 Type 2 diabetes mellitus with other specified complication
CPT/HCPCS: 36415; 80048; 85025

== ENCOUNTER → 2020-11-10 | Outpatient (CLI) | payer MEDICARE, OTHER, SELFPAY ==
[2020-11-10 16:34] LABS: Protein, Urine (Random) 124.8 mg/dL (<11.9); Protein:Creat Ratio 2589 mg/g CRE (0-200); Urine Sodium 71 mmol/L (Not Establ.)
[2020-11-10 16:37] LABS: Osmolality, Urine 403 mOsm/KG
== END | disposition home or self-care (01) ==
LOC: POLAB3 15:48 → LABSPEC 15:49
PROVIDERS: PCP Internal Medicine; Visit Provider Internal Medicine Nephrology
DX: R80.9 Proteinuria, unspecified (principal); E87.1 Hypo-osmolality and hyponatremia
CPT/HCPCS: 82570; 83935; 84156; 84300

== ENCOUNTER → 2020-11-15 11:06 | Outpatient (CLI) | payer MEDICARE, OTHER, SELFPAY ==
--- NOTE | 2020-11-15 11:08 | US_ITS ---
STUDY: RENAL ULTRASOUND - COMPLETE REASON FOR EXAM: Male, 85 years old. CKD TECHNIQUE: Ultrasound evaluation of the kidneys was performed with real-time and static castro-scale imaging. COMPARISON: None. FINDINGS: RIGHT KIDNEY: Normal location of the right kidney, which is normal in size. The right kidney measures 9.4 cm x 5.4 cm x 4.8 cm. There is a normal cortex of the right kidney. The renal cortex measures 1.5 cm. There is no right renal mass or cyst. There are no right renal calculi. There is no right hydronephrosis. DISTAL RIGHT URETER: There is non-visualization of the distal right ureter. There is no demonstrated right ureterovesical junction calculus. There is no demonstrated right ureteral jet. LEFT KIDNEY: Normal location of the left kidney, which is normal in size. The left kidney measures 10.9 cm x 6.4 cm x 5.1 cm. There is a normal cortex of the left kidney. The renal cortex measures 1.4 cm. There is no left renal mass or cyst. There are no left renal calculi. There is no left hydronephrosis. DISTAL LEFT URETER: There is non-visualization of the distal left ureter. There is no demonstrated left ureterovesical junction calculus. There is no demonstrated left ureteral jet. BLADDER: The distended urinary bladder has a volume of 134 ml. There is lateral wall thickening of the urinary bladder. The bladder wall measures 5.3 mm. There is no demonstrated mass within the urinary bladder. There are no demonstrated bladder calculi. The prostate is enlarged. It measures 7.4 cm x 5.2 cm. This causes indentation of the bladder base. US/Kidney and Bladder IMPRESSION: Normal ultrasound of the kidneys. Bladder wall thickening. Prostatic enlargement. Electronically Signed: Jameson Joy MD at 14:26 EDT , Service support ,
== END ==
PROVIDERS: PCP Internal Medicine; Referring Provider Internal Medicine Nephrology; Visit Provider Internal Medicine Nephrology
DX: N18.2 Chronic kidney disease, stage 2 (mild) (principal)
CPT/HCPCS: 76770

== ENCOUNTER 2021-01-16 13:00 | Outpatient (RCR) | payer MEDICARE, OTHER, SELFPAY ==
[2020-08-09 14:03] VITALS: BMI 23.6
--- NOTE | 2020-08-15 14:37 | HP.PTEVAL ---
Patient's Visit Information FANI DHILLON is a 85 year old M referred to Physical Therapy by Dr. Aron Patricia MD with a diagnosis of CEREBRAL INFARCTION ,UNSPECIFIED,MUSCLE WEAKNESS. Date of Evaluation: 08/15/20 Physical Therapist: Elias Pathak, PT, Cert MDT, OCS - Visit Plan Frequency: 2x /Week Duration: 4 Weeks Plan: PT INTERVETIONS PROGRESSIVE BALANCE AND GAIT TRAINING, ENDURANCE PROGRAM ,BLE STRENGTHENING AND FLEXABILITY,AND FUNCTIONAL STRENGTHENING - Subjective This 85 y/o male presents to physical therapy with CVA affecting left side for 5 days thus admitted to [facility] ED on 06/08/20 . Prior to that patient had S/P MELISSA PCI proximal LAD 04/28/20 at [facility]. Spouse noticed left mild fascial droop, aphasia and slurred speech. Patient had MRI showed larger infarct of the right caudate nucleus. Patient has h/o prior CVA and TIA's . Patient had PT at Rehab D/C TO HOME PT/OT ~ 4weeks ,then seen family DR and recommended outpatient PT. Patient has multiple comorbities that infleunces patient condtion. Patient uses fww , Patient requires assist with bathing ,dressing and ADL's. Patient has one steps to garage. Patient has walk in shower. Patient used cane prior to CVA .Patient goals to improve gait and get stronger. Denies pain. Patient denies parathesia/tingling. Patient condition affecs QOL and function. SOCAIL: . VOCATION - Objective POSTURE: mild forward posture. NEURO: refelxes achilles,patella 1/3,TONE WFL. GAIT: ambulates with reciprocal pattern midl forward posture slow lester. FLEXABLITY: hams mod /severe tight. BALANCE : FAIR + with fww. MMT: quad 3+/5,hams 4-/5,abduction 3+/5 ,ankle 4/5. STAIRS: one step at time with rails. STATIC BALANCE: FAIR no device. BUE MMT: grossly 4-/5,except shoulders 3+/5 - Balance Scores CATSIB Score (Max score 120 seconds): 30 - Goals Goal 1:: Patient to be I with HEP Goal Time Frame: 4-6 Weeks Goal 2:: Patient ambulate with improve quality of gait pattern with least restrictive device. Goal Time Frame: 4-6 Weeks Goal 3:: Patient to improve BLE strength to 4/5 quads/hams ,hip 4-/5 to improve function with gait Goal Time Frame: 4-6 Weeks Goal 4:: Patient improve CATSIB by 5-10 points or> to improve QOL. Goal Time Frame: 4-6 Weeks Goal 5:: Patient to improve LFES score by 5-10points or > to improve gait . Goal Time Frame: 4-6 Weeks - Rehabilitation Potential Physical Therapy Diagnosis: This patient has CVA with weakness ,decrease balance ,gait and ADLS' along with comorbities that influences condition thus will benifit from skilled PT Rehabilitation Potential: Good - Anticipated Interventions Patient/Client Instruction: Educate patient on: Condition, Plan of Care For the Purpose of:: To decrease pain, To improve muscle performance and motor function, To improve ability to perform ADL's, To increase tolerance to activity/condition/position, To improve performance and independence with ADL's, To improve ability of physical actions for home/community/work/leisure, To improve endurance, To improve balance, To improve safety with gait, To improve ability to perform tasks related to life management, To improve tolerance to ADL's Therapeutic Exercise to Include: Strength training, Endurance training, Balance training, Flexibilty training Comment: BLE For the Purpose of:: To improve muscle performance and motor function, To improve ability to perform ADL's, To increase tolerance to activity/condition/position, To improve ability of physical actions for home/community/work/leisure, To improve gait and locomotor functions, To improve endurance, To improve balance, To improve safety with gait, To improve ability to perform tasks related to life management, To improve tolerance to ADL's Thank you for the opportunity to evaluate your patient. For Medicare and Medicare HMO plans, please review the plan of care and approve it. It will need to be FAXED BACK to us at [phone] for Medicare purposes. For Medicare only, by signing this I certify the plan of care. Please let me know if there are questions or concerns regarding this plan of care. Physician Signature: Date:
--- NOTE | 2020-09-09 14:50 | HP.PTREVAL_ITS ---
Dr. Aron Patricia MD, It has been my pleasure to treat FANI DHILLON over the last 9 visits for CEREBRAL INFARCTION, UNSPECIFIED, MUSCLE WEAKNESS. Please see the progress note below for an update on the physical therapy plan of care! Subjective: Doing better ,has difficulty rating progress does state getting stronger. My leg are getting stonger . Objective/Function: POSTURE: MILD FORWARD POSTURE. GAIT: RECIPROCAL PATTERN. BALNANCE: FAIR+ WITH FWW. MMT: QUADS/HAMS /HIP 4-/5. STAIRS: ONE STEP AT TIME WITH RAILS Plan Plan: CONT WITH POC 2XWEEK FOR 4WEEKS. PT INTERVENTIONS PROGRESSIVE BALANCE AND GAIT TRAINING, ENDURANCE PROGRAM ,BLE STRENGTHENING AND FLEXIBILITY,AND FUNCTIONAL STRENGTHENING Goals Goal 1:: Patient to be I with HEP Goal Time Frame: 4-6 Weeks Goal Progress: Progressing Goal 2:: Patient ambulate with improve quality of gait pattern with least restrictive device. Goal Time Frame: 4-6 Weeks Goal Progress: Progressing Goal 3:: Patient to improve BLE strength to 4/5 quads/hams ,hip 4-/5 to improve function with gait Goal Time Frame: 4-6 Weeks Goal Progress: Progressing Goal 4:: Patient improve CATSIB by 5-10 points or> to improve QOL. Goal Time Frame: 4-6 Weeks Goal Progress: Progressing Goal 5:: Patient to improve LFES score by 5-10points or > to improve gait . Goal Time Frame: 4-6 Weeks Goal Progress: Progressing Anticipated Interventions Patient/Client Instruction: Educate patient on: Condition, Plan of Care For the Purpose of:: To decrease pain, To improve muscle performance and motor function, To improve ability to perform ADL's, To increase tolerance to activity/condition/position, To improve performance and independence with ADL's, To improve ability of physical actions for home/community/work/leisure, To improve endurance, To improve balance, To improve safety with gait, To improve ability to perform tasks related to life management, To improve tolerance to ADL's Therapeutic Exercise to Include: Strength training, Endurance training, Balance training, Flexibilty training Comment: BLE For the Purpose of:: To improve muscle performance and motor function, To improve ability to perform ADL's, To increase tolerance to activity/condition/position, To improve ability of physical actions for home/community/work/leisure, To improve gait and locomotor functions, To improve endurance, To improve balance, To improve safety with gait, To improve ability to perform tasks related to life management, To improve tolerance to ADL's Please do not hesitate to contact me at [phone] by phone or Fax: if you have questions or concerns regarding this new plan of care! Sincerely, Elias Pathak, PT, Cert MDT, OCS
--- NOTE | 2020-10-13 11:54 | HP.PTREVAL_ITS ---
Dr. Aron Patricia MD, It has been my pleasure to treat FANI DHILLON over the last 17 visits for CEREBRAL INFARCTION, UNSPECIFIED, MUSCLE WEAKNESS. Please see the progress note below for an update on the physical therapy plan of care! Subjective: Seen DR at [facility] for Neuro from CVA WANT TO CONT Objective/Function: POSTURE: MILD FORWARD POSTURE. GAIT: FORWARD POSTURE SLOW SHARON RECIPROCAL PATTERN. BALANCE: FAIR+ WITH FWW. MMT: QUADS/HAMS 4/5,HIP FLEXION 4-/5,ANKLE 4/5 Plan Plan: CONT WITH POC 2XWEEK FOR 4WEEKS. PT INTERVENTIONS PROGRESSIVE BALANCE AND GAIT TRAINING, ENDURANCE PROGRAM ,BLE STRENGTHENING AND FLEXIBILITY,AND FUNCTIONAL STRENGTHENING Balance/Gait/Functional tests - Balance/Special Test Scores CATSIB Score (Max score 120 seconds): 75 Lower Extremity Functional Score: 29 Goals Goal 1:: Patient to be I with HEP Goal Time Frame: 4-6 Weeks Goal Progress: Goal Met Goal 2:: Patient ambulate with improve quality of gait pattern with least restrictive device. Goal Time Frame: 4-6 Weeks Goal Progress: Progressing Goal 3:: Patient to improve BLE strength to 4/5 quads/hams ,hip 4-/5 to improve function with gait (GOAL MRET) Goal Time Frame: 4-6 Weeks Goal Progress: Progressing Goal 4:: Patient improve CATSIB by 5-10 points or> to improve QOL. Goal Time Frame: 4-6 Weeks Goal Progress: Progressing Goal 5:: Patient to improve LFES score by 5-10points or > to improve gait . Goal Time Frame: 4-6 Weeks Goal Progress: Progressing Goal 6:: Patient ambulate with cane in home ambulation Anticipated Interventions Patient/Client Instruction: Educate patient on: Condition, Plan of Care For the Purpose of:: To decrease pain, To improve muscle performance and motor function, To improve ability to perform ADL's, To increase tolerance to activity/condition/position, To improve performance and independence with ADL's, To improve ability of physical actions for home/community/work/leisure, To imp rove endurance, To improve balance, To improve safety with gait, To improve ability to perform tasks related to life management, To improve tolerance to ADL's Therapeutic Exercise to Include: Strength training, Endurance training, Balance training, Flexibilty training Comment: BLE For the Purpose of:: To improve muscle performance and motor function, To improve ability to perform ADL's, To increase tolerance to activity/condition/position, To improve ability of physical actions for home/community/work/leisure, To improve gait and locomotor functions, To improve endurance, To improve balance, To improve safety with gait, To improve ability to perform tasks related to life management, To improve tolerance to ADL's Please do not hesitate to contact me at [phone] by phone or if you have questions or concerns regarding this new plan of care! Sincerely, Elias Pathak, PT, Cert MDT, OCS
--- NOTE | 2020-11-28 13:56 | HP.PTREVAL ---
Dr. Aron Patricia MD, It has been my pleasure to treat FANI DHILLON over the last 27 visits for CEREBRAL INFARCTION, UNSPECIFIED, MUSCLE WEAKNESS. Please see the progress note below for an update on the physical therapy plan of care! Subjective: Didnt sleep well last night. been using rollator Objective/Function: POSTURE: mod forward posture. GAIT: reciprocal pattern with forward posture with rollator but requires cues due to rollator to far in from of patient. BALANCE: fait+ with rollator. MMT: quads/hams 4/5,hip flexion 4-/5 Plan Plan: CONT WITH POC 2XWEEK FOR 4WEEKS. PT INTERVENTIONS PROGRESSIVE BALANCE AND GAIT TRAINING, ENDURANCE PROGRAM ,BLE STRENGTHENING AND FLEXIBILITY,AND FUNCTIONAL STRENGTHENING Balance/Gait/Functional tests - Balance/Special Test Scores CATSIB Score (Max score 120 seconds): 75 Lower Extremity Functional Score: 29 Goals Goal 1:: Patient to be I with HEP Goal Time Frame: 4-6 Weeks Goal Progress: Goal Met Goal 2:: Patient ambulate with improve quality of gait pattern with least restrictive device. Goal Time Frame: 4-6 Weeks Goal Progress: Progressing Goal 3:: Patient to improve BLE strength to 4/5 quads/hams ,hip 4-/5 to improve function with gait (GOAL MET) Goal Time Frame: 4-6 Weeks Goal Progress: Progressing Goal 4:: Patient improve CATSIB by 5-10 points or> to improve QOL. Goal Time Frame: 4-6 Weeks Goal Progress: Progressing Goal 5:: Patient to improve LFES score by 5-10points or > to improve gait . Goal Time Frame: 4-6 Weeks Goal Progress: Progressing Goal 6:: Patient ambulate with rollator safely at home(new goal) Anticipated Interventions Patient/Client Instruction: Educate patient on: Condition, Plan of Care For the Purpose of:: To decrease pain, To improve muscle performance and motor function, To improve ability to perform ADL's, To increase tolerance to activity/condition/position, To improve performance and independence with ADL's, To improve ability of physical actions for home/community/work/leisure, To improve endurance, To improve balance, To improve safety with gait, To improve ability to perform tasks related to life management, To improve tolerance to ADL's Therapeutic Exercise to Include: Strength training, Endurance training, Balance training, Flexibilty training Comment: BLE For the Purpose of:: To improve muscle performance and motor function, To improve ability to perform ADL's, To increase tolerance to activity/condition/position, To improve ability of physical actions for home/community/work/leisure, To improve gait and locomotor functions, To improve endurance, To improve balance, To improve safety with gait, To improve ability to perform tasks related to life management, To improve tolerance to ADL's Please do not hesitate to contact me at [phone] by phone or if you have questions or concerns regarding this new plan of care! Sincerely, Elias Pathak, PT, Cert MDT, OCS
--- NOTE | 2021-01-16 13:58 | HP.PTDCSUM ---
It has been my pleasure to treat FANI DHILLON referred by Dr. Aron Patricia MD, with the diagnosis of CEREBRAL INFARCTION, UNSPECIFIED, MUSCLE WEAKNESS for a total of 30 visit(s). Discharge Date: 01/16/21 Please see the following information for a summary of their discharge status. Subjective: Doing okay no falls. Discussed with patient met maxiium level of function ,but stressed the importance of safety with fww and rollator. At this ,point not safe with cane % Improvement: 50 Objective/Function: POSTURE: mild forward posture hips/knees slightly flexed. GAIT: ambulates with rollator with mild forward posture with occasional cues for safety and walking inside rolltor. BALANCE: fair+ with fww. MMT: quads/hams 4/5,hip flexion 4-5/,ankle 4/5 Goal 1:: Patient to be I with HEP Goal Progress: Goal Met Goal 2:: Patient ambulate with improve quality of gait pattern with least restrictive device. Goal Progress: Progressing Goal 3:: Patient to improve BLE strength to 4/5 quads/hams ,hip 4-/5 to improve function with gait (GOAL MET) Goal Progress: Goal Met Goal 4:: Patient improve CATSIB by 5-10 points or> to improve QOL. Goal Progress: Goal Met Goal 5:: Patient to improve LFES score by 5-10points or > to improve gait . Goal Progress: Goal Met Goal 6:: Patient ambulate with rollator safely at home(new goal) Plan: D/C TO HEP Discharge Comments: HEP If there are questions or concerns regarding this patient's physical therapy, please feel free to call me at [phone]. Thank you for the referral of this patient. Sincerely, Elias Pathak, PT, Cert MDT, OCS Balance/Gait/Functional tests - Balance/Special Test Scores CATSIB Score (Max score 120 seconds): 90 Lower Extremity Functional Score: 39
== END 2021-01-16 19:00 | disposition home or self-care (01) ==
LOC: PT 13:00
PROVIDERS: PCP Internal Medicine; Referring Provider Internal Medicine; Visit Provider Internal Medicine
DX: M62.81 Muscle weakness (generalized) (principal); Z86.73 Personal history of transient ischemic attack (TIA), and cerebral infarction without residual deficits
CPT/HCPCS: 97110; 97162

== ENCOUNTER → 2021-08-28 | Outpatient (CLI) | payer MEDICARE, OTHER, SELFPAY ==
[2021-08-28 12:16] LABS: Absolute Lymphocyte Count 0.86 X10^3/uL (0.83-4.51); Absolute Neutrophil Count 5.9 X10^3/uL (2.0-7.7); Basophil# 0.02 X10^3/uL; Basophil% 0.3 % (0-1); Eosinophil# 0.18 X10^3/uL; Eosinophils% 2.3 % (0-5); Hematocrit 37.4 % (40-54); Hemoglobin 12.5 g/dL (13.0-16.5); Lymphocyte # 0.86 X10^3/ul (0.83-4.51); Lymphocyte % 10.9 % (19-41); Mean Corp Hgb Conc 33.4 g/dL (32-36); Mean Corpuscular Hgb 32.4 pg (27.0-32.0); Mean Corpuscular Volume 96.9 fL (80-94); Mean Platelet Vol. 11.9 fl (6.2-12.0); Monocyte# 0.93 X10^3/uL; Monocyte% 11.8 % (0-10); NRBC Flagged by Analyzer 0 % (0-5); Neutrophil # 5.87 X10^3/uL (2.7-7.7); Neutrophil % 74.2 % (47-70); Platelet Count 196 K/mm3 (150-450); RBC Distribution Width CV 13.2 % (11.6-14.6); RBC Distribution Width SD 46.9 fl (35.1-43.9); Red Blood Count 3.86 M/mm3 (4.6-6.2); White Blood Count 7.9 K/mm3 (4.4-11.0)
[2021-08-28 12:49] LABS: ALB/GLOB Ratio 1.1 RATIO (0.9-2.4); AST(SGOT) 13 U/L (15-37); Alanine Aminotransfer ALT/SGPT 26 U/L (16-61); Albumin, Serum 3.7 g/dL (3.2-5.0); Alkaline Phosphatase 52 U/L (45-117); Anion Gap 9 (5-15); BUN 28 mg/dL (7-18); BUN/Creat Ratio 26.4 RATIO (10-20); Calcium,Total 9.2 mg/dL (8.5-10.1); Chloride 100 mmol/L (98-107); Creatinine, Serum 1.06 mg/dL (0.70-1.30); EST Glomerular Filtration Rate 70 mL/min (>60); Est Glom Filt Rate - Afr Amer 85 mL/min (>60); Globulin 3.3 g/dL (2.2-4.2); Glucose 250 mg/dL (74-106); Potassium 4.1 mmol/L (3.5-5.1); Sodium Level 137 mmol/L (136-145)
== END | disposition home or self-care (01) ==
LOC: BIMLAB 11:41
PROVIDERS: PCP Internal Medicine; Referring Provider Internal Medicine; Visit Provider Internal Medicine
DX: E11.9 Type 2 diabetes mellitus without complications (principal); I10 Essential (primary) hypertension
CPT/HCPCS: 36415; 80053; 85025

== ENCOUNTER → 2022-03-02 | Outpatient (CLI) | payer MEDICARE, OTHER, SELFPAY ==
[2022-03-02 15:12] LABS: Absolute Lymphocyte Count 0.78 X10^3/uL (0.83-4.51); Absolute Neutrophil Count 6.9 X10^3/uL (2.0-7.7); Basophil# 0.03 X10^3/uL; Basophil% 0.3 % (0-1); Eosinophil# 0.16 X10^3/uL; Eosinophils% 1.9 % (0-5); Hematocrit 35.8 % (40-54); Hemoglobin 11.8 g/dL (13.0-16.5); Lymphocyte # 0.78 X10^3/ul (0.83-4.51); Mean Corpuscular Hgb 31.6 pg (27.0-32.0); Mean Platelet Vol. 11.9 fl (6.2-12.0); Monocyte# 0.69 X10^3/uL; NRBC Flagged by Analyzer 0 % (0-5); Neutrophil # 6.94 X10^3/uL (2.7-7.7); Neutrophil % 80.3 % (47-70); Platelet Count 237 K/mm3 (150-450); RBC Distribution Width CV 12.7 % (11.6-14.6); RBC Distribution Width SD 44.3 fl (35.1-43.9); Red Blood Count 3.73 M/mm3 (4.6-6.2); White Blood Count 8.6 K/mm3 (4.4-11.0)
[2022-03-02 15:22] LABS: AST(SGOT) 13 U/L (15-37); Alanine Aminotransfer ALT/SGPT 26 U/L (16-61); Albumin, Serum 3.4 g/dL (3.2-5.0); Alkaline Phosphatase 53 U/L (45-117); Anion Gap 5 (5-15); BUN 26 mg/dL (7-18); BUN/Creat Ratio 25.7 RATIO (10-20); Calcium,Total 8.9 mg/dL (8.5-10.1); Chloride 101 mmol/L (98-107); Creatinine, Serum 1.01 mg/dL (0.70-1.30); EST Glomerular Filtration Rate 74 mL/min (>60); Est Glom Filt Rate - Afr Amer 90 mL/min (>60); Globulin 3.4 g/dL (2.2-4.2); Glucose 322 mg/dL (74-106); Potassium 4.3 mmol/L (3.5-5.1); Protein, Total 6.8 g/dL (6.4-8.2); Sodium Level 133 mmol/L (136-145)
== END | disposition home or self-care (01) ==
LOC: BIMLAB 13:55
PROVIDERS: PCP Internal Medicine; Referring Provider Internal Medicine; Visit Provider Internal Medicine
DX: I10 Essential (primary) hypertension (principal)
CPT/HCPCS: 36415; 80053; 85025

== ENCOUNTER 2022-05-06 02:44 | Observation (INO) | payer MEDICARE, OTHER, SELFPAY ==
[2022-05-06] VITALS (16 sets, daily range): BP systolic 157–200; BP diastolic 71–89; PULSE 65–84; RESP 14–19; TEMP 36.6–37.5; O2SAT 94–98; BMI 21.7; BMI 20.5
--- NOTE | 2022-05-06 02:46 | CT_ITS ---
INDICATION: Neuro deficit, acute, stroke suspected EXAMINATION: CT BRAIN - CT Head Stroke Protocol W/O Contrast Injection TECHNIQUE: Multiple axial images were obtained of the head without intravenous contrast. A radiation dose optimization technique was used for this scan. IV Contrast dosage and agent: None. COMPARISON: June 08, 2020 MRI brain FINDINGS: BRAIN PARENCHYMA: No intra- or extra-axial hemorrhage. No intracranial mass or mass effect. There is preservation of the funk/white matter interface. Posterior fossa structures are unremarkable. Old infarct in the region of the right caudate which has evolved from prior MRI. Old infarct involving the anterior right thalamus. Periventricular hypodensities likely from chronic small vessel disease. CSF SPACES: There is some prominence of the ventricular system which is similar to prior exam. CALVARIUM, SKULL BASE, PARANASAL SINUSES AND MASTOID AIR CELLS: Left maxillary sinus mucosal thickening. Clear mastoid air cells. No discrete lytic or blastic abnormalities. ORBITS: Both globes, extraocular muscles, optic nerves and retrobulbar fat show no acute abnormality. CT/STROKE Brain/Head without Cont IMPRESSION: No acute intracranial hemorrhage. Findings in keeping with chronic small vessel disease and prior right-sided infarcts. N.B. : The above Results were Read Back by Michael Johnston MD to Christie Stout MD, and understanding confirmed on 05/06/2022 03:05:59 (ET). Electronically Signed: Michael Johnston MD at 3:07 EDT ,
--- NOTE | 2022-05-06 02:46 | EKG12_ITS ---
Test Reason : Blood Pressure : / mmHG Vent. Rate : 070 BPM Atrial Rate : 070 BPM P-R Int : 144 ms QRS Dur : 082 ms QT Int : 432 ms P-R-T Axes : 070 -09 -20 degrees QTc Int : 466 ms Normal sinus rhythm Minimal voltage criteria for LVH, may be normal variant ( R in aVL ) Nonspecific ST and T wave abnormality Prolonged QT Abnormal ECG Confirmed by JEY RIVERA, SARAH ([id number]), book editor GLENDY JOEL ([id number]) on 05/07/2022 12:08:05 P M Referred By: Confirmed By:ANT KHANNA MD
--- NOTE | 2022-05-06 02:47 | CT_ITS ---
INDICATION: Neuro deficit, acute, stroke suspected EXAMINATION: CTA BRAIN WITH CONTRAST TECHNIQUE: routine carotid CT angiogram protocol was performed without and with IV contrast. In addition, images were obtained of the [place] of Best. NASCET criteria using the distal ICAs for comparison were used for evaluation of stenoses. Mip reconstructions were reviewed. A radiation dose optimization technique was used for this scan. IV Contrast dosage and agent: 100 cc [id number]. COMPARISON: MRA head June 09, 2020. FINDINGS: --CTA NECK: AORTIC ARCH AND BRANCHES: Normal anatomy, patent. RIGHT CCA: No occlusion, significant stenosis or dissection. Scattered CCA atherosclerosis. RIGHT ICA: No occlusion or dissection. No extracranial narrowing. LEFT CCA: No occlusion, significant stenosis or dissection. Scattered CCA atherosclerosis LEFT ICA: No occlusion, significant stenosis or dissection. No extracranial narrowing RIGHT VERTEBRAL ARTERY: No occlusion, significant stenosis or dissection. LEFT VERTEBRAL ARTERY: No occlusion, significant stenosis or dissection. NECK SOFT TISSUES: No acute abnormality. --CTA HEAD: --Anterior circulation: ICAs: This patient has a narrowing of the right ICA at the level of the clivus which is significant however this is similar to appearance on prior MRA 2020. There is narrowing at the level of the sella as well also probably similar. Diffuse atherosclerotic disease is noted involving the distal ICA bilaterally. Left side is intact. ACAs: Right A1 is once again not well visualized and unchanged from prior. Distal VAUGHN grossly intact. Grossly intact anterior communicating artery. MCAs: Mild narrowing at distal right M1 probably similar prior. Vessels are intact otherwise. --Posterior circulation: PCOMs: Grossly patent, left visualized better than right. Similar to prior. maintenance groundman: No significant interval change compared to prior. Patent. BASILAR ARTERY: No significant stenosis. VERTEBRAL ARTERIES: There is some mild to moderate narrowing of the intradural left vertebral artery at level of foramen magnum which may be slightly increased compared to prior. No evidence of intracranial aneurysm or vascular malformation. CT/STROKE CTA Head AND Neck W/Con IMPRESSION: No evidence of large vessel occlusion. Similar vascular appearance compared to prior MRA 2020 overall. N.B. : The above Results were Read Back by Michael Johnston MD to Christie Stout MD, and understanding confirmed on 05/06/2022 04:10:00 (ET). Electronically Signed: Michael Johnston MD at 4:13 EDT ,
[2022-05-06 03:09] LABS: Absolute Lymphocyte Count 1.08 X10^3/uL (0.83-4.51); Absolute Neutrophil Count 17.1 X10^3/uL (2.0-7.7); Basophil# 0.07 X10^3/uL; Basophil% 0.4 % (0-1); Eosinophil# 0.04 X10^3/uL; Eosinophils% 0.2 % (0-5); Hematocrit 40.2 % (40-54); Hemoglobin 13.3 g/dL (13.0-16.5); Lymphocyte # 1.08 X10^3/ul (0.83-4.51); Lymphocyte % 5.4 % (19-41); Mean Corp Hgb Conc 33.1 g/dL (32-36); Mean Corpuscular Hgb 32.1 pg (27.0-32.0); Mean Corpuscular Volume 97.1 fL (80-94); Mean Platelet Vol. 11.5 fl (6.2-12.0); Monocyte# 1.41 X10^3/uL; Monocyte% 7.1 % (0-10); NRBC Flagged by Analyzer 0 % (0-5); Neutrophil % 85.5 % (47-70); Platelet Count 230 K/mm3 (150-450); RBC Distribution Width CV 12.8 % (11.6-14.6); RBC Distribution Width SD 45.9 fl (35.1-43.9); Red Blood Count 4.14 M/mm3 (4.6-6.2)
[2022-05-06 03:20] LABS: Partial Thromboplast Time 34.9 Seconds (24.1-36.2)
[2022-05-06 03:34] LABS: Anion Gap 10 (5-15); BUN 31 mg/dL (7-18); BUN/Creat Ratio 29.2 RATIO (10-20); Calcium,Total 9.7 mg/dL (8.5-10.1); Chloride 103 mmol/L (98-107); Creatinine, Serum 1.06 mg/dL (0.70-1.30); EST Glomerular Filtration Rate 70 mL/min (>60); Est Glom Filt Rate - Afr Amer 85 mL/min (>60); Estimated Creatinine Clearance 44.65 ml/min; Glucose 331 mg/dL (74-106); Potassium 3.4 mmol/L (3.5-5.1); Sodium Level 139 mmol/L (136-145); Troponin-I HS 24 pg/mL (3.0-78.0)
--- NOTE | 2022-05-06 03:35 | RAD_ITS ---
INDICATION: Neuro deficit, acute, stroke suspected EXAMINATION/TECHNIQUE: X-RAY - XR Chest 1 View COMPARISON: June 08, 2020. FINDINGS: LINES/DEVICES: Loop recorder. LUNGS: Grossly clear lungs aside from some linear scarring at the left CP angle, stable from prior. MEDIASTINUM AND CARDIOVASCULAR STRUCTURES: Cardiac silhouette stable. Central airways and mediastinal contour are unchanged. Prominence of the right paratracheal soft tissues are unchanged. BONES AND SOFT TISSUES: No significant change. RAD/Chest 1 View IMPRESSION: No radiographic evidence of acute cardiopulmonary disease. Stable chest. Electronically Signed: Michael Johnston MD at 3:50 EDT ,
[2022-05-06] MEDS: Ondansetron 4 MG/2 ML Vial IV ×2 (03:42→15:30)
--- NOTE | 2022-05-06 04:23 | ED.RN ---
Dr. Stout verbal order to stop [facility] assessments at this time.
[2022-05-06 04:26] LABS: Bacteria 0 SEEN /hpf (None Seen); Mucous, Urine 0 SEEN /hpf (<or=2+); Red Blood Cells-Urine 0 SEEN /hpf (0-5); Squamous Epithelial Cells - UA 0 SEEN /hpf (0-5); White Blood Cells 0 SEEN /hpf (0-5)
[2022-05-06 04:30] LABS: Color, Urine Yellow (Yellow); Glucose, Dipstick 1000 mg/dl (Normal); Ketone-Dipstick 15 mg/dl (Negative); Leukocyte Esterase-Dipstick Negative /ul (Negative); Nitrite-Dipstick Negative (Negative); Occult Blood-Urine Negative /ul (Negative); Protein-Dipstick 100 mg/dl (Negative); Urine Bilirubin Dipstick Negative (Negative); Urine Clarity Clear (Clear); Urine Urobilinogen Normal (Normal)
--- NOTE | 2022-05-06 05:04 | EDS_ITS ---
HPI History of Present Illness Chief Complaint: Stroke Alert Informant: patient and EMS Onset/Context/Timing Onset: Today Narrative Narrative: Patient presents via EMS secondary to possible stroke. EMS staff reports they were called to the home for possible stroke alert with symptoms noted 2 hours prior to their call. Patient has a left facial droop, however they are unsure if this is acute or from an old stroke. He is also felt weak and dizzy. He did have vomiting in route with EMS. On arrival patient denies pain. He reportedly did tell EMS that he had a headache. He is able to tell me his name and birthdate. He is able to follow commands appropriately. He does have left facial droop noted but can hold up all 4 extremities. He is sent to CT after this initial evaluation at the EMS doors. [facility] Medical History Atherosclerotic heart disease of [place] coronary artery without angina pectoris Bilateral lower extremity edema BPH (benign prostatic hyperplasia) Bradycardia Debility Epistaxis Essential (primary) hypertension Fall Fatigue Hearing loss History of CVA (cerebrovascular accident) (05/2020) Hyperlipidemia Muscle weakness Parkinson disease Premature atrial complexes Radiculopathy due to lumbar intervertebral disc disorder Syncope and collapse TIA (transient ischemic attack) (08/2017) Type 2 diabetes mellitus Urinary frequency Venous insufficiency of both lower extremities Home Medications aspirin 81 mg chewable tablet 81 mg PO QHS heart 08/28/17 [History Last Taken 01/29/20] blood sugar diagnostic #100 ea 05/16/18 [Rx Last Taken Unknown] Curcumed See Rx Instructions PO .COMPLEX joint health 12/01/19 [History Last Taken Unknown] His Defense PO DAILY 12/01/19 [History Last Taken Unknown] nerve renew PO vitamin 12/01/19 [History Last Taken Unknown] blood-glucose meter (OneTouch Ultra2 Meter) #1 ea 03/29/20 [Rx Last Taken Unknown] One touch ultra blue strip #100 ea 06/06/20 [Rx Last Taken Unknown] acetaminophen 325 mg tablet 650 mg PO Q6H PRN PRN Pain Score 1-10/Temp > 100.7 F 06/09/20 [Rx Last Taken Unknown] melatonin 3 mg tablet 3 mg PO QHS PRN PRN Insomnia 06/09/20 [Rx Last Taken Unknown] sennosides 8.6 mg-docusate sodium 50 mg tablet 2 tablet PO BID PRN PRN Constipation 06/09/20 [Rx Last Taken Unknown] miscellaneous medical supply (Blood Pressure Cuff) #1 ea 08/09/20 [Rx Last Taken Unknown] walker (Ultra-Light Rollator mis) #1 ea 10/17/20 [Rx Last Taken Unknown] Juxtalite #1 ea 11/09/20 [Rx Last Taken Unknown] atorvastatin 80 mg tablet 80 mg PO QHS #90 TABLETS 07/10/21 [Rx Last Taken Unknown] amlodipine 10 mg tablet 10 mg PO QHS blood pressure #90 tabs 08/28/21 [Rx Last Taken Unknown] polysaccharide iron complex 150 mg iron capsule (Ferrex) 150 mg PO DAILY #90 caps 08/28/21 [Rx Last Taken Unknown] sertraline 25 mg tablet 25 mg PO DAILY #90 tabs 08/28/21 [Rx Last Taken Unknown] isosorbide mononitrate 60 mg tablet,extended release 24 hr 60 mg PO DAILY #90 tabs 02/15/22 [Rx Last Taken Unknown] metoprolol succinate 25 mg tablet,extended release 24 hr 25 mg PO .PM #90 tabs 02/15/22 [Rx Last Taken Unknown] metoprolol succinate 50 mg tablet,extended release 24 hr 50 mg PO QAM #90 tabs 02/15/22 [Rx Last Taken Unknown] metformin 1,000 mg tablet 1,000 mg PO BID blood sugar #180 tabs 02/20/22 [Rx Last Taken Unknown] lisinopril 40 mg tablet 40 mg PO QDAY bp #90 tabs 03/19/22 [Rx Last Taken Unknown] primidone 50 mg tablet 50 mg PO 1600 #90 tabs 03/19/22 [Rx Last Taken Unknown] clopidogrel 75 mg tablet (Plavix) 75 mg PO QHS 05/06/22 [History Last Taken Unknown] glipizide 5 mg tablet 5 mg PO BID blood sugar 05/06/22 [History Last Taken Unknown] polysaccharide iron complex 150 mg iron capsule (Ferrex) 150 mg PO DAILY 05/06/22 [History Last Taken Unknown] tamsulosin 0.4 mg capsule 0.4 mg PO DAILY 05/06/22 [History Last Taken Unknown] Allergy/AdvReac Type Severity Reaction Status Date / Time iodine Allergy Rash Verified 03/02/22 13:10 Family History Sister Hypertension Parkinson disease Diabetes Father Heart disease Mother Heart disease Brother Heart disease age 34 from congenital heart disease Surgical History History of back surgery History of cardiac cath History of coronary artery stent placement (04/28/20) History of electrophysiologic study (04/2016) History of eyelid surgery (09/2018) History of loop recorder (04/2016) History of prostate surgery transurethral needle ablation of prostrate Social History current occupational status: retired Smoking Status: Never smoker alcohol intake: never substance use type: does not use what type of physical activity do you participate in: none ROS ROS ED Constitutional Constitutional ED: Denies chills or fever(s) Eyes Eyes: Denies change in vision or discharge from eye(s) ENT ENT ED: Denies discharge from eye(s), rhinorrhea or sore throat Cardiovascular Cardiovascular: Denies chest pain or palpitations Respiratory/Chest Respiratory/Chest: Denies cough or dyspnea Gastrointestinal Gastrointestinal: Reports nausea and vomiting; Denies abdominal pain or diarrhea Genitourinary Genitourinary ED: Denies dysuria Musculoskeletal Musculoskeletal: Denies back pain or extremity pain Integumentary Denies Abrasions or rash Neurologic Neurologic: Reports headache(s) and weakness Psychiatric Psychiatric: Denies anxiety or depression Endocrine Endocrinology: Denies polydipsia or polyuria Allergic/Immunologic Allergic/Immunologic ED: Denies lip swelling or urticaria EXAM Physical Exam Const Vital Signs: 05/06/22 02:52 05/06/22 02:56 05/06/22 03:09 Temperature 98.2 F Temperature Source Temporal Pulse Rate 70 71 Respiratory Rate 16 16 Blood Pressure 185/81 H 175/76 H Blood Pressure Mean 115 109 Pulse Ox 97 95 Oxygen Delivery Method Room Air Room Air Room Air 05/06/22 03:16 05/06/22 03:48 05/06/22 04:00 Temperature Temperature Source Pulse Rate 72 73 74 Respiratory Rate 19 H 16 19 H Blood Pressure 174/76 H 178/79 H 177/86 H Blood Pressure Mean 108 112 116 Pulse Ox 95 95 94 Oxygen Delivery Method Room Air Room Air Room Air Positive well nourished and well developed General Appearance ED: well developed HEENT Reports moist mucous membranes Eyes PERRL and EOMs intact bilaterally Chest Wall inspection of chest normal and palpation of chest normal Resp normal respiratory effort and clear to auscultation bilaterally Cardio Rate: regular rate Rhythm: regular rhythm GI soft to palpation and non-tender Auscultation: normoactive bowel sounds Extremity normal to inspection Neuro oriented x3 Neuro Narrative: See NIH stroke Psych mental status grossly normal NIHSS NIHSS Initial: 1a Level of Consciousness: 0 1b LOC Questions (Score 2 if aphasic/stupor): 0 1c LOC Commands (Only score 1st attempt): 0 2 Best Gaze (If aphasic, use reflexive mvmts.): 0 3 Visual: 0 4 Facial Palsy: 2 5 Motor Arm Right (UN = amputation/fusion): 0 5 Motor Arm Left: 0 6 Motor Leg Right: 0 6 Motor Leg Left: 0 7 Limb ataxia (Only + if out of proportion): 0 8 Sensory (Aphasia/stupor=0 or 1, coma=2): 0 9 Best Language: 0 10 Dysarthria (mute, coma=2, intubated=UN): 0 11 Extinction and Inattention (only scored if +): 0 Total Score: 2 MDM MDM MDM Narrative Medical decision making narrative: Stroke alert initiated and patient sent initially to CT. EKG obtained to evaluate for cardiac arrhythmia/ischemia. Chest x-ray obtained to evaluate for acute lung pathology, cardiac size, or mediastinal abnormality. Labwork obtaine d to evaluate for leukocytosis, anemia, and electrolyte derangement. History & Record Review Discussion w/independent historian: EMS personnel, Patient and Family Additional record(s) reviewed:: Prior inpatient record Lab Data Attestation: I reviewed the patient's lab results. Labs: Laboratory Results - last 24 hr 05/06/22 05/06/22 05/06/22 03:00 03:00 03:00 WBC 20.0 H RBC 4.14 L Hgb 13.3 Hct 40.2 MCV 97.1 H MCH 32.1 H MCHC 33.1 RDW Std Deviation 45.9 H RDW Coeff of Arturo 12.8 Plt Count 230 MPV 11.5 Immature Gran % (Auto) 1.400 H Neut % (Auto) 85.5 H Lymph % (Auto) 5.4 L [place] % (Auto) 7.1 Eos % (Auto) 0.2 Baso % (Auto) 0.4 Absolute Neuts (auto) 17.1 H Absolute Lymphs (auto) 1.08 Nucleated RBC % 0 PT 13.0 INR 1.0 APTT 34.9 Sodium 139 Potassium 3.4 L Chloride 103 Carbon Dioxide 26.0 Anion Gap 10 BUN 31 H Creatinine 1.06 Estim Creat Clear Calc 44.65 Est GFR (MDRD) Af Amer 85 Est GFR (MDRD) Non-Af 70 BUN/Creatinine Ratio 29.2 H Glucose 331 H Calcium 9.7 Troponin I High Sens 24 Urine Color Urine Clarity Urine pH Ur Specific [place] Urine Protein Urine Glucose (UA) Urine Ketones Urine Occult Blood Urine Nitrite Urine Bilirubin Urine Urobilinogen Ur Leukocyte Esterase Urine RBC Urine WBC Ur Squamous Epith Cells Urine Bacteria Urine Mucus 05/06/22 04:17 WBC RBC Hgb Hct MCV MCH MCHC RDW Std Deviation RDW Coeff of Arturo Plt Count MPV Immature Gran % (Auto) Neut % (Auto) Lymph % (Auto) [place] % (Auto) Eos % (Auto) Baso % (Auto) Absolute Neuts (auto) Absolute Lymphs (auto) Nucleated RBC % PT INR APTT Sodium Potassium Chloride Carbon Dioxide Anion Gap BUN Creatinine Estim Creat Clear Calc Est GFR (MDRD) Af Amer Est GFR (MDRD) Non-Af BUN/Creatinine Ratio Glucose Calcium Troponin I High Sens Urine Color Yellow Urine Clarity Clear Urine pH 7.0 Ur Specific [place] 1.010 Urine Protein 100 H Urine Glucose (UA) 1000 H Urine Ketones 15 H Urine Occult Blood Negative Urine Nitrite Negative Urine Bilirubin Negative Urine Urobilinogen Normal Ur Leukocyte Esterase Negative Urine RBC 0 SEEN Urine WBC 0 SEEN Ur Squamous Epith Cells 0 SEEN Urine Bacteria 0 SEEN Urine Mucus 0 SEEN Radiography Chest X-Ray - ED: 1 View, Read by ED Physician and Chronic Changes Diagnostic Testing: Clinical Impression(s) from Imaging Studies Brain CT 05/06/22 02:46 IMPRESSION: No acute intracranial hemorrhage. Findings in keeping with chronic small vessel disease and prior right-sided infarcts. N.B. : The above Results were Read Back by Michael Johnston MD to Christie Stout MD, and understanding confirmed on 05/06/2022 03:05:59 (ET). Electronically Signed: Michael Johnston MD at 3:07 EDT , ADDENDUM: 05/06/22 0314 IMPRESSION: No acute intracranial hemorrhage. Findings in keeping with chronic small vessel disease and prior right-sided infarcts. N.B. : The above Results were Read Back by Michael Johnston MD to Christie Stout MD, and understanding confirmed on 05/06/2022 03:05:59 (ET). Electronically Signed: Michael Johnston MD at 3:07 EDT , Head/Neck CTA 05/06/22 02:47 IMPRESSION: No evidence of large vessel occlusion. Similar vascular appearance compared to prior MRA 2020 overall. N.B. : The above Results were Read Back by Michael Johnston MD to Christie Stout MD, and understanding confirmed on 05/06/2022 04:10:00 (ET). Electronically Signed: Michael Johnston MD at 4:13 EDT , ADDENDUM: 05/06/22 0420 IMPRESSION: No evidence of large vessel occlusion. Similar vascular appearance compared to prior MRA 2020 overall. N.B. : The above Results were Read Back by Michael Johnston MD to Christie Stout MD, and understanding confirmed on 05/06/2022 04:10:00 (ET). Electronically Signed: Michael Johnston MD at 4:13 EDT , Chest X-Ray 05/06/22 03:35 IMPRESSION: No radiographic evidence of acute cardiopulmonary disease. Stable chest. Electronically Signed: Michael Johnston MD at 3:50 EDT , EKG Initial EKG: Attestation: I personally reviewed and interpreted this EKG as follows: Interpretation: Sinus Rhythm (Sinus at 70 with no acute ischemia.) Management Discussion w/another healthcare provider: Hospitalist and Radiologist Treatment and Re-Evaluation Narrative: After patient returns from CT I am able to further question him regarding the time of onset of his symptoms. He presents at 3 AM for evaluation. He states he felt okay when he went to bed at 9 PM last evening. He woke around 1230 and felt funny. He describes this as feeling dizzy and nauseated. His later noted that his left-sided facial droop which she states is chronic may have been slightly worsened. Initial head CT was read as chronic changes with no hemorrhage. CBC reveals a white count of 20,000 with 85% neutrophils. Coags are unremarkable. Chemistry studies significant only for a potassium of 3.4. Glucose is 331. Renal function is normal. Urinalysis reveals no sign of acute infection. Chest x-ray per my interpretation was chronic changes with no focal infiltrate. Radiology interpretation is reviewed and agrees. EKG is sinus rhythm with no acute ischemia. Patient has received Zofran for nausea. I was present in the room when the [facility] neurologist evaluated the patient. She stated the patient would not be a candidate for thrombolytics, but to obtain a CTA to ensure no LVO. CTA is obtained and reveals chronic narrowing that appears stable when compared to prior MRI of 2020. Test results of been discussed with patient and family at bedside. At this time I do not have a cause for his significantly elevated white count. He has not recently been ill and not had a fever. Blood cultures will be obtained. I will speak with hospitalist regarding admission. Discharge Plan Triage Chief Complaint: Stroke Alert ED Provider: Christie Stout Dx/Rx/DC Orders Clinical Impression: Dizziness, Vomiting, Leukocytosis, Generalized weakness Prescriptions: No Action His Defense PO DAILY Rx Instructions: [place]/prostate health Curcumed See Rx Instructions PO .COMPLEX Rx Instructions: joint health PO; joint health nerve renew PO Rx Instructions: B12 / R Alpha Lipoic acid ([facility] [place]) Blood Pressure Cuff Misc See Rx Instructions .ROUTE .MEDSUPPLY Qty: 1 0RF Rx Instructions: As directed ([facility] [place]) Juxtalite See Rx Instructions .Route .MEDSUPPLY Qty: 1 0RF Rx Instructions: Knee High. 30 - 40mmHg amlodipine 10 mg tablet 10 mg PO QHS Qty: 90 3RF polysaccharide iron complex [Ferrex 150] 150 mg iron capsule 150 mg PO DAILY Qty: 90 2RF sertraline 25 mg tablet 25 mg PO DAILY Qty: 90 3RF aspirin 81 MG tablet,chewable 81 mg PO QHS acetaminophen 325 MG tablet 650 mg PO Q6H PRN PRN (Reason: Pain Score 1-10/Temp > 100.7 F) 0RF sennosides-docusate sodium 1 TABLET tablet 2 tablet PO BID PRN PRN (Reason: Constipation) 0RF melatonin 3 MG tablet 3 mg PO QHS PRN PRN (Reason: Insomnia) 0RF polysaccharide iron complex [Ferrex 150] 150 mg iron Capsule 150 mg PO DAILY tamsulosin 0.4 mg capsule 0.4 mg PO DAILY clopidogrel [Plavix] 75 mg tablet 75 mg PO QHS glipizide 5 mg tablet 5 mg PO BID (DME) blood sugar diagnostic strip See Dose Instructions .ROUTE .MEDSUPPLY Qty: 100 3RF Dose Instruction: As directed Rx Instructions: As directed ([facility] [place]) blood-glucose meter [OneTouch Ultra2 Meter] [facility] See Rx Instructions .ROUTE .MEDSUPPLY Qty: 1 0RF Rx Instructions: As directed ([facility] [place]) One touch ultra blue strip Qty: 100 3RF Dose Instruction: As directed Rx Instructions: Check blood sugar twice daily. ([facility] [place]) Ultra-Light Rollator Misc See Rx Instructions .ROUTE .MEDSUPPLY Qty: 1 0RF Rx Instructions: As directed atorvastatin 80 mg tablet 80 mg PO QHS Qty: 90 3RF isosorbide mononitrate 60 mg tablet extended release 24 hr 60 mg PO DAILY Qty: 90 1RF metoprolol succinate 25 mg tablet extended release 24 hr 25 mg PO .PM Qty: 90 1RF metoprolol succinate 50 mg tablet extended release 24 hr 50 mg PO QAM Qty: 90 1RF metformin 1,000 mg tablet 1,000 mg PO BID Qty: 180 3RF primidone 50 mg tablet 50 mg PO 1600 Qty: 90 0RF lisinopril 40 mg tablet 40 mg PO QDAY Qty: 90 0RF Primary Care Provider: Aron Patricia Referrals: Aron Patricia MD [Primary Care Provider] - Disposition Disposition: Acute Care Hospital [facility]
--- NOTE | 2022-05-06 05:11 | HP.PCM.HOS_ITS ---
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 Reportedly patient slept at about 9 PM the night before presentation. He woke up at about 1230 am and a complaint of feeling funny and dizziness. Reportedly he had some nausea and vomiting. Patient reported to the hospital about 6 hours after last known well. Patient was evaluated by stroke neurologist. The patient was not a candidate for tPA. History was taken from emergency department doctor and supplemented by patient who could not provide enough history. Per emergency department patient's reported that patient left-sided facial droop appeared worsened. [facility] Medical History Atherosclerotic heart disease of [place] coronary artery without angina pectoris Bilateral lower extremity edema BPH (benign prostatic hyperplasia) Bradycardia Debility Epistaxis Essential (primary) hypertension Fall Fatigue Hearing loss History of CVA (cerebrovascular accident) (05/2020) Hyperlipidemia Muscle weakness Parkinson disease Premature atrial complexes Radiculopathy due to lumbar intervertebral disc disorder Syncope and collapse TIA (transient ischemic attack) (08/2017) Type 2 diabetes mellitus Urinary frequency Venous insufficiency of both lower extremities Home Medications aspirin 81 mg chewable tablet 81 mg PO QHS heart 08/28/17 [History Last Taken 01/29/20] blood sugar diagnostic #100 ea 05/16/18 [Rx Last Taken Unknown] Curcumed See Rx Instructions PO .COMPLEX joint health 12/01/19 [History Last Taken Unknown] His Defense PO DAILY 12/01/19 [History Last Taken Unknown] nerve renew PO vitamin 12/01/19 [History Last Taken Unknown] blood-glucose meter (OneTouch Ultra2 Meter) #1 ea 03/29/20 [Rx Last Taken Unknown] One touch ultra blue strip #100 ea 06/06/20 [Rx Last Taken Unknown] acetaminophen 325 mg tablet 650 mg PO Q6H PRN PRN Pain Score 1-10/Temp > 100.7 F 06/09/20 [Rx Last Taken Unknown] melatonin 3 mg tablet 3 mg PO QHS PRN PRN Insomnia 06/09/20 [Rx Last Taken Unknown] sennosides 8.6 mg-docusate sodium 50 mg tablet 2 tablet PO BID PRN PRN Constipation 06/09/20 [Rx Last Taken Unknown] miscellaneous medical supply (Blood Pressure Cuff) #1 ea 08/09/20 [Rx Last Taken Unknown] walker (Ultra-Light Rollator mis) #1 ea 10/17/20 [Rx Last Taken Unknown] Juxtalite #1 ea 11/09/20 [Rx Last Taken Unknown] atorvastatin 80 mg tablet 80 mg PO QHS #90 TABLETS 07/10/21 [Rx Last Taken Unknown] amlodipine 10 mg tablet 10 mg PO QHS blood pressure #90 tabs 08/28/21 [Rx Last Taken Unknown] polysaccharide iron complex 150 mg iron capsule (Ferrex) 150 mg PO DAILY #90 caps 08/28/21 [Rx Last Taken Unknown] sertraline 25 mg tablet 25 mg PO DAILY #90 tabs 08/28/21 [Rx Last Taken Unknown] isosorbide mononitrate 60 mg tablet,extended release 24 hr 60 mg PO DAILY #90 tabs 02/15/22 [Rx Last Taken Unknown] metoprolol succinate 25 mg tablet,extended release 24 hr 25 mg PO .PM #90 tabs 02/15/22 [Rx Last Taken Unknown] metoprolol succinate 50 mg tablet,extended release 24 hr 50 mg PO QAM #90 tabs 02/15/22 [Rx Last Taken Unknown] metformin 1,000 mg tablet 1,000 mg PO BID blood sugar #180 tabs 02/20/22 [Rx Last Taken Unknown] lisinopril 40 mg tablet 40 mg PO QDAY bp #90 tabs 03/19/22 [Rx Last Taken Unknown] primidone 50 mg tablet 50 mg PO 1600 #90 tabs 03/19/22 [Rx Last Taken Unknown] clopidogrel 75 mg tablet (Plavix) 75 mg PO QHS 05/06/22 [History Last Taken Unknown] glipizide 5 mg tablet 5 mg PO BID blood sugar 05/06/22 [History Last Taken Unknown] polysaccharide iron complex 150 mg iron capsule (Ferrex) 150 mg PO DAILY 05/06 [History Last Taken Unknown] tamsulosin 0.4 mg capsule 0.4 mg PO DAILY 05/06/22 [History Last Taken Unknown] Allergy/AdvReac Type Severity Reaction Status Date / Time iodine Allergy Rash Verified 03/02/22 13:10 Family History Sister Hypertension Parkinson disease Diabetes Father Heart disease Mother Heart disease Brother Heart disease age 34 from congenital heart disease Surgical History History of back surgery History of cardiac cath History of coronary artery stent placement (04/28/20) History of electrophysiologic study (04/2016) History of eyelid surgery (09/2018) History of loop recorder (04/2016) History of prostate surgery transurethral needle ablation of prostrate Social History current occupational status: retired Smoking Status: Never smoker alcohol intake: never substance use type: does not use what type of physical activity do you participate in: none ROS Review of Systems ROS Unobtainable: other Details: Patient does not answer all questions. Pertinent positives and pertinent negatives is as noted in HPI. Vital Signs Vital Signs Vital Signs: 05/06/22 02:52 05/06/22 02:56 05/06/22 03:09 Temperature 98.2 F Temperature Source Temporal Pulse Rate 70 71 Respiratory Rate 16 16 Blood Pressure 185/81 H 175/76 H Blood Pressure Mean 115 109 Pulse Ox 97 95 Oxygen Delivery Method Room Air Room Air Room Air 05/06/22 03:16 05/06/22 03:48 05/06/22 04:00 Temperature Temperature Source Pulse Rate 72 73 74 Respiratory Rate 19 H 16 19 H Blood Pressure 174/76 H 178/79 H 177/86 H Blood Pressure Mean 108 112 116 Pulse Ox 95 95 94 Oxygen Delivery Method Room Air Room Air Room Air Weight Weight: 63.1 kg Body Mass Index (BMI) 21.7 Physical Exam Narrative Physical exam: General: Well-nourished, well-developed. Head: Normocephalic, atraumatic, no tenderness Eyes: Vision is grossly intact. EOMI ENT, no trauma, moist mucous membranes, no rhinorrhea Neck: Nontender, No thyromegaly. CVS: Regular rate and rhythm. S1-S2 present. No murmur, gallop or rub. Respiratory : clear to auscultation bilaterally, chest wall nontender, no wheezing Abdomen: Soft, nontender, nondistended, normal bowel sounds, no masses : Deferred Back: Nontender, no CVA tenderness. Extremities: Nontender full range of motion, no trauma Skin: Normal color, no trauma, abrasions Neuro: Alert, oriented, cranial nerves II through XII grossly intact. No dysmetria with [id number] test. Mild left facial droop. No hyperreflexia with deep tendon reflexes of the knee jerk and elbow reflex. Psychiatry: Normal mood. Normal affect. Not depressed. Not anxious. Results Lab / Micro Data Result Diagrams: 05/06/22 03:00 05/06/22 03:00 Labs: Laboratory Results - last 24 hr 05/06/22 03:00: WBC 20.0 H, RBC 4.14 L, Hgb 13.3, Hct 40.2, MCV 97.1 H, MCH 32.1 H, MCHC 33.1, RDW Std Deviation 45.9 H, RDW Coeff of Arturo 12.8, Plt Count 230, MPV 11.5, Immature Gran % (Auto) 1.400 H, Neut % (Auto) 85.5 H, Lymph % (Auto) 5.4 L, [place] % (Auto) 7.1, Eos % (Auto) 0.2, Baso % (Auto) 0.4, Absolute Neuts (auto) 17.1 H, Absolute Lymphs (auto) 1.08, Nucleated RBC % 0 05/06/22 03:00: PT 13.0, INR 1.0, APTT 34.9 05/06/22 03:00: Sodium 139, Potassium 3.4 L, Chloride 103, Carbon Dioxide 26.0, Anion Gap 10, BUN 31 H, Creatinine 1.06, Estim Creat Clear Calc 44.65, Est GFR (MDRD) Af Amer 85, Est GFR (MDRD) Non-Af 70, BUN/Creatinine Ratio 29.2 H, Glucose 331 H, Calcium 9.7, Troponin I High Sens 24 05/06/22 04:17: Urine Color Yellow, Urine Clarity Clear, Urine pH 7.0, Ur Specific [place] 1.010, Urine Protein 100 H, Urine Glucose (UA) 1000 H, Urine Ketones 15 H, Urine Occult Blood Negative, Urine Nitrite Negative, Urine Bilirubin Negative, Urine Urobilinogen Normal, Ur Leukocyte Esterase Negative, Urine RBC 0 SEEN, Urine WBC 0 SEEN, Ur Squamous Epith Cells 0 SEEN, Urine Bacteria 0 SEEN, Urine Mucus 0 SEEN Radiology Impression Brain CT 05/06/22 02:46 IMPRESSION: No acute intracranial hemorrhage. Findings in keeping with chronic small vessel disease and prior right-sided infarcts. N.B. : The above Results were Read Back by Michael Johnston MD to Christie Stout MD, and understanding confirmed on 05/06/2022 03:05:59 (ET). Electronically Signed: Michael Johnston MD at 3:07 EDT , ADDENDUM: 05/06/22 0314 IMPRESSION: No acute intracranial hemorrhage. Findings in keeping with chronic small vessel disease and prior right-sided infarcts. N.B. : The above Results were Read Back by Michael Johnston MD to Christie Stout MD, and understanding confirmed on 05/06/2022 03:05:59 (ET). Electronically Signed: Michael Johnstno MD at 3:07 EDT , Head/Neck CTA 05/06/22 02:47 IMPRESSION: No evidence of large vessel occlusion. Similar vascular appearance compared to prior MRA 2020 overall. N.B. : The above Results were Read Back by Michael Johnston MD to Christie Stout MD, and understanding confirmed on 05/06/2022 04:10:00 (ET). Electronically Signed: Michael Johnston MD at 4:13 EDT , ADDENDUM: 05/06/22 0420 IMPRESSION: No evidence of large vessel occlusion. Similar vascular appearance compared to prior MRA 2020 overall. N.B. : The above Results were Read Back by Michael Johnston MD to Christie Stout MD, and understanding confirmed on 05/06/2022 04:10:00 (ET). Electronically Signed: Michael Johnston MD at 4:13 EDT , Chest X-Ray 05/06/22 03:35 IMPRESSION: No radiographic evidence of acute cardiopulmonary disease. Stable chest. Electronically Signed: Michael Johnston MD at 3:50 EDT , Assessment & Plan Assessment/Plan (1) Stroke-like symptoms: (2) Type 2 diabetes mellitus: QUALIFIERS: Diabetes mellitus nursing home insulin use: without nursing home use Diabetes mellitus complication status: with other specified complication Qualified Code(s): E11.69 - Type 2 diabetes mellitus with other specified complication PLAN: Plan Stroke-like Symptoms. Serial NINDS NIH Scale ordered Impression of head CT by radiology: No acute intracranial hemorrhage.? Findings in keeping with chronic small vessel disease and prior right-sided infarcts. Upon my personal head CT image review: I agree with radiologist interpretation Head and neck CTA with no evidence of large vessel occlusion and of similar vascular appearance as in 2020. Lipid profile and A1c ordered. Physical therapy, and occupational therapy to work with patient. N.p.o. until bedside swallow eval. Daily aspirin and home Plavix continue High intensity statin continue Permissive hypertension. Control blood pressure with labetalol for systolic blood pressure of more than 220 or diastolic blood pressure of more than 120. MRI of brain ordered. Echocardiogram ordered. Leukocytosis, likely reactive. Chest x-ray is unremarkable. Urinalysis is not remarkable for infection. Trend CBC. Blood cultures ordered emergency department, follow. Lactic acidosis From metformin use. Trend. Diabetes mellitus Patient with hyperglycemia on presentation Glipizide continued. Hold metformin. Monitor Accu-Cheks Correction scale insulin ordered. Hypertension Blood pressure is elevated but acceptable in the setting of strokelike symptoms. Blood pressure control as above. DVT prophylaxis SCDs ordered. Charges/Coding Visit Charges Inpatient E&M: 22150 Init Hosp L3
[2022-05-06 06:02] LABS: Lactic Acid 3.3 mmol/L (0.4-1.9)
--- NOTE | 2022-05-06 06:32 | MRI_ITS ---
STUDY: MRI BRAIN WITHOUT CONTRAST REASON FOR EXAM: Male, 86 years old. CVA TECHNIQUE: Standardized multiplanar fat and water weighted pulse sequences were obtained. COMPARISON: MRI of the brain dated June 08, 2020. Head CT dated May 06, 2022 FINDINGS: There is moderate cerebral atrophy with widening of the extra-axial spaces and ventricular dilatation. There are multiple white matter hyperintensities, distributed throughout the deep white matter tracts of the cerebral hemispheres, consistent with moderate chronic white matter ischemic changes. Normal T2* images of the brain without demonstrated susceptibility artifact. There is no demonstrated hemosiderin stain. There is no evidence for recent intracranial ischemia or other cause of cytotoxic edema on diffusion weighted imaging (DWI). Old lacunar infarcts are present in the right basal ganglia. Normal thalami. There is no extra-axial fluid accumulation. Normal flow voids within the major intracranial circulation suggesting patency by spin echo criteria. Normal sella turcica, pituitary gland, infundibular stalk, optic chiasm and hypothalamus. Normal tectal plate and pineal gland. Normal midbrain, genia and medulla. Normal cerebellum. Normal basal cisterns. Normal bilateral temporal bones. Normal bilateral internal auditory canals. No demonstrated orbital abnormality, within the constraints of a routine brain study. Normal visualized paranasal sinuses. Normal calvarium and skull base. Normal visualized soft tissue structures. Normal visualized upper cervical spine. MRI/Brain without Contrast IMPRESSION: 1. Involutional changes of the brain, as described above. 2. Old lacunar infarct of the right basal ganglia Electronically Signed: Vinh Salter MD at 10:43 EDT ,
--- NOTE | 2022-05-06 06:32 | ECHOD_ITS ---
Reason For Study: TIA/CVA Procedure This was a 2D Doppler, Color Flow transthoracic echocardiogram. Exam performed portable in patient room. Left Ventricle Normal LV size. Left ventricular systolic function is normal. The estimated ejection fraction is 60 %. Stage 1 diastolic dysfunction. No regional wall motion abnormalities noted. Right Ventricle Normal RV size. Normal systolic function. Atria Normal left atrium. Normal right atrium. Mitral Valve There is mild to moderate mitral annular calcification. Mild (1+) mitral valve insufficiency. Tricuspid Valve Normal tricuspid valve. Mild (1+) tricuspid valve insufficiency. Pulmonary artery systolic pressure is 38 mmHg. Aortic Valve Trisinus/trileaflet aortic valve. Mild focal aortic valve calcification. Mild (1+) aortic valve insufficiency. Pulmonic Valve Normal pulmonic valve. Great Vessels Normal aortic root. The pulmonary artery is normal size. Normal inferior vena cava. Pericardium/Pleural No pericardial effusion. MMode/2D Measurements & Calculations LVIDd: 4.2 cm IVSd: 1.1 cm Ao root diam: 3.6 cm LVIDs: 2.4 cm LVPWd: 1.3 cm RVDd: 3.4 cm FS: 43.5 % LAV(MOD-bp): 49.7 ml LVAd ap4: 21.5 cm2 SV(MOD-sp4): 33.9 ml LAV(MOD-bp) Indexed: 29.4 ml/m2 LVLd ap4: 7.6 cm LAV(MOD-sp2): 38.4 ml EDV(MOD-sp4): 51.1 ml LAV(MOD-sp4): 62.6 ml EDV(sp4-el): 51.8 ml LVAs ap4: 11.0 cm2 LVLs ap4: 6.4 cm ESV(MOD-sp4): 17.2 ml ESV(sp4-el): 16.0 ml EF(MOD-sp4): 66.4 % EF(sp4-el): 69.1 % SV(sp4-el): 35.8 ml LA A4 area: 21.5 cm2 LA dimension(2D): 4.0 cm RA A4 area: 9.3 cm2 Time Measurements MV dec time: 0.39 sec Doppler Measurements & Calculations MV E max gus: 130.3 cm/sec Lat Peak E' Gus: 6.9 cm/sec Med Peak E' Gus: 6.2 cm/sec MV A max gus: 139.6 cm/sec E/E' lat: 19.0 E/E' med: 20.9 MV E/A: 0.93 MV V2 max: 148.0 cm/sec Ao V2 max: 139.3 cm/sec MV max P.8 mmHg MV dec slope: 338.1 cm/sec2 Ao max P.8 mmHg MV V2 mean: 78.6 cm/sec Ao V2 mean: 94.6 cm/sec MV mean P.1 mmHg Ao mean P.1 mmHg MV V2 VTI: 53.5 cm Ao V2 VTI: 36.7 cm AV (velocity ratio): 0.95 AI max gus: 362.8 cm/sec LV V1 max: 134.7 cm/sec PA V2 max: 88.7 cm/sec AI max P.7 mmHg LV V1 max P.3 mmHg LV V1 mean P.0 mmHg AI dec slope: 221.0 cm/sec2 LV V1 mean: 94.3 cm/sec AI P1/2t: 481.0 msec LV V1 VTI: 35.0 cm PI end-d gus: 96.8 cm/sec TR max gus: 295.1 cm/sec TR max P.8 mmHg ECHO/Echo Complete Interpretation Summary Normal LV size. Left ventricular systolic function is normal. The estimated ejection fraction is 60 %. Mild (1+) aortic valve insufficiency. Pulmonary artery systolic pressure is 38 mmHg. Stage 1 diastolic dysfunction. Ordering Physician: Jamey Hernandez Referring Physician: Aron Patricia Performed By: Kaylene Villa RDCS, RVT
[2022-05-06 06:55] LABS: Bedside Glucose 358 mg/dL (74-106)
[2022-05-06] MEDS: Insulin Lispro 100 UNIT/ML INSULN.PEN SC ×4 (07:06→21:10)
[2022-05-06 09:28] LABS: Reflex Lactate? Y
[2022-05-06 10:52] LABS: Lactic Acid 2.2 mmol/L (0.4-1.9)
[2022-05-06] MEDS: glipiZIDE 5 MG Tablet PO ×2 (10:56→17:59)
[2022-05-06] MEDS: Tamsulosin HCl 0.4 MG Capsule PO (10:56)
[2022-05-06] MEDS: Sertraline 50 MG Tablet 25 MG PO (10:57)
[2022-05-06] MEDS: Iron Polysaccharide Complex 150 MG CAPSULE PO (10:57)
[2022-05-06] MEDS: Potassium Chloride Oral Tablet 20 MEQ 40 MEQ PO (11:02)
[2022-05-06] MEDS: Glucerna Shake 120 ML LIQUID PO ×2 (12:17→18:02)
[2022-05-06] MEDS: Lisinopril 40 MG Tablet PO (12:17)
[2022-05-06] MEDS: Isosorbide Mononitrate 60 MG Tablet PO (12:17)
[2022-05-06] MEDS: Metoprolol(XL)Succ 50 MG Tablet PO (12:17)
[2022-05-06 12:46] LABS: Bedside Glucose 363 mg/dL (74-106)
--- NOTE | 2022-05-06 13:24 | PN_ITS ---
Subjective Subjective Patient seen and examined. He had no complaints today. He was admitted due to concerns for stroke. He has no complaints this morning. He denies any numbness or tingling, weakness in any extremities, mouth droop, shortness of breath or any other symptoms. He denies any fever or chills and review of systems otherw ise negative. Objective Data Objective Data Vital Signs: Vital Signs Temp Pulse Resp BP Pulse Ox O2 Del Method 97.8 F 73 14 180/80 H 98 Room Air 05/06/22 10:30 05/06/22 12:17 05/06/22 10:30 05/06/22 12:17 05/06/22 10:30 05/06/22 10:30 Oxygen Delivery Method Room Air Weight: 131 lb 6.328 oz Body Mass Index (BMI) 20.5 Lab / Micro Data Result Diagrams: 05/06/22 03:00 05/06/22 03:00 Labs: Laboratory Results - last 24 hr 05/06/22 03:00: WBC 20.0 H, RBC 4.14 L, Hgb 13.3, Hct 40.2, MCV 97.1 H, MCH 32.1 H, MCHC 33.1, RDW Std Deviation 45.9 H, RDW Coeff of Arturo 12.8, Plt Count 230, MPV 11.5, Immature Gran % (Auto) 1.400 H, Neut % (Auto) 85.5 H, Lymph % (Auto) 5.4 L, [place] % (Auto) 7.1, Eos % (Auto) 0.2, Baso % (Auto) 0.4, Absolute Neuts (auto) 17.1 H, Absolute Lymphs (auto) 1.08, Nucleated RBC % 0 05/06/22 03:00: PT 13.0, INR 1.0, APTT 34.9 05/06/22 03:00: Sodium 139, Potassium 3.4 L, Chloride 103, Carbon Dioxide 26.0, Anion Gap 10, BUN 31 H, Creatinine 1.06, Estim Creat Clear Calc 44.65, Est GFR (MDRD) Af Amer 85, Est GFR (MDRD) Non-Af 70, BUN/Creatinine Ratio 29.2 H, Glucose 331 H, Calcium 9.7, Troponin I High Sens 24 05/06/22 04:17: Urine Color Yellow, Urine Clarity Clear, Urine pH 7.0, Ur Specific [place] 1.010, Urine Protein 100 H, Urine Glucose (UA) 1000 H, Urine Ketones 15 H, Urine Occult Blood Negative, Urine Nitrite Negative, Urine Bilirubin Negative, Urine Urobilinogen Normal, Ur Leukocyte Esterase Negative, Urine RBC 0 SEEN, Urine WBC 0 SEEN, Ur Squamous Epith Cells 0 SEEN, Urine Bacteria 0 SEEN, Urine Mucus 0 SEEN 05/06/22 05:22: Lactic Acid 3.3 H* 05/06/22 06:34: POC Glucose 358 H 05/06/22 10:20: Lactic Acid 2.2 H* 05/06/22 12:19: POC Glucose 363 H Radiography Diagnostic Testing: Radiology Impression Brain CT 05/06/22 02:46 IMPRESSION: No acute intracranial hemorrhage. Findings in keeping with chronic small vessel disease and prior right-sided infarcts. N.B. : The above Results were Read Back by Michael Johnston MD to Christie Stout MD, and understanding confirmed on 05/06/2022 03:05:59 (ET). Electronically Signed: Michael Johnston MD at 3:07 EDT , ADDENDUM: 05/06/22 0314 IMPRESSION: No acute intracranial hemorrhage. Findings in keeping with chronic small vessel disease and prior right-sided infarcts. N.B. : The above Results were Read Back by Michael Johnston MD to Christie Stout MD, and understanding confirmed on 05/06/2022 03:05:59 (ET). Electronically Signed: Michael Johnston MD at 3:07 EDT , Head/Neck CTA 05/06/22 02:47 IMPRESSION: No evidence of large vessel occlusion. Similar vascular appearance compared to prior MRA 2020 overall. N.B. : The above Results were Read Back by Michael Johnston MD to Christie Stout MD, and understanding confirmed on 05/06/2022 04:10:00 (ET). Electronically Signed: Michael Johnston MD at 4:13 EDT , ADDENDUM: 05/06/22 0420 IMPRESSION: No evidence of large vessel occlusion. Similar vascular appearance compared to prior MRA 2020 overall. N.B. : The above Results were Read Back by Michael Johnston MD to Christie Stout MD, and understanding confirmed on 05/06/2022 04:10:00 (ET). Electronically Signed: Michael Johnston MD at 4:13 EDT , Chest X-Ray 05/06/22 03:35 IMPRESSION: No radiographic evidence of acute cardiopulmonary disease. Stable chest. Electronically Signed: Michael Johnston MD at 3:50 EDT , Brain MRI 05/06/22 06:32 IMPRESSION: 1. Involutional changes of the brain, as described above. 2. Old lacunar infarct of the right basal ganglia Electronically Signed: Vinh Salter MD at 10:43 EDT , Physical Exam Const alert, oriented x3 and no apparent distress General Appearance: cooperative HEENT normocephalic, head/scalp atraumatic and moist oral mucous membranes Eyes PERRL and EOMs intact bilaterally Neck supple and no JVD Lymph Lymphatic: no lymphadenopathy noted Resp normal respiratory effort, normal air movement and clear to auscultation bilaterally Cardio regular rate, regular rhythm, S1 normal heart sound, S2 normal heart sound and no murmurs GI normal to inspection, nondistended, normoactive bowel sounds, soft to palpation and non-tender Extremity normal capillary refill, no clubbing, cyanosis or edema and no calf tenderness Skin General Skin Exam: no breakdown Neuro CN's II-XII intact bilaterally, no focal motor deficits, no sensory deficits noted and deep tendon reflexes 2+ bilaterally Motor Exam: strength 5/5 throughout Psych thought process normal Assessment & Plan Assessment/Plan (1) Fatigue: (2) Weakness: PLAN: Plan #Stroke like symptoms * admitted with concerns about worsening mouth droop * 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 There was concern this was worsening * CT fo the brain negative for any acute stroke, and MRI of brain also negative for stroke * CTA head and neck showed no evidence of large vessel occlusion * on aspirin and plavix as well as high intensity statin * 2D echo ordered, will be done tomorrow * PT/OT on board * fall precautions * #Leucocytosis * his wbc is 20 today, and he also had elevated lactic acid * he denies any cough or shortness of breath, nor any urinary symptoms. * blood cultures ordered * leucocytosis may be reactive; will hold off on antibiotics for now * #LAtic acidosis: metformin hon hold. Being gently hydrated with IVF #Type 2 diabetes mellitus * on glipizide. metformin on hold. ISS. Accuchecks ACHS * #Hypertension * BP meds held to allow for permissive hypertension * BP elevated today * will resume BP meds; amlodipine, lisinopril and metoprolol * DVT prophylaxis: lovenox Disposition; for likely dc over hte next 24-48 hours * # Charges/Coding Visit Charges Inpatient E&M: 84584 Subs Hosp L2
[2022-05-06] MEDS: 0.9% Saline Lock 10 ML Syringe IV ×2 (15:33→21:10)
[2022-05-06] MEDS: 0.9% Normal Saline 1,000 ML 125 ML IV ×2 (15:40→22:16)
[2022-05-06 17:20] LABS: Bedside Glucose 289 mg/dL (74-106)
[2022-05-06] MEDS: Primidone 50 MG Tablet PO (17:59)
[2022-05-06] MEDS: Atorvastatin Calcium 80 MG Tablet PO (21:10)
[2022-05-06] MEDS: Aspirin 81 MG TAB.CHEW PO (21:10)
[2022-05-06] MEDS: amLODIPine 10 MG Tablet PO (21:10)
[2022-05-06] MEDS: Clopidogrel Bisulfate 75 MG Tablet PO (21:10)
[2022-05-06] MEDS: Metoprolol(XL)Succ 25 MG Tablet PO (21:10)
[2022-05-06 21:56] LABS: Bedside Glucose 263 mg/dL (74-106)
[2022-05-07] VITALS (9 sets, daily range): BP systolic 134–166; BP diastolic 67–78; PULSE 56–65; RESP 16; TEMP 36.7–37.1; O2SAT 93–96; BMI 20.5
[2022-05-07] MEDS: Acetaminophen 325 MG Tablet 650 MG PO ×2 (03:38→14:27)
[2022-05-07 06:26] LABS: Absolute Lymphocyte Count 1.26 X10^3/uL (0.83-4.51); Absolute Neutrophil Count 10.9 X10^3/uL (2.0-7.7); Basophil# 0.03 X10^3/uL; Basophil% 0.2 % (0-1); Eosinophil# 0.16 X10^3/uL; Eosinophils% 1.1 % (0-5); Hematocrit 33.9 % (40-54); Hemoglobin 11.4 g/dL (13.0-16.5); Lymphocyte # 1.26 X10^3/ul (0.83-4.51); Mean Corp Hgb Conc 33.6 g/dL (32-36); Mean Corpuscular Volume 95.2 fL (80-94); Mean Platelet Vol. 11.4 fl (6.2-12.0); Monocyte# 1.61 X10^3/uL; Monocyte% 11.5 % (0-10); NRBC Flagged by Analyzer 0 % (0-5); Neutrophil # 10.87 X10^3/uL (2.7-7.7); Neutrophil % 77.4 % (47-70); POSITIVE DIFFERENTIAL YES; Platelet Count 215 K/mm3 (150-450); RBC Distribution Width CV 12.8 % (11.6-14.6); RBC Distribution Width SD 44.7 fl (35.1-43.9); Red Blood Count 3.56 M/mm3 (4.6-6.2)
[2022-05-07 06:54] LABS: Anion Gap 6 (5-15); BUN 24 mg/dL (7-18); BUN/Creat Ratio 27.7 RATIO (10-20); Calcium,Total 8.7 mg/dL (8.5-10.1); Chloride 104 mmol/L (98-107); Cholesterol 109 mg/dL (200); Creatinine, Serum 0.87 mg/dL (0.70-1.30); EST Glomerular Filtration Rate 89 mL/min (>60); Est Glom Filt Rate - Afr Amer 107 mL/min (>60); Estimated Creatinine Clearance 51.38 ml/min; Glucose 159 mg/dL (74-106); High Density Lipoprotein 41 mg/dL; Potassium 3.5 mmol/L (3.5-5.1); Sodium Level 137 mmol/L (136-145); Triglycerides 69 mg/dL; Very Low Density Lipoprotein 14 mg/dL (5-40)
[2022-05-07 07:00] LABS: Differential Indicated SCAN CRITERIA MET
[2022-05-07 07:00] LABS: Bedside Glucose 168 mg/dL (74-106)
[2022-05-07] MEDS: Glucerna Shake 120 ML LIQUID PO ×3 (07:59→16:29)
[2022-05-07] MEDS: glipiZIDE 5 MG Tablet PO ×2 (07:59→16:29)
[2022-05-07 08:43] LABS: Hemoglobin A1c 7.5 % (3.8-5.6)
[2022-05-07] MEDS: Sertraline 50 MG Tablet 25 MG PO (09:08)
[2022-05-07] MEDS: Lisinopril 40 MG Tablet PO (09:08)
[2022-05-07] MEDS: Tamsulosin HCl 0.4 MG Capsule PO (09:09)
[2022-05-07] MEDS: Iron Polysaccharide Complex 150 MG CAPSULE PO (09:09)
[2022-05-07] MEDS: Metoprolol(XL)Succ 50 MG Tablet PO (09:09)
[2022-05-07] MEDS: Isosorbide Mononitrate 60 MG Tablet PO (10:12)
[2022-05-07] MEDS: Insulin Lispro 100 UNIT/ML INSULN.PEN SC ×2 (10:57→16:26)
--- NOTE | 2022-05-07 11:40 | CASEMGMT ---
RN CM Face to Face with patient for initial transition planning/care coordination assessment. RN CM introduced self and role at [facility]. Patient lying in bed, alert and oriented, at bedside. Patient willing to participate in assessment and is able to answer all questions appropriately. Care providers, pharmacy, and demographics verified. Patient wishes to discharge home but is willing to go to SNF if needed. A list of SNF providers including quality and resource use data and consistent with the patient?s preferred geographical region, medical needs, and insurance network were provided from the [employer] Guide. Patient and prefer TCU, SW updated. Patient states he has no further needs or concerns at this time. CM to follow for discharge planning needs that may arise. PCP: [facility] Specialists: Casimiro coremaker machine Preferred Pharmacy: [facility] Insurance: [facility] [employer] Prescription Benefit: yes Living Will/HPOA: yes, Gail Gagnon LNOK: Living Arrangements: Patient lives with in a single story condo with 1 steps to enter. Patient states he is independent with bathing and toileting. assists with dressing. Transportation: DME/HHC: Gaby has shower chair, raised toilet, grab bars, walker, rollator, and wheelchair. Patient has had [facility] HHC in the past. Patient has previously been to rehab unit. Disposition Plan: TBD anticipate SNF at discharge. Breanne FRANK, RN, CM
[2022-05-07 11:55] LABS: Bedside Glucose 391 mg/dL (74-106)
--- NOTE | 2022-05-07 12:40 | CASEMGMT ---
Social Work Per RNCM, pt and requesting SNF placement and preferred provider is TCU. Referral made to TCU. SW will await determination of acceptance. Plan: TCU, pending acceptance MARY Santana
--- NOTE | 2022-05-07 12:43 | PN_ITS ---
Subjective Subjective Patient seen and examined. HE had no complaints and had an uneventful night. Review of systems is otherwise negative. HE is mildly bradycardic but has remained stable otherwise. HE was a 2 person assist overnight, per his nurses. Objective Data Objective Data Vital Signs: Vital Signs Temp Pulse Resp BP Pulse Ox O2 Del Method 98.0 F 58 L 16 142/67 H 96 Room Air 05/07/22 09:08 05/07/22 09:09 05/07/22 09:08 05/07/22 09:09 05/07/22 09:08 05/07/22 09:08 Oxygen Delivery Method Room Air Weight: 131 lb 6.328 oz Body Mass Index (BMI) 20.5 Intake & Output: Intake and Output for Last 24 Hours 05/05/22 05/06/22 05/07/22 23:59 23:59 23:59 Intake Total 1775 / 1825 1450.83 / 1450.83 Output Total 1200 / 1400 975 / 975 Balance 575 / 425 475.83 / 475.83 Lab / Micro Data Result Diagrams: 05/07/22 05:55 05/07/22 05:55 Labs: Laboratory Results - last 24 hr 05/06/22 12:19: POC Glucose 363 H 05/06/22 16:54: POC Glucose 289 H 05/06/22 21:08: POC Glucose 263 H 05/07/22 05:55: WBC 14.0 H, RBC 3.56 L, Hgb 11.4 L, Hct 33.9 L, MCV 95.2 H, MCH 32.0, MCHC 33.6, RDW Std Deviation 44.7 H, RDW Coeff of Arturo 12.8, Plt Count 215, MPV 11.4, Immature Gran % (Auto) 0.800, Neut % (Auto) 77.4 H, Lymph % (Auto) 9.0 L, Bosque % (Auto) 11.5 H, Eos % (Auto) 1.1, Baso % (Auto) 0.2, Absolute Neuts (auto) 10.9 H, Absolute Lymphs (auto) 1.26, Nucleated RBC % 0, Differential Comm ent COMMENT, Diff Path Review June05/07/22 05:55: Sodium 137, Potassium 3.5, Chloride 104, Carbon Dioxide 27.0, Anion Gap 6, BUN 24 H, Creatinine 0.87, Estim Creat Clear Calc 51.38, Est GFR (MDRD) Af Amer 107, Est GFR (MDRD) Non-Af 89, BUN/Creatinine Ratio 27.7 H, Glucose 159 H, Calcium 8.7, Triglycerides 69, Cholesterol 109, LDL Cholesterol 54, VLDL Cholesterol 14, HDL Cholesterol 41 05/07/22 05:55: Hemoglobin A1c 7.5 H 05/07/22 06:23: POC Glucose 168 H 05/07/22 10:56: POC Glucose 391 H Radiography Diagnostic Testing: Radiology Impression Echocardiogram 05/06/22 06:32 Interpretation Summary Normal LV size. Left ventricular systolic function is normal. The estimated ejection fraction is 60 %. Mild (1+) aortic valve insufficiency. Pulmonary artery systolic pressure is 38 mmHg. Stage 1 diastolic dysfunction. Ordering Physician: Jamey Hernandez Referring Physician: Aron Patricia Performed By: Kaylene Villa, TONO, RVT Physical Exam Const alert, oriented x3 and no apparent distress General Appearance: cooperative HEENT normocephalic, head/scalp atraumatic and moist oral mucous membranes Eyes PERRL and EOMs intact bilaterally Neck supple and no JVD Lymph Lymphatic: no lymphadenopathy noted Resp normal respiratory effort, normal air movement and clear to auscultation bilaterally Cardio regular rhythm, S1 normal heart sound, S2 normal heart sound and no murmurs Cardio Narrative: mildly bradycardic GI normal to inspection, nondistended, normoactive bowel sounds, soft to palpation and non-tender Extremity normal capillary refill, no clubbing, cyanosis or edema and no calf tenderness Skin General Skin Exam: no breakdown Neuro CN's II-XII intact bilaterally, no focal motor deficits, no sensory deficits noted and deep tendon reflexes 2+ bilaterally Motor Exam: strength 5/5 throughout Psych thought process normal Assessment & Plan Assessment/Plan (1) Fatigue: (2) Weakness: PLAN: Plan #Stroke like symptoms * admitted with concerns about worsening mouth droop * 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 There was concern this was worsening * CT fo the brain negative for any acute stroke, and MRI of brain also negative for stroke * CTA head and neck showed no evidence of large vessel occlusion * on aspirin and plavix as well as high intensity statin * 2D echo showed normal LV size and systolic function, as well as EF of 60% with pulmonary artery systolic pressure of 38mmhg and stage 1 diastolic dysfunction * PT/OT on board * fall precautions * #Leucocytosis * WBC trended down to 14 today. Blood cultures pending. * Has no evidence of infection. Will monitor. * leucocytosis thought to be reactive * #LAtic acidosis:improved after hydration. #Type 2 diabetes mellitus * on glipizide. metformin on hold. ISS. Accuchecks ACHS * #Hypertension * BP meds held to allow for permissive hypertension * BP meds resumed yesterday: amlodipine, lisinopril and metoprolol * DVT prophylaxis: lovenox Disposition;may need placement as he is a heavy 2 person assist. Await P/OT recommendations. Case management on board to help with discharge planning. * # Charges/Coding Visit Charges Inpatient E&M: 56438 Subs Hosp L2
--- NOTE | 2022-05-07 16:09 | CASEMGMT ---
POLINA CHEUNG in to complete VAZQUEZ Form with patient. POLINA CHEUNG explained VAZQUEZ form to patient and , both voiced understanding. Patient preferred to maria isabel VAZQUEZ form. signed VAZQUEZ Form and filed in chart. Patient provided with copy of signed VAZQUEZ form. Patient and had no further questions or concerns at this time.
[2022-05-07] MEDS: Primidone 50 MG Tablet PO (16:26)
[2022-05-07 16:51] LABS: Bedside Glucose 254 mg/dL (74-106)
[2022-05-07] MEDS: Clopidogrel Bisulfate 75 MG Tablet PO (21:17)
[2022-05-07] MEDS: Aspirin 81 MG TAB.CHEW PO (21:18)
[2022-05-07] MEDS: Metoprolol(XL)Succ 25 MG Tablet PO (21:18)
[2022-05-07] MEDS: Atorvastatin Calcium 80 MG Tablet PO (21:18)
[2022-05-07] MEDS: amLODIPine 10 MG Tablet PO (21:18)
[2022-05-08 00:37] VITALS: BMI 20.5
[2022-05-08 03:10] VITALS: BP 162/100; PULSE 63; RESP 18; TEMP 36.3; O2SAT 95
[2022-05-08] MEDS: Acetaminophen 325 MG Tablet 650 MG PO ×2 (04:15→11:14)
[2022-05-08 05:55] LABS: Bedside Glucose 141 mg/dL (74-106)
[2022-05-08] MEDS: Insulin Lispro 100 UNIT/ML INSULN.PEN SC ×2 (06:28→11:22)
[2022-05-08 07:10] LABS: Bedside Glucose 183 mg/dL (74-106)
[2022-05-08 07:44] VITALS: O2SAT 95
[2022-05-08] MEDS: Glucerna Shake 120 ML LIQUID PO ×2 (08:04→11:14)
[2022-05-08] MEDS: glipiZIDE 5 MG Tablet PO (08:05)
[2022-05-08] MEDS: 0.9% Saline Lock 10 ML Syringe IV (08:06)
[2022-05-08] MEDS: Senna/Docusate Sodium 1 Tablet 2 TABLET PO (08:17)
[2022-05-08 09:14] LABS: Pathologist Review Reviewed
[2022-05-08 09:35] VITALS: BP 129/69; PULSE 55; RESP 18; TEMP 36.7; O2SAT 95
[2022-05-08] MEDS: Tamsulosin HCl 0.4 MG Capsule PO (09:38)
[2022-05-08] MEDS: Lisinopril 40 MG Tablet PO (09:38)
[2022-05-08] MEDS: Iron Polysaccharide Complex 150 MG CAPSULE PO (09:38)
[2022-05-08] MEDS: Isosorbide Mononitrate 60 MG Tablet PO (09:38)
[2022-05-08] MEDS: Sertraline 50 MG Tablet 25 MG PO (09:38)
[2022-05-08 10:00] VITALS: O2SAT 97
[2022-05-08 10:20] VITALS: O2SAT 97
--- NOTE | 2022-05-08 10:24 | TREXTCAR_ITS ---
Diet Diet Order/Speech Therapy: 05/06/22 06:33 Diet: Cardiac: Calorie-Controlled Food consistency:: Regular Liquid Consistency:: Regular/Thin How many daily calories?: 1800 calorie Routine Orders/Code Status Enema Type: Fleetz Enema Frequency: Daily PRN Suppository Type: Dulcolax 10mg Suppository Frequency: Daily PRN O2 Frequency: PRN Keep PO Greater than or Equal to (%): 90 Therapies Weight Bearing: Weight bearing as tolerated Physical Therapy: Eval and Treat Occupational Therapy: Eval and Treat Problem/Diagnosis (1) Fatigue: Status: Chronic Code(s): R53.83 - Other fatigue (2) Weakness: Status: Acute Code(s): R53.1 - Weakness Plan #Stroke like symptoms * admitted with concerns about worsening mouth droop * 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 There was concern this was worsening * CT fo the brain negative for any acute stroke, and MRI of brain also negative for stroke * CTA head and neck showed no evidence of large vessel occlusion * on aspirin and plavix as well as high intensity statin * 2D echo showed normal LV size and systolic function, as well as EF of 60% with pulmonary artery systolic pressure of 38mmhg and stage 1 diastolic dysfunction * PT/OT on board * fall precautions * #Leucocytosis * WBC trended down to 14 today. Blood cultures pending. * Has no evidence of infection. Will monitor. * leucocytosis thought to be reactive * #LAtic acidosis:improved after hydration. #Type 2 diabetes mellitus * on glipizide. metformin on hold. ISS. Accuchecks ACHS * #Hypertension * BP meds held to allow for permissive hypertension * BP meds resumed yesterday: amlodipine, lisinopril and metoprolol * DVT prophylaxis: lovenox Disposition;may need placement as he is a heavy 2 person assist. Await P/OT recommendations. Case management on board to help with discharge planning. * # Allergies/Procedures Done in Hospital Allergies iodine Allergy (Verified 03/02/22 13:10) Rash Procedures: 2-D Echocardiogram Type of Care/Length of Stay Estimated LOS: Convalescent Care Less Than 30 days Type of Care Needed: Skilled Rehab Potential: Fair Prognosis: Fair Additional Orders/Day of Discharge Day of Discharge: 05/08/22 Dietary and Speech Recommendations Dietitian Recommendations/Changes: Continue 1800 CCD/Cardiac diet to manage medical conditions. RD will order 120mL Glucerna TID with medpass to promote weight stabilization. Discharge Plan Admission Admit Date/Time: 05/06/22 05:16 Primary Reason for Your Visit: stroke like symptoms Attending Provider: Oksana Rodrigues Primary Care Provider: Aron Patricia Consulting Providers: Jamey Hernandez Patient Instructions: ED TIA: Transient Ischemic Attack Discharge Orders/Prescriptions Prescriptions: Continued His Defense PO DAILY Rx Instructions: [place]/prostate health Curcumed See Rx Instructions PO .COMPLEX Rx Instructions: joint health PO; joint health nerve renew PO Rx Instructions: B12 / R Alpha Lipoic acid (DME) Blood Pressure Cuff Misc See Rx Instructions .ROUTE .MEDSUPPLY Qty: 1 0RF Rx Instructions: As directed (DME) Juxtalite See Rx Instructions .Route .MEDSUPPLY Qty: 1 0RF Rx Instructions: Knee High. 30 - 40mmHg amlodipine 10 mg tablet 10 mg PO QHS Qty: 90 3RF polysaccharide iron complex [Ferrex 150] 150 mg iron capsule 150 mg PO DAILY Qty: 90 2RF sertraline 25 mg tablet 25 mg PO DAILY Qty: 90 3RF aspirin 81 MG tablet,chewable 81 mg PO QHS acetaminophen 325 MG tablet 650 mg PO Q6H PRN PRN (Reason: Pain Score 1-10/Temp > 100.7 F) 0RF sennosides-docusate sodium 1 TABLET tablet 2 tablet PO BID PRN PRN (Reason: Constipation) 0RF melatonin 3 MG tablet 3 mg PO QHS PRN PRN (Reason: Insomnia) 0RF polysaccharide iron complex [Ferrex 150] 150 mg iron Capsule 150 mg PO DAILY tamsulosin 0.4 mg capsule 0.4 mg PO DAILY clopidogrel [Plavix] 75 mg tablet 75 mg PO QHS glipizide 5 mg tablet 5 mg PO BID (DME) blood sugar diagnostic strip See Dose Instructions .ROUTE .MEDSUPPLY Qty: 100 3RF Dose Instruction: As directed Rx Instructions: As directed (DME) blood-glucose meter [OneTouch Ultra2 Meter] Misc See Rx Instructions .ROUTE .MEDSUPPLY Qty: 1 0RF Rx Instructions: As directed (DME) One touch ultra blue strip Qty: 100 3RF Dose Instruction: As directed Rx Instructions: Check blood sugar twice daily. (DME) Ultra-Light Rollator Misc See Rx Instructions .ROUTE .MEDSUPPLY Qty: 1 0RF Rx Instructions: As directed atorvastatin 80 mg tablet 80 mg PO QHS Qty: 90 3RF isosorbide mononitrate 60 mg tablet extended release 24 hr 60 mg PO DAILY Qty: 90 1RF metoprolol succinate 25 mg tablet extended release 24 hr 25 mg PO .PM Qty: 90 1RF metoprolol succinate 50 mg tablet extended release 24 hr 50 mg PO QAM Qty: 90 1RF metformin 1,000 mg tablet 1,000 mg PO BID Qty: 180 3RF primidone 50 mg tablet 50 mg PO 1600 Qty: 90 0RF lisinopril 40 mg tablet 40 mg PO QDAY Qty: 90 0RF Referrals / Follow Up: Aron Patricia MD [Primary Care Provider] - Within 2 Weeks Disposition Disposition (needs filled in before D/C Order can be placed): [facility] Charges/Coding Visit Charges Inpatient E&M: 03834 Disch Hosp >30min
--- NOTE | 2022-05-08 10:26 | CASEMGMT ---
Patient was accepted at [facility]. SW notified patient that [facility] can take him and he will go today. SW notified physician. Await orders. Arminda ALBERT
--- NOTE | 2022-05-08 10:38 | PHA.DC.MR ---
Pharmacy Service has performed discharge medication reconciliation for this patient. The patient's discharge medication list was reviewed for discrepancies and discrepancies were resolved. Home Medications aspirin 81 mg chewable tablet 81 mg PO QHS heart 08/28/17 blood sugar diagnostic #100 ea 05/16/18 Curcumed See Rx Instructions PO .COMPLEX joint [employer] 12/01/19 His Defense PO DAILY 12/01/19 nerve renew PO vitamin 12/01/19 blood-glucose meter ([employer] Ultra2 Meter) #1 ea 03/29/20 One touch ultra blue strip #100 ea 06/06/20 acetaminophen 325 mg tablet 650 mg PO Q6H PRN PRN Pain Score 1-10/Temp > 100.7 F 06/09/20 melatonin 3 mg tablet 3 mg PO QHS PRN PRN Insomnia 06/09/20 sennosides 8.6 mg-docusate sodium 50 mg tablet 2 tablet PO BID PRN PRN Constipation 06/09/20 miscellaneous medical supply (Blood Pressure Cuff) #1 ea 08/09/20 walker (Ultra-Light Rollator mis) #1 ea 10/17/20 Juxtalite #1 ea 11/09/20 atorvastatin 80 mg tablet 80 mg PO QHS #90 TABLETS 07/10/21 amlodipine 10 mg tablet 10 mg PO QHS blood pressure #90 tabs 08/28/21 polysaccharide iron complex 150 mg iron capsule (Ferrex) 150 mg PO DAILY #90 caps 08/28/21 sertraline 25 mg tablet 25 mg PO DAILY #90 tabs 08/28/21 isosorbide mononitrate 60 mg tablet,extended release 24 hr 60 mg PO DAILY #90 tabs 02/15/22 metoprolol succinate 25 mg tablet,extended release 24 hr 25 mg PO .PM #90 tabs 02/15/22 metoprolol succinate 50 mg tablet,extended release 24 hr 50 mg PO QAM #90 tabs 02/15/22 metformin 1,000 mg tablet 1,000 mg PO BID blood sugar #180 tabs 02/20/22 lisinopril 40 mg tablet 40 mg PO QDAY bp #90 tabs 03/19/22 primidone 50 mg tablet 50 mg PO 1600 #90 tabs 03/19/22 clopidogrel 75 mg tablet (Plavix) 75 mg PO QHS 05/06/22 glipizide 5 mg tablet 5 mg PO BID blood sugar 05/06/22 tamsulosin 0.4 mg capsule 0.4 mg PO DAILY 05/06/22
[2022-05-08 10:45] VITALS: BMI 20.5
[2022-05-08 12:01] LABS: Bedside Glucose 342 mg/dL (74-106)
--- NOTE | 2022-05-08 12:18 | CASEMGMT ---
SW sent orders and COVID test to [facility] via [facility]. SW will work on setting up transportation. Arminda Vences COVERING [employer]ING SUPERVISOR SHEET METAL APPRENTICE
--- NOTE | 2022-05-08 12:30 | CASEMGMT ---
SW spoke with patient and his . LUBA introduced self and role at [facility]. LUBA explained SW can set up wheelchair transport, but it is not covered by insurance. Patient's said she would prefer to take patient. LUBA told them SW will let [facility] know. Plan: d/c to [facility] under skilled level of care on a PASRR as patient was observation status. Patient's transported patient. Arminda ALBERT
--- NOTE | 2022-05-08 12:43 | DS.PCM_ITS ---
Providers Date of Admission: 05/06/22 Date of Discharge: 05/08/22 Primary Care Physician: Dr. 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 There was concern this was worsening * CT fo the brain negative for any acute stroke, and MRI of brain also negative for stroke * CTA head and neck showed no evidence of large vessel occlusion * on aspirin and plavix as well as high intensity statin * 2D echo showed normal LV size and systolic function, as well as EF of 60% with pulmonary artery systolic pressure of 38mmhg and stage 1 diastolic dysfunction * PT/OT on board * fall precautions * #Leucocytosis * WBC trended down to 14 today. Blood cultures pending. * Has no evidence of infection. Will monitor. * leucocytosis thought to be reactive * #LAtic acidosis:improved after hydration. #Type 2 diabetes mellitus * on glipizide. metformin on hold. ISS. Accuchecks ACHS * #Hypertension * BP meds held to allow for permissive hypertension * BP meds resumed yesterday: amlodipine, lisinopril and metoprolol * DVT prophylaxis: lovenox Disposition;may need placement as he is a heavy 2 person assist. Await P/OT recommendations. Case management on board to help with discharge planning. * # Medications at Discharge Home Medications aspirin 81 mg chewable tablet 81 mg PO QHS heart 08/28/17 blood sugar diagnostic #100 ea 05/16/18 Curcumed See Rx Instructions PO .COMPLEX Virool health 12/01/19 His Defense PO DAILY 12/01/19 nerve renew PO vitamin 12/01/19 blood-glucose meter (OneTouch Ultra2 Meter) #1 ea 03/29/20 One touch ultra blue strip #100 ea 06/06/20 acetaminophen 325 mg tablet 650 mg PO Q6H PRN PRN Pain Score 1-10/Temp > 100.7 F 06/09/20 melatonin 3 mg tablet 3 mg PO QHS PRN PRN Insomnia 06/09/20 sennosides 8.6 mg-docusate sodium 50 mg tablet 2 tablet PO BID PRN PRN Constipation 06/09/20 miscellaneous medical supply (Blood Pressure Cuff) #1 ea 08/09/20 walker (Ultra-Light Rollator mis) #1 ea 10/17/20 Juxtalite #1 ea 11/09/20 atorvastatin 80 mg tablet 80 mg PO QHS #90 TABLETS 07/10/21 amlodipine 10 mg tablet 10 mg PO QHS blood pressure #90 tabs 08/28/21 polysaccharide iron complex 150 mg iron capsule (Ferrex) 150 mg PO DAILY #90 caps 08/28/21 sertraline 25 mg tablet 25 mg PO DAILY #90 tabs 08/28/21 isosorbide mononitrate 60 mg tablet,extended release 24 hr 60 mg PO DAILY #90 tabs 02/15/22 metoprolol succinate 25 mg tablet,extended release 24 hr 25 mg PO .PM #90 tabs 02/15/22 metoprolol succinate 50 mg tablet,extended release 24 hr 50 mg PO QAM #90 tabs 02/15/22 metformin 1,000 mg tablet 1,000 mg PO BID blood sugar #180 tabs 02/20/22 lisinopril 40 mg tablet 40 mg PO QDAY bp #90 tabs 03/19/22 primidone 50 mg tablet 50 mg PO 1600 #90 tabs 03/19/22 clopidogrel 75 mg tablet (Plavix) 75 mg PO QHS 05/06/22 glipizide 5 mg tablet 5 mg PO BID blood sugar 05/06/22 tamsulosin 0.4 mg capsule 0.4 mg PO DAILY 05/06/22 Hospital Course Operations None Procedures 2-D Echocardiogram Summary of Care Provided Minutes Spent on Discharge: 50 Hospital Course: Patient is an 86-year-old male with a past medical history as outlined including a history of right-sided CVA and left-sided CVA with residual facial droop about 2 years prior to admission. He was admitted through the ED on 05/06/2022 with a complaint of strokelike symptoms. His last known well was around 9 PM the day before admission. He woke up at around 12:30 AM and had a funny feeling and also felt dizzy. He also had nausea and vomiting. He was brought into the ED where he was evaluated by the telestroke neurologist and was not deemed a candidate for tPA. was also concerned that his left-sided facial droop had worsened. Patient was therefore admitted to managed for strokelike symptoms r ule out a stroke. CT of the brain was negative for any evidence of a stroke and MRI of the brain was also negative for stroke. 2D echo showed EF of 60% with normal left ventricular size and systolic function and pulmonary artery systolic pressure of 38 mmHg with stage I diastolic dysfunction. Of note he also had leukocytosis on admission which was thought to be reactive. WBC was 20 and subsequently trended down. Urinalysis showed no evidence of infection and chest x-ray showed no evidence of pneumonia. He also denied any shortness of breath or coughing. Blood cultures were obtained which were negative. His blood pressure medications were initially held but was subsequently resumed. Patient remained quite debilitated and required a two-person assist. He was therefore skilled as needing and mcfp. He was discharged to [facility] on 05/08/2022. He is follow-up with his primary care doctor within 1 to 2 weeks. Patient seen and examined prior to discharge. He had no complaints. Review of systems otherwise negative. Labs and vitals reviewed. Medication reviewed and reconciled. Physical Exam Const alert, oriented x3 and no apparent distress General Appearance: cooperative, comfortable and well kempt HEENT normocephalic, head/scalp atraumatic, hearing grossly normal bilaterally and moist oral mucous membranes Mouth: oral and palatal mucosa normal Eyes PERRL and EOMs intact bilaterally Neck no lymphadenopathy, supple and no JVD Lymph Lymphatic: no lymphadenopathy noted and no lymphedema noted Resp normal respiratory effort, normal air movement and clear to auscultation bilaterally Cardio regular rate, regular rhythm, S1 normal heart sound, S2 normal heart sound and no murmurs Cardio Narrative: mildly bradycardic GI normal to inspection, nondistended, normoactive bowel sounds, soft to palpation and non-tender Extremity normal to inspection, full ROM, normal capillary refill, no clubbing, cyanosis or edema and no calf tenderness Skin General Skin Exam: no breakdown Neuro oriented x3, CN's II-XII intact bilaterally, moves all extremities, no focal motor deficits, no sensory deficits noted and deep tendon reflexes 2+ bilaterally Sensorium / Orientation: awake Motor Exam: strength 5/5 throughout Psych thought process normal Weight / BMI Weight Weight: 131 lb 6.328 oz Body Mass Index (BMI) 20.5 ABG / Lab / Microbiology Data Result Diagrams: 05/07/22 05:55 05/07/22 05:55 Laboratory: Laboratory Results - last 24 hr 05/07/22 05:55: Diff Path Review Reviewed 05/07/22 16:21: POC Glucose 254 H 05/07/22 21:24: POC Glucose 141 H 05/08/22 06:20: POC Glucose 183 H 05/08/22 11:19: POC Glucose 342 H Microbiology: Microbiology 05/08/22 11:10 Nasal Secretion SARS-CoV-2 Antigen (Rapid) - Final 05/06/22 05:22 Blood Culture (Wb) - Right Forearm Blood Culture - Preliminary No growth in 48 hours. 05/06/22 05:22 Blood Culture (Wb) - Anticubital Right Blood Culture - Preliminary No growth in 48 hours. D/C Instructions Discharge Diet: Low fat / Low cholesterol Discharge Activity: Return to Normal Activity Call your doctor if you observe: Fever of 101 or Higher, Shortness of breath, Chest pain and Increased palpitations (irregular heartbeat) Meaningful Use Info Meaningful Use Diagnoses (Choose all that apply): None applicable Discharge Plan Admission Admit Date/Time: 05/06/22 05:16 Primary Reason for Your Visit: stroke like symptoms Attending Provider: Oksana Rodrigues Primary Care Provider: Aron Patricia Consulting Providers: Jamey Hernandez Instructions Patient Instructions: ED TIA: Transient Ischemic Attack Discharge Orders/Prescriptions Prescriptions: Continued His Defense PO DAILY Rx Instructions: [place]/prostate health Curcumed See Rx Instructions PO .COMPLEX Rx Instructions: joint health PO; joint health nerve renew PO Rx Instructions: B12 / R Alpha Lipoic acid (DME) Blood Pressure Cuff Misc See Rx Instructions .ROUTE .MEDSUPPLY Qty: 1 0RF Rx Instructions: As directed (DME) Juxtalite See Rx Instructions .Route .MEDSUPPLY Qty: 1 0RF Rx Instructions: Knee High. 30 - 40mmHg amlodipine 10 mg tablet 10 mg PO QHS Qty: 90 3RF polysaccharide iron complex [Ferrex 150] 150 mg iron capsule 150 mg PO DAILY Qty: 90 2RF sertraline 25 mg tablet 25 mg PO DAILY Qty: 90 3RF aspirin 81 MG tablet,chewable 81 mg PO QHS acetaminophen 325 MG tablet 650 mg PO Q6H PRN PRN (Reason: Pain Score 1-10/Temp > 100.7 F) 0RF sennosides-docusate sodium 1 TABLET tablet 2 tablet PO BID PRN PRN (Reason: Constipation) 0RF melatonin 3 MG tablet 3 mg PO QHS PRN PRN (Reason: Insomnia) 0RF tamsulosin 0.4 mg capsule 0.4 mg PO DAILY clopidogrel [Plavix] 75 mg tablet 75 mg PO QHS glipizide 5 mg tablet 5 mg PO BID (DME) blood sugar diagnostic strip See Dose Instructions .ROUTE .MEDSUPPLY Qty: 100 3RF Dose Instruction: As directed Rx Instructions: As directed (DME) blood-glucose meter [OneTouch Ultra2 Meter] Misc See Rx Instructions .ROUTE .MEDSUPPLY Qty: 1 0RF Rx Instructions: As directed (DME) One touch ultra blue strip Qty: 100 3RF Dose Instruction: As directed Rx Instructions: Check blood sugar twice daily. (DME) Ultra-Light Rollator Misc See Rx Instructions .ROUTE .MEDSUPPLY Qty: 1 0RF Rx Instructions: As directed atorvastatin 80 mg tablet 80 mg PO QHS Qty: 90 3RF isosorbide mononitrate 60 mg tablet extended release 24 hr 60 mg PO DAILY Qty: 90 1RF metoprolol succinate 25 mg tablet extended release 24 hr 25 mg PO .PM Qty: 90 1RF metoprolol succinate 50 mg tablet extended release 24 hr 50 mg PO QAM Qty: 90 1RF metformin 1,000 mg tablet 1,000 mg PO BID Qty: 180 3RF primidone 50 mg tablet 50 mg PO 1600 Qty: 90 0RF lisinopril 40 mg tablet 40 mg PO QDAY Qty: 90 0RF Referrals / Follow Up: Aron Patricia MD [Primary Care Provider] - Within 2 Weeks Disposition Disposition (needs filled in before D/C Order can be placed): Home, Self Care Charges/Coding Visit Charges Inpatient E&M: 51186 Disch Hosp >30min
[2022-05-08 12:50] VITALS: BP 127/75; PULSE 73; RESP 16; TEMP 36.8; O2SAT 97
--- NOTE | 2022-05-08 12:50 | NURSING ---
Report called to [facility] to nurse Radha
--- NOTE | 2022-05-08 13:40 | CASEMGMT ---
Patient is too weak for his to transport. SW spoke with patient and and they agreed. SW called [facility] and arranged for patient to get picked up at 2p via wheelchair van. SW notified RN, departmental secretary, patient, his , and [facility]. All in agreement with d/c plan. Plan: d/c to [facility] under skilled level of care on a convalescent stay. [facility] transported via wheelchair van. Arminda Vences WATERPROOFER HEAD OF STRATEGY
== END 2022-05-08 01:05 | disposition skilled nursing facility (03) ==
LOC: ED 05:18 → PCU 06:10
PROVIDERS: Admitting Provider Hospitalist; Emergency Provider Emergency Medicine; PCP Internal Medicine; Visit Provider Student in an Organized Health Care Education/Training Program
DX: R53.83 Other fatigue (principal); G20 Parkinson's disease; E11.69 Type 2 diabetes mellitus with other specified complication; E11.65 Type 2 diabetes mellitus with hyperglycemia; R11.2 Nausea with vomiting, unspecified; D72.829 Elevated white blood cell count, unspecified; I25.10 Atherosclerotic heart disease of native coronary artery without angina pectoris; I10 Essential (primary) hypertension; E78.5 Hyperlipidemia, unspecified; R00.1 Bradycardia, unspecified; E87.20 Acidosis, unspecified; I69.392 Facial weakness following cerebral infarction; R53.1 Weakness; Z79.82 Long term (current) use of aspirin; Z79.899 Other long term (current) drug therapy; Z79.84 Long term (current) use of oral hypoglycemic drugs; R42 Dizziness and giddiness; N40.0 Benign prostatic hyperplasia without lower urinary tract symptoms; Z79.02 Long term (current) use of antithrombotics/antiplatelets; R94.31 Abnormal electrocardiogram [ECG] [EKG]; I08.3 Combined rheumatic disorders of mitral, aortic and tricuspid valves; R51.9 Headache, unspecified; Z86.79 Personal history of other diseases of the circulatory system; R60.0 Localized edema; I87.2 Venous insufficiency (chronic) (peripheral); Z82.49 Family history of ischemic heart disease and other diseases of the circulatory system; R29.702 NIHSS score 2
CPT/HCPCS: 36415; 70450; 70496; 70498; 70551; 71045; 80048; 80061; 81001; 82962; 83036; 83605; 84484; 85025; 85610; 85730; 87040; 87426; 93005; 93306; 94762; 96361; 96374; 96376; 97110; 97116; 97162; 97166; 97530; 97535; 99221; 99285; J7030; Q9967; A4216; G0378; J2405

== ENCOUNTER → 2022-07-25 | Outpatient (CLI) | payer MEDICARE, OTHER, SELFPAY ==
[2022-07-25 13:11] LABS: Absolute Lymphocyte Count 0.68 X10^3/uL (0.83-4.51); Absolute Neutrophil Count 7.9 X10^3/uL (2.0-7.7); Basophil# 0.02 X10^3/uL; Basophil% 0.2 % (0-1); Eosinophil# 0.11 X10^3/uL; Eosinophils% 1.1 % (0-5); Hematocrit 37.1 % (40-54); Hemoglobin 12.2 g/dL (13.0-16.5); Lymphocyte # 0.68 X10^3/ul (0.83-4.51); Mean Corp Hgb Conc 32.9 g/dL (32-36); Mean Corpuscular Hgb 31.9 pg (27.0-32.0); Mean Corpuscular Volume 97.1 fL (80-94); Mean Platelet Vol. 11.8 fl (6.2-12.0); Monocyte% 10.2 % (0-10); NRBC Flagged by Analyzer 0 % (0-5); Neutrophil # 7.94 X10^3/uL (2.7-7.7); Neutrophil % 81.2 % (47-70); Platelet Count 212 K/mm3 (150-450); RBC Distribution Width CV 12.8 % (11.6-14.6); RBC Distribution Width SD 45.5 fl (35.1-43.9); Red Blood Count 3.82 M/mm3 (4.6-6.2); White Blood Count 9.8 K/mm3 (4.4-11.0)
[2022-07-25 13:57] LABS: Hemoglobin A1c 8.2 % (3.8-5.6)
[2022-07-25 14:26] LABS: ALB/GLOB Ratio 1.2 RATIO (0.9-2.4); AST(SGOT) 16 U/L (15-37); Alanine Aminotransfer ALT/SGPT 23 U/L (16-61); Albumin, Serum 3.7 g/dL (3.2-5.0); Alkaline Phosphatase 63 U/L (45-117); Anion Gap 4 (5-15); BUN 27 mg/dL (7-18); BUN/Creat Ratio 27.2 RATIO (10-20); Calcium,Total 9.3 mg/dL (8.5-10.1); Chloride 103 mmol/L (98-107); Creatinine, Serum 0.99 mg/dL (0.70-1.30); EST Glomerular Filtration Rate 76 mL/min (>60); Est Glom Filt Rate - Afr Amer 92 mL/min (>60); Globulin 3.2 g/dL (2.2-4.2); Glucose 302 mg/dL (74-106); Potassium 4.2 mmol/L (3.5-5.1); Protein, Total 6.9 g/dL (6.4-8.2); Sodium Level 135 mmol/L (136-145)
== END | disposition home or self-care (01) ==
LOC: BIMLAB 11:10
PROVIDERS: PCP Internal Medicine; Visit Provider Internal Medicine
DX: E11.69 Type 2 diabetes mellitus with other specified complication (principal); E78.00 Pure hypercholesterolemia, unspecified
CPT/HCPCS: 36415; 80053; 83036; 85025

== ENCOUNTER 2022-08-15 18:03 | Inpatient (IN) | payer MEDICARE, OTHER, SELFPAY ==
[2022-08-15] VITALS (9 sets, daily range): BP systolic 171–198; BP diastolic 85–125; PULSE 88–94; RESP 16–26; TEMP 36.6–38.7; O2SAT 92–97; BMI 22.7; BMI 21.9
[2022-08-15] MEDS: Labetalol (Prefilled) 20 MG/4 ML 10 MG IV (18:41)
[2022-08-15 18:45] LABS: Absolute Lymphocyte Count 0.56 X10^3/uL (0.83-4.51); Absolute Neutrophil Count 16.3 X10^3/uL (2.0-7.7); Basophil# 0.03 X10^3/uL; Basophil% 0.2 % (0-1); Eosinophil# 0.01 X10^3/uL; Eosinophils% 0.1 % (0-5); Hematocrit 35.1 % (40-54); Hemoglobin 11.9 g/dL (13.0-16.5); Lymphocyte # 0.56 X10^3/ul (0.83-4.51); Mean Corp Hgb Conc 33.9 g/dL (32-36); Mean Corpuscular Hgb 32.2 pg (27.0-32.0); Mean Corpuscular Volume 94.9 fL (80-94); Mean Platelet Vol. 11.4 fl (6.2-12.0); Monocyte# 1.59 X10^3/uL; Monocyte% 8.5 % (0-10); NRBC Flagged by Analyzer 0 % (0-5); Neutrophil # 16.33 X10^3/uL (2.7-7.7); Neutrophil % 87.5 % (47-70); POSITIVE DIFFERENTIAL YES; Platelet Count 200 K/mm3 (150-450); RBC Distribution Width CV 13.4 % (11.6-14.6); RBC Distribution Width SD 46.6 fl (35.1-43.9); White Blood Count 18.7 K/mm3 (4.4-11.0)
[2022-08-15 18:46] LABS: Differential Indicated SCAN CRITERIA MET
[2022-08-15 18:56] LABS: Anion Gap 9 (5-15); BUN 29 mg/dL (7-18); BUN/Creat Ratio 22.7 RATIO (10-20); Calcium,Total 9.7 mg/dL (8.5-10.1); Chloride 100 mmol/L (98-107); Creatinine, Serum 1.28 mg/dL (0.70-1.30); EST Glomerular Filtration Rate 57 mL/min (>60); Est Glom Filt Rate - Afr Amer 68 mL/min (>60); Estimated Creatinine Clearance 37.82 ml/min; Glucose 337 mg/dL (74-106); Potassium 4.2 mmol/L (3.5-5.1); Sodium Level 131 mmol/L (136-145)
--- NOTE | 2022-08-15 19:02 | CT_ITS ---
INDICATION: Headache, hypertension, altered mental status EXAMINATION: CT BRAIN - CT Head or Brain W/O Contrast Injection TECHNIQUE: Multiple axial images were obtained of the head without intravenous contrast. A radiation dose optimization technique was used for this scan. IV Contrast dosage and agent: None. RADIATION DOSAGE (If Supplied By Facility): CTDIvol = ( 44.99 ) mGy, DLP = ( 812.98 ) mGycm COMPARISON: FINDINGS: BRAIN PARENCHYMA: There is moderate periventricular and subcortical white matter lucency. No intra- or extra-axial hemorrhage. There are old right basal ganglion infarcts. No evidence of acute infarct. No intracranial mass or mass effect. There is preservation of the funk/white matter interface. Posterior fossa structures are unremarkable. CSF SPACES: Appropriate for age. No hydrocephalus. Basal cisterns are patent. CALVARIUM, SKULL BASE, PARANASAL SINUSES AND MASTOID AIR CELLS: Clear. No discrete lytic or blastic abnormalities. ORBITS: Both globes, extraocular muscles, optic nerves and retrobulbar fat appear unremarkable. CT/Brain/Head without Contrast IMPRESSION: Old right basal ganglia infarcts. Moderate small vessel ischemic changes. No evidence for acute large vessel infarction or hemorrhage. Electronically Signed: Venu Pak, at 19:22 EDT Reading Location ID and State: [address] [place] [address] Tel , Service support ,
[2022-08-15 19:58] LABS: Differential Comment SCANNED
--- NOTE | 2022-08-15 19:58 | EDS_ITS ---
HPI History of Present Illness Chief Complaint: Hypertension Detail of Chief Complaint: High blood pressure and not responding as quickly Informant: patient, spouse/S.O. and friend Onset/Context/Timing Onset: Today and Yesterday Context: Sudden Onset Timing: Continuous Quality: Systolic greater than 210 yesterday and 197 today Location: Cardiovascular Current Severity: Moderate Maximum Severity: Moderate Worsened by: Unknown Relieved by: Unknown Associated Symptoms Associated Symptoms: Headache Narrative Narrative: Patient is an 87-year-old male with history of stroke that left left-sided residual who presents with elevated blood pressure and headache. He does not admit to change in vision. states he is not his normal self. He is alert oriented but not awake and alert. states he is compliant with his medication. He is not on anticoagulant. Patient denies runny nose congestion sore throat. Patient denies chest pain or shortness of breath. Patient denies GI symptoms; patient denies symptoms. Prior similar symptoms: No Recent Illness/Hospitalization: No PFSH PFSH Medical History Atherosclerotic heart disease of [place] coronary artery without angina pectoris Bilateral lower extremity edema BPH (benign prostatic hyperplasia) Bradycardia Debility Epistaxis Essential (primary) hypertension Fall Fatigue Generalized weakness Hearing loss History of CVA (cerebrovascular accident) (05/2020) Hyperlipidemia Light-headedness Muscle weakness Parkinson disease Premature atrial complexes Radiculopathy due to lumbar intervertebral disc disorder Syncope and collapse TIA (transient ischemic attack) (08/2017) Type 2 diabetes mellitus Urinary frequency Venous insufficiency of both lower extremities Weakness Home Medications aspirin 81 mg chewable tablet 81 mg PO QHS heart 08/28/17 [History Last Taken 01/29/20] blood sugar diagnostic #100 ea 05/16/18 [Rx Last Taken Unknown] Curcumed See Rx Instructions PO .COMPLEX StreamStar 12/01/19 [History Last Taken Unknown] His Defense PO DAILY 12/01/19 [History Last Taken Unknown] blood-glucose meter (OneTouch Ultra2 Meter) #1 ea 03/29/20 [Rx Last Taken Unknown] One touch ultra blue strip #100 ea 06/06/20 [Rx Last Taken Unknown] acetaminophen 325 mg tablet 650 mg (2 x 325 mg) PO Q6H PRN PRN Pain Score 1- 10/Temp > 100.7 F 06/09/20 [Rx Last Taken Unknown] melatonin 3 mg tablet 3 mg PO QHS PRN PRN Insomnia 06/09/20 [Rx Last Taken Unknown] sennosides 8.6 mg-docusate sodium 50 mg tablet 2 tablet PO BID PRN PRN Constipation 06/09/20 [Rx Last Taken Unknown] miscellaneous medical supply (Blood Pressure Cuff) #1 ea 08/09/20 [Rx Last Taken Unknown] walker (Ultra-Light Rollator misc) #1 ea 10/17/20 [Rx Last Taken Unknown] Juxtalite #1 ea 11/09/20 [Rx Last Taken Unknown] amlodipine 10 mg tablet 10 mg PO QHS blood pressure #90 tabs 08/28/21 [Rx Last Taken Unknown] sertraline 25 mg tablet 25 mg PO DAILY #90 tabs 08/28/21 [Rx Last Taken Unknown] isosorbide mononitrate 60 mg tablet,extended release 24 hr 60 mg PO DAILY #90 tabs 02/15/22 [Rx Last Taken Unknown] metoprolol succinate 25 mg tablet,extended release 24 hr 25 mg PO .PM #90 tabs 02/15/22 [Rx Last Taken Unknown] metoprolol succinate 50 mg tablet,extended release 24 hr 50 mg PO QAM #90 tabs 02/15/22 [Rx Last Taken Unknown] metformin 1,000 mg tablet 1,000 mg PO BID blood sugar #180 tabs 02/20/22 [Rx Last Taken Unknown] clopidogrel 75 mg tablet (Plavix) 75 mg PO QHS 05/06/22 [History Last Taken Unknown] tamsulosin 0.4 mg capsule 0.4 mg PO DAILY 05/06/22 [History Last Taken Unknown] glipizide 5 mg tablet 5 mg PO BID blood sugar #180 tabs 06/21/22 [Rx Last Taken Unknown] lisinopril 40 mg tablet 40 mg PO QDAY bp #90 tabs 06/21/22 [Rx Last Taken Unknown] polysaccharide iron complex 150 mg iron capsule (Ferrex) 150 mg PO DAILY #90 caps 06/21/22 [Rx Last Taken Unknown] primidone 50 mg tablet 50 mg PO 1600 #90 tabs 06/21/22 [Rx Last Taken Unknown] atorvastatin 80 mg tablet 80 mg PO QHS #90 TABLETS 07/27/22 [Rx Last Taken Unknown] Allergy/AdvReac Type Severity Reaction Status Date / Time iodine Allergy Rash Verified 08/15/22 18:04 Family History Sister Hypertension Parkinson disease Diabetes Father Heart disease Mother Heart disease Brother Heart disease age 34 from congenital heart disease Surgical History History of back surgery History of cardiac cath History of coronary artery stent placement (04/28/20) History of electrophysiologic study (04/2016) History of eyelid surgery (09/2018) History of loop recorder (04/2016) History of prostate surgery transurethral needle ablation of prostrate Social History current occupational status: retired Smoking Status: Never smoker alcohol intake: never substance use type: does not use what type of physical activity do you participate in: none ROS ROS ED Review of Systems ROS Unobtainable: due to mental status and other Details: History limited because patient has altered mental status and is the informant. Constitutional Constitutional ED: Denies fever(s) Eyes Eyes: Denies blurry vision or change in vision ENT ENT ED: Denies ear pain, rhinorrhea or sore throat Cardiovascular Cardiovascular: Denies chest pain Respiratory/Chest Respiratory/Chest: Denies cough or dyspnea Gastrointestinal Gastrointestinal: Denies diarrhea or vomiting Genitourinary Genitourinary ED: Denies dysuria or urinary frequency Integumentary Denies rash Neurologic Neurologic: Reports headache(s) EXAM Physical Exam Const Vital Signs: 08/15/22 18:04 08/15/22 18:42 08/15/22 19:40 Temperature 97.8 F 101.4 F H Temperature Source Temporal Oral Pulse Rate 90 93 94 Respiratory Rate 16 26 H 20 H Blood Pressure 198/118 H 185/125 H 177/85 H Blood Pressure Mean 144 145 115 Pulse Ox 97 93 92 Oxygen Delivery Method Room Air Room Air Room Air 08/15/22 20:52 08/15/22 20:56 Temperature 101.6 F H Temperature Source Core Pulse Rate 89 89 Respiratory Rate 16 16 Blood Pressure 177/85 H 177/85 H Blood Pressure Mean 115 115 Pulse Ox 92 92 Oxygen Delivery Method Room Air Room Air Positive well nourished and well developed Constitutional Narrative: Blood pressure is elevated. Patient felt warmer than documented temperature. Had nurse recheck temperature and noted to be 101.4. General Appearance ED: well developed, NAD and pallor; Negative for cyanotic or diaphoretic HEENT Reports dry mucous membranes HEENT Narrative: Head is atraumatic normocephalic. Ears normal. TMs normal. Nares patent with no discharge. Posterior pharynx out erythema or exudate. Uvula midline. No deviation tongue or protrusion. Mouth ED: Yes dry mucous membranes Mouth: dry mucous membranes Eyes PERRL and EOMs intact bilaterally Eyes Narrative: There is no ecchymosis. General Eye ED: Negative for pale conjunctiva or scleral icterus Neck no lymphadenopathy, supple and no JVD Neck Narrative: Neck is supple with no meningeal's. Chest Wall inspection of chest normal and palpation of chest normal Chest Narrative: Adventitial breath sounds noted bilaterally lower third. There is no true rales. He has no wheezing Resp normal respiratory effort and No clear to auscultation bilaterally Cardio regular rate, regular rhythm, S1 normal heart sound, S2 normal heart sound and no murmurs GI normal to inspection, nondistended, normoactive bowel sounds, non-tender, non- distended and no masses; Negative for hepatosplenomegaly Back/Spine no CVA tenderness Extremity Negative for normal to inspection Extremity Narrative: Pale. Thickened toenails and decreased hair consistent with prefer to these General Extremety ED: Negative for edema or tenderness General Extremity: Negative for edema Neuro oriented x3, CN's II-XII intact bilaterally and no sensory deficits noted Neuro Narrative: Patient has mild weakness on the left compared to the right. This is from prior stroke according to . Sensorium / Orientation: Negative for alert Psych Psych Narrative: Mood is flat. Skin no rashes or lesions noted, no wounds and No skin turgor normal General Skin Exam: pallor; Negative for jaundice Sepsis Attestation Sepsis Alert: Yes Sepsis Attestation: Agree w/Sepsis Date exam was performed: 08/15/22 Possible Source of Sepsis: Unknown MDM MDM MDM Narrative Medical decision making narrative: Elevated blood pressure complaint of headache need to rule out intracranial bleed. Now knowing the patient has an elevated temperature, 1954 need to rule out infectious causes for his altered mental status. Since he does complain of headache need to consider meningitis however he has no photophobia and no nuchal rigidity. Will obtain chest x-ray to evaluate for pneumonia. [place] to evaluate urine. Patient does have an elevated white count of 18.7 thousand. Blood cultures and urine culture were ordered. Since source is uncertain he was treated with Zosyn and vancomycin. Additional labs were obtained for organ dysfunction including lactate. Lactate elevated 3.7. Since patient has 2 SIRS criteria source and lactic acidosis he has sepsis with endorgan dysfunction. Lab Data Attestation: I reviewed the patient's lab results. Lab results narrative: White count is elevated 18.7 thousand with shift. There is no bandemia. He does have mild. Electrolyte panel reveals a sodium 131. CO2 and anion gap are normal. BUN and creatinine are 29 and 1.28 which are slightly elevated from baseline. GFR is 57 which is below baseline. Glucose is elevated 337. UA reveals nitrites, leukoesterase and occult blood as well as glucose and protein. Microscopic reveals 50-100 RBCs, 0-5 WBCs and rare bacteria. Labs: Laboratory Results - last 24 hr 08/15/22 08/15/22 08/15/22 18:39 20:10 20:15 WBC 18.7 H RBC 3.70 L Hgb 11.9 L Hct 35.1 L MCV 94.9 H MCH 32.2 H MCHC 33.9 RDW Std Deviation 46.6 H RDW Coeff of Arturo 13.4 Plt Count 200 MPV 11.4 Immature Gran % (Auto) 0.700 Neut % (Auto) 87.5 H Lymph % (Auto) 3.0 L [place] % (Auto) 8.5 Eos % (Auto) 0.1 Baso % (Auto) 0.2 Absolute Neuts (auto) 16.3 H Absolute Lymphs (auto) 0.56 L Nucleated RBC % 0 Differential Comment SCANNED Diff Path Review May foll Sodium 131 L Potassium 4.2 Chloride 100 Carbon Dioxide 22.0 Anion Gap 9 BUN 29 H Creatinine 1.28 Estim Creat Clear Calc 37.82 Est GFR (MDRD) Af Amer 68 Est GFR (MDRD) Non-Af 57 L BUN/Creatinine Ratio 22.7 H Glucose 337 H Lactic Acid 3.7 H* Calcium 9.7 Urine Color Yellow Urine Clarity Sl. Cloudy Urine pH 7.0 Ur Specific [place] 1.015 Urine Protein 500 H Urine Glucose (UA) 1000 H Urine Ketones 5 H Urine Occult Blood 250 H Urine Nitrite Positive H Urine Bilirubin 1 H Urine Urobilinogen 4 H Ur Leukocyte Esterase 25 H Urine RBC 50-100 SEEN Urine WBC 0-5 SEEN Ur Squamous Epith Cells 0 SEEN Urine Bacteria RARE Urine Mucus 0 SEEN Radiography Diagnostic Testing: Clinical Impression(s) from Imaging Studies Brain CT 08/15/22 19:02 IMPRESSION: Old right basal ganglia infarcts. Moderate small vessel ischemic changes. No evidence for acute large vessel infarction or hemorrhage. Electronically Signed: Venu Pak, at 19:22 EDT , Chest X-Ray 08/15/22 20:24 IMPRESSION: Poor inspiration with some bibasilar atelectasis. Electronically Signed: Parish Mann MD at 20:40 EDT , Treatment and Re-Evaluation :: Documented in the MDM portion of the chart. Critical Care Time Critical Care Time: Yes Critical care time (excluding procedures): 30-74 minutes (31), Including time spent: (History, physical, documentation, discussion with family members to obtain history since patient is not capable), Discussing w/Patient &/or Family/Barrel Inspector Tight (Discussion with family, spouse and patient regarding reason for admission), Discussing w/Consultants and Arranging Admission or Transfer Discharge Plan Dx/Rx/DC Orders Clinical Impression: Encephalopathy due to infection, Hyperlipidemia, Parkinson disease, Type 2 diabetes mellitus, Fever, Accelerated essential hypertension, Sepsis with acute organ dysfunction, Complicated urinary tract infection Disposition Disposition: Acute Care [facility]
[2022-08-15 20:18] LABS: Mucous, Urine 0 SEEN /hpf (<or=2+); Squamous Epithelial Cells - UA 0 SEEN /hpf (0-5)
[2022-08-15 20:20] LABS: Color, Urine Yellow (Yellow); Glucose, Dipstick 1000 mg/dl (Normal); Ketone-Dipstick 5 mg/dl (Negative); Leukocyte Esterase-Dipstick 25 /ul (Negative); Nitrite-Dipstick Positive (Negative); Occult Blood-Urine 250 /ul (Negative); Protein-Dipstick 500 mg/dl (Negative); Specific Gravity, Urine 1.015 (1.002-1.030); Urine Clarity Sl. Cloudy (Clear); Urine Urobilinogen 4 mg/dl (Normal)
[2022-08-15 20:21] LABS: Urine Bilirubin Dipstick 1 mg/dL (Negative)
--- NOTE | 2022-08-15 20:24 | RAD_ITS ---
STUDY: X-RAY CHEST REASON FOR EXAM: Male, 87 years old. Fever TECHNIQUE: Single AP portable view of the chest. COMPARISON: 05/06/2022 FINDINGS: Poor inspiration with some bibasilar atelectasis. There is no demonstrated pleural abnormality. Normal size heart. Normal mediastinum and brie. Normal visualized pulmonary arteries. There is atherosclerotic tortuosity of the aortic arch and descending thoracic aorta. Normal visualized thoracic spine. Normal visualized ribs, clavicles, and shoulders. There is no demonstrated abnormality of the visualized soft tissue structures of the upper abdomen. RAD/Chest 1 View (Portable) IMPRESSION: Poor inspiration with some bibasilar atelectasis. Electronically Signed: Parish Mann MD at 20:40 EDT ,
[2022-08-15 20:32] LABS: Red Blood Cells-Urine 50-100 SEEN /hpf (0-5); White Blood Cells 0-5 SEEN /hpf (0-5)
[2022-08-15 20:33] LABS: Bacteria RARE /hpf (None Seen)
[2022-08-15 21:00] LABS: Lactic Acid 3.7 mmol/L (0.4-1.9)
[2022-08-15] MEDS: Acetaminophen 325 MG Tablet PO ×2 (21:03→21:49)
--- NOTE | 2022-08-15 21:11 | PCM.HP.STD ---
HPI - General General Date of Admission: 08/15/22 Date of Service: 08/15/22 Chief Complaint: Elevated BP, headache. HPI Narrative The patient is an 87 y/o M w/ PMHx: CKD stage II following with Dr. De La Rosa from prior reports, Chronic BL LE Edema/Lymphedema, CAD s/p PCI, HTN, HLD, Hx CVA w/ chronic L sided hemiparesis, Diabetes mellitus type II, Parkinson's disease, PVD, Monoclonal gammopathy following with Dr. Jacobsen, Chronic macrocytic anemia/Fe deficiency anemia, BPH who presents to the [facility] ED on 08/15/22 with history of primary complaint of elevated blood pressures not responding to his treatment with associated headache with no vision changes and at his baseline self with no significant worsening of his left-sided residual hemiparesis prompting ED evaluation. At home did report last meal intake at ~ 2 pm. He later in the day had nausea and bout of emesis. In the ED he worsened and became febrile with onset of confusion and became encephalopathic. Patient also reports that he has had increased urinary frequency above his baseline but denies any dysuria. Work-up in the ED included T 101.6, heart rate 89, BP initially 198/118--> repeat 177/85, respiratory rate 16, 92% on room air, CBC with WC 18.7, hemoglobin 11.9, MCV 94.9, platelet 200 with notable left shift and lymphopenia, BMP with sodium 131, BUN/creatinine 29/1.28, glucose 337, lactic acid 3.7, urine culture pending per ED, blood culture x2 pending per ED, urinalysis with 500 protein, 1000 glucose, 5 ketones, occult blood 250, positive nitrite, 25 leukocyte esterase with 50-100 urine RBCs, 0-5 urine WBCs and rare bacteria reported, chest x-ray with evidence of poor inspiration with some bibasilar atelectasis, CT of the brain with evidence of an old right basal ganglia infarct, moderate small vessel ischemic changes with no evidence for any acute large vessel infarction or hemorrhage. In the ED patient ministered IV vancomycin, Zosyn as well as aspirin 325 mg p.o. x1 and labetalol 10 mg IV x1. [facility] Medical History Atherosclerotic heart disease of [place] coronary artery without angina pectoris Bilateral lower extremity edema BPH (benign prostatic hyperplasia) Bradycardia Debility Epistaxis Essential (primary) hypertension Fall Fatigue Generalized weakness Hearing loss History of CVA (cerebrovascular accident) (05/2020) Hyperlipidemia Light-headedness Muscle weakness Parkinson disease Premature atrial complexes Radiculopathy due to lumbar intervertebral disc disorder Syncope and collapse TIA (transient ischemic attack) (08/2017) Type 2 diabetes mellitus Urinary frequency Venous insufficiency of both lower extremities Weakness Home Medications aspirin 81 mg chewable tablet 81 mg PO QHS heart 08/28/17 [History Last Taken 01/29/20] blood sugar diagnostic #100 ea 05/16/18 [Rx Last Taken Unknown] Curcumed See Rx Instructions PO .COMPLEX [place] 12/01/19 [History Last Taken Unknown] His Defense PO DAILY 12/01/19 [History Last Taken Unknown] blood-glucose meter (ScholarPRO Ultra2 Meter) #1 ea 03/29/20 [Rx Last Taken Unknown] One touch ultra blue strip #100 ea 06/06/20 [Rx Last Taken Unknown] acetaminophen 325 mg tablet 650 mg (2 x 325 mg) PO Q6H PRN PRN Pain Score 1-10/Temp > 100.7 F 06/09/20 [Rx Last Taken Unknown] melatonin 3 mg tablet 3 mg PO QHS PRN PRN Insomnia 06/09/20 [Rx Last Taken Unknown] sennosides 8.6 mg-docusate sodium 50 mg tablet 2 tablet PO BID PRN PRN Constipation 06/09/20 [Rx Last Taken Unknown] miscellaneous medical supply (Blood Pressure Cuff) #1 ea 08/09/20 [Rx Last Taken Unknown] walker (Ultra-Light Rollator mis) #1 ea 10/17/20 [Rx Last Taken Unknown] Juxtalite #1 ea 11/09/20 [Rx Last Taken Unknown] amlodipine 10 mg tablet 10 mg PO QHS blood pressure #90 tabs 08/28/21 [Rx Last Taken Unknown] sertraline 25 mg tablet 25 mg PO DAILY #90 tabs 08/28/21 [Rx Last Taken Unknown] isosorbide mononitrate 60 mg tablet,extended release 24 hr 60 mg PO DAILY #90 tabs 02/15/22 [Rx Last Taken Unknown] metoprolol succinate 25 mg tablet,extended release 24 hr 25 mg PO .PM #90 tabs 02/15/22 [Rx Last Taken Unknown] metoprolol succinate 50 mg tablet,extended release 24 hr 50 mg PO QAM #90 tabs 02/15/22 [Rx Last Taken Unknown] metformin 1,000 mg tablet 1,000 mg PO BID blood sugar #180 tabs 02/20/22 [Rx Last Taken Unknown] clopidogrel 75 mg tablet (Plavix) 75 mg PO QHS 05/06/22 [History Last Taken Unknown] tamsulosin 0.4 mg capsule 0.4 mg PO DAILY 05/06/22 [History Last Taken Unknown] glipizide 5 mg tablet 5 mg PO BID blood sugar #180 tabs 06/21/22 [Rx Last Taken Unknown] lisinopril 40 mg tablet 40 mg PO QDAY bp #90 tabs 06/21/22 [Rx Last Taken Unknown] polysaccharide iron complex 150 mg iron capsule (Ferrex) 150 mg PO DAILY #90 caps 06/21/22 [Rx Last Taken Unknown] primidone 50 mg tablet 50 mg PO 1600 #90 tabs 06/21/22 [Rx Last Taken Unknown] atorvastatin 80 mg tablet 80 mg PO QHS #90 TABLETS 07/27/22 [Rx Last Taken Unknown] Allergy/AdvReac Type Severity Reaction Status Date / Time iodine Allergy Rash Verified 08/15/22 18:04 Family History Sister Hypertension Parkinson disease Diabetes Father Heart disease Mother Heart disease Brother Heart disease age 34 from congenital heart disease Surgical History History of back surgery History of cardiac cath History of coronary artery stent placement (04/28/20) History of electrophysiologic study (04/2016) History of eyelid surgery (09/2018) History of loop recorder (04/2016) History of prostate surgery transurethral needle ablation of prostrate Social History current occupational status: retired Smoking Status: Never smoker alcohol intake: never substance use type: does not use what type of physical activity do you participate in: none ROS ROS Narrative Admission Review of Systems: Primarily given per as patient confused in the ED with fever. CONSTITUTIONAL: No weight loss, + fever, weakness or fatigue. HEENT: Eyes: No visual loss, blurred vision, double vision or yellow sclerae. Ears, Nose, Throat: No hearing loss, sneezing, congestion, runny nose or sore throat. SKIN: No rash or itching, lesions, wounds. CARDIOVASCULAR: No chest pain, chest pressure or chest discomfort, palpitations, edema, orthopnea, syncopal events. RESPIRATORY: No shortness of breath, cough or sputum, wheezing, hemoptysis. GASTROINTESTINAL: + anorexia, nausea, vomiting, No diarrhea, abdominal pain, melena, BRBPR. GENITOURINARY: + Urinary frequency than his baseline. No dysuria, urgency or retention. NEUROLOGICAL: + headache, confusion, chronic L sided hemiparesis s/p prior CVA, No dizziness, syncope, change in bowel or bladder control, seizure. MUSCULOSKELETAL: + muscle, back pain, joint pain or stiffness. HEMATOLOGIC: + anemia, bleeding or bruising. LYMPHATICS: No enlarged nodes. No history of splenectomy. PSYCHIATRIC: + history of depression or anxiety. ENDOCRINOLOGIC: No reports of sweating, cold or heat intolerance. No polyuria or polydipsia. ALLERGIES: No history of asthma, hives, eczema or rhinitis. Vital Signs Vital Signs Vital Signs: 08/15/22 18:04 08/15/22 18:42 08/15/22 19:40 Temperature 97.8 F 101.4 F H Temperature Source Temporal Oral Pulse Rate 90 93 94 Respiratory Rate 16 26 H 20 H Blood Pressure 198/118 H 185/125 H 177/85 H Blood Pressure Mean 144 145 115 Pulse Ox 97 93 92 Oxygen Delivery Method Room Air Room Air Room Air 08/15/22 20:52 08/15/22 20:56 Temperature 101.6 F H Temperature Source Core Pulse Rate 89 89 Respiratory Rate 16 16 Blood Pressure 177/85 H 177/85 H Blood Pressure Mean 115 115 Pulse Ox 92 92 Oxygen Delivery Method Room Air Room Air Weight Weight: 145 lb Body Mass Index (BMI) 22.7 Physical Exam Narrative Physical Examination: General: Awake, alert to self, place and events which is improved from prior as he had been more lethargic and fatigued, cooperative, hard of hearing, seated upright in the ED bed. Skin: Normal color, normal turgor, no icterus, no cyanosis except for occasional staged ecchymoses. HEENT: AT/NC, EOMI, PERRLA, dry MM, no carotid bruits or JVD noted. Lungs: Diminished, greater bases, mildly decreased effort, no rales, ronchi or wheezing. Heart: Regular rate and rhythm; no gallop, rub audible. Abdomen: Soft, NTTP, ND, hyperactive BS, no HSM. Extremities: No cyanosis, no clubbing, chronic bilateral ankle mildly pitting edema. Neurological: Patient awake, alert, oriented as noted, improving, cognitive function improving as noted but still not baseline intact per family report; pupils equally reactive to light and accommodation, cranial nerves grossly normal, moving all 4 extremities, no focal deficits, strength severely globally decreased secondary to acute presentation. Psychiatric: Affect appears flat, fatigued, no acute evidence of depressive or anxiety feelings but does have underlying history. Results Lab / Micro Data 08/15/22 18:39 08/15/22 18:39 Labs: Laboratory Results - last 24 hr 08/15/22 18:39: WBC 18.7 H, RBC 3.70 L, Hgb 11.9 L, Hct 35.1 L, MCV 94.9 H, MCH 32.2 H, MCHC 33.9, RDW Std Deviation 46.6 H, RDW Coeff of Arturo 13.4, Plt Count 200, MPV 11.4, Immature Gran % (Auto) 0.700, Neut % (Auto) 87.5 H, Lymph % (Auto) 3.0 L, [place] % (Auto) 8.5, Eos % (Auto) 0.1, Baso % (Auto) 0.2, Absolute Neuts (auto) 16.3 H, Absolute Lymphs (auto) 0.56 L, Nucleated RBC % 0, Differential Comment SCANNED, Diff Path Review June, Sodium 131 L, Potassium 4.2, Chloride 100, Carbon Dioxide 22.0, Anion Gap 9, BUN 29 H, Creatinine 1.28, Estim Creat Clear Calc 37.82, Est GFR (MDRD) Af Amer 68, Est GFR (MDRD) Non-Af 57 L, BUN/Creatinine Ratio 22.7 H, Glucose 337 H, Calcium 9.7 08/15/22 20:10: Urine Color Yellow, Urine Clarity Sl. Cloudy, Urine pH 7.0, Ur Specific [place] 1.015, Urine Protein 500 H, Urine Glucose (UA) 1000 H, Urine Ketones 5 H, Urine Occult Blood 250 H, Urine Nitrite Positive H, Urine Bilirubin 1 H, Urine Urobilinogen 4 H, Ur Leukocyte Esterase 25 H, Urine RBC 50-100 SEEN, Urine WBC 0-5 SEEN, Ur Squamous Epith Cells 0 SEEN, Urine Bacteria RARE, Urine Mucus 0 SEEN 08/15/22 20:15: Lactic Acid 3.7 H* Radiology Impression Brain CT 08/15/22 19:02 IMPRESSION: Old right basal ganglia infarcts. Moderate small vessel ischemic changes. No evidence for acute large vessel infarction or hemorrhage. Electronically Signed: Venu Pak, at 19:22 EDT , Chest X-Ray 08/15/22 20:24 IMPRESSION: Poor inspiration with some bibasilar atelectasis. Electronically Signed: Parish Mann MD at 20:40 EDT , Assessment & Plan Assessment/Plan (1) Sepsis with acute organ dysfunction: PLAN: Plan The patient is an 87 y/o M w/ PMHx: CKD stage II following with Dr. De La Rosa from prior reports, Chronic BL LE Edema/Lymphedema, CAD s/p PCI, HTN, HLD, Hx CVA w/ chronic L sided hemiparesis, Diabetes mellitus type II, Parkinson's disease, PVD, Monoclonal gammopathy following with Dr. Jacobsen, Chronic macrocytic anemia/Fe deficiency anemia, BPH who presents to the [facility] ED on 08/15/22 with history of primary complaint of elevated blood pressures not responding to his treatment with associated headache with no vision changes and at his baseline self with no significant worsening of his left-sided residual hemiparesis prompting ED evaluation with worsening status in the ED with onset fever, confusion. #1. Acute Encephalopathy secondary to Acute Sepsis (SIRS, source, lactic acidosis, encephalopathy) secondary to Acute Complicated UTI: Will admit to PCU given presentation vitals and worsened status in the ED to be cautious, will given additional 1L NS as patient 30 cc/kg would be approximately 2L and continue with MIVF following, UA upon ED evaluation remarkable, pending UCx, trend LA per facility protocol, monitor I/Os, will place on IV Rocephin given now urine appears the infectious source as was initially given BSA Vanc and Zosyn in the ED prior to UA resulting w/ transition as able pending sensitivities and speciation. Bld cx x 2 obtained in the ED. PT/OT/CM consultation for discharge planning. Given abx start will be very cautious about worsening status and aggressive BP medications in case becomes hypotensive. #2. Mild Acute Renal Insufficiency on Chronic Kidney Disease Stage II: Admission BUN/Cr 29/1.28, from prior notes has supposedly been following with Dr. De La Rosa, baseline renal function 0.8-1.0, repeat BMP in AM. #3. Hypertension, initially uncontrolled/accelerated: Improved in the ED, likely related with acute presentation #1, will cautiously continue home regimen including metoprolol, lisinopril, isosorbide, PRN hydralazine given recent abx treatment for UTI in case decompensates. #4. History CVA with chronic left-sided hemiparesis: CT upon presentation with evidence of old right basal ganglia infarct, chronic left-sided weakness, maintain on fall precautions, PT and OT as well as case management consulted for discharge planning, will continue aspirin, Plavix, statin, hypertensive regimen and diabetic care with adjustments as noted. #5. Parkinson's disease: Recommended continued outpatient follow-up with neurology, will continue patient home primidone regimen, maintain on fall precautions, PT/OT/case management consulted for discharge planning. #6. CAD: Status post PCI, will continue patient aspirin, Plavix, statin, metoprolol, lisinopril home regimen. #7. Hyperlipidemia: We will continue patient on statin therapy. #8. Monoclonal gammopathy: Patient following with Dr. Jacobsen, current plan from most recent note is continued observation of serum protains and light chain levels, encourage continued outpatient Oncology follow-up. #9. Chronic macrocytic anemia/Fe deficiency anemia: Admission hemoglobin 11.9, MCV 94.9, baseline hemoglobin primarily 11-12, following with hematology/oncology with ongoing supplementation of iron with orange juice on an empty stomach, encourage continued outpatient follow-up. #10. Diabetes mellitus type II: Hold oral home regimen, continue home insulin regimen, ADA diet, accu checks w/ ISS. #11. Anxiety and depression: We will continue patient on sertraline regimen #12. BPH: We will continue patient on Flomax regimen. #13. DVT prophylaxis: Lovenox. #14. CODE status: Patient HCPOA is his daughter and [id number] and living will is currently in place. Discussed CODE status at length with , patient and HCPOA including difference between FULL code, DNR-CCA and DNR-CC status. Following discussions about the differences in these status, requested DNR-CCA, no intubation status. Advanced Care Planning Face to Face Time: 16 minutes. Admission Evaluation Time spent evaluating chart, patient history, patient evaluation, care planning and discussion with specialists: 75 minutes. Charges/Coding Visit Charges Inpatient E&M: 75979 Init Hosp L3 Procedures Hospitalists Procedures: 56142 Advncd Care Plan 30 Min
[2022-08-15] MEDS: 0.9% Normal Saline 1,000 ML 999 ML IV (23:49)
[2022-08-15] MEDS: Atorvastatin Calcium 80 MG Tablet PO (23:50)
[2022-08-15] MEDS: Lisinopril 40 MG Tablet PO (23:51)
[2022-08-15] MEDS: Clopidogrel Bisulfate 75 MG Tablet PO (23:51)
[2022-08-15] MEDS: amLODIPine 10 MG Tablet PO (23:51)
[2022-08-15] MEDS: Metoprolol(XL)Succ 25 MG Tablet PO (23:51)
[2022-08-15] MEDS: Aspirin 81 MG TAB.CHEW PO (23:52)
[2022-08-15] MEDS: Insulin Lispro 100 UNIT/ML INSULN.PEN SC (23:57)
[2022-08-16] VITALS (16 sets, daily range): BP systolic 145–175; BP diastolic 67–91; PULSE 80–101; RESP 16–18; TEMP 36.8–38.1; O2SAT 90–94; BMI 22.5
[2022-08-16 00:19] LABS: Bedside Glucose 298 mg/dL (74-106)
[2022-08-16 00:22] LABS: Reflex Lactate? Y
[2022-08-16 00:53] LABS: Lactic Acid 3.2 mmol/L (0.4-1.9)
[2022-08-16] MEDS: 0.9% Normal Saline 1,000 ML 100 ML IV ×3 (01:07→20:51)
[2022-08-16] MEDS: hydrALAZINE 20 MG/ML Vial 10 MG IV ×2 (03:46→22:24)
[2022-08-16 06:02] LABS: Absolute Lymphocyte Count 0.32 X10^3/uL (0.83-4.51); Absolute Neutrophil Count 11.8 X10^3/uL (2.0-7.7); Basophil# 0.02 X10^3/uL; Basophil% 0.1 % (0-1); Hematocrit 32.4 % (40-54); Hemoglobin 11.1 g/dL (13.0-16.5); Lymphocyte # 0.32 X10^3/ul (0.83-4.51); Lymphocyte % 2.3 % (19-41); Mean Corp Hgb Conc 34.3 g/dL (32-36); Mean Corpuscular Hgb 32.1 pg (27.0-32.0); Mean Corpuscular Volume 93.6 fL (80-94); Mean Platelet Vol. 11.8 fl (6.2-12.0); Monocyte# 1.47 X10^3/uL; Monocyte% 10.7 % (0-10); NRBC Flagged by Analyzer 0 % (0-5); Neutrophil # 11.79 X10^3/uL (2.7-7.7); Neutrophil % 85.9 % (47-70); POSITIVE DIFFERENTIAL YES; Platelet Count 161 K/mm3 (150-450); RBC Distribution Width CV 13.4 % (11.6-14.6); Red Blood Count 3.46 M/mm3 (4.6-6.2); White Blood Count 13.7 K/mm3 (4.4-11.0)
[2022-08-16 06:05] LABS: Differential Indicated SCAN CRITERIA MET
[2022-08-16] MEDS: Insulin Lispro 100 UNIT/ML INSULN.PEN SC ×4 (06:43→20:50)
[2022-08-16 06:49] LABS: ALB/GLOB Ratio 0.9 RATIO (0.9-2.4); AST(SGOT) 339 U/L (15-37); Alanine Aminotransfer ALT/SGPT 661 U/L (16-61); Albumin, Serum 3.2 g/dL (3.2-5.0); Alkaline Phosphatase 158 U/L (45-117); Anion Gap 7 (5-15); BUN 24 mg/dL (7-18); BUN/Creat Ratio 24.2 RATIO (10-20); Calcium,Total 8.5 mg/dL (8.5-10.1); Chloride 106 mmol/L (98-107); Creatinine, Serum 0.99 mg/dL (0.70-1.30); EST Glomerular Filtration Rate 76 mL/min (>60); Est Glom Filt Rate - Afr Amer 92 mL/min (>60); Estimated Creatinine Clearance 48.55 ml/min; Globulin 3.5 g/dL (2.2-4.2); Glucose 240 mg/dL (74-106); Potassium 3.6 mmol/L (3.5-5.1); Protein, Total 6.7 g/dL (6.4-8.2); Sodium Level 135 mmol/L (136-145)
[2022-08-16 06:57] LABS: Bedside Glucose 230 mg/dL (74-106)
--- NOTE | 2022-08-16 10:25 | CASEMGMT ---
RN JONATAN Face to Face with patient for initial transition planning/care coordination assessment. RN CM introduced self and role at [facility]. Patient lying in bed, alert and oriented. Patient willing to participate in assessment and is able to answer all questions appropriately. Care providers, pharmacy, and demographics verified. Patient wishes to discharge home but willing to go to SNF if necessary, will monitor progress with therapy. Patient states he has no further needs or concerns at this time. CM to follow for discharge planning needs that may arise. PCP: [place] Specialists: Jyotsna Crespo relay motorman; Casimiro relay motorman Preferred Pharmacy: [facility] Insurance: [employer] Prescription Benefit: yes Living Will/HPOA: , Tosin Gagnon LNOK: Living Arrangements: Patient lives with in a condo with no steps to enter. assists with bathing and dressing, patient toilets self at home. Transportation: DME/HHC: Patient has shower chair, grab bars, walker, rollator, wheelchair at home. Patient has been to TCU and [facility] in the past. [facility] the past Disposition Plan: TBD by course of treatment and progress with therapy, anticipate SNF at discharge. Breanne FRANK, RN, CM
[2022-08-16] MEDS: Isosorbide Mononitrate 60 MG Tablet PO (10:52)
[2022-08-16] MEDS: Metoprolol(XL)Succ 50 MG Tablet PO (10:52)
[2022-08-16] MEDS: Iron Polysaccharide Complex 150 MG CAPSULE PO (10:52)
[2022-08-16] MEDS: Tamsulosin HCl 0.4 MG Capsule PO (10:52)
[2022-08-16] MEDS: Lisinopril 40 MG Tablet PO (10:53)
[2022-08-16] MEDS: Sertraline 50 MG Tablet 25 MG PO (10:53)
[2022-08-16] MEDS: Ceftriaxone 1 GM/50 ML BAG IV (10:54)
--- NOTE | 2022-08-16 11:50 | NURSING ---
Blood Glucose 272
[2022-08-16 12:25] LABS: Bedside Glucose 272 mg/dL (74-106)
[2022-08-16 13:20] LABS: Pathologist Review Reviewed
--- NOTE | 2022-08-16 13:43 | PN.HOSP_ITS ---
Reason for Visit Reason for Visit: Diagnoses Sepsis, unspecified organism (08/15/22) Severe sepsis without septic shock (08/15/22) Subjective Subjective Patient was seen and examined today, his is in the room during the time my examination. It appears that the patient has a urinary tract infection and sepsis. He is alert and able to follow simple commands. Patient's white blood cell count today was 13.7, bilirubin today was 3.3, patient has elevations of his liver enzymes which may indicate passive congestion from sepsis. Objective Data Objective Data Vital Signs: Vital Signs Temp Pulse Resp BP Pulse Ox O2 Del Method 99.7 F H 90 17 165/84 H 90 Room Air 08/16/22 10:46 08/16/22 10:52 08/16/22 10:46 08/16/22 10:46 08/16/22 10:46 08/16/22 10:46 Oxygen Delivery Method Room Air Weight: 65.3 kg Body Mass Index (BMI) 22.5 Intake & Output: Intake and Output for Last 24 Hours 08/14/22 08/15/22 08/16/22 23:59 23:59 23:59 Intake Total 635 / 635 2028.33 / 2028.33 Output Total 350 / 350 350 / 350 Balance 285 / 285 1678.33 / 1678.33 Lab / Micro Data 08/16/22 05:12 08/16/22 05:12 Labs: Laboratory Results - last 24 hr 08/15/22 18:39: WBC 18.7 H, RBC 3.70 L, Hgb 11.9 L, Hct 35.1 L, MCV 94.9 H, MCH 32.2 H, MCHC 33.9, RDW Std Deviation 46.6 H, RDW Coeff of Arturo 13.4, Plt Count 200, MPV 11.4, Immature Gran % (Auto) 0.700, Neut % (Auto) 87.5 H, Lymph % (Auto) 3.0 L, [place] % (Auto) 8.5, Eos % (Auto) 0.1, Baso % (Auto) 0.2, Absolute Neuts (auto) 16.3 H, Absolute Lymphs (auto) 0.56 L, Nucleated RBC % 0, Di fferential Comment SCANNED, Diff Path Review Reviewed, Sodium 131 L, Potassium 4.2, Chloride 100, Carbon Dioxide 22.0, Anion Gap 9, BUN 29 H, Creatinine 1.28, Estim Creat Clear Calc 37.82, Est GFR (MDRD) Af Amer 68, Est GFR (MDRD) Non-Af 57 L, BUN/Creatinine Ratio 22.7 H, Glucose 337 H, Calcium 9.7 08/15/22 20:10: Urine Color Yellow, Urine Clarity Sl. Cloudy, Urine pH 7.0, Ur Specific [place] 1.015, Urine Protein 500 H, Urine Glucose (UA) 1000 H, Urine Ketones 5 H, Urine Occult Blood 250 H, Urine Nitrite Positive H, Urine Bilirubin 1 H, Urine Urobilinogen 4 H, Ur Leukocyte Esterase 25 H, Urine RBC 50-100 SEEN, Urine WBC 0-5 SEEN, Ur Squamous Epith Cells 0 SEEN, Urine Bacteria RARE, Urine Mucus 0 SEEN 08/15/22 20:15: Lactic Acid 3.7 H* 08/15/22 23:54: POC Glucose 298 H 08/16/22 00:05: Lactic Acid 3.2 H* 08/16/22 05:12: WBC 13.7 H, RBC 3.46 L, Hgb 11.1 L, Hct 32.4 L, MCV 93.6, MCH 32.1 H, MCHC 34.3, RDW Std Deviation 46.0 H, RDW Coeff of Arturo 13.4, Plt Count 161, MPV 11.8, Immature Gran % (Auto) 1.000 H, Neut % (Auto) 85.9 H, Lymph % (Auto) 2.3 L, [place] % (Auto) 10.7 H, Eos % (Auto) 0.0, Baso % (Auto) 0.1, Absolute Neuts (auto) 11.8 H, Absolute Lymphs (auto) 0.32 L, Nucleated RBC % 0, Sodium 135 L, Potassium 3.6, Chloride 106, Carbon Dioxide 22.0, Anion Gap 7, BUN 24 H, Creatinine 0.99, Estim Creat Clear Calc 48.55, Est GFR (MDRD) Af Amer 92, Est GFR (MDRD) Non-Af 76, BUN/Creatinine Ratio 24.2 H, Glucose 240 H, Calcium 8.5, Total Bilirubin 3.30 H, AST 339 H, ALT 661 H, Alkaline Phosphatase 158 H, Total Protein 6.7, Albumin 3.2, Globulin 3.5, Albumin/Globulin Ratio 0.9 08/16/22 06:37: POC Glucose 230 H 08/16/22 11:48: POC Glucose 272 H Micro: Microbiology 08/15/22 20:10 Urine Catheter - Catheter Urine Culture - Preliminary Culture exhibits no growth. Radiography Diagnostic Testing: Radiology Impression Brain CT 08/15/22 19:02 IMPRESSION: Old right basal ganglia infarcts. Moderate small vessel ischemic changes. No evidence for acute large vessel infarction or hemorrhage. Electronically Signed: Venu Pak, at 19:22 EDT , Chest X-Ray 08/15/22 20:24 IMPRESSION: Poor inspiration with some bibasilar atelectasis. Electronically Signed: Parish Mann MD at 20:40 EDT , Physical Exam Const alert, oriented x3, no apparent distress and average body habitus General Appearance: cooperative, well kempt and well developed Orientation / Consciousness: awake, oriented to person and oriented to place HEENT normocephalic and head/scalp atraumatic Mouth: dry mucous membranes Eyes PERRL, EOMs intact bilaterally and conjunctivae normal Neck supple, no JVD, thyroid normal and no carotid bruits General: trachea midline Resp normal respiratory effort, no retractions, no use of accessory muscles and clear to auscultation bilaterally Auscultation: Negative for rales, rhonchi or wheezes Cardio regular rate, regular rhythm, S1 normal heart sound, S2 normal heart sound, no murmurs, no rub and no gallops GI normal to inspection, nondistended, normoactive bowel sounds, soft to palpation, non-tender and non-distended Extremity no clubbing, cyanosis or edema Skin no rashes or lesions noted General Skin Exam: no breakdown Neuro oriented x3, CN's II-XII intact bilaterally, moves all extremities, no focal motor deficits and no sensory deficits noted Sensorium / Orientation: awake, alert, oriented to person and oriented to place Speech: speech normal Psych affect normal Assessment & Plan Assessment/Plan (1) Sepsis with acute organ dysfunction: PLAN: Plan 1. Acute sepsis secondary to urinary tract infection-continue present antibiotic coverage, await urine cultures #2 acute urinary tract infections-again continue present antibiotic coverage #3 essential hypertension-continue present medications #4 type 2 diabetes-blood sugars will be monitored, sliding scale insulin will be given as needed #5 coronary artery disease-stable at this time, continue present medications #6 cerebrovascular disease-patient was on antiplatelet medications total clinical time spent by myself addressing the patient's medical issues, reviewing all of his data, and collaborating with patient's care team: 35 minutes Charges/Coding Visit Charges Inpatient E&M: 23102 Subs Hosp L2
--- NOTE | 2022-08-16 13:48 | CASEMGMT ---
SW reviewed therapy notes and patient was an assist of 2 people. Patient has been to [place] and TCU before. SW met with patient and his . Introduced self and role at [facility]. [facility] asked if they would like SW to give them a list of fdc facilities should patient need to go to one at d/c. Patient's declined a list, but asked SW to put patient's name on the TCU list should he need placement. [facility] made a referral to Marlen in TCU. Arminda ALBERT
--- NOTE | 2022-08-16 15:03 | CASEMGMT ---
TCU will review patient's chart when it is closer to d/c. Arminda ALBERT
--- NOTE | 2022-08-16 16:36 | NURSING ---
blood glucose 203
[2022-08-16] MEDS: Primidone 50 MG Tablet PO (16:46)
[2022-08-16 17:16] LABS: Bedside Glucose 203 mg/dL (74-106)
[2022-08-16] MEDS: Metoprolol(XL)Succ 25 MG Tablet PO (20:50)
[2022-08-16] MEDS: Aspirin 81 MG TAB.CHEW PO (20:50)
[2022-08-16] MEDS: Clopidogrel Bisulfate 75 MG Tablet PO (20:50)
[2022-08-16] MEDS: amLODIPine 10 MG Tablet PO (20:50)
[2022-08-16] MEDS: Atorvastatin Calcium 80 MG Tablet PO (20:50)
[2022-08-16 22:47] LABS: Bedside Glucose 197 mg/dL (74-106)
[2022-08-17] VITALS (19 sets, daily range): BP systolic 141–189; BP diastolic 65–103; PULSE 62–103; RESP 16–40; TEMP 36.8–38.2; O2SAT 92–100; BMI 22.6
[2022-08-17] MEDS: Ondansetron 4 MG/2 ML Vial IV (01:55)
[2022-08-17] MEDS: Albuterol 2.5 MG/3 ML VIAL.NEB. INHALATION (02:03)
[2022-08-17] MEDS: hydrALAZINE 20 MG/ML Vial 10 MG IV ×2 (03:07→06:46)
[2022-08-17] MEDS: 0.9% Saline Lock 10 ML Syringe IV ×3 (03:08→10:08)
[2022-08-17] MEDS: Insulin Lispro 100 UNIT/ML INSULN.PEN SC ×4 (06:30→22:49)
[2022-08-17 07:00] LABS: Bedside Glucose 228 mg/dL (74-106)
--- NOTE | 2022-08-17 08:47 | CASEMGMT ---
Addendum entered by Laura Louis 08/17/22 11:28: Social Work Pt accepted into TCU when ready for discharge, they can take pt Saturday. As per physician, pt may be ready for discharge by Saturday. SW spoke w/pt and . Pt minimally responsive to SW questions, did respond was tired. SW explained to pt and that TCU can take pt, will be Saturday or after. in agreement. Pt falling asleep during conversation. states he is not really understanding everything right now. She is in agreement w/TCU, knows cannot take care of pt at home. SW explained if he improves could always go home, but it is anticipated TCU is the appropriate plan. in agreement. Green sheet placed on chart in anticipation of Saturday discharge to TCU. DAISHA Stanton Original Note: Social Work SW left a message for Marlen in admissions in TCU, requesting pt's chart be reviewed for possible admission to TCU tomorrow. DAISHA Stanton
[2022-08-17] MEDS: Isosorbide Mononitrate 60 MG Tablet PO (09:58)
[2022-08-17] MEDS: Metoprolol(XL)Succ 50 MG Tablet PO (09:58)
[2022-08-17] MEDS: Iron Polysaccharide Complex 150 MG CAPSULE PO (09:58)
[2022-08-17] MEDS: Tamsulosin HCl 0.4 MG Capsule PO (09:58)
[2022-08-17] MEDS: Sertraline 50 MG Tablet 25 MG PO (10:00)
[2022-08-17] MEDS: Lisinopril 40 MG Tablet PO (10:01)
[2022-08-17] MEDS: Ceftriaxone 1 GM/50 ML BAG IV (10:02)
[2022-08-17 11:54] LABS: Bedside Glucose 267 mg/dL (74-106)
[2022-08-17 14:29] LABS: Absolute Lymphocyte Count 0.33 X10^3/uL (0.83-4.51); Absolute Neutrophil Count 8.3 X10^3/uL (2.0-7.7); Basophil# 0.01 X10^3/uL; Basophil% 0.1 % (0-1); Eosinophil# 0.01 X10^3/uL; Eosinophils% 0.1 % (0-5); Hematocrit 31.6 % (40-54); Hemoglobin 10.5 g/dL (13.0-16.5); Lymphocyte # 0.33 X10^3/ul (0.83-4.51); Lymphocyte % 3.3 % (19-41); Mean Corp Hgb Conc 33.2 g/dL (32-36); Mean Corpuscular Hgb 31.3 pg (27.0-32.0); Mean Corpuscular Volume 94.3 fL (80-94); Mean Platelet Vol. 11.8 fl (6.2-12.0); Monocyte# 1.45 X10^3/uL; Monocyte% 14.3 % (0-10); NRBC Flagged by Analyzer 0 % (0-5); Neutrophil # 8.28 X10^3/uL (2.7-7.7); Neutrophil % 81.5 % (47-70); POSITIVE DIFFERENTIAL YES; Platelet Count 137 K/mm3 (150-450); RBC Distribution Width CV 13.6 % (11.6-14.6); RBC Distribution Width SD 46.5 fl (35.1-43.9); Red Blood Count 3.35 M/mm3 (4.6-6.2); White Blood Count 10.2 K/mm3 (4.4-11.0)
[2022-08-17 14:35] LABS: Differential Indicated SCAN CRITERIA MET
[2022-08-17 15:02] LABS: Anion Gap 7 (5-15); BUN 25 mg/dL (7-18); BUN/Creat Ratio 23.4 RATIO (10-20); Calcium,Total 8.2 mg/dL (8.5-10.1); Chloride 103 mmol/L (98-107); Creatinine, Serum 1.07 mg/dL (0.70-1.30); EST Glomerular Filtration Rate 70 mL/min (>60); Est Glom Filt Rate - Afr Amer 84 mL/min (>60); Estimated Creatinine Clearance 45.06 ml/min; Glucose 287 mg/dL (74-106); Potassium 3.6 mmol/L (3.5-5.1); Sodium Level 132 mmol/L (136-145)
[2022-08-17 15:37] LABS: Platelet Estimate SLT DEC (ADEQ)
[2022-08-17 15:38] LABS: Anisocytosis RARE; Macrocytosis RARE
--- NOTE | 2022-08-17 16:35 | PN.HOSP_ITS ---
Reason for Visit Reason for Visit: Diagnoses Sepsis, unspecified organism (08/15/22) Severe sepsis without septic shock (08/15/22) Subjective Subjective Patient was seen and examined today, he still requires oxygen at 2 L/min, I talked with his who was in the room with my examination, the plan is for the patient to go to the rehab unit at [facility] when he is medically stable. Patient's white blood cell count is normal, patient's urine culture shows no growth preliminarily. Objective Data Objective Data Vital Signs: Vital Signs Temp Pulse Resp BP Pulse Ox O2 Del Method O2 Flow Rate 99.2 F H 62 16 141/65 H 93 Nasal Cannula 2 08/17/22 13:55 08/17/22 13:55 08/17/22 13:55 08/17/22 13:55 08/17/22 15:01 08/17/22 14:02 08/17/22 15:01 Oxygen Flow Rate (L/min) 2 Oxygen Delivery Method Nasal Cannula Weight: 65.5 kg Body Mass Index (BMI) 22.6 Intake & Output: Intake and Output for Last 24 Hours 08/15/22 08/16/22 08/17/22 23:59 23:59 23:59 Intake Total 635 / 635 3673.33 / 3673.33 701.67 / 701.67 Output Total 350 / 350 1200 / 1200 550 / 550 Balance 285 / 285 2473.33 / 2473.33 151.67 / 151.67 Lab / Micro Data 08/17/22 14:07 08/17/22 14:07 Labs: Laboratory Results - last 24 hr 08/16/22 16:34: POC Glucose 203 H 08/16/22 20:48: POC Glucose 197 H 08/17/22 06:28: POC Glucose 228 H 08/17/22 11:30: POC Glucose 267 H 08/17/22 14:07: WBC 10.2, RBC 3.35 L, Hgb 10.5 L, Hct 31.6 L, MCV 94.3 H, MCH 31.3, MCHC 33.2, RDW Std Deviation 46.5 H, RDW Coeff of Arturo 13.6, Plt Count 137 L, MPV 11.8, Immature Gran % (Auto) 0.700, Neut % (Auto) 81.5 H, Lymph % (Auto) 3.3 L, Brantley % (Auto) 14.3 H, Eos % (Auto) 0.1, Baso % (Auto) 0.1, Absolute Neuts (auto) 8.3 H, Absolute Lymphs (auto) 0.33 L, Nucleated RBC % 0, Differential Comment SEE COMMENT, Platelet Estimate SLT DEC, Anisocytosis RARE, Macrocytosis RARE, Sodium 132 L, Potassium 3.6, Chloride 103, Carbon Dioxide 22.0, Anion Gap 7, BUN 25 H, Creatinine 1.07, Estim Creat Clear Calc 45.06, Est GFR (MDRD) Af Amer 84, Est GFR (MDRD) Non-Af 70, BUN/Creatinine Ratio 23.4 H, Glucose 287 H, Calcium 8.2 L Micro: Microbiology 08/15/22 20:10 Urine Catheter - Catheter Urine Culture - Preliminary Culture exhibits no growth. Physical Exam Narrative alert, oriented x3, no apparent distress and average body habitus General Appearance: cooperative, well kempt and well developed Orientation / Consciousness: awake, oriented to person and oriented to place HEENT normocephalic and head/scalp atraumatic Mouth: dry mucous membranes Eyes PERRL, EOMs intact bilaterally and conjunctivae normal Neck supple, no JVD, thyroid normal and no carotid bruits General: trachea midline Resp normal respiratory effort, no retractions, no use of accessory muscles and clear to auscultation bilaterally Auscultation: Negative for rales, rhonchi or wheezes Cardio regular rate, regular rhythm, S1 normal heart sound, S2 normal heart sound, no murmurs, no rub and no gallops GI normal to inspection, nondistended, normoactive bowel sounds, soft to palpation, non-tender and non-distended Extremity no clubbing, cyanosis or edema Skin no rashes or lesions noted General Skin Exam: no breakdown Neuro oriented x3, CN's II-XII intact bilaterally, moves all extremities, no focal motor deficits and no sensory deficits noted Sensorium / Orientation: awake, alert, oriented to person and oriented to place Speech: speech normal Psych affect normal Assessment & Plan Assessment/Plan (1) Complicated urinary tract infection: (2) Sepsis with acute organ dysfunction: PLAN: Plan 1. Acute sepsis secondary to urinary tract infection-continue present antibiotic coverage, await blood culture, await final urine culture #2 acute urinary tract infections-again continue present antibiotic coverage #3 essential hypertension-continue present medications #4 type 2 diabetes-blood sugars will be monitored, sliding scale insulin will be given as needed #5 coronary artery disease-stable at this time, continue present medications #6 cerebrovascular disease-patient was on antiplatelet medications #7 hypoxia, possibly secondary to atelectasis-patient is currently on 2 L via nasal cannula, oxygen will be weaned if possible total clinical time spent by myself addressing the patient's medical issues, reviewing all of his data, and collaborating with patient's care team: 35 minutes Charges/Coding Visit Charges Inpatient E&M: 68425 Subs Hosp L2
[2022-08-17] MEDS: Primidone 50 MG Tablet PO (17:10)
[2022-08-17 19:05] LABS: Bedside Glucose 263 mg/dL (74-106)
[2022-08-17] MEDS: Aspirin 81 MG TAB.CHEW PO (22:51)
[2022-08-17] MEDS: Atorvastatin Calcium 80 MG Tablet PO (22:51)
[2022-08-17] MEDS: amLODIPine 10 MG Tablet PO (22:52)
[2022-08-17] MEDS: Clopidogrel Bisulfate 75 MG Tablet PO (22:52)
[2022-08-17] MEDS: Metoprolol(XL)Succ 25 MG Tablet PO (22:52)
[2022-08-17] MEDS: Acetaminophen 325 MG Tablet 650 MG PO (22:57)
[2022-08-17 23:19] LABS: Bedside Glucose 229 mg/dL (74-106)
[2022-08-18] VITALS (10 sets, daily range): BP systolic 145–173; BP diastolic 66–77; PULSE 71–86; RESP 16–18; TEMP 36.7–37.2; O2SAT 91–93; BMI 23.4
[2022-08-18] MEDS: Insulin Lispro 100 UNIT/ML INSULN.PEN SC ×4 (06:40→22:16)
[2022-08-18 07:07] LABS: Bedside Glucose 194 mg/dL (74-106)
[2022-08-18] MEDS: Metoprolol(XL)Succ 50 MG Tablet PO (10:05)
[2022-08-18] MEDS: Iron Polysaccharide Complex 150 MG CAPSULE PO (10:06)
[2022-08-18] MEDS: Sertraline 50 MG Tablet 25 MG PO (10:07)
[2022-08-18] MEDS: Tamsulosin HCl 0.4 MG Capsule PO (10:07)
[2022-08-18] MEDS: Isosorbide Mononitrate 60 MG Tablet PO (10:07)
[2022-08-18] MEDS: Lisinopril 40 MG Tablet PO (10:08)
[2022-08-18] MEDS: Ceftriaxone 1 GM/50 ML BAG IV (10:08)
[2022-08-18] MEDS: Acetaminophen 325 MG Tablet 650 MG PO ×2 (10:53→22:15)
[2022-08-18 11:28] LABS: Bedside Glucose 291 mg/dL (74-106)
--- NOTE | 2022-08-18 12:44 | PCM.PN.HOSP ---
Reason for Visit Reason for Visit: Diagnoses Sepsis, unspecified organism (08/15/22) Urinary tract infection, site not specified (08/15/22) Severe sepsis without septic shock (08/15/22) Subjective Subjective Patient was seen and examined today, he is currently on room air, he voices no complaints of any shortness of breath, fever, or chills. Patient's urine and blood culture exhibits no growth. Objective Data Objective Data Vital Signs: Vital Signs Temp Pulse Resp BP Pulse Ox O2 Del Method O2 Flow Rate 98.6 F 85 18 160/75 H 92 Room Air 1 08/18/22 11:00 08/18/22 11:00 08/18/22 11:00 08/18/22 11:00 08/18/22 11:00 08/18/22 11:00 08/18/22 07:52 Oxygen Flow Rate (L/min) 1 Oxygen Delivery Method Room Air Weight: 68 kg Body Mass Index (BMI) 23.4 Intake & Output: Intake and Output for Last 24 Hours 08/16/22 08/17/22 08/18/22 23:59 23:59 23:59 Intake Total 3673.33 / 3673.33 1241.67 / 1241.67 350 / 350 Output Total 1200 / 1200 850 / 850 800 / 800 Balance 2473.33 / 2473.33 391.67 / 391.67 -450 / -450 Lab / Micro Data 08/17/22 14:07 08/17/22 14:07 Labs: Laboratory Results - last 24 hr 08/17/22 14:07: WBC 10.2, RBC 3.35 L, Hgb 10.5 L, Hct 31.6 L, MCV 94.3 H, MCH 31.3, MCHC 33.2, RDW Std Deviation 46.5 H, RDW Coeff of Arturo 13.6, Plt Count 137 L, MPV 11.8, Immature Gran % (Auto) 0.700, Neut % (Auto) 81.5 H, Lymph % (Auto) 3.3 L, [place] % (Auto) 14.3 H, Eos % (Auto) 0.1, Baso % (Auto) 0.1, Absolute Neuts (auto) 8.3 H, Absolute Lymphs (auto) 0.33 L, Nucleated RBC % 0, Differential Comment SEE COMMENT, Platelet Estimate SLT DEC, Anisocytosis RARE, Macrocytosis RARE, Sodium 132 L, Potassium 3.6, Chloride 103, Carbon Dioxide 22.0, Anion Gap 7, BUN 25 H, Creatinine 1.07, Estim Creat Clear Calc 45.06, Est GFR (MDRD) Af Amer 84, Est GFR (MDRD) Non-Af 70, BUN/Creatinine Ratio 23.4 H, Glucose 287 H, Calcium 8.2 L 08/17/22 16:59: POC Glucose 263 H 08/17/22 22:48: POC Glucose 229 H 08/18/22 06:39: POC Glucose 194 H 08/18/22 11:05: POC Glucose 291 H Micro: Microbiology 08/15/22 20:15 Blood Culture (Wb) - Anticubital Left Blood Culture - Preliminary No growth in 48 hours. 08/15/22 20:20 Blood Culture (Wb) - Anticubital Right Blood Culture - Preliminary No growth in 48 hours. 08/15/22 20:10 Urine Catheter - Catheter Urine Culture - Final Culture exhibits no growth. Physical Exam Const alert, oriented x3, no apparent distress and average body habitus General Appearance: cooperative, well kempt and well developed Orientation / Consciousness: awake, oriented to person, oriented to place and oriented to time HEENT normocephalic, head/scalp atraumatic and moist oral mucous membranes Eyes PERRL, EOMs intact bilaterally and conjunctivae normal Neck supple, no JVD, thyroid normal and no carotid bruits General: trachea midline Resp normal respiratory effort, no retractions, no use of accessory muscles and clear to auscultation bilaterally Auscultation: Negative for rales, rhonchi or wheezes Cardio regular rate, regular rhythm, S1 normal heart sound, S2 normal heart sound, no murmurs, no rub and no gallops GI normal to inspection, nondistended, normoactive bowel sounds, soft to palpation, non-tender and non-distended Extremity no clubbing, cyanosis or edema Skin no rashes or lesions noted General Skin Exam: no breakdown Neuro CN's II-XII intact bilaterally, moves all extremities, no focal motor deficits and no sensory deficits noted Sensorium / Orientation: awake, alert, oriented to person and oriented to place Speech: speech normal Psych affect normal Assessment & Plan Assessment/Plan (1) Complicated urinary tract infection: (2) Sepsis with acute organ dysfunction: PLAN: Plan 1. Acute sepsis secondary to urinary tract infection-continue present antibiotic coverage, await blood culture, await final urine culture #2 acute urinary tract infections-will be changed to oral antibiotics today, ceftriaxone will be stopped #3 essential hypertension-continue present medications #4 type 2 diabetes-blood sugars will be monitored, sliding scale insulin will be given as needed #5 coronary artery disease-stable at this time, continue present medications #6 cerebrovascular disease-patient was on antiplatelet medications #7 hypoxia, possibly secondary to atelectasis-patient is currently on 2 L via nasal cannula, oxygen will be weaned if possible total clinical time spent by myself addressing the patient's medical issues, reviewing all of his data, and collaborating with patient's care team: 25 minutes Charges/Coding Visit Charges Inpatient E&M: 91796 [facility] Hosp L1
[2022-08-18] MEDS: Primidone 50 MG Tablet PO (16:17)
[2022-08-18 17:15] LABS: Bedside Glucose 381 mg/dL (74-106)
[2022-08-18] MEDS: Atorvastatin Calcium 80 MG Tablet PO (22:17)
[2022-08-18] MEDS: Aspirin 81 MG TAB.CHEW PO (22:17)
[2022-08-18] MEDS: Clopidogrel Bisulfate 75 MG Tablet PO (22:18)
[2022-08-18] MEDS: Metoprolol(XL)Succ 25 MG Tablet PO (22:18)
[2022-08-18] MEDS: amLODIPine 10 MG Tablet PO (22:18)
[2022-08-19 01:26] LABS: Bedside Glucose 287 mg/dL (74-106)
[2022-08-19 04:19] VITALS: BP 159/67; PULSE 79; RESP 18; TEMP 36.9; O2SAT 92
[2022-08-19 05:00] VITALS: BMI 22.7
[2022-08-19] MEDS: Insulin Lispro 100 UNIT/ML INSULN.PEN SC ×2 (07:01→11:16)
[2022-08-19 07:23] LABS: Bedside Glucose 214 mg/dL (74-106)
[2022-08-19 07:39] VITALS: BP 173/77; PULSE 82; RESP 18; TEMP 37.2; O2SAT 93
[2022-08-19 07:41] VITALS: O2SAT 92
[2022-08-19 09:00] VITALS: BP 165/73; PULSE 80; RESP 16; TEMP 36.7; O2SAT 92
[2022-08-19 09:01] VITALS: BP 165/73; PULSE 80
[2022-08-19] MEDS: Metoprolol(XL)Succ 50 MG Tablet PO (09:01)
[2022-08-19] MEDS: Tamsulosin HCl 0.4 MG Capsule PO (09:01)
[2022-08-19] MEDS: Sertraline 50 MG Tablet 25 MG PO (09:01)
[2022-08-19] MEDS: Lisinopril 40 MG Tablet PO (09:01)
[2022-08-19] MEDS: Isosorbide Mononitrate 60 MG Tablet PO (09:01)
[2022-08-19] MEDS: Cephalexin 500 MG Capsule PO (09:02)
[2022-08-19] MEDS: Iron Polysaccharide Complex 150 MG CAPSULE PO (09:02)
--- NOTE | 2022-08-19 11:39 | PCM.TXEXTCAR ---
Diet Diet Order/Speech Therapy: 08/15/22 22:04 Diet: Cardiac: Calorie-Controlled Food consistency:: Regular Liquid Consistency:: Regular/Thin How many daily calories?: 1800 calorie Routine Orders/Code Status Routine Lab Work: - (Fingerstick blood sugars AC nightly, Humalog subcu per sliding scale: 200-250: 5 units, 251-300: 8 units, 301-350: 12 units) Code Status: DNRCC-A (no intubation) Therapies Weight Bearing: Full weight bearing Physical Therapy: Eval and Treat Occupational Therapy: Eval and Treat Problem/Diagnosis (1) Complicated urinary tract infection: Status: Acute Code(s): N39.0 - Urinary tract infection, site not specified (2) Sepsis with acute organ dysfunction: Status: Acute Code(s): A41.9 - Sepsis, unspecified organism; R65.20 - Severe sepsis without septic shock Plan 1. Acute sepsis secondary to urinary tract infection-continue present antibiotic coverage, await blood culture, await final urine culture #2 acute urinary tract infections-will be changed to oral antibiotics today, ceftriaxone will be stopped #3 essential hypertension-continue present medications #4 type 2 diabetes-blood sugars will be monitored, sliding scale insulin will be given as needed #5 coronary artery disease-stable at this time, continue present medications #6 cerebrovascular disease-patient was on antiplatelet medications #7 hypoxia, possibly secondary to atelectasis-patient is now on room air total clinical time spent by myself addressing the patient's medical issues, reviewing all of his data, and collaborating with patient's care team: 25 minutes Allergies/Procedures Done in Hospital Allergies iodine Allergy (Verified 08/15/22 18:04) Rash Procedures: None Type of Care/Length of Stay Estimated LOS: Convalescent Care Less Than 30 days Type of Care Needed: Skilled Rehab Potential: Good Prognosis: Good Additional Orders/Day of Discharge H&P will serve as current which was dated: 09/14/22 Day of Discharge: 08/19/22 Dietary and Speech Recommendations Dietitian Recommendations/Changes: Continue 1800kcal Cardiac diet to manage medical conditions. Discharge Plan Admission Admit Date/Time: 08/15/22 21:13 Primary Reason for Your Visit: Sepsis, debility Attending Provider: Sami Wells Primary Care Provider: Aron Patricia Consulting Providers: White,Prema L Discharge Orders/Prescriptions Prescriptions: New acetaminophen 325 mg Tablet 650 mg PO Q4H PRN PRN (Reason: Fever, pain 1-10) Qty: 0 0RF cephalexin 500 mg Capsule 500 mg PO Q12 Qty: 0 0RF Rx Instructions: Continue for 7 doses then discontinue metformin 500 mg tablet 500 mg PO BID Qty: 1 0RF Continued amlodipine 10 mg tablet 10 mg PO QHS Qty: 90 3RF sertraline 25 mg tablet 25 mg PO DAILY Qty: 90 3RF polysaccharide iron complex [Ferrex 150] 150 mg iron capsule 150 mg PO DAILY Qty: 90 2RF lisinopril 40 mg tablet 40 mg PO QDAY Qty: 90 0RF primidone 50 mg tablet 50 mg PO 1600 Qty: 90 0RF aspirin 81 MG tablet,chewable 81 mg PO QHS sennosides-docusate sodium 1 TABLET tablet 2 tablet PO BID PRN PRN (Reason: Constipation) 0RF melatonin 3 MG tablet 3 mg PO QHS PRN PRN (Reason: Insomnia) 0RF tamsulosin 0.4 mg capsule 0.4 mg PO DAILY clopidogrel [Plavix] 75 mg tablet 75 mg PO QHS (DME) blood sugar diagnostic strip See Dose Instructions .ROUTE .MEDSUPPLY Qty: 100 3RF Dose Instruction: As directed Rx Instructions: As directed isosorbide mononitrate 60 mg tablet extended release 24 hr 60 mg PO DAILY Qty: 90 1RF metoprolol succinate 25 mg tablet extended release 24 hr 25 mg PO .PM Qty: 90 1RF metoprolol succinate 50 mg tablet extended release 24 hr 50 mg PO QAM Qty: 90 1RF atorvastatin 80 mg tablet 80 mg PO QHS Qty: 90 3RF Discontinued His Defense PO DAILY Rx Instructions: [place]/prostate health Curcumed See Rx Instructions PO .COMPLEX Rx Instructions: joint health PO; joint health glipizide 5 mg tablet 5 mg PO BID Qty: 180 3RF acetaminophen 325 MG tablet 650 mg PO Q6H PRN PRN (Reason: Pain Score 1-10/Temp > 100.7 F) 0RF metformin 1,000 mg tablet 1,000 mg PO BID Qty: 180 3RF No Action (DME) Blood Pressure Cuff Misc See Rx Instructions .ROUTE .MEDSUPPLY Qty: 1 0RF Rx Instructions: As directed (DME) Juxtalite See Rx Instructions .Route .MEDSUPPLY Qty: 1 0RF Rx Instructions: Knee High. 30 - 40mmHg (DME) blood-glucose meter [OneTouch Ultra2 Meter] Misc See Rx Instructions .ROUTE .MEDSUPPLY Qty: 1 0RF Rx Instructions: As directed (DME) One touch ultra blue strip Qty: 100 3RF Dose Instruction: As directed Rx Instructions: Check blood sugar twice daily. (DME) Ultra-Light Rollator Misc See Rx Instructions .ROUTE .MEDSUPPLY Qty: 1 0RF Rx Instructions: As directed Referrals / Follow Up: Aron Patricia MD [Primary Care Provider] - Disposition Disposition (needs filled in before D/C Order can be placed): Care Home Facility
[2022-08-19 11:50] LABS: Bedside Glucose 210 mg/dL (74-106)
--- NOTE | 2022-08-19 11:50 | DS.PCM_ITS ---
Providers Date of Admission: 08/15/22 Date of Discharge: 08/19/22 Primary Care Physician: Dr. Aron Patricia MD Reason For Visit: SEPSIS, ENCEPHALOPAHTY, UTI, ACC HTN Diagnosis Discharge Diagnosis (1) Complicated urinary tract infection: Status: Acute Code(s): N39.0 - Urinary tract infection, site not specified (2) Sepsis with acute organ dysfunction: Status: Acute Code(s): A41.9 - Sepsis, unspecified organism; R65.20 - Severe sepsis without septic shock Plan 1. Acute sepsis secondary to urinary tract infection-continue present antibiotic coverage, await blood culture, await final urine culture #2 acute urinary tract infections-will be changed to oral antibiotics today, ceftriaxone will be stopped #3 essential hypertension-continue present medications #4 type 2 diabetes-blood sugars will be monitored, sliding scale insulin will be given as needed #5 coronary artery disease-stable at this time, continue present medications #6 cerebrovascular disease-patient was on antiplatelet medications #7 hypoxia, possibly secondary to atelectasis-patient is now on room air total clinical time spent by myself addressing the patient's medical issues, reviewing all of his data, and collaborating with patient's care team: 25 minutes Medications at Discharge Home Medications aspirin 81 mg chewable tablet 81 mg PO QHS heart 08/28/17 blood sugar diagnostic #100 ea 05/16/18 blood-glucose meter (OneClearMyMailuch Ultra2 Meter) #1 ea 03/29/20 One touch ultra blue strip #100 ea 06/06/20 melatonin 3 mg tablet 3 mg PO QHS PRN PRN Insomnia 06/09/20 sennosides 8.6 mg-docusate sodium 50 mg tablet 2 tablet PO BID PRN PRN Constipation 06/09/20 miscellaneous medical supply (Blood Pressure Cuff) #1 ea 08/09/20 walker (Ultra-Light Rollator misc) #1 ea 10/17/20 Juxtalite #1 ea 11/09/20 amlodipine 10 mg tablet 10 mg PO QHS blood pressure #90 tabs 08/28/21 sertraline 25 mg tablet 25 mg PO DAILY Mood #90 tabs 08/28/21 isosorbide mononitrate 60 mg tablet,extended release 24 hr 60 mg PO DAILY BP #90 tabs 02/15/22 metoprolol succinate 25 mg tablet,extended release 24 hr 25 mg PO .PM BP #90 tabs 02/15/22 metoprolol succinate 50 mg tablet,extended release 24 hr 50 mg PO QAM BP #90 tabs 02/15/22 clopidogrel 75 mg tablet (Plavix) 75 mg PO QHS Blood Thinner 05/06/22 tamsulosin 0.4 mg capsule 0.4 mg PO DAILY BPH 05/06/22 lisinopril 40 mg tablet 40 mg PO QDAY bp #90 tabs 06/21/22 polysaccharide iron complex 150 mg iron capsule (Ferrex) 150 mg PO DAILY Supplement #90 caps 06/21/22 primidone 50 mg tablet 50 mg PO 1600 Seizure #90 tabs 06/21/22 atorvastatin 80 mg tablet 80 mg PO QHS Cholesterol #90 TABLETS 07/27/22 acetaminophen 325 mg tablet 650 mg (2 x 325 mg) PO Q4H PRN PRN Fever, pain 1-10 #0 tabs 08/19/22 cephalexin 500 mg capsule 500 mg PO Q12 Antbiotic #0 caps 08/19/22 metformin 500 mg tablet 500 mg PO BID Diabetes #1 TAB 08/19/22 Hospital Course Operations None Procedures None Summary of Care Provided Minutes Spent on Discharge: 32 Hospital Course: This 87-year-old white male was seen in the emergency room at [facility] after being brought in with complaints of elevated blood pressure and headache, patient was found to have elevated temperature, his white blood cell count was elevated at 18.7, hemoglobin was 11.9. Blood cultures and urine cultures were ordered, patient was placed on IV Zosyn and vancomycin, patient's lactic acid level was elevated at 3.7. Chest x-ray showed poor inspiration with some bibasilar atelectasis, patient was admitted to PCU and maintained on IV antibiotics and seen by PT and OT, patient's white count normalized, he was felt to have a urinary tract infection but blood culture showed no growth in 48 hours and the urine culture also exhibited no growth. Patient's urinalysis on admission however showed 50-100 RBCs and is leukocyte Estrace was 25. Patient required nasal cannula oxygen during his hospitalization probably secondary to hypoxia from atelectasis. His oxygen was eventually weaned off. He was accepted by TCU for inpatient rehab services. On 08/19/2022, patient was seen and examined: On examination he appeared in no distress. Vital signs as documented. Skin warm and dry and without overt rashes. Neck without JVD, neck was supple, trachea midline, thyroid was normal. Lungs clear bilaterally, normal air movement was noted. Heart exam notable for regular rhythm, normal sounds and absence of murmurs, rubs or gallops. Abdomen unremarkable and without evidence of organomegaly, masses, or abdominal aortic enlargement. Bowel sounds are present, abdomen is not distended. Extremities nonedematous, no cyanosis was noted, no clubbing was noted. Neuro: Cranial nerves II through XII are grossly intact, no focal motor deficits were noted, sensation to light touch and pinprick intact, motor exam 5/5 throughout. Psych: Patient is alert and oriented x3, he does not appear anxious or depressed, he does not appear agitated. Patient was discharged to TCU for inpatient rehab services on 08/19/2022 in stable condition. Weight / BMI Weight Weight: 65.8 kg Body Mass Index (BMI) 22.7 ABG / Lab / Microbiology Data 08/17/22 14:07 08/17/22 14:07 Laboratory: Laboratory Results - last 24 hr 08/18/22 16:13: POC Glucose 381 H 08/18/22 22:14: POC Glucose 287 H 08/19/22 06:59: POC Glucose 214 H 08/19/22 11:14: POC Glucose 210 H Microbiology: Microbiology 08/15/22 20:15 Blood Culture (Wb) - Anticubital Left Blood Culture - Preliminary No growth in 48 hours. 08/15/22 20:20 Blood Culture (Wb) - Anticubital Right Blood Culture - Preliminary No growth in 48 hours. 08/15/22 20:10 Urine Catheter - Catheter Urine Culture - Final Culture exhibits no growth. Meaningful Use Info Meaningful Use Diagnoses (Choose all that apply): None applicable Discharge Plan Admission Admit Date/Time: 08/15/22 21:13 Primary Reason for Your Visit: Sepsis, debility Attending Provider: Sami Wells Primary Care Provider: Aron Patricia Consulting Providers: Prema Xiao Discharge Orders/Prescriptions Prescriptions: New acetaminophen 325 mg Tablet 650 mg PO Q4H PRN PRN (Reason: Fever, pain 1-10) Qty: 0 0RF cephalexin 500 mg Capsule 500 mg PO Q12 Qty: 0 0RF Rx Instructions: Continue for 7 doses then discontinue metformin 500 mg tablet 500 mg PO BID Qty: 1 0RF Continued amlodipine 10 mg tablet 10 mg PO QHS Qty: 90 3RF sertraline 25 mg tablet 25 mg PO DAILY Qty: 90 3RF polysaccharide iron complex [Ferrex 150] 150 mg iron capsule 150 mg PO DAILY Qty: 90 2RF lisinopril 40 mg tablet 40 mg PO QDAY Qty: 90 0RF primidone 50 mg tablet 50 mg PO 1600 Qty: 90 0RF aspirin 81 MG tablet,chewable 81 mg PO QHS sennosides-docusate sodium 1 TABLET tablet 2 tablet PO BID PRN PRN (Reason: Constipation) 0RF melatonin 3 MG tablet 3 mg PO QHS PRN PRN (Reason: Insomnia) 0RF tamsulosin 0.4 mg capsule 0.4 mg PO DAILY clopidogrel [Plavix] 75 mg tablet 75 mg PO QHS (DME) blood sugar diagnostic strip See Dose Instructions .ROUTE .MEDSUPPLY Qty: 100 3RF Dose Instruction: As directed Rx Instructions: As directed isosorbide mononitrate 60 mg tablet extended release 24 hr 60 mg PO DAILY Qty: 90 1RF metoprolol succinate 25 mg tablet extended release 24 hr 25 mg PO .PM Qty: 90 1RF metoprolol succinate 50 mg tablet extended release 24 hr 50 mg PO QAM Qty: 90 1RF atorvastatin 80 mg tablet 80 mg PO QHS Qty: 90 3RF Discontinued His Defense PO DAILY Rx Instructions: [place]/prostate health Curcumed See Rx Instructions PO .COMPLEX Rx Instructions: joint health PO; joint health glipizide 5 mg tablet 5 mg PO BID Qty: 180 3RF acetaminophen 325 MG tablet 650 mg PO Q6H PRN PRN (Reason: Pain Score 1-10/Temp > 100.7 F) 0RF metformin 1,000 mg tablet 1,000 mg PO BID Qty: 180 3RF No Action (DME) Blood Pressure Cuff Misc See Rx Instructions .ROUTE .MEDSUPPLY Qty: 1 0RF Rx Instructions: As directed (DME) Juxtalite See Rx Instructions .Route .MEDSUPPLY Qty: 1 0RF Rx Instructions: Knee High. 30 - 40mmHg (DME) blood-glucose meter [CriticMania.comTouch Ultra2 Meter] Misc See Rx Instructions .ROUTE .MEDSUPPLY Qty: 1 0RF Rx Instructions: As directed (DME) One touch ultra blue strip Qty: 100 3RF Dose Instruction: As directed Rx Instructions: Check blood sugar twice daily. (DME) Ultra-Light Rollator Misc See Rx Instructions .ROUTE .MEDSUPPLY Qty: 1 0RF Rx Instructions: As directed Referrals / Follow Up: Aron Patricia MD [Primary Care Provider] - Disposition Disposition (needs filled in before D/C Order can be placed): [facility] Charges/Coding Visit Charges Inpatient E&M: 73716 Disch Hosp >30min
--- NOTE | 2022-08-19 11:55 | NURSING ---
I spoke with Padmini in TCU to inform her that the pt will be d/c today.
[2022-08-19 12:18] VITALS: BP 165/73; PULSE 80; RESP 16; TEMP 36.7; O2SAT 92
--- NOTE | 2022-08-19 12:49 | MDS.RN ---
Report called to nurse [place] for pt to be d/c to TCU.
== END 2022-08-19 13:35 | disposition skilled nursing facility (03) | DRG 872 ==
LOC: ED 20:56 → PCU 21:38
PROVIDERS: Admitting Provider Family Medicine; Emergency Provider Emergency Medicine; PCP Internal Medicine; Visit Provider Internal Medicine
DX: A41.9 Sepsis, unspecified organism (principal); E87.20 Acidosis, unspecified; I69.354 Hemiplegia and hemiparesis following cerebral infarction affecting left non-dominant side; J98.11 Atelectasis; N39.0 Urinary tract infection, site not specified; E11.22 Type 2 diabetes mellitus with diabetic chronic kidney disease; D50.9 Iron deficiency anemia, unspecified; D47.2 Monoclonal gammopathy; E11.51 Type 2 diabetes mellitus with diabetic peripheral angiopathy without gangrene; G20 Parkinson's disease; I12.9 Hypertensive chronic kidney disease with stage 1 through stage 4 chronic kidney disease, or unspecified chronic kidney disease; N18.2 Chronic kidney disease, stage 2 (mild); I89.0 Lymphedema, not elsewhere classified; I25.10 Atherosclerotic heart disease of native coronary artery without angina pectoris; E78.5 Hyperlipidemia, unspecified; Z79.82 Long term (current) use of aspirin; Z66 Do not resuscitate; Z51.5 Encounter for palliative care; Z79.84 Long term (current) use of oral hypoglycemic drugs; Z79.02 Long term (current) use of antithrombotics/antiplatelets; Z95.5 Presence of coronary angioplasty implant and graft; R09.02 Hypoxemia
CPT/HCPCS: 36415; 51702; 70450; 71045; 80048; 80053; 81001; 82962; 83605; 85025; 87040; 87086; 87811; 94640; 94668; 97110; 97116; 97162; 97167; 97530; 97535; 97802; 99285; J7030; J7040; A4216; J2405

== ENCOUNTER 2022-08-19 13:53 | Inpatient (IN) | payer MEDICARE, OTHER, SELFPAY ==
[2022-08-19 14:21] VITALS: BP 140/68; PULSE 73; RESP 18; TEMP 36.4; O2SAT 90; BMI 21.9
[2022-08-19 14:27] VITALS: BMI 21.9
[2022-08-19 16:57] LABS: Bedside Glucose 234 mg/dL (74-106)
[2022-08-19] MEDS: Cephalexin 500 MG Capsule PO (17:28)
[2022-08-19] MEDS: Glucerna Shake 120 ML LIQUID PO (17:28)
[2022-08-19] MEDS: Primidone 50 MG Tablet PO (17:28)
[2022-08-19] MEDS: metFORMIN HCl 500 MG Tablet PO (17:28)
[2022-08-19 21:36] VITALS: BP 153/76; PULSE 75
[2022-08-19] MEDS: Metoprolol(XL)Succ 25 MG Tablet PO (21:36)
[2022-08-19] MEDS: Clopidogrel Bisulfate 75 MG Tablet PO (21:36)
[2022-08-19] MEDS: Acetaminophen 325 MG Tablet 650 MG PO (21:37)
[2022-08-19] MEDS: Aspirin 81 MG TAB.CHEW PO (21:38)
[2022-08-19] MEDS: Atorvastatin Calcium 80 MG Tablet PO (21:44)
[2022-08-19] MEDS: amLODIPine 10 MG Tablet PO (21:45)
[2022-08-19 21:51] LABS: Bedside Glucose 304 mg/dL (74-106)
[2022-08-19] MEDS: Insulin Lispro 100 UNIT/ML INSULN.PEN SC (23:10)
[2022-08-20] VITALS (8 sets, daily range): BP systolic 118–163; BP diastolic 62–89; PULSE 65–76; RESP 16–18; TEMP 36.3–36.9; O2SAT 94–97
[2022-08-20 04:26] LABS: Bedside Glucose 204 mg/dL (74-106)
--- NOTE | 2022-08-20 05:15 | NURSING ---
0340- Pt found on floor in room when cotton grower walking in hallway. Pt laying on rt side in symmetrical fashion w/ a blanket under his head past the foot of the bed. Feet under the bed, knees are flexed. Rt hearing aid on the floor under pt, retrieved, and placed on tank car mechanic per pt request. Pt unable to recall events of the fall initially when asked. Vital signs obtained and recorded. PERRLA b/l. CN II-XII intact b/l. Slight left facial droop which is baseline per report prior to transfer to unit yesterday. Strength to lt upper and rt lower extremities 4-5/5. Rt upper and lt lower extremities 5/5. No internal or external rotation noted to BLE. Flexion of BUE equal. Denies any numbness or tingling. Speech is clear w/ delayed response without any change from previous conversation earlier in the shift. Answers all orientation questions appropriately. Blood sugar 204- had two maurice crackers for an HS snack after insulin administered per APR. Asked pt again after assisted back to bed if he is able to recall any events from the fall. Pt remembers placing his legs over the edge of the bed then reaching for the right side rail. Rails padded. He does not recall standing and thinks he slid to the floor. He also thinks he hit his head and his rt shoulder. He is unable to recall the reason for the attempted transfer, such as toileting. No ecchymosis or abrasions noted. C/O sharp pain posterior to rt ear and radiates down his neck. Reported same pain last night prior to dose of Tylenol and verbalizes the pain has been intermittent for the past 2 days. When asked if he has experienced pain in this location and of this character prior to hospitalization, he responds yes. Incontinent of urine. Pericare completed per staff and new brief applied. Will continue to monitor.
[2022-08-20 05:46] LABS: Absolute Lymphocyte Count 0.55 X10^3/uL (0.83-4.51); Absolute Neutrophil Count 7.6 X10^3/uL (2.0-7.7); Basophil# 0.03 X10^3/uL; Basophil% 0.3 % (0-1); Hemoglobin 12.3 g/dL (13.0-16.5); Lymphocyte # 0.55 X10^3/ul (0.83-4.51); Lymphocyte % 5.6 % (19-41); Mean Corp Hgb Conc 35.1 g/dL (32-36); Mean Corpuscular Hgb 31.9 pg (27.0-32.0); Mean Corpuscular Volume 90.7 fL (80-94); Mean Platelet Vol. 11.4 fl (6.2-12.0); Monocyte# 1.34 X10^3/uL; Monocyte% 13.7 % (0-10); NRBC Flagged by Analyzer 0 % (0-5); Neutrophil # 7.62 X10^3/uL (2.7-7.7); Neutrophil % 77.8 % (47-70); POSITIVE DIFFERENTIAL YES; Platelet Count 201 K/mm3 (150-450); RBC Distribution Width CV 13.2 % (11.6-14.6); RBC Distribution Width SD 44.4 fl (35.1-43.9); Red Blood Count 3.86 M/mm3 (4.6-6.2); White Blood Count 9.8 K/mm3 (4.4-11.0)
[2022-08-20] MEDS: Acetaminophen 325 MG Tablet 650 MG PO ×3 (05:53→21:42)
[2022-08-20] MEDS: Sertraline 50 MG Tablet 25 MG PO (05:54)
[2022-08-20] MEDS: Cephalexin 500 MG Capsule PO (05:54)
[2022-08-20] MEDS: Isosorbide Mononitrate 60 MG Tablet PO (05:55)
[2022-08-20] MEDS: Lisinopril 40 MG Tablet PO (05:55)
[2022-08-20] MEDS: Iron Polysaccharide Complex 150 MG CAPSULE PO (05:55)
[2022-08-20 06:02] LABS: Differential Indicated SCAN CRITERIA MET
[2022-08-20 06:09] LABS: Anion Gap 6 (5-15); BUN 23 mg/dL (7-18); BUN/Creat Ratio 22.5 RATIO (10-20); Calcium,Total 8.8 mg/dL (8.5-10.1); Chloride 103 mmol/L (98-107); Creatinine, Serum 1.02 mg/dL (0.70-1.30); Differential Comment SCANNED; EST Glomerular Filtration Rate 73 mL/min (>60); Est Glom Filt Rate - Afr Amer 89 mL/min (>60); Estimated Creatinine Clearance 45.99 ml/min; Glucose 215 mg/dL (74-106); Potassium 2.9 mmol/L (3.5-5.1); Sodium Level 135 mmol/L (136-145)
[2022-08-20 06:40] LABS: Bedside Glucose 243 mg/dL (74-106)
[2022-08-20] MEDS: Insulin Lispro 100 UNIT/ML INSULN.PEN SC ×4 (08:18→23:47)
[2022-08-20] MEDS: Glucerna Shake 120 ML LIQUID PO ×3 (08:18→17:59)
[2022-08-20] MEDS: metFORMIN HCl 500 MG Tablet PO ×2 (08:19→17:59)
--- NOTE | 2022-08-20 08:46 | NURSING ---
0600- st cath using sterile technique completed after bladder scan for post-void bladder scan at 480 ml per AGRICULTURAL ECONOMICS PROFESSOR. Voided 60 ml. Difficulty retracting foreskin when cleaning meatus. St cath for 550 ml blood-tinged urine. No clots or mucous noted. No foul odor. Pt tolerated fair, primarily d/t apprehension associated w/ procedure. Will continue voiding trials.
--- NOTE | 2022-08-20 08:50 | NURSING ---
Phone call placed to spouse, Tosin, to update on fall and urinary retention resulting in st cath. She verbalizes understanding and does not have any questions at this time. Questioned weakness to RUE when using water pitcher. She notes pt was experiencing difficulty feeding self the past couple of days when he was on the acute unit. She also confirms pt had pain to the posterior scalp prior to admission to TCU.
[2022-08-20] MEDS: Metoprolol(XL)Succ 50 MG Tablet PO (10:10)
[2022-08-20] MEDS: Tuberculin,Purif.prot.deriv. 50 TU/ML Vial 0.1 ML ID (10:11)
[2022-08-20 11:35] LABS: Bedside Glucose 368 mg/dL (74-106)
--- NOTE | 2022-08-20 13:06 | NURSING ---
Offered latest covid booster, education about vaccine provided. Patient refuses at this time.
--- NOTE | 2022-08-20 14:33 | CASEMGMT ---
Social Work See attached assessment for completed social work assessment. Patient plans to discharge to home with spouse. Assessment completed with patient spouse due to patient being hard of hearing and difficulty processing. Speech therapy is seeing patient. Unable to complete MOLST from with patient for noted reason, patient spouse confirms code stateus as [id number], no intubation. This social sciences instructor communicating insurance benefit of 20 days skilled time at 100% coverage and encouraged patient spouse to contact secondary insurance about coverage after 20 days. This social sciences instructor able to answer all questions. PLAN: Home with spouse. Social Work to continue to follow. Pedro Luis SHIPMAN, DAISHA
--- NOTE | 2022-08-20 14:49 | HP.PCM_ITS ---
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 He also experienced nausea and 1 bout of emesis at home. In the emergency department he became febrile and had acute onset confusion. They complained of increased urinary frequency but denies dysuria. Temp was 101.6 and white blood cell count was elevated at 18.7 With a left shift. UA had 50-100 RBC's per high-power field with 0-5 WBC's and rare bacteria. It was nitrite +. Chest x-ray was interpreted by radiology as a poor inspiratory effort with some basilar atelectasis. I personally reviewed the chest x-ray and although it was a poor inspiration I compared it to an x-ray done in April 2022 with a similar inspiration and there appear to be definite infiltrates in the left base. There are also some scattered areas in the periphery that appear to be infiltrates. He was administered vancomycin and Zosyn in the emergency department and admitted to the hospitalist service. Urine and blood cultures had no growth. COVID-19 antigen was negative. While in the hospital he was seen by PT/OT/ST. He was approved by speech therapy for regular textures and thin liquids. PT/OT recommended a half-way facility at discharge. He was transferred to the transitional care unit at [facility] on 08/19/2022 for strengthening prior to returning home. He was discharged on Keflex for UTI even though the urine culture was negative and he had only 0-5 WBC's. Afebrile-he became afebrile on 08/17/2022. VSS Maintaining appropriate oxygen saturation on RA Oral intake is good. Oral fluid intake recorded is very poor. Discussed with nursing - He had a fall today but, no injuries reported. Reviewed the PT/OT/ST notes Medication list reviewed. All lab drawn this AM was personally reviewed. The white blood cell count is normal at 9.8 with 78% neutrophils. Hemoglobin is 12.3 and platelets are within normal limits. Sodium is low at 135 and the potassium is low at 2.9. BUN is elevated at 23 with a creatinine of 1.02 which is within his baseline and a BUN/creatinine ratio 22.5. [facility] Medical History (Updated 08/20/22 @ 17:[address] Inocencia Alejandra, ) Atherosclerotic heart disease of [place] coronary artery without angina pectoris Bilateral lower extremity edema BPH (benign prostatic hyperplasia) Bradycardia Debility Epistaxis Essential (primary) hypertension Fall Fatigue Generalized weakness Hearing loss History of CVA (cerebrovascular accident) (05/2020) Hyperlipidemia Iron deficiency Muscle weakness Parkinson disease Premature atrial complexes Radiculopathy due to lumbar intervertebral disc disorder Syncope and collapse TIA (transient ischemic attack) (08/2017) Type 2 diabetes mellitus Urinary frequency Weakness Home Medications aspirin 81 mg chewable tablet 81 mg PO QHS heart 08/28/17 [History Last Taken 08/18/22 22:15] blood sugar diagnostic #100 ea 05/16/18 [Rx Last Taken Unknown] blood-glucose meter (Solxuch Ultra2 Meter) #1 ea 03/29/20 [Rx Last Taken Unknown] One touch ultra blue strip #100 ea 06/06/20 [Rx Last Taken Unknown] melatonin 3 mg tablet 3 mg PO QHS PRN PRN Insomnia 06/09/20 [Rx Last Taken Unknown] sennosides 8.6 mg-docusate sodium 50 mg tablet 2 tablet PO BID PRN PRN Constipation 06/09/20 [Rx Last Taken Unknown] miscellaneous medical supply (Blood Pressure Cuff) #1 ea 08/09/20 [Rx Last Taken Unknown] walker (Ultra-Light Rollator misc) #1 ea 10/17/20 [Rx Last Taken Unknown] Juxtalite #1 ea 11/09/20 [Rx Last Taken Unknown] amlodipine 10 mg tablet 10 mg PO QHS blood pressure #90 tabs 08/28/21 [Rx Last Taken 08/18/22 22:15] sertraline 25 mg tablet 25 mg PO DAILY Mood #90 tabs 08/28/21 [Rx Last Taken 08/19/22 09:00] isosorbide mononitrate 60 mg tablet,extended release 24 hr 60 mg PO DAILY BP #90 tabs 02/15/22 [Rx Last Taken 08/19/22 09:00] metoprolol succinate 25 mg tablet,extended release 24 hr 25 mg PO .PM BP #90 tabs 02/15/22 [Rx Last Taken 08/18/22 22:15] metoprolol succinate 50 mg tablet,extended release 24 hr 50 mg PO QAM BP #90 tabs 02/15/22 [Rx Last Taken 08/19/22 09:00] clopidogrel 75 mg tablet (Plavix) 75 mg PO QHS Blood Thinner 05/06/22 [History Last Taken 08/18/22 22:15] tamsulosin 0.4 mg capsule 0.4 mg PO DAILY BPH 05/06/22 [History Last Taken 08/19/22 09:00] lisinopril 40 mg tablet 40 mg PO QDAY bp #90 tabs 06/21/22 [Rx Last Taken 04/12 09:00] polysaccharide iron complex 150 mg iron capsule (Ferrex) 150 mg PO DAILY Supplement #90 caps 06/21/22 [Rx Last Taken 08/19/22 09:00] primidone 50 mg tablet 50 mg PO 1600 Seizure #90 tabs 06/21/22 [Rx Last Taken 08/18/22 16:15] atorvastatin 80 mg tablet 80 mg PO QHS Cholesterol #90 TABLETS 07/27/22 [Rx Last Taken 08/18/22 22:15] acetaminophen 325 mg tablet 650 mg (2 x 325 mg) PO Q4H PRN PRN Fever, pain 1-10 #0 tabs 08/19/22 [Rx Last Taken 08/18/22 22:15] cephalexin 500 mg capsule 500 mg PO Q12 Antbiotic #0 caps 08/19/22 [Rx Last Taken 08/19/22 09:00] metformin 500 mg tablet 500 mg PO BID Diabetes #1 TAB 08/19/22 [Rx Last Taken Unknown] Allergy/AdvReac Type Severity Reaction Status Date / Time iodine Allergy Rash Verified 08/15/22 18:04 Family History Sister Hypertension Parkinson disease Diabetes Father Heart disease Mother Heart disease Brother Heart disease age 34 from congenital heart disease Surgical History History of back surgery History of cardiac cath History of coronary artery stent placement (04/28/20) History of electrophysiologic study (04/2016) History of eyelid surgery (09/2018) History of loop recorder (04/2016) History of prostate surgery transurethral needle ablation of prostrate Social History current occupational status: retired Smoking Status: Never smoker alcohol intake: never substance use type: does not use what type of physical activity do you participate in: none ROS Review of Systems ROS Unobtainable: other Details: He is encephalopathic and speaks very slowly. His is in the room and tells me he seems to be speaking more slowly today than normal. He does not have labored respirations. ROS is limited to the answers seen below due to encephalopathy Constitutional Constitutional: Reports fever(s) and weakness ENT HEENT: Reports dry mouth and sore throat Respiratory/Chest Respiratory/Chest: Denies cough or tachypnea Gastrointestinal Gastrointestinal: Reports other Details: Had N/V at admission but, denies now. Genitourinary Genitourinary: Reports other Details: Denies dysuria. Had to have straight cath twice. Neurologic Neurologic: Reports confusion, memory loss, weakness and other Details: very slow speech, masked facies with decreased blink. ; Denies headache(s) Endocrine Endocrinology: Denies polydipsia or polyphagia Vital Signs Vital Signs Vital Signs: 08/19/22 21:36 08/20/22 03:45 08/20/22 05:50 Temperature 97.4 F L 97.6 F L Temperature Source Temporal Temporal Pulse Rate 75 73 76 Pulse Rhythm Pulse Strength Respiratory Rate 16 18 Respiratory Effort Respiratory Depth Respiratory Pattern Blood Pressure 153/76 H 163/89 H 163/77 H Blood Pressure Mean 113 105 Blood Pressure Source Monitor Monitor Blood Pressure Position Semi-Fowlers Semi-Fowlers Blood Pressure Location Right Arm Right Arm Pulse Ox 94 97 Oxygen Delivery Method Room Air Room Air 08/20/22 08:18 08/20/22 10:00 08/20/22 10:10 Temperature 97.8 F Temperature Source Temporal Pulse Rate 72 71 Pulse Rhythm Regular Pulse Strength Normal (2+) Respiratory Rate 17 Respiratory Effort Normal Non-Labored Respiratory Depth Normal Respiratory Pattern Normal Blood Pressure 118/64 Blood Pressure Mean 82 Blood Pressure Source Monitor Blood Pressure Position Sitting Blood Pressure Location Left Arm Pulse Ox 94 Oxygen Delivery Method Room Air Room Air 08/20/22 12:18 Temperature 97.3 F L Temperature Source Temporal Pulse Rate 65 Pulse Rhythm Pulse Strength Respiratory Rate 16 Respiratory Effort Respiratory Depth Respiratory Pattern Blood Pressure 122/62 H Blood Pressure Mean 82 Blood Pressure Source Monitor Blood Pressure Position Semi-Fowlers Blood Pressure Location Right Arm Pulse Ox 97 Oxygen Delivery Method Room Air Weight Weight: 140 lb 8 oz Body Mass Index (BMI) 21.9 Physical Exam Const Constitutional Narrative: Alert - just stares at me when I ask him why he is in the hospital. He was calm and pleasant and smiling. General Appearance: cooperative HEENT HEENT Narrative: Tongue is dry no thrush. Head and Scalp: normocephalic and atraumatic External Ear: other Other Details: [place] Eyes Eyes Narrative: horizontal eye movements normal. Finger nose test unremarkable. No scleral icterus and no conjunctival injection. No discharge from the eyes and no mattering of the eyelashes. Neck no lymphadenopathy General: trachea midline; Negative for anterior neck swelling Chest Chest Narrative: He has symmetrical chest rise. No pain with palpation of the chest wall. Resp Resp Narrative: Few sacatter crackles anterior and lateral. Diminished BS. Not tachypneic and no labored breathing, even lying flat in bed. No JVD, even lying flat. Cardio regular rate, regular rhythm, no murmurs, no rub and no gallops GI GI Narrative: Abd is soft and he has no guarding. There is no abd distension and BS's are very active. Extremity no calf tenderness and no pedal edema Skin Rashes: no rashes Wounds: Negative for wounds noted Neuro Neuro Narrative: He has been sleeping most of the day. He is awake for me and able to answer simple questions. Speech is very slow and he is slow to respond. He can do finger nose and heel riggs. Moves all extremities. CAn lift both legs off the bed and hold for 5 secs. Lifts both arms and holds for 10 sec. No drift and no tremors. Masked facies and decreased blink. Has never had a MBS at this facility. Psych affect normal Attitude: calm Activity / Motor Behavior: appropriate eye contact; Negative for psychomotor agitation Speech: slow Results Lab / Micro Data 08/20/22 05:24 08/20/22 05:24 Labs: Laboratory Results - last 24 hr 08/19/22 16:37: POC Glucose 234 H 08/19/22 21:31: POC Glucose 304 H 08/20/22 04:01: POC Glucose 204 H 08/20/22 05:24: WBC 9.8, RBC 3.86 L, Hgb 12.3 L, Hct 35.0 L, MCV 90.7, MCH 31.9, MCHC 35.1 D, RDW Std Deviation 44.4 H, RDW Coeff of Arturo 13.2, Plt Count 201, MPV 11.4, Immature Gran % (Auto) 0.600, Neut % (Auto) 77.8 H, Lymph % (Auto) 5.6 L, Rutherford % (Auto) 13.7 H, Eos % (Auto) 2.0, Baso % (Auto) 0.3, Absolute Neuts (auto) 7.6, Absolute Lymphs (auto) 0.55 L, Nucleated RBC % 0, Differential Comment SCANNED, Sodium 135 L, Potassium 2.9 L, Chloride 103, Carbon Dioxide 26.0, Anion Gap 6, BUN 23 H, Creatinine 1.02, Estim Creat Clear Calc 45.99, Est GFR (MDRD) Af Amer 89, Est GFR (MDRD) Non-Af 73, BUN/Creatinine Ratio 22.5 H, Glucose 215 H, Calcium 8.8 08/20/22 06:21: POC Glucose 243 H 08/20/22 11:17: POC Glucose 368 H Assessment & Plan Assessment/Plan (1) Debility: (2) Sepsis with acute organ dysfunction: PLAN: Source? Blood cultures are negative and so is the urine culture? Only 0- 5 WBC's in the urine with many more RBC's. (3) Encephalopathy due to infection: (4) Type 2 diabetes mellitus: QUALIFIERS: Diabetes mellitus alf insulin use: without intermodal truck driver use Diabetes mellitus complication status: with other specified complic ation Qualified Code(s): E11.69 - Type 2 diabetes mellitus with other specified complication (5) Monoclonal gammopathy: (6) Urine retention: (7) Parkinson disease: (8) BPH (benign prostatic hyperplasia): (9) Hyperlipidemia: QUALIFIERS: Hyperlipidemia type: pure hypercholesterolemia Qualified Code(s): E78.00 - Pure hypercholesterolemia, unspecified; E78.0 - Pure hypercholesterolemia (10) Essential (primary) hypertension: (11) History of CVA (cerebrovascular accident): (12) History of coronary artery stent placement: (13) Atherosclerotic heart disease of [place] coronary artery without angina pectoris: QUALIFIERS: [place] vs. transplanted heart: unspecified whether little traverse or transplanted heart Qualified Code(s): I25.10 - Atherosclerotic heart disease of [place] coronary artery without angina pectoris (14) Fever: (15) Normochromic normocytic anemia: (16) Hyponatremia: (17) Hypokalemia: (18) Dehydration, moderate: (19) Hypophosphatemia: (20) Abnormal LFTs (liver function tests): (21) Obstipation: (22) Bilateral pleural effusion: PLAN: Plan PLAN PT for gait stability OT for ADL's ST for evaluation Analgesics as needed Bowel protocol Fall precautions Assess for Anxiety/Depression GI prophylaxis - none at this time DVT prophylaxis with heparin 5000 units subcu every 12 hours Follow up with PCP following DC from [facility] Rehab AM lab personally reviewed Check a TSH, urine sodium and creatinine, liver profile, magnesium and phospho vicente. Supplement potassium and phosphorous Heparin for DVT prophylaxis Check an ammonia and lipase. Dulcolax suppository tonight - obstipation is likely contributing to urine retention. DC Keflex and restart Zosyn for now until we have the radiologist report on the CT chest. He has BL pleural effusions and compressive atelectasis and appears to have infiltrates per my review. There is also something abnormal with the liver. 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 Charges/Coding Visit Charges Inpatient E&M: 95070 SNF Init L2
--- NOTE | 2022-08-20 16:46 | NURSING ---
Updated Dr. Alejandra on voiding trial. No new orders at this time.
[2022-08-20 16:50] LABS: AST(SGOT) 96 U/L (15-37); Alanine Aminotransfer ALT/SGPT 246 U/L (16-61); Albumin, Serum 2.7 g/dL (3.2-5.0); Alkaline Phosphatase 463 U/L (45-117); Bilirubin, Direct 1.52 mg/dL (0.00-0.30); Globulin 4.2 g/dL (2.2-4.2); Magnesium 1.7 mg/dL (1.6-2.6); Phosphorus 2.2 mg/dL (2.5-4.9); Protein, Total 6.9 g/dL (6.4-8.2); Thyroid Stim Hormone (TSH) 2.35 uIU/mL (0.358-3.74)
[2022-08-20 16:51] LABS: Bedside Glucose 198 mg/dL (74-106)
[2022-08-20 17:34] LABS: Lipase 41 U/L (13-75)
[2022-08-20] MEDS: Bisacodyl 5 MG Tablet 10 MG PO (17:59)
[2022-08-20] MEDS: Potassium Chloride Oral Tablet 20 MEQ 40 MEQ PO (17:59)
[2022-08-20] MEDS: Primidone 50 MG Tablet PO (17:59)
[2022-08-20] MEDS: Tamsulosin HCl 0.4 MG Capsule PO (17:59)
[2022-08-20 18:38] LABS: Prothrombin Time (Protime)PT. 13.1 SECONDS (11.7-14.9)
[2022-08-20 18:39] LABS: Partial Thromboplast Time 36.8 Seconds (24.1-36.2)
[2022-08-20] MEDS: 0.9% Saline Lock 10 ML Syringe IV ×2 (19:42→21:40)
--- NOTE | 2022-08-20 20:38 | NURSING ---
BP 119/50 and HR 67 after 1 liter bolus infused. Secure Backline message sent to Dr. Alejandra to update per order. No new orders received.
[2022-08-20] MEDS: amLODIPine 10 MG Tablet PO (21:43)
[2022-08-20] MEDS: Aspirin 81 MG TAB.CHEW PO (21:44)
[2022-08-20] MEDS: Metoprolol(XL)Succ 25 MG Tablet PO (21:44)
[2022-08-20] MEDS: Atorvastatin Calcium 80 MG Tablet PO (21:44)
[2022-08-20] MEDS: Clopidogrel Bisulfate 75 MG Tablet PO (21:44)
[2022-08-20] MEDS: Bisacodyl 10 MG Suppository RC (21:46)
[2022-08-20 22:44] LABS: Bedside Glucose 233 mg/dL (74-106)
[2022-08-21 06:30] VITALS: BP 142/64; PULSE 67
[2022-08-21] MEDS: 0.9% Saline Lock 10 ML Syringe IV ×2 (06:34→18:26)
[2022-08-21 06:39] LABS: Potassium 3.7 mmol/L (3.5-5.1)
[2022-08-21] MEDS: Acetaminophen 325 MG Tablet 650 MG PO (06:39)
[2022-08-21 06:40] LABS: Bedside Glucose 199 mg/dL (74-106)
[2022-08-21] MEDS: Iron Polysaccharide Complex 150 MG CAPSULE PO (06:43)
[2022-08-21] MEDS: Sertraline 50 MG Tablet 25 MG PO (06:43)
[2022-08-21] MEDS: Lisinopril 40 MG Tablet PO (06:43)
[2022-08-21] MEDS: Isosorbide Mononitrate 60 MG Tablet PO (06:43)
[2022-08-21] MEDS: Insulin Lispro 100 UNIT/ML INSULN.PEN SC ×3 (06:46→18:12)
[2022-08-21] MEDS: metFORMIN HCl 500 MG Tablet PO ×2 (08:46→18:11)
[2022-08-21] MEDS: Glucerna Shake 120 ML LIQUID PO ×2 (08:46→18:14)
[2022-08-21 10:55] VITALS: BP 141/76; PULSE 71
[2022-08-21] MEDS: Metoprolol(XL)Succ 50 MG Tablet PO (10:55)
[2022-08-21 11:50] LABS: Bedside Glucose 289 mg/dL (74-106)
[2022-08-21 12:26] LABS: Urine Sodium 83 mmol/L (Not Establ.)
[2022-08-21 13:33] VITALS: BMI 22.4
[2022-08-21 15:42] VITALS: BP 152/69; PULSE 64; RESP 18; TEMP 36.8; O2SAT 95
--- NOTE | 2022-08-21 16:26 | PCM.PROGNOTE ---
Subjective Subjective Afebrile VSS Maintaining appropriate oxygen saturation on RA Oral intake is poor. He took only 460 cc orally yesterday and only 360 so far today. Food intake has improved and he ate 75 to 100% of his breakfast and 50 to 74% of his lunch. Still retaining urine. Blood sugar record was reviewed and the blood sugars are uncontrolled. Fasting today was 199 and the lunchtime sugar was 289 and he has been on a sliding scale insulin at low medium. He is also on metformin 500 twice daily. It looks as though he has only had 1 BM after Dulcolax PO and Dulcolax NH yesterday. Discussed with nursing - no problems that need addressed Reviewed the PT/OT/ST notes He is currently on thin liquids and regular textures however With BL PNA in a PD pt it makes me wonder if he aspirates. His tells me that he sometimes coughs when eating. Medication list reviewed. All lab was personally reviewed. Potassium is up to 3.7 following supplementation. Ammonia and lipase were within normal limits. TSH is normal. Fractional excretion of sodium is consistent with prerenal azotemia however I hesitate to hydrate in light of bilateral pleural effusions. The radiology report on the CT scan of the chest was reviewed and the patient has infiltrates and bilateral pleural effusions. Echocardiogram in April of this year showed a 60% ejection fraction with +1 AR and stage I diastolic dysfunction. The PA pressure was estimated at 38 which is consistent with mild pulmonary hypertension. Etiology of the BL pleural effusions is unclear. He is sitting up in bed today and is much more alert. His family was present in the room and I answered all their questions. Still very slow to answer questions and his family tells me that this is not new. He denies pain. Denies Nausea. Objective Data Objective Data Vital Signs: Vital Signs Temp Pulse Resp BP Pulse Ox O2 Del Method 98.2 F 64 18 152/69 H 95 Room Air 08/21/22 15:42 08/21/22 15:42 08/21/22 15:42 08/21/22 15:42 08/21/22 15:42 08/21/22 15:42 Oxygen Delivery Method Room Air Weight: 143 lb 3 oz Body Mass Index (BMI) 22.4 Intake & Output: Intake and Output for Last 24 Hours 08/19/22 08/20/22 08/21/22 23:59 23:59 23:59 Intake Total 120 / 120 460 / 370 853.5742 / 973.3333 Output Total 175 / 175 660 / 660 Balance -55 / -55 -200 / -403 900.4766 / 973.3333 Lab / Micro Data 08/20/22 05:24 08/21/22 05:30 Labs: Laboratory Results - last 24 hr 08/20/22 05:24: Phosphorus 2.2 L, Magnesium 1.7, Total Bilirubin 2.10 H, Direct Bilirubin 1.52 H, AST 96 H, ALT 246 H, Alkaline Phosphatase 463 H, Total Protein 6.9, Albumin 2.7 L, Globulin 4.2, Lipase 41, TSH 2.35 08/20/22 16:30: POC Glucose 198 H 08/20/22 18:05: PT 13.1, INR 1.0, APTT 36.8 H, Ammonia 17.0 08/20/22 22:24: POC Glucose 233 H 08/21/22 05:30: Potassium 3.7 08/21/22 06:13: POC Glucose 199 H 08/21/22 11:29: POC Glucose 289 H 08/21/22 11:45: Ur Random Sodium 83, Urine Creatinine 66.70 Micro: Microbiology 08/21/22 11:45 Urine, Clean Catch Streptococcus pneumoniae Antigen (M - Final 08/20/22 16:38 Mucosa - Nasopharyngeal Respiratory Panel (PCR) - Final Physical Exam Const alert and no apparent distress General Appearance: cooperative HEENT normocephalic Mouth: dry mucous membranes Resp clear to auscultation bilaterally Resp Narrative: CTA anterior and lateral. No tachypnea and no labored breathing. Cardio regular rate, regular rhythm and no gallops GI GI Narrative: Mildly distended and tympanic. Soft and no guarding with palpation. Very active BS's. Extremity no calf tenderness General Extremity: Negative for edema Skin Rashes: no rashes Assessment & Plan Assessment/Plan (1) Debility: (2) Sepsis with acute organ dysfunction: PLAN: Source? Blood cultures are negative and so is the urine culture? Only 0-5 WBC's in the urine with many more RBC's. Has infiltrates BL on the CT chest. Possible aspiration. (3) Encephalopathy due to infection: (4) Type 2 diabetes mellitus: QUALIFIERS: Diabetes mellitus fci insulin use: without superintendent marine oil terminal use Diabetes mellitus complication status: with other specified complication Qualified Code(s): E11.69 - Type 2 diabetes mellitus with other specified complication (5) Monoclonal gammopathy: (6) Urine retention: (7) Parkinson disease: (8) BPH (benign prostatic hyperplasia): (9) Hyperlipidemia: QUALIFIERS: Hyperlipidemia type: pure hypercholesterolemia Qualified Code(s): E78.00 - Pure hypercholesterolemia, unspecified; E78.0 - Pure hypercholesterolemia (10) Essential (primary) hypertension: (11) History of CVA (cerebrovascular accident): (12) History of coronary artery stent placement: (13) Atherosclerotic heart disease of [place] coronary artery without angina pectoris: QUALIFIERS: [place] vs. transplanted heart: unspecified whether [place] or transplanted heart Qualified Code(s): I25.10 - Atherosclerotic heart disease of [place] coronary artery without angina pectoris (14) Fever: (15) Normochromic normocytic anemia: (16) Hyponatremia: (17) Hypokalemia: PLAN: Resolved with supplementation (18) Dehydration, moderate: (19) Hypophosphatemia: (20) Abnormal LFTs (liver function tests): (21) Obstipation: (22) Bilateral pleural effusion: PLAN: Plan 1. Continue therapy 2. Hold off on hydration even though the FENA is consistent with Prerenal azotemia because of the BL pleural effusions. 3. Why does he have pleural effusions? empyema? malignant effusions? Doubt CHF with recent ECHO showing a normal EF. Consider a pulmonary consult or diagnostic thoracentesis. 4. Why are the LFT's increased? Due to sepsis with multisystem failure? Does he have liver disease? primary or metastatic? REcheck the LFT's later this week......if the mixed hepatocellular/obstructive liver enzyme abnormalities are due to sepsis they should be improving. 5. I am going to ask ST to do a MBS to r/o silent aspiration with BL PNA and PD. Very slow speech and coughing with eating at times. 6. Continue Zosyn for 7 days. 7. Add lactobacillus to his current drug regimen Charges/Coding Visit Charges Inpatient E&M: 82808 SNF Subs L2
[2022-08-21 17:43] LABS: Bedside Glucose 231 mg/dL (74-106)
[2022-08-21] MEDS: Primidone 50 MG Tablet PO (18:11)
[2022-08-21] MEDS: Tamsulosin HCl 0.4 MG Capsule PO (18:11)
[2022-08-21] MEDS: Insulin Glargine-YFGN 100 UNIT/ML Pen 10 UNIT SC (18:13)
[2022-08-21 20:35] VITALS: PULSE 72; RESP 14; O2SAT 94
[2022-08-21] MEDS: Aspirin 81 MG TAB.CHEW PO (22:46)
[2022-08-21] MEDS: Atorvastatin Calcium 80 MG Tablet PO (22:47)
[2022-08-21] MEDS: Clopidogrel Bisulfate 75 MG Tablet PO (22:47)
[2022-08-21 22:48] VITALS: BP 146/70; PULSE 71
[2022-08-21] MEDS: Metoprolol(XL)Succ 25 MG Tablet PO (22:48)
[2022-08-21] MEDS: amLODIPine 10 MG Tablet PO (22:51)
[2022-08-21 22:58] LABS: Bedside Glucose 233 mg/dL (74-106)
[2022-08-22 02:32] VITALS: BP 138/55; PULSE 66; RESP 16
[2022-08-22] MEDS: Isosorbide Mononitrate 60 MG Tablet PO (04:56)
[2022-08-22] MEDS: Iron Polysaccharide Complex 150 MG CAPSULE PO (04:56)
[2022-08-22] MEDS: Lisinopril 40 MG Tablet PO (04:57)
[2022-08-22] MEDS: Sertraline 50 MG Tablet 25 MG PO (04:57)
[2022-08-22] MEDS: Finasteride 5 MG Tablet PO (04:57)
[2022-08-22 05:03] VITALS: BP 134/58; PULSE 66; RESP 16
[2022-08-22 07:19] LABS: Bedside Glucose 159 mg/dL (74-106)
[2022-08-22] MEDS: Insulin Glargine-YFGN 100 UNIT/ML Pen 10 UNIT SC ×2 (07:24→17:55)
[2022-08-22] MEDS: Insulin Lispro 100 UNIT/ML INSULN.PEN SC ×3 (08:16→17:54)
[2022-08-22] MEDS: metFORMIN HCl 500 MG Tablet PO ×2 (08:17→17:54)
[2022-08-22] MEDS: Glucerna Shake 120 ML LIQUID PO ×3 (08:17→17:57)
--- NOTE | 2022-08-22 08:52 | NURSING ---
Senior Backup Administrator Note: Activity Asset: Braxton Daily is independent in his choice of daily activities. His stated he is very tried and will prefer to stay in his room and rest at this time. His family and fabric and textile factory worker will visit with him and bring items he may need or want. He will watch or listen to the tv, read the paper and asked for some word search puzzles. Staff will remind him of daily activities and respect his right to say No.
[2022-08-22] MEDS: Acetaminophen 325 MG Tablet 650 MG PO ×2 (10:02→22:04)
[2022-08-22 10:03] VITALS: BP 135/64; PULSE 74
[2022-08-22] MEDS: Metoprolol(XL)Succ 50 MG Tablet PO (10:03)
[2022-08-22 11:43] LABS: Bedside Glucose 311 mg/dL (74-106)
[2022-08-22 12:46] VITALS: PULSE 65; O2SAT 97
[2022-08-22] MEDS: 0.9% Saline Lock 10 ML Syringe IV ×2 (14:13→22:05)
[2022-08-22 14:32] VITALS: BP 147/71; PULSE 70; RESP 20; TEMP 36.6; O2SAT 95
[2022-08-22 16:41] LABS: Bedside Glucose 234 mg/dL (74-106)
[2022-08-22] MEDS: Primidone 50 MG Tablet PO (17:54)
[2022-08-22] MEDS: Tamsulosin HCl 0.4 MG Capsule PO (17:54)
[2022-08-22 21:23] LABS: Bedside Glucose 223 mg/dL (74-106)
[2022-08-22] MEDS: Aspirin 81 MG TAB.CHEW PO (21:59)
[2022-08-22] MEDS: Atorvastatin Calcium 80 MG Tablet PO (21:59)
[2022-08-22 22:00] VITALS: BP 149/66; PULSE 67
[2022-08-22] MEDS: Clopidogrel Bisulfate 75 MG Tablet PO (22:00)
[2022-08-22] MEDS: Metoprolol(XL)Succ 25 MG Tablet PO (22:00)
[2022-08-22] MEDS: amLODIPine 10 MG Tablet PO (22:04)
[2022-08-22] MEDS: MELATONIN 3 MG TABLET PO (22:16)
[2022-08-23] MEDS: 0.9% Saline Lock 10 ML Syringe IV ×2 (06:41→14:29)
[2022-08-23 06:45] LABS: Bedside Glucose 123 mg/dL (74-106)
[2022-08-23] MEDS: Finasteride 5 MG Tablet PO (06:47)
[2022-08-23] MEDS: Sertraline 50 MG Tablet 25 MG PO (06:47)
[2022-08-23] MEDS: Isosorbide Mononitrate 60 MG Tablet PO (06:47)
[2022-08-23] MEDS: Iron Polysaccharide Complex 150 MG CAPSULE PO (06:47)
[2022-08-23] MEDS: Lisinopril 40 MG Tablet PO (06:47)
[2022-08-23] MEDS: Insulin Glargine-YFGN 100 UNIT/ML Pen 10 UNIT SC ×2 (06:48→18:17)
[2022-08-23 07:00] VITALS: BP 134/62; PULSE 80
[2022-08-23] MEDS: metFORMIN HCl 500 MG Tablet PO ×2 (08:21→18:17)
[2022-08-23] MEDS: Acetaminophen 325 MG Tablet 650 MG PO ×2 (08:24→18:13)
[2022-08-23] MEDS: Glucerna Shake 120 ML LIQUID PO ×3 (08:26→18:17)
[2022-08-23 10:58] VITALS: PULSE 72
[2022-08-23] MEDS: Metoprolol(XL)Succ 50 MG Tablet PO (10:58)
[2022-08-23 11:48] LABS: Bedside Glucose 209 mg/dL (74-106)
[2022-08-23] MEDS: Insulin Lispro 100 UNIT/ML INSULN.PEN SC ×2 (12:01→18:16)
--- NOTE | 2022-08-23 15:43 | ST.MBS ---
Modified Barium Swallow Patient Information Study Date: 08/23/22 Study Time: 13:00 Direct Billable Minutes: 135 Total Minutes procedure & reportin Diagnosis: G20 - Parkinson's disease, J90 - Pleural effusion Referring Physician: Inocencia Alejandra Reason for Referral: Objectively assess swallow function, risk for aspiration and to determine recommendations for LRD and compensatory strategies to improve safety of swallow. Medical History: Killian Gagnon is an 87 y/o M w/ PMHx: CKD stage II following with Dr. De La Rosa from prior reports, Chronic BL LE Edema/Lymphedema, CAD s/p PCI, HTN, HLD, Hx CVA w/ chronic L sided hemiparesis, Diabetes mellitus type II, Parkinson's disease, PVD, Monoclonal gammopathy following with Dr. Jacobsen, Chronic macrocytic anemia/Fe deficiency anemia, BPH who presents to the [facility] ED on 08/15/22 with history of primary complaint of elevated blood pressures not responding to his treatment with associated headache with no vision changes and at his baseline self with no significant worsening of his left-sided residual hemiparesis prompting ED evaluation. At home did report last meal intake at ~ 2 pm. He later in the day had nausea and bout of emesis. In the ED he worsened and became febrile with onset of confusion and became encephalopathic. Patient also reports that he has had increased urinary frequency above his baseline but denies any dysuria. Chest X-ray with evidence of poor inspiration with some bibasilar atelectasis, CT of the brain with evidence of an old right basal ganglia infarct, moderate small vessel ischemic changes with no evidence for any acute large vessel infarction or hemorrhage. Speech therapy consulted for encephalopathy and concerns for aspiration due to new BL PNA. Current Diet Ordered: Regular textures / Thin liquids Dentition: WNL Mental Status: WNL Respiratory Status: Oxygenating on Room Air Penetration-Aspiration Scale Penetration-Aspiration Scale: OBJECTIVE ASSESSMENT OF SWALLOW FUNCTION (QUANTITATIVE ? PER TRIAL): PENETRATION / ASPIRATION SCALE (G[place]E): 1 = does not enter airway 2 = enters airway/above vocal folds/ejected 3 = enters airway/above vocal folds/not ejected 4 = enters airway/contacts vocal folds/ejected 5 = enters airway/contacts vocal folds/not ejected 6 = enters airway/below vocal folds/ejected 7 = enters airway/below vocal folds/not ejected despite effort 8 = enters airway/below vocal folds/no effort VIDEOFLOROSCOPIC SCALE SCORE (GUTHRIE): Grade I = aspiration of material that has penetrated into the laryngeal vestibule, intact cough reflex Grade II = aspiration < 10 % of the bolus, intact cough reflex Grade III = aspiration of < 10 % of the bolus, reduced cough reflex or aspiration of > 10 % of the bolus, intact cough reflex Grade IV = aspiration of > 10 % of the bolus, reduced cough reflex Penetration-Aspiration Scale Score Thin Liquid via teaspoon: Result: 1= does not enter airway Thin Liquid via teaspoon Trial 2: Result: 1= does not enter airway Thin Liquid via cup: Result: 1= does not enter airway Thin Liquid via straw: Result: 2= enter airway/above vocal folds/ejected [place] Thick Liquid via cup: Result: 1= does not enter airway Honey Thick Liquid via cup: Result: 1= does not enter airway Pudding: Result: 1= does not enter airway Cookie: Result: 1= does not enter airway Sequential Sips of Thin Liquid via straw: Result: 8= enters airway/below vocal folds/no effort Thin Liquid via cup Trial 2: Result: 8= enters airway/below vocal folds/no effort Thin Liquid via cup Trial 3: Result: 2= enter airway/above vocal folds/ejected Thin Liquid via cup Trial 4: Result: 2= enter airway/above vocal folds/ejected [place] Thick Liquid Trial 2: Result: 2= enter airway/above vocal folds/ejected Oral Phase Labial Seal: No Labial Escape Tongue Control During Bolus Hold: Posterior escape of greater than half of bolus Bolus Preparation/Mastication: Slow prolonged chewing/mashing with complete recollection Bolus Transport/Lingual Motion: Slowed tongue motion Oral Residue: Trace residue lining oral structures Pharyngeal Phase Initiation of Pharyngeal Swallow: Bolus head in pyriforms Soft Palate Elevation: No bolus between soft palate and pharyngeal wall Laryngeal Elevation: Partial superior movement thyroid cart/partial apprx aryt-epig petiole Anterior Hyoid Excursion: Partial anterior movement Epiglottic Movement: Partial inversion Laryngeal Vestibule Closure at Height of Swallow: Incomplete; narrow column of air/contrast in laryngeal vestibule Pharyngeal Stripping Wave: Present - diminished Pharyngoesophageal Segment Opening: Complete distension and complete duration; no obstruction of flow Tongue Base Retraction: Wide column of contrast between tongue base & post. pharyngeal wall Pharyngeal Residue: Trace residue within or on pharyngeal structures Esophageal Phase Esophageal Clearance: Complete clearance Diagnosis/Impression Diagnosis: moderate oropharyngeal dysphagia R13.12 Impression: Patient presents w/ moderate oropharyngeal dysphagia. Oral phase primarily marked by... - mild mastication insufficiency w/ cookie - suboptimal lingual control w/ noted reduced lingual lateralizations resulting in trace oral residue post deglutition - decreased bolus control w/ premature spillage to the vallecula and pyriforms observed w/ several consistencies - majority of cookie trial to the vallecula prior to swallow onset Pharyngeal phase primarily marked by... - delayed pharyngeal onset timing resulting in suboptimal bolus location upon swallow onset - decreased airway closure during deglutition attributed to reduced laryngeal elevation and reduced anterior hyoid excursion resulting in insufficient epiglottic inversion - penetration observed w/ single sip of thin liquid via cup, single sip of thin liquid via straw and NTL - aspiration observed w/ sequential sips of thin liquid via straw and single sips of thin liquid via cup - minimal pharyngeal residue remaining in the vallecula and pyriforms did somewhat decrease w/ use of double swallow - patient is at risk for post prandial aspiration No esophageal concerns as timely clearance was observed under fluro w/ pudding consistency. There are physician concerns for dehydration so it is strongly recommended to initiate [place] Free Water Protocol (FFWP) to improve overall hydration and QOL. Recommendations Diet: Regular Textures and [place]-thick Liquids Compensatory Strategies: Small Bites, Small Sips, No Straws, Slow Rate, Multiple Swallows, Alternate bites/solids and sips/liquids, Sitting upright and Minimize/decrease distractions Supervision: 1:1 Close Supervision Recommend Repeat Modified Barium Swallow: TBD Need for Skilled Speech Therapy Services: Yes Comment: Will recommend the patient for outpatient dysphagia therapy to address deficits in oropharyngeal swallow function. Would consider the patient for oropharyngeal strengthening exercises to improve deficits identified above. The patient would benefit from thorough education regarding diet recommendations and recommended compensatory strategies. Education Completed: 1. Described result of evaluation., 2. Pt understands evaluation & agrees with goals and treatment plan. and 4. Family/caregivers understand evaluation & agree w/ goals & tx plan. Status Active ST Patient: Active Contact Information [facility] Speech Therapy:: Farheen Santos M.A. CCC-UNDERWRITING SERVICE REPRESENTATIVE Speech-Language Pathologist [facility] [address] [place] [address] [email or web address] [phone]
[2022-08-23 15:52] VITALS: BP 159/71; PULSE 73; RESP 16; TEMP 37.1; O2SAT 94
[2022-08-23 17:40] LABS: Bedside Glucose 177 mg/dL (74-106)
[2022-08-23] MEDS: Primidone 50 MG Tablet PO (18:16)
[2022-08-23] MEDS: Tamsulosin HCl 0.4 MG Capsule PO (18:17)
[2022-08-23 19:49] VITALS: PULSE 70; RESP 16; O2SAT 97
[2022-08-23 20:13] VITALS: BP 144/71; PULSE 70
[2022-08-23] MEDS: amLODIPine 10 MG Tablet PO (20:13)
[2022-08-23] MEDS: Atorvastatin Calcium 80 MG Tablet PO (20:13)
[2022-08-23] MEDS: Metoprolol(XL)Succ 25 MG Tablet PO (20:13)
[2022-08-23] MEDS: Aspirin 81 MG TAB.CHEW PO (20:13)
[2022-08-23] MEDS: Clopidogrel Bisulfate 75 MG Tablet PO (20:13)
[2022-08-23 22:10] LABS: Bedside Glucose 188 mg/dL (74-106)
[2022-08-24] MEDS: Acetaminophen 325 MG Tablet 650 MG PO (00:52)
[2022-08-24] MEDS: Sertraline 50 MG Tablet 25 MG PO (06:00)
[2022-08-24] MEDS: Lisinopril 40 MG Tablet PO (06:01)
[2022-08-24] MEDS: Isosorbide Mononitrate 60 MG Tablet PO (06:06)
[2022-08-24] MEDS: Iron Polysaccharide Complex 150 MG CAPSULE PO (06:07)
[2022-08-24] MEDS: Finasteride 5 MG Tablet PO (06:07)
[2022-08-24] MEDS: Insulin Glargine-YFGN 100 UNIT/ML Pen 10 UNIT SC ×2 (06:09→17:17)
[2022-08-24 06:36] LABS: Bedside Glucose 141 mg/dL (74-106)
--- NOTE | 2022-08-24 07:49 | MDS.RN ---
Pain interview for mds completed.
[2022-08-24 08:12] VITALS: BP 131/62; PULSE 68
[2022-08-24] MEDS: Metoprolol(XL)Succ 50 MG Tablet PO (08:12)
[2022-08-24] MEDS: Glucerna Shake 120 ML LIQUID PO ×3 (08:12→17:16)
[2022-08-24] MEDS: metFORMIN HCl 500 MG Tablet PO ×2 (08:12→17:16)
[2022-08-24] MEDS: Senna/Docusate Sodium 1 Tablet 2 TABLET PO ×2 (09:40→17:16)
--- NOTE | 2022-08-24 11:42 | CASEMGMT ---
Social Work BIMS () and PHQ-9 (09/13) completed for MDS assessment. SW explored positive responses. Pt limited with explanations but contributes responses to medical and functional decline. Pt encouraged by participating in therapy. SW provided emotional support. Will continue to monitor. Danette Ocasio, PHOTO INTERN CLINICAL LAB SPECIALIST
[2022-08-24 11:51] LABS: Bedside Glucose 282 mg/dL (74-106)
[2022-08-24] MEDS: Insulin Lispro 100 UNIT/ML INSULN.PEN SC (12:04)
[2022-08-24] MEDS: 0.9% Saline Lock 10 ML Syringe IV ×2 (13:49→21:21)
[2022-08-24 13:54] VITALS: PULSE 64; RESP 16; O2SAT 93
[2022-08-24 16:00] VITALS: BP 150/71; PULSE 63; RESP 17; TEMP 35.9; O2SAT 97
[2022-08-24 16:48] LABS: Bedside Glucose 232 mg/dL (74-106)
[2022-08-24] MEDS: Primidone 50 MG Tablet PO (17:16)
[2022-08-24] MEDS: Tamsulosin HCl 0.4 MG Capsule PO (17:16)
[2022-08-24] MEDS: Atorvastatin Calcium 80 MG Tablet PO (21:24)
[2022-08-24] MEDS: Clopidogrel Bisulfate 75 MG Tablet PO (21:24)
[2022-08-24] MEDS: Aspirin 81 MG TAB.CHEW PO (21:24)
[2022-08-24 21:28] VITALS: BP 150/72; PULSE 68
[2022-08-24] MEDS: Metoprolol(XL)Succ 25 MG Tablet PO (21:28)
[2022-08-24] MEDS: Insulin Glargine-YFGN 100 UNIT/ML Pen 30 UNIT SC (21:33)
[2022-08-24] MEDS: amLODIPine 10 MG Tablet PO (21:37)
[2022-08-24 21:46] LABS: Bedside Glucose 201 mg/dL (74-106)
[2022-08-25] MEDS: 0.9% Saline Lock 10 ML Syringe IV ×4 (05:01→21:14)
[2022-08-25] MEDS: Sertraline 50 MG Tablet 25 MG PO (05:07)
[2022-08-25] MEDS: Senna/Docusate Sodium 1 Tablet 2 TABLET PO ×2 (05:07→17:01)
[2022-08-25] MEDS: Polyethylene Glycol 3350 17 GM PACKET PO (05:07)
[2022-08-25] MEDS: Finasteride 5 MG Tablet PO (05:07)
[2022-08-25] MEDS: Isosorbide Mononitrate 60 MG Tablet PO (05:07)
[2022-08-25] MEDS: Lisinopril 40 MG Tablet PO (05:08)
[2022-08-25] MEDS: Iron Polysaccharide Complex 150 MG CAPSULE PO (05:08)
[2022-08-25] MEDS: Acetaminophen 325 MG Tablet 650 MG PO ×2 (05:15→21:10)
[2022-08-25 06:33] LABS: Bedside Glucose 76 mg/dL (74-106)
[2022-08-25] MEDS: Glucerna Shake 120 ML LIQUID PO ×3 (08:37→17:00)
[2022-08-25] MEDS: metFORMIN HCl 500 MG Tablet PO ×2 (08:37→17:00)
[2022-08-25] MEDS: Insulin Lispro 100 UNIT/ML INSULN.PEN 10 UNIT SC (08:38)
[2022-08-25 10:00] VITALS: BP 129/61; PULSE 64
[2022-08-25 10:14] VITALS: BP 129/61; PULSE 64
[2022-08-25] MEDS: Metoprolol(XL)Succ 50 MG Tablet PO (10:14)
[2022-08-25 11:14] LABS: Bedside Glucose 151 mg/dL (74-106)
[2022-08-25] MEDS: Insulin Lispro 100 UNIT/ML INSULN.PEN 7 UNIT SC ×2 (11:55→17:00)
[2022-08-25 13:49] VITALS: BP 136/79; PULSE 78; RESP 14; TEMP 36.7; O2SAT 91
[2022-08-25 16:46] LABS: Bedside Glucose 103 mg/dL (74-106)
[2022-08-25] MEDS: Primidone 50 MG Tablet PO (17:00)
[2022-08-25] MEDS: Tamsulosin HCl 0.4 MG Capsule PO (17:00)
[2022-08-25] MEDS: Clopidogrel Bisulfate 75 MG Tablet PO (21:08)
[2022-08-25] MEDS: Atorvastatin Calcium 80 MG Tablet PO (21:10)
[2022-08-25 21:26] LABS: Bedside Glucose 115 mg/dL (74-106)
[2022-08-25 21:27] VITALS: BP 148/58; PULSE 68
[2022-08-25] MEDS: Aspirin 81 MG TAB.CHEW PO (21:27)
[2022-08-25] MEDS: Metoprolol(XL)Succ 25 MG Tablet PO (21:27)
[2022-08-25] MEDS: Insulin Glargine-YFGN 100 UNIT/ML Pen 20 UNIT SC (21:29)
[2022-08-25] MEDS: amLODIPine 10 MG Tablet PO (21:32)
[2022-08-26] MEDS: Sertraline 50 MG Tablet 25 MG PO (05:58)
[2022-08-26] MEDS: Polyethylene Glycol 3350 17 GM PACKET PO (05:59)
[2022-08-26 06:00] VITALS: BP 136/66; PULSE 60
[2022-08-26] MEDS: Lisinopril 40 MG Tablet PO (06:00)
[2022-08-26] MEDS: Finasteride 5 MG Tablet PO (06:01)
[2022-08-26] MEDS: Isosorbide Mononitrate 60 MG Tablet PO (06:01)
[2022-08-26] MEDS: 0.9% Saline Lock 10 ML Syringe IV ×3 (06:02→22:26)
[2022-08-26] MEDS: Iron Polysaccharide Complex 150 MG CAPSULE PO (06:02)
[2022-08-26] MEDS: Senna/Docusate Sodium 1 Tablet 2 TABLET PO (06:03)
--- NOTE | 2022-08-26 06:12 | NURSING ---
FBS 67. Given 6 z nectar thick apple juice. Offered maurice crackers or brandon doone cookies and pt refuses. Arouses without difficulty. AM dose of Humalog held. Will continue to monitor.
[2022-08-26 06:28] LABS: Bedside Glucose 67 mg/dL (74-106)
[2022-08-26] MEDS: metFORMIN HCl 500 MG Tablet PO ×2 (08:13→16:47)
[2022-08-26] MEDS: Glucerna Shake 120 ML LIQUID PO ×2 (08:14→16:47)
[2022-08-26 09:46] VITALS: BP 138/69; PULSE 62
[2022-08-26] MEDS: Metoprolol(XL)Succ 50 MG Tablet PO (09:46)
[2022-08-26 11:04] LABS: Bedside Glucose 288 mg/dL (74-106)
[2022-08-26] MEDS: Acetaminophen 325 MG Tablet 650 MG PO ×2 (11:44→22:27)
[2022-08-26 14:23] VITALS: BP 144/62; PULSE 59; RESP 14; TEMP 36.6; O2SAT 96
[2022-08-26 16:34] LABS: Bedside Glucose 253 mg/dL (74-106)
[2022-08-26] MEDS: Tamsulosin HCl 0.4 MG Capsule PO (16:47)
[2022-08-26] MEDS: Primidone 50 MG Tablet PO (16:48)
[2022-08-26 21:50] LABS: Bedside Glucose 214 mg/dL (74-106)
[2022-08-26 22:25] VITALS: BP 160/69; PULSE 62
[2022-08-26 22:26] VITALS: BP 160/69; PULSE 62
[2022-08-26] MEDS: Aspirin 81 MG TAB.CHEW PO (22:26)
[2022-08-26] MEDS: Metoprolol(XL)Succ 25 MG Tablet PO (22:26)
[2022-08-26] MEDS: Clopidogrel Bisulfate 75 MG Tablet PO (22:26)
[2022-08-26] MEDS: Atorvastatin Calcium 80 MG Tablet PO (22:26)
[2022-08-26] MEDS: amLODIPine 10 MG Tablet PO (22:26)
[2022-08-26] MEDS: MELATONIN 3 MG TABLET PO (22:27)
[2022-08-26] MEDS: Insulin Glargine-YFGN 100 UNIT/ML Pen 10 UNIT SC (22:28)
[2022-08-27 05:31] LABS: Absolute Lymphocyte Count 0.89 X10^3/uL (0.83-4.51); Absolute Neutrophil Count 7.1 X10^3/uL (2.0-7.7); Basophil# 0.05 X10^3/uL; Basophil% 0.5 % (0-1); Eosinophil# 0.36 X10^3/uL; Eosinophils% 3.7 % (0-5); Hematocrit 29.3 % (40-54); Hemoglobin 9.6 g/dL (13.0-16.5); Lymphocyte # 0.89 X10^3/ul (0.83-4.51); Lymphocyte % 9.3 % (19-41); Mean Corp Hgb Conc 32.8 g/dL (32-36); Mean Corpuscular Hgb 31.8 pg (27.0-32.0); Mean Platelet Vol. 10.9 fl (6.2-12.0); Monocyte# 1.09 X10^3/uL; Monocyte% 11.3 % (0-10); NRBC Flagged by Analyzer 0 % (0-5); Neutrophil # 7.13 X10^3/uL (2.7-7.7); Neutrophil % 74.3 % (47-70); Platelet Count 308 K/mm3 (150-450); RBC Distribution Width CV 13.8 % (11.6-14.6); RBC Distribution Width SD 49.3 fl (35.1-43.9); Red Blood Count 3.02 M/mm3 (4.6-6.2); White Blood Count 9.6 K/mm3 (4.4-11.0)
[2022-08-27] MEDS: Finasteride 5 MG Tablet PO (05:54)
[2022-08-27] MEDS: Iron Polysaccharide Complex 150 MG CAPSULE PO (05:55)
[2022-08-27] MEDS: Sertraline 50 MG Tablet 25 MG PO (05:55)
[2022-08-27] MEDS: Senna/Docusate Sodium 1 Tablet 2 TABLET PO ×2 (05:55→17:49)
[2022-08-27] MEDS: 0.9% Saline Lock 10 ML Syringe IV ×2 (06:01→13:58)
[2022-08-27 06:02] LABS: AST(SGOT) 39 U/L (15-37); Alanine Aminotransfer ALT/SGPT 98 U/L (16-61); Albumin, Serum 2.3 g/dL (3.2-5.0); Alkaline Phosphatase 377 U/L (45-117); Anion Gap 3 (5-15); BUN 16 mg/dL (7-18); BUN/Creat Ratio 17.5 RATIO (10-20); Calcium,Total 8.1 mg/dL (8.5-10.1); Chloride 106 mmol/L (98-107); Creatinine, Serum 0.91 mg/dL (0.70-1.30); EST Glomerular Filtration Rate 84 mL/min (>60); Est Glom Filt Rate - Afr Amer 101 mL/min (>60); Estimated Creatinine Clearance 52.54 ml/min; Globulin 3.8 g/dL (2.2-4.2); Glucose 95 mg/dL (74-106); Potassium 3.3 mmol/L (3.5-5.1); Protein, Total 6.1 g/dL (6.4-8.2); Sodium Level 137 mmol/L (136-145)
[2022-08-27 06:05] VITALS: BP 137/58; PULSE 56
[2022-08-27] MEDS: Isosorbide Mononitrate 60 MG Tablet PO (06:13)
[2022-08-27] MEDS: Lisinopril 40 MG Tablet PO (06:13)
[2022-08-27] MEDS: Glucerna Shake 120 ML LIQUID PO ×3 (06:15→17:49)
[2022-08-27 06:31] LABS: Bedside Glucose 81 mg/dL (74-106)
[2022-08-27] MEDS: metFORMIN HCl 500 MG Tablet PO ×2 (08:19→17:49)
[2022-08-27] MEDS: Potassium Chloride Oral Tablet 20 MEQ 40 MEQ PO (08:19)
[2022-08-27] MEDS: Tuberculin,Purif.prot.deriv. 50 TU/ML Vial 0.1 ML ID (11:22)
[2022-08-27 12:05] LABS: Bedside Glucose 250 mg/dL (74-106)
--- NOTE | 2022-08-27 13:38 | NURSING ---
Wellness Nurse Rn Note; MDS for 08/26/2022 Complete 08/27/2022
[2022-08-27 13:55] VITALS: BP 149/71; PULSE 61; RESP 17; TEMP 36.6; O2SAT 93
--- NOTE | 2022-08-27 15:28 | PCM.PN.DRR ---
TCU RX Drug Regimen Review Subjective/Objective Subjective/Objective: Subjective: TCU Admission. 87 YOM presented to [facility] on 08/15 with increased urinary frequency. Hospitalized for sepsis secondary to UTI. Admitted to TCU on 08/19 with debility for rehabilitation and strengthening prior to discharged home.? Objective: Allergies iodine Allergy (Verified 08/15/22 18:04) Rash Current Medications Generic Name Dose Route Start Last Admin Trade Name Freq PRN Reason Stop Dose Admin Acetaminophen 650 mg 08/19/22 14:21 08/26/22 22:27 Acetaminophen 325 Mg Tablet PO 650 mg Q4H PRN PRN Administration Fever, pain 1-10 Amlodipine Besylate 10 mg 08/19/22 22:00 08/26/22 22:26 Amlodipine 10 Mg Tablet PO 10 mg QHS BRYCE Administration Aspirin 81 mg 08/19/22 22:00 08/26/22 22:26 Aspirin 81 Mg Tab.Chew PO 81 mg QHS BRYCE Administration Atorvastatin Calcium 80 mg 08/19/22 22:00 08/26/22 22:26 Atorvastatin Calcium 80 Mg Tablet PO 80 mg QHS BRYCE Administration Clopidogrel Bisulfate 75 mg 08/19/22 22:00 08/26/22 22:26 Clopidogrel Bisulfate 75 Mg Tablet PO 75 mg QHS BRYCE Administration Finasteride 5 mg 08/22/22 06:00 08/27/22 05:54 Finasteride 5 Mg Tablet PO 5 mg DAILY BRYCE Administration Piperacillin Sod/Tazobactam 50 mls @ 12.5 mls/hr 08/20/22 17:35 08/27/22 13:58 Sod 3.375 gm/ Sodium Chloride IV 08/27/22 17:36 12.5 mls/hr Q8 BRYCE Administration Sodium Chloride 250 mls @ 15 mls/hr 08/20/22 18:49 08/27/22 13:58 IV 100 mls/hr .[id number] PRN Administration Saline Flush Insulin Glargine 10 unit 08/26/22 22:00 08/26/22 22:28 Insulin Glargine-Yfgn 100 Unit/Ml Pen SC 10 unit QHS BRYCE Administration Isosorbide Mononitrate 60 mg 08/20/22 06:00 08/27/22 06:13 Isosorbide Mononitrate 60 Mg Tablet PO 60 mg DAILY BRYCE Administration Lactobacillus Acidophilus 1 tablet 08/21/22 18:00 08/27/22 05:55 Lactobacillus Acidophilus PO 1 tablet BID BRYCE Administration Lisinopril 40 mg 08/20/22 06:00 08/27/22 06:13 Lisinopril 40 Mg Tablet PO 40 mg DAILY BRYCE Administration Melatonin 3 mg 08/19/22 14:21 08/26/22 22:27 Melatonin 3 Mg Tablet PO 3 mg QHS PRN PRN Administration Insomnia Metformin HCl 500 mg 08/19/22 17:00 08/27/22 08:19 Metformin Hcl 500 Mg Tablet PO 500 mg BIDCM BRYCE Administration Metoprolol Succinate 50 mg 08/20/22 10:00 08/27/22 11:24 Metoprolol(Xl)Succ 50 Mg Tablet PO Not Given [facility] Metoprolol Succinate 25 mg 08/19/22 22:00 08/26/22 22:26 Metoprolol(Xl)Succ 25 Mg Tablet PO 25 mg QHS BRYCE Administration Nutritional Formula (Lactose Free) 120 ml 08/19/22 17:45 08/27/22 13:59 Glucerna Shake 120 Ml Liquid PO 120 ml TIDCM BRYCE Administration Polysaccharide Iron Complex 150 mg 08/20/22 06:00 08/27/22 05:55 Iron Polysaccharide Complex 150 Mg Capsule PO 150 mg DAILY BRYCE Administration Primidone 50 mg 08/19/22 16:00 08/26/22 16:48 Primidone 50 Mg Tablet PO 50 mg 1600 BRYCE Administration Senna/Docusate Sodium 2 tablet 08/24/22 18:00 08/27/22 05:55 Senna/Docusate Sodium 1 Tablet PO 2 tablet BID BRYCE Administration Sertraline HCl 25 mg 08/20/22 06:00 08/27/22 05:55 Sertraline 50 Mg Tablet PO 25 mg DAILY BRYCE Administration Sodium Chloride 10 - 40 ml 08/20/22 19:40 08/27/22 13:58 0.9% Saline Lock 10 Ml Syringe IV 20 ml UD PRN Administration SALINE FLUSH Tamsulosin HCl 0.4 mg 08/20/22 17:00 08/26/22 16:47 Tamsulosin Hcl 0.4 Mg Capsule PO 0.4 mg DAILY@1700 BRYCE Administration Problem List (Updated 08/27/22 @ 00:01 by Background Dagoldieon) Bilateral pleural effusion (Acute) Obstipation (Acute) Abnormal LFTs (liver function tests) (Acute) Hypophosphatemia (Acute) Dehydration, moderate (Acute) Hypokalemia (Acute) Hyponatremia (Acute) Normochromic normocytic anemia (Acute) Urine retention (Acute) Atherosclerotic heart disease of [place] coronary artery without angina pectoris (Chronic) History of coronary artery stent placement (Chronic 04/28/20) History of CVA (cerebrovascular accident) (Acute 05/2020) Essential (primary) hypertension (Chronic) Hyperlipidemia (Chronic) Type 2 diabetes mellitus (Chronic) BPH (benign prostatic hyperplasia) (Chronic) Monoclonal gammopathy (Acute) Vital Signs Temp Pulse Resp BP Pulse Ox O2 Del Method O2 Flow Rate 97.8 F 61 17 149/71 H 93 Room Air 1 08/27/22 13:55 08/27/22 13:55 08/27/22 13:55 08/27/22 13:55 08/27/22 13:55 08/27/22 13:55 08/24/22 16:00 Oxygen Flow Rate (L/min) 1 Oxygen Delivery Method Room Air Weight: 64.949 kg Body Mass Index (BMI) 22.4 Sodium 137 mmol/L (136-145) 08/27/22 05:19 Potassium 3.3 mmol/L (3.5-5.1) L 08/27/22 05:19 Chloride 106 mmol/L (98-107) 08/27/22 05:19 Carbon Dioxide 28.0 mmol/L (21.0-32.0) 08/27/22 05:19 Anion Gap 3 (5-15) L 08/27/22 05:19 BUN 16 mg/dL (7-18) 08/27/22 05:19 Creatinine 0.91 mg/dL (0.70-1.30) 08/27/22 05:19 Est GFR (MDRD) Af Amer 101 mL/min (>60) 08/27/22 05:19 Est GFR (MDRD) Non-Af 84 mL/min (>60) 08/27/22 05:19 BUN/Creatinine Ratio 17.5 RATIO (10-20) 08/27/22 05:19 Glucose 95 mg/dL (74-106) 08/27/22 05:19 Assessment/Plan: 1. Pain: acetaminophen 650mg PO Q4H PRN fever/pain 1-10. Please continue to monitor pain, PRN medication use. Resident has had 14 doses of acetaminophen to date (pain 2-07/28). 2. Bowel:senna/docusate 2T PO BID. Please continue to monitor for increased/decreased diarrhea/constipation. Last documented bowel movement 08/27. 3. Type 2 DM: metformin 500mg PO BID, insulin glargine 10 units SC QHS. Please continue to monitor for s/s of hypoglycemia, BG (POC 76-288 to date), hemoglobin A1c (last 8.2% 07/25/22), eGFR 84mL/min, renal function, GI upset/nausea/vomiting/diarrhea. 4. Hypertension/CAD/Previous CVA: aspirin 81mg PO daily, atorvastatin 80mg PO QHS, clopidogrel 75mg PO QHS, amlodipine 10mg PO QHS, isosorbide mononitrate 60mg PO daily, lisinopril 40mg PO daily, metoprolol succinate 50mg PO QAM, 25mg PO QHS. Please continue to monitor for increased bleeding/bruising, muscle pain, BP (last 149/71), HR (last 61), Chest pain/tightness, headache, dry cough, LFTs (last 08/27/22), lipid panel (last 05/09/22), potassium (last 3.3mmol/L), angioedema, peripheral edema, Malaise/lethargy, renal function (Scr: 0.91, CrCl: 52.54 on 08/27). 5. Rule out silent bilateral pneumonia: Zosyn 3.375mg IV Q8H (given 08/20-08/27). Please continue to monitor renal function (Scr: 0.91, CrCl: 52.54 on 08/27), s/s of worsening infection, WBC (9.6 on 08/27) and diarrhea. 6. Parkinson Disease: primidone 50mg PO daily. Please continue to monitor mental status, tremors, falls/fractures (BEERs medication), dizziness, ataxia.? 7. BPH: tamsulosin 0.4mg PO daily, finasteride 5mg PO daily: Please continue to monitor urinary frequency, output, gynecomastia, BP. 8. Anemia: Ferrex 150mg PO daily. Please continue to monitor H & H (Hgb: 9.6 Hct: 29.3 on 08/27), nausea/vomiting/diarrhea, constipation and dark stools.? 9. Insomnia: Melatonin 3mg PO QHS PRN insomnia. Please continue to monitor for oversedation, PRN medication use. Resident has had 2 doses of melatonin to date. 10. General Wellness: Lactobacillus/Acidophilus 1 T PO BID. Please continue to monitor for nausea/vomiting/diarrhea, increased gas.? Assessment/Plan for indications treated with psychotropic medications: 11. Anxiety/depression: sertraline 25mg PO daily. Please consider GDR by 03/13 if clinically indicated. Please continue to monitor for suicidal ideation (Black box warning), Falls/fractures (BEERs medication), mental status, GI side effects. Medical chart and medication regimen reviewed. The following medication irregularities or issues were identified: None Date Date of Note:: 08/27/22
[2022-08-27] MEDS: Acetaminophen 325 MG Tablet 650 MG PO (16:00)
[2022-08-27 17:02] LABS: Bedside Glucose 259 mg/dL (74-106)
[2022-08-27] MEDS: Primidone 50 MG Tablet PO (17:49)
[2022-08-27] MEDS: Tamsulosin HCl 0.4 MG Capsule PO (17:49)
[2022-08-27 20:18] VITALS: BP 151/64; PULSE 61
[2022-08-27] MEDS: Atorvastatin Calcium 80 MG Tablet PO (20:18)
[2022-08-27] MEDS: Metoprolol(XL)Succ 25 MG Tablet PO (20:18)
[2022-08-27] MEDS: Clopidogrel Bisulfate 75 MG Tablet PO (20:18)
[2022-08-27] MEDS: Aspirin 81 MG TAB.CHEW PO (20:18)
[2022-08-27] MEDS: amLODIPine 10 MG Tablet PO (20:22)
[2022-08-27 21:12] LABS: Bedside Glucose 266 mg/dL (74-106)
[2022-08-27] MEDS: Insulin Glargine-YFGN 100 UNIT/ML Pen 10 UNIT SC (22:12)
[2022-08-28] MEDS: Acetaminophen 325 MG Tablet 650 MG PO (01:41)
[2022-08-28 05:51] LABS: Absolute Neutrophil Count 6.5 X10^3/uL (2.0-7.7); Basophil# 0.03 X10^3/uL; Basophil% 0.3 % (0-1); Eosinophil# 0.31 X10^3/uL; Eosinophils% 3.6 % (0-5); Hematocrit 28.7 % (40-54); Hemoglobin 9.6 g/dL (13.0-16.5); Lymphocyte % 10.4 % (19-41); Mean Corp Hgb Conc 33.4 g/dL (32-36); Mean Corpuscular Hgb 31.7 pg (27.0-32.0); Mean Corpuscular Volume 94.7 fL (80-94); Monocyte# 0.92 X10^3/uL; Monocyte% 10.6 % (0-10); NRBC Flagged by Analyzer 0 % (0-5); Neutrophil # 6.48 X10^3/uL (2.7-7.7); Neutrophil % 74.5 % (47-70); Platelet Count 289 K/mm3 (150-450); RBC Distribution Width CV 13.7 % (11.6-14.6); RBC Distribution Width SD 47.3 fl (35.1-43.9); Red Blood Count 3.03 M/mm3 (4.6-6.2); White Blood Count 8.7 K/mm3 (4.4-11.0)
[2022-08-28 06:00] VITALS: BP 156/60; PULSE 56
[2022-08-28 06:20] LABS: Anion Gap 5 (5-15); BUN 17 mg/dL (7-18); BUN/Creat Ratio 21.5 RATIO (10-20); Calcium,Total 8.2 mg/dL (8.5-10.1); Chloride 105 mmol/L (98-107); Creatinine, Serum 0.79 mg/dL (0.70-1.30); EST Glomerular Filtration Rate 99 mL/min (>60); Est Glom Filt Rate - Afr Amer 120 mL/min (>60); Estimated Creatinine Clearance 47.81 ml/min; Glucose 168 mg/dL (74-106); Potassium 3.9 mmol/L (3.5-5.1); Sodium Level 137 mmol/L (136-145)
[2022-08-28 06:41] LABS: Bedside Glucose 157 mg/dL (74-106)
[2022-08-28] MEDS: Isosorbide Mononitrate 60 MG Tablet PO (06:54)
[2022-08-28] MEDS: Sertraline 50 MG Tablet 25 MG PO (06:54)
[2022-08-28] MEDS: Iron Polysaccharide Complex 150 MG CAPSULE PO (06:55)
[2022-08-28] MEDS: 0.9% Saline Lock 10 ML Syringe IV (06:55)
[2022-08-28] MEDS: Lisinopril 40 MG Tablet PO (06:55)
[2022-08-28] MEDS: Finasteride 5 MG Tablet PO (06:55)
[2022-08-28] MEDS: Glucerna Shake 120 ML LIQUID PO ×2 (08:37→18:20)
[2022-08-28] MEDS: metFORMIN HCl 500 MG Tablet PO ×2 (08:37→18:20)
[2022-08-28 09:34] VITALS: BP 145/67; PULSE 60; RESP 18; TEMP 36.4; O2SAT 95
[2022-08-28 09:43] VITALS: PULSE 60
[2022-08-28] MEDS: Metoprolol(XL)Succ 50 MG Tablet PO (09:43)
[2022-08-28 12:10] LABS: Bedside Glucose 305 mg/dL (74-106)
[2022-08-28 16:00] VITALS: BMI 21.4
[2022-08-28 17:40] LABS: Bedside Glucose 264 mg/dL (74-106)
[2022-08-28] MEDS: Primidone 50 MG Tablet PO (18:20)
[2022-08-28] MEDS: Tamsulosin HCl 0.4 MG Capsule PO (18:20)
[2022-08-28 21:48] LABS: Bedside Glucose 225 mg/dL (74-106)
[2022-08-28 22:00] VITALS: BP 138/56; PULSE 64
[2022-08-28] MEDS: amLODIPine 10 MG Tablet PO (22:00)
[2022-08-28] MEDS: Aspirin 81 MG TAB.CHEW PO (22:00)
[2022-08-28] MEDS: Metoprolol(XL)Succ 25 MG Tablet PO (22:00)
[2022-08-28] MEDS: Atorvastatin Calcium 80 MG Tablet PO (22:00)
[2022-08-28] MEDS: Clopidogrel Bisulfate 75 MG Tablet PO (22:00)
[2022-08-28] MEDS: Insulin Glargine-YFGN 100 UNIT/ML Pen 20 UNIT SC (22:05)
[2022-08-29 05:00] VITALS: BP 107/68; PULSE 56
[2022-08-29] MEDS: Sertraline 50 MG Tablet 25 MG PO (05:10)
[2022-08-29] MEDS: Iron Polysaccharide Complex 150 MG CAPSULE PO (05:10)
[2022-08-29] MEDS: Lisinopril 40 MG Tablet PO (05:11)
[2022-08-29] MEDS: Finasteride 5 MG Tablet PO (05:11)
[2022-08-29] MEDS: Isosorbide Mononitrate 60 MG Tablet PO (05:11)
[2022-08-29 06:25] LABS: Bedside Glucose 104 mg/dL (74-106)
[2022-08-29] MEDS: Glucerna Shake 120 ML LIQUID PO ×3 (08:22→18:03)
[2022-08-29] MEDS: metFORMIN HCl 500 MG Tablet PO ×2 (08:23→17:56)
--- NOTE | 2022-08-29 09:58 | CASEMGMT ---
Social Work IDT met with patient, , two daughters, son and DIL for care plan meeting. Discussed patient's progress in PT/OT/ST/SN. Educated to Medicare benefit. Encouraged to contact secondary insurance to ensure copay coverage. Offered therapy training as will be caring for pt at home. SW will follow for DC planning. RAMONITA NguyễnW
[2022-08-29 10:00] VITALS: PULSE 60; RESP 16; O2SAT 94
[2022-08-29 11:05] VITALS: BP 130/60; PULSE 60
[2022-08-29] MEDS: Metoprolol(XL)Succ 50 MG Tablet PO (11:05)
[2022-08-29 11:59] LABS: Bedside Glucose 182 mg/dL (74-106)
[2022-08-29] MEDS: Insulin Lispro 100 UNIT/ML INSULN.PEN SC ×2 (12:03→17:56)
[2022-08-29 14:49] VITALS: BP 139/68; PULSE 59; RESP 16; TEMP 36.6; O2SAT 96
[2022-08-29 16:59] LABS: Bedside Glucose 159 mg/dL (74-106)
[2022-08-29] MEDS: Primidone 50 MG Tablet PO (17:56)
[2022-08-29] MEDS: Tamsulosin HCl 0.4 MG Capsule PO (17:56)
[2022-08-29] MEDS: 0.9% Saline Lock 10 ML Syringe IV (18:24)
[2022-08-29] MEDS: Atorvastatin Calcium 80 MG Tablet PO (21:30)
[2022-08-29] MEDS: Clopidogrel Bisulfate 75 MG Tablet PO (21:30)
[2022-08-29 21:36] VITALS: BP 150/68; PULSE 62
[2022-08-29] MEDS: Metoprolol(XL)Succ 25 MG Tablet PO (21:36)
[2022-08-29] MEDS: amLODIPine 10 MG Tablet PO (21:36)
[2022-08-29] MEDS: Aspirin 81 MG TAB.CHEW PO (21:36)
[2022-08-29] MEDS: Insulin Glargine-YFGN 100 UNIT/ML Pen 20 UNIT SC (21:37)
[2022-08-29 21:38] LABS: Bedside Glucose 141 mg/dL (74-106)
[2022-08-29] MEDS: MELATONIN 3 MG TABLET PO (21:43)
[2022-08-29] MEDS: Acetaminophen 325 MG Tablet 650 MG PO (21:43)
[2022-08-30] MEDS: Lisinopril 40 MG Tablet PO (06:06)
[2022-08-30] MEDS: Isosorbide Mononitrate 60 MG Tablet PO (06:06)
[2022-08-30] MEDS: Senna/Docusate Sodium 1 Tablet 2 TABLET PO (06:06)
[2022-08-30] MEDS: Sertraline 50 MG Tablet 25 MG PO (06:06)
[2022-08-30] MEDS: Iron Polysaccharide Complex 150 MG CAPSULE PO (06:06)
[2022-08-30] MEDS: Finasteride 5 MG Tablet PO (06:07)
[2022-08-30 06:17] VITALS: BP 144/62; PULSE 60; RESP 14
[2022-08-30 06:45] LABS: Bedside Glucose 88 mg/dL (74-106)
[2022-08-30] MEDS: metFORMIN HCl 500 MG Tablet PO ×2 (08:04→17:40)
[2022-08-30] MEDS: Glucerna Shake 120 ML LIQUID PO ×3 (08:04→17:57)
[2022-08-30 08:49] VITALS: PULSE 54; O2SAT 95
--- NOTE | 2022-08-30 10:41 | MDS.RN ---
Information for the mds was obtained from review of the clinical record, interview of resident, staff, and direct observation of resident's care.
[2022-08-30] MEDS: Acetaminophen 325 MG Tablet 650 MG PO ×2 (11:17→20:21)
[2022-08-30 11:22] VITALS: BP 155/61; PULSE 54
[2022-08-30 11:37] LABS: Bedside Glucose 183 mg/dL (74-106)
[2022-08-30] MEDS: Insulin Lispro 100 UNIT/ML INSULN.PEN SC ×2 (12:02→17:40)
[2022-08-30 16:00] VITALS: BP 149/64; PULSE 52; RESP 16; TEMP 36.3; O2SAT 97
[2022-08-30 17:23] LABS: Bedside Glucose 150 mg/dL (74-106)
[2022-08-30] MEDS: Tamsulosin HCl 0.4 MG Capsule PO (17:40)
[2022-08-30] MEDS: Primidone 50 MG Tablet PO (17:40)
[2022-08-30 17:54] VITALS: BP 164/69; PULSE 54
[2022-08-30] MEDS: Metoprolol(XL)Succ 25 MG Tablet PO (17:54)
[2022-08-30] MEDS: 0.9% Saline Lock 10 ML Syringe IV (18:48)
[2022-08-30 21:43] LABS: Bedside Glucose 136 mg/dL (74-106)
[2022-08-30] MEDS: Clopidogrel Bisulfate 75 MG Tablet PO (21:49)
[2022-08-30] MEDS: amLODIPine 10 MG Tablet PO (21:49)
[2022-08-30] MEDS: Atorvastatin Calcium 80 MG Tablet PO (21:49)
[2022-08-30] MEDS: Aspirin 81 MG TAB.CHEW PO (21:49)
[2022-08-30] MEDS: MELATONIN 3 MG TABLET PO (21:52)
[2022-08-30] MEDS: Insulin Glargine-YFGN 100 UNIT/ML Pen 15 UNIT SC (21:53)
[2022-08-31] MEDS: Sertraline 50 MG Tablet 25 MG PO (05:21)
[2022-08-31] MEDS: Isosorbide Mononitrate 60 MG Tablet PO (05:21)
[2022-08-31] MEDS: Lisinopril 40 MG Tablet PO (05:21)
[2022-08-31] MEDS: Finasteride 5 MG Tablet PO (05:21)
[2022-08-31] MEDS: Senna/Docusate Sodium 1 Tablet 2 TABLET PO (05:21)
[2022-08-31] MEDS: Iron Polysaccharide Complex 150 MG CAPSULE PO (05:23)
[2022-08-31] MEDS: 0.9% Saline Lock 10 ML Syringe IV ×2 (05:25→10:01)
[2022-08-31 05:28] VITALS: BP 135/60; PULSE 60; RESP 16
[2022-08-31] MEDS: Insulin Lispro 100 UNIT/ML INSULN.PEN SC ×3 (07:45→17:27)
[2022-08-31] MEDS: metFORMIN HCl 500 MG Tablet PO ×2 (07:45→17:27)
[2022-08-31] MEDS: Glucerna Shake 120 ML LIQUID PO ×3 (07:45→17:27)
[2022-08-31 08:10] LABS: Bedside Glucose 134 mg/dL (74-106)
[2022-08-31 10:00] VITALS: BP 138/60; PULSE 61
[2022-08-31] MEDS: Metoprolol(XL)Succ 50 MG Tablet PO (10:00)
[2022-08-31] MEDS: Acetaminophen 325 MG Tablet 650 MG PO ×2 (10:18→21:42)
[2022-08-31 11:19] LABS: Bedside Glucose 216 mg/dL (74-106)
[2022-08-31 14:19] VITALS: BP 139/61; PULSE 59; RESP 18; TEMP 36.4; O2SAT 96
[2022-08-31 16:40] LABS: Bedside Glucose 174 mg/dL (74-106)
[2022-08-31] MEDS: Tamsulosin HCl 0.4 MG Capsule PO (17:27)
[2022-08-31] MEDS: Primidone 50 MG Tablet PO (17:27)
[2022-08-31 21:31] LABS: Bedside Glucose 69 mg/dL (74-106)
[2022-08-31 21:36] VITALS: BP 147/71; PULSE 58; RESP 16; O2SAT 97
[2022-08-31] MEDS: Atorvastatin Calcium 80 MG Tablet PO (21:42)
[2022-08-31] MEDS: amLODIPine 10 MG Tablet PO (21:42)
[2022-08-31] MEDS: Clopidogrel Bisulfate 75 MG Tablet PO (21:42)
[2022-08-31] MEDS: MELATONIN 3 MG TABLET PO (21:42)
[2022-08-31] MEDS: Aspirin 81 MG TAB.CHEW PO (21:42)
--- NOTE | 2022-08-31 22:05 | NURSING ---
BG 69, 4oz OJ thickened given. rechecked 15 minutes later for bg 103
[2022-08-31 22:07] LABS: Bedside Glucose 103 mg/dL (74-106)
[2022-09-01] VITALS (9 sets, daily range): BP systolic 116–147; BP diastolic 49–60; PULSE 52–62; RESP 14–18; TEMP 35.7–36.6; O2SAT 93–97
[2022-09-01] MEDS: Sertraline 50 MG Tablet 25 MG PO (05:31)
[2022-09-01] MEDS: Lisinopril 40 MG Tablet PO (05:31)
[2022-09-01] MEDS: Iron Polysaccharide Complex 150 MG CAPSULE PO (05:31)
[2022-09-01] MEDS: Finasteride 5 MG Tablet PO (05:31)
[2022-09-01] MEDS: Isosorbide Mononitrate 60 MG Tablet PO (05:31)
[2022-09-01 06:39] LABS: Bedside Glucose 160 mg/dL (74-106)
[2022-09-01] MEDS: Insulin Lispro 100 UNIT/ML INSULN.PEN SC ×3 (08:20→17:45)
[2022-09-01] MEDS: metFORMIN HCl 500 MG Tablet PO ×2 (08:20→17:45)
[2022-09-01] MEDS: Glucerna Shake 120 ML LIQUID PO ×2 (08:20→17:46)
[2022-09-01] MEDS: Metoprolol(XL)Succ 50 MG Tablet PO (10:00)
[2022-09-01 11:57] LABS: Bedside Glucose 241 mg/dL (74-106)
[2022-09-01] MEDS: Acetaminophen 325 MG Tablet 650 MG PO ×2 (11:57→21:21)
[2022-09-01 16:59] LABS: Bedside Glucose 230 mg/dL (74-106)
[2022-09-01] MEDS: Primidone 50 MG Tablet PO (17:45)
[2022-09-01] MEDS: Tamsulosin HCl 0.4 MG Capsule PO (17:45)
[2022-09-01] MEDS: 0.9% Saline Lock 10 ML Syringe IV (17:50)
[2022-09-01] MEDS: Aspirin 81 MG TAB.CHEW PO (21:23)
[2022-09-01] MEDS: amLODIPine 10 MG Tablet PO (21:23)
[2022-09-01] MEDS: Atorvastatin Calcium 80 MG Tablet PO (21:23)
[2022-09-01] MEDS: Clopidogrel Bisulfate 75 MG Tablet PO (21:23)
[2022-09-01] MEDS: Metoprolol(XL)Succ 25 MG Tablet PO (21:24)
[2022-09-01] MEDS: Insulin Glargine-YFGN 100 UNIT/ML Pen 15 UNIT SC (21:27)
[2022-09-01] MEDS: MELATONIN 3 MG TABLET PO (21:31)
[2022-09-01 21:33] LABS: Bedside Glucose 120 mg/dL (74-106)
--- NOTE | 2022-09-01 23:00 | NURSING ---
Addendum entered by Adolfo Broussard 09/01/22 23:25: Neurochecks initiated due to unwitnessed fall. Patient remains no head-strike occurred with fall, remains A&Ox3. Neurochecks WNL. Watching the news in common area with staff supervision Original Note: BRAND LEADER responds to patient call light and requests assist to patient room stating patient on knees at bedside. Patient assessed immediately x2 nurses. Patient observed facing bed, sitting on knees at bedside, holding on to side rail. Patient alert and oriented to person/place/time. Patient asked why he was attempting to get out of bed, patient states Oh I don't know, I was just getting up and rolled out of bed. Per BRAND LEADER patient requested urinal 15 minutes prior to fall and urinated at that time. Active ROM x4 extremities. Head to toe assessment completed x2 RNs. Patient denies head-strike. No obvious signs of injury. Patient denies pain, states I'm fine Assist x3 into recliner per pt preference and assisted to common area to watch television.
--- NOTE | 2022-09-01 23:08 | NURSING ---
No inward/outward rotation noted to BLE or BUE, gripper socks observed in place to bilat feet
[2022-09-01 23:58] LABS: Bedside Glucose 153 mg/dL (74-106)
[2022-09-02 00:50] VITALS: BP 123/49; PULSE 59; RESP 16
[2022-09-02 05:45] VITALS: BP 137/52; PULSE 60; RESP 14
[2022-09-02] MEDS: Sertraline 50 MG Tablet 25 MG PO (05:46)
[2022-09-02] MEDS: Isosorbide Mononitrate 60 MG Tablet PO (05:46)
[2022-09-02] MEDS: Lisinopril 40 MG Tablet PO (05:47)
[2022-09-02] MEDS: Iron Polysaccharide Complex 150 MG CAPSULE PO (05:47)
[2022-09-02] MEDS: Senna/Docusate Sodium 1 Tablet 2 TABLET PO ×2 (05:47→17:23)
[2022-09-02] MEDS: Finasteride 5 MG Tablet PO (05:47)
[2022-09-02 06:53] LABS: Bedside Glucose 109 mg/dL (74-106)
--- NOTE | 2022-09-02 07:18 | NURSING ---
Addendum entered by Adolfo Broussard 09/02/22 07:32: Attempted to contact patient housing management representative (T[place]) as listed on contact list via telephone regarding fall, no answer at this time, voicemail left with request for return call to unit. Unit phone number provided. Original Note: Dr. Self notified of fall via phone
[2022-09-02] MEDS: Glucerna Shake 120 ML LIQUID PO ×3 (07:36→17:24)
[2022-09-02] MEDS: Insulin Lispro 100 UNIT/ML INSULN.PEN SC ×3 (07:37→17:22)
[2022-09-02] MEDS: metFORMIN HCl 500 MG Tablet PO ×2 (07:37→17:22)
[2022-09-02 10:37] VITALS: BP 133/59; PULSE 60
[2022-09-02] MEDS: Metoprolol(XL)Succ 50 MG Tablet PO (10:37)
[2022-09-02] MEDS: Acetaminophen 325 MG Tablet 650 MG PO ×2 (10:55→22:02)
[2022-09-02 11:42] LABS: Bedside Glucose 165 mg/dL (74-106)
[2022-09-02 15:20] VITALS: BP 135/58; PULSE 56; RESP 18; TEMP 36.5; O2SAT 92
[2022-09-02 17:05] LABS: Bedside Glucose 108 mg/dL (74-106)
[2022-09-02] MEDS: Tamsulosin HCl 0.4 MG Capsule PO (17:22)
[2022-09-02] MEDS: Primidone 50 MG Tablet PO (17:22)
[2022-09-02 19:53] VITALS: RESP 14; O2SAT 97
[2022-09-02 21:55] LABS: Bedside Glucose 96 mg/dL (74-106)
[2022-09-02] MEDS: MELATONIN 3 MG TABLET PO (22:02)
[2022-09-02] MEDS: amLODIPine 10 MG Tablet PO (22:04)
[2022-09-02] MEDS: Atorvastatin Calcium 80 MG Tablet PO (22:05)
[2022-09-02 22:06] VITALS: BP 154/58; PULSE 60
[2022-09-02] MEDS: Clopidogrel Bisulfate 75 MG Tablet PO (22:06)
[2022-09-02] MEDS: Aspirin 81 MG TAB.CHEW PO (22:06)
[2022-09-02] MEDS: Metoprolol(XL)Succ 25 MG Tablet PO (22:06)
[2022-09-03 06:00] LABS: Absolute Lymphocyte Count 0.81 X10^3/uL (0.83-4.51); Absolute Neutrophil Count 5.6 X10^3/uL (2.0-7.7); Basophil# 0.04 X10^3/uL; Basophil% 0.5 % (0-1); Eosinophil# 0.25 X10^3/uL; Eosinophils% 3.3 % (0-5); Hematocrit 29.6 % (40-54); Hemoglobin 9.5 g/dL (13.0-16.5); Lymphocyte # 0.81 X10^3/ul (0.83-4.51); Lymphocyte % 10.7 % (19-41); Mean Corp Hgb Conc 32.1 g/dL (32-36); Mean Corpuscular Hgb 31.3 pg (27.0-32.0); Mean Corpuscular Volume 97.4 fL (80-94); Mean Platelet Vol. 11.6 fl (6.2-12.0); Monocyte# 0.88 X10^3/uL; Monocyte% 11.6 % (0-10); NRBC Flagged by Analyzer 0 % (0-5); Neutrophil # 5.55 X10^3/uL (2.7-7.7); Neutrophil % 73.2 % (47-70); Platelet Count 239 K/mm3 (150-450); RBC Distribution Width CV 13.7 % (11.6-14.6); RBC Distribution Width SD 48.5 fl (35.1-43.9); Red Blood Count 3.04 M/mm3 (4.6-6.2); White Blood Count 7.6 K/mm3 (4.4-11.0)
[2022-09-03] MEDS: Iron Polysaccharide Complex 150 MG CAPSULE PO (06:07)
[2022-09-03] MEDS: Senna/Docusate Sodium 1 Tablet 2 TABLET PO ×2 (06:07→17:53)
[2022-09-03] MEDS: Finasteride 5 MG Tablet PO (06:07)
[2022-09-03] MEDS: Sertraline 50 MG Tablet 25 MG PO (06:07)
[2022-09-03] MEDS: Lisinopril 40 MG Tablet PO (06:07)
[2022-09-03] MEDS: Isosorbide Mononitrate 60 MG Tablet PO (06:07)
[2022-09-03 06:36] LABS: Anion Gap 3 (5-15); BUN 28 mg/dL (7-18); BUN/Creat Ratio 31.7 RATIO (10-20); Calcium,Total 8.6 mg/dL (8.5-10.1); Chloride 105 mmol/L (98-107); Creatinine, Serum 0.88 mg/dL (0.70-1.30); EST Glomerular Filtration Rate 87 mL/min (>60); Est Glom Filt Rate - Afr Amer 105 mL/min (>60); Estimated Creatinine Clearance 51.75 ml/min; Glucose 129 mg/dL (74-106); Potassium 4.3 mmol/L (3.5-5.1); Sodium Level 135 mmol/L (136-145)
[2022-09-03 06:48] LABS: Bedside Glucose 143 mg/dL (74-106)
[2022-09-03] MEDS: Insulin Lispro 100 UNIT/ML INSULN.PEN SC ×3 (07:49→17:52)
[2022-09-03] MEDS: Glucerna Shake 120 ML LIQUID PO ×3 (07:49→17:52)
[2022-09-03] MEDS: metFORMIN HCl 500 MG Tablet PO ×2 (07:49→17:53)
[2022-09-03 10:00] VITALS: PULSE 54; O2SAT 97
[2022-09-03 10:53] VITALS: BP 113/59; PULSE 52
[2022-09-03 11:58] LABS: Bedside Glucose 162 mg/dL (74-106)
[2022-09-03] MEDS: Acetaminophen 500 MG Tablet 1000 MG PO ×2 (14:07→21:55)
[2022-09-03 15:05] VITALS: BP 135/63; PULSE 56; RESP 14; TEMP 36.4; O2SAT 95
[2022-09-03 16:32] LABS: Bedside Glucose 139 mg/dL (74-106)
[2022-09-03] MEDS: Tamsulosin HCl 0.4 MG Capsule PO (17:53)
[2022-09-03] MEDS: Primidone 50 MG Tablet PO (17:54)
[2022-09-03 21:33] LABS: Bedside Glucose 91 mg/dL (74-106)
[2022-09-03 21:54] VITALS: BP 124/49; PULSE 60
[2022-09-03] MEDS: Atorvastatin Calcium 80 MG Tablet PO (21:54)
[2022-09-03] MEDS: Aspirin 81 MG TAB.CHEW PO (21:54)
[2022-09-03] MEDS: Metoprolol(XL)Succ 25 MG Tablet PO (21:54)
[2022-09-03] MEDS: Clopidogrel Bisulfate 75 MG Tablet PO (21:54)
[2022-09-03] MEDS: amLODIPine 10 MG Tablet PO (21:55)
[2022-09-03] MEDS: Insulin Glargine-YFGN 100 UNIT/ML Pen 15 UNIT SC (21:55)
[2022-09-03] MEDS: MELATONIN 3 MG TABLET PO (21:57)
[2022-09-04 06:17] LABS: Bedside Glucose 135 mg/dL (74-106)
[2022-09-04 06:45] VITALS: BP 142/65; PULSE 51
[2022-09-04] MEDS: Iron Polysaccharide Complex 150 MG CAPSULE PO (06:54)
[2022-09-04] MEDS: Isosorbide Mononitrate 60 MG Tablet PO (06:54)
[2022-09-04] MEDS: Sertraline 50 MG Tablet 25 MG PO (06:54)
[2022-09-04] MEDS: Acetaminophen 500 MG Tablet 1000 MG PO ×3 (06:56→21:50)
[2022-09-04] MEDS: Lisinopril 40 MG Tablet PO (06:56)
[2022-09-04] MEDS: Senna/Docusate Sodium 1 Tablet 2 TABLET PO (06:56)
[2022-09-04] MEDS: Finasteride 5 MG Tablet PO (06:56)
[2022-09-04] MEDS: Insulin Lispro 100 UNIT/ML INSULN.PEN SC ×3 (08:11→18:00)
[2022-09-04] MEDS: Glucerna Shake 120 ML LIQUID PO ×3 (08:12→18:01)
[2022-09-04] MEDS: metFORMIN HCl 500 MG Tablet PO ×2 (08:12→18:00)
[2022-09-04 09:32] VITALS: BP 93/52; PULSE 59; RESP 16; TEMP 36.4; O2SAT 98
[2022-09-04 10:03] VITALS: BMI 21.2
[2022-09-04 11:07] LABS: Bedside Glucose 170 mg/dL (74-106)
[2022-09-04 16:40] LABS: Bedside Glucose 177 mg/dL (74-106)
[2022-09-04] MEDS: Tamsulosin HCl 0.4 MG Capsule PO (18:00)
[2022-09-04] MEDS: Primidone 50 MG Tablet PO (18:00)
[2022-09-04 21:49] VITALS: BP 131/55; PULSE 60
[2022-09-04] MEDS: Aspirin 81 MG TAB.CHEW PO (21:49)
[2022-09-04 21:50] LABS: Bedside Glucose 153 mg/dL (74-106)
[2022-09-04] MEDS: Insulin Glargine-YFGN 100 UNIT/ML Pen 15 UNIT SC (21:50)
[2022-09-04] MEDS: MELATONIN 3 MG TABLET PO (21:50)
[2022-09-04] MEDS: Clopidogrel Bisulfate 75 MG Tablet PO (21:50)
[2022-09-04] MEDS: Atorvastatin Calcium 80 MG Tablet PO (21:50)
[2022-09-04] MEDS: amLODIPine 10 MG Tablet PO (21:51)
[2022-09-04 21:52] VITALS: PULSE 60
[2022-09-04] MEDS: Metoprolol(XL)Succ 25 MG Tablet PO (21:52)
[2022-09-05 05:40] VITALS: BP 148/73; PULSE 60
[2022-09-05] MEDS: Lisinopril 40 MG Tablet PO (05:47)
[2022-09-05] MEDS: Iron Polysaccharide Complex 150 MG CAPSULE PO (05:47)
[2022-09-05] MEDS: Acetaminophen 500 MG Tablet 1000 MG PO ×3 (05:47→22:13)
[2022-09-05] MEDS: Sertraline 50 MG Tablet 25 MG PO (05:47)
[2022-09-05] MEDS: Isosorbide Mononitrate 60 MG Tablet PO (05:47)
[2022-09-05] MEDS: Finasteride 5 MG Tablet PO (05:48)
[2022-09-05] MEDS: Senna/Docusate Sodium 1 Tablet 2 TABLET PO ×2 (05:48→17:32)
[2022-09-05 06:42] LABS: Bedside Glucose 113 mg/dL (74-106)
[2022-09-05 08:24] VITALS: PULSE 60
[2022-09-05] MEDS: Metoprolol(XL)Succ 50 MG Tablet PO (08:24)
[2022-09-05] MEDS: metFORMIN HCl 500 MG Tablet PO ×2 (08:24→17:31)
[2022-09-05] MEDS: Glucerna Shake 120 ML LIQUID PO ×3 (08:24→17:30)
[2022-09-05] MEDS: Insulin Lispro 100 UNIT/ML INSULN.PEN SC ×3 (08:25→17:30)
[2022-09-05 11:21] LABS: Bedside Glucose 252 mg/dL (74-106)
[2022-09-05 15:47] VITALS: BP 132/51; PULSE 55; RESP 16; TEMP 36.2; O2SAT 95
[2022-09-05 16:51] LABS: Bedside Glucose 155 mg/dL (74-106)
[2022-09-05] MEDS: Tamsulosin HCl 0.4 MG Capsule PO (17:31)
[2022-09-05] MEDS: Primidone 50 MG Tablet PO (17:32)
[2022-09-05 22:08] VITALS: BP 131/60; PULSE 56
[2022-09-05 22:11] LABS: Bedside Glucose 165 mg/dL (74-106)
[2022-09-05] MEDS: Aspirin 81 MG TAB.CHEW PO (22:11)
[2022-09-05] MEDS: Clopidogrel Bisulfate 75 MG Tablet PO (22:11)
[2022-09-05] MEDS: amLODIPine 10 MG Tablet PO (22:11)
[2022-09-05 22:12] VITALS: BP 131/60; PULSE 56
[2022-09-05] MEDS: Atorvastatin Calcium 80 MG Tablet PO (22:12)
[2022-09-05] MEDS: Metoprolol(XL)Succ 25 MG Tablet PO (22:12)
[2022-09-05] MEDS: Insulin Glargine-YFGN 100 UNIT/ML Pen 15 UNIT SC (22:13)
[2022-09-05] MEDS: MELATONIN 3 MG TABLET PO (22:14)
[2022-09-06 05:39] VITALS: BP 122/65; PULSE 54
[2022-09-06] MEDS: Sertraline 50 MG Tablet 25 MG PO (05:41)
[2022-09-06] MEDS: Acetaminophen 500 MG Tablet 1000 MG PO ×3 (05:41→22:50)
[2022-09-06] MEDS: Isosorbide Mononitrate 60 MG Tablet PO (05:41)
[2022-09-06] MEDS: Finasteride 5 MG Tablet PO (05:41)
[2022-09-06] MEDS: Lisinopril 40 MG Tablet PO (05:41)
[2022-09-06] MEDS: Iron Polysaccharide Complex 150 MG CAPSULE PO (05:41)
[2022-09-06] MEDS: Senna/Docusate Sodium 1 Tablet 2 TABLET PO (05:42)
[2022-09-06 06:31] LABS: Bedside Glucose 63 mg/dL (74-106)
[2022-09-06 07:18] LABS: Bedside Glucose 93 mg/dL (74-106)
[2022-09-06] MEDS: metFORMIN HCl 500 MG Tablet PO ×2 (08:33→18:08)
[2022-09-06] MEDS: Glucerna Shake 120 ML LIQUID PO ×3 (08:33→18:09)
[2022-09-06 10:25] VITALS: BP 118/51; PULSE 52; RESP 17; TEMP 36.3; O2SAT 95
[2022-09-06 11:51] LABS: Bedside Glucose 150 mg/dL (74-106)
--- NOTE | 2022-09-06 16:36 | NURSING ---
Notified Dr. Self of patient's trending blood pressure/ lower heart rate. New orders entered by Dr. Self.
[2022-09-06 16:54] LABS: Bedside Glucose 136 mg/dL (74-106)
[2022-09-06] MEDS: Tamsulosin HCl 0.4 MG Capsule PO (18:08)
[2022-09-06] MEDS: Primidone 50 MG Tablet PO (18:08)
[2022-09-06] MEDS: Insulin Lispro 100 UNIT/ML INSULN.PEN SC (18:08)
[2022-09-06 22:22] LABS: Bedside Glucose 175 mg/dL (74-106)
[2022-09-06 22:30] VITALS: PULSE 61; RESP 16; O2SAT 98
[2022-09-06] MEDS: Menthol/Lanolin/Calamine/Znox 113 GM Tube 1 APPLIC TOPICAL (22:48)
[2022-09-06 22:50] VITALS: BP 156/60; PULSE 61
[2022-09-06] MEDS: Aspirin 81 MG TAB.CHEW PO (22:50)
[2022-09-06] MEDS: Metoprolol(XL)Succ 25 MG Tablet PO (22:50)
[2022-09-06] MEDS: Clopidogrel Bisulfate 75 MG Tablet PO (22:51)
[2022-09-06] MEDS: amLODIPine 10 MG Tablet PO (22:51)
[2022-09-06] MEDS: Atorvastatin Calcium 80 MG Tablet PO (22:52)
[2022-09-06] MEDS: Insulin Glargine-YFGN 100 UNIT/ML Pen 10 UNIT SC (22:52)
[2022-09-06] MEDS: MELATONIN 3 MG TABLET PO (23:00)
[2022-09-07] MEDS: Finasteride 5 MG Tablet PO (06:27)
[2022-09-07] MEDS: Sertraline 50 MG Tablet 25 MG PO (06:28)
[2022-09-07] MEDS: Iron Polysaccharide Complex 150 MG CAPSULE PO (06:28)
[2022-09-07] MEDS: Acetaminophen 500 MG Tablet 1000 MG PO ×3 (06:29→21:34)
[2022-09-07] MEDS: Senna/Docusate Sodium 1 Tablet 2 TABLET PO ×2 (06:29→17:35)
[2022-09-07 06:34] VITALS: BP 128/54; PULSE 49; RESP 16
[2022-09-07 06:36] LABS: Bedside Glucose 63 mg/dL (74-106)
[2022-09-07 07:16] LABS: Bedside Glucose 78 mg/dL (74-106)
[2022-09-07] MEDS: Menthol/Lanolin/Calamine/Znox 113 GM Tube 1 APPLIC TOPICAL ×2 (08:44→17:36)
[2022-09-07] MEDS: Insulin Lispro 100 UNIT/ML INSULN.PEN SC ×2 (08:44→17:36)
[2022-09-07] MEDS: Glucerna Shake 120 ML LIQUID PO ×3 (08:46→17:35)
[2022-09-07] MEDS: metFORMIN HCl 500 MG Tablet PO ×2 (08:46→17:35)
[2022-09-07] MEDS: Isosorbide Mononitrate 30 MG Tablet PO (08:47)
[2022-09-07] MEDS: Lisinopril 40 MG Tablet PO (08:47)
[2022-09-07 08:52] VITALS: BP 128/54; PULSE 56; RESP 18; O2SAT 97
--- NOTE | 2022-09-07 10:05 | NURSING ---
dr maravilla notified of low blood sugars, new order to decrease glargine at hs 5 units.
[2022-09-07 11:12] LABS: Bedside Glucose 178 mg/dL (74-106)
[2022-09-07 15:13] VITALS: BP 116/58; PULSE 61; RESP 18; TEMP 36; O2SAT 96
--- NOTE | 2022-09-07 15:33 | CASEMGMT ---
Social Work requested to speak with this worker about DC timeframe. SW educated to review at [facility] on 09/11 and will advise if DC date is set. SW inquired about 's readiness to take pt home. apprehensive. SW encouraged to discuss with pt about home vs AL/SNF. Offered and provided lifealert and CYBER SECURITY ANALYST resources for additional assistance in the home. appreciative. SW will continue to follow. Danette Ocasio, LOCK SETTER CELLULAR PLASTICS CUTTER
[2022-09-07 16:34] LABS: Bedside Glucose 163 mg/dL (74-106)
[2022-09-07] MEDS: Tamsulosin HCl 0.4 MG Capsule PO (17:35)
[2022-09-07] MEDS: Primidone 50 MG Tablet PO (17:35)
[2022-09-07 20:29] VITALS: PULSE 66; RESP 16
[2022-09-07 21:27] LABS: Bedside Glucose 178 mg/dL (74-106)
[2022-09-07] MEDS: amLODIPine 10 MG Tablet PO (21:34)
[2022-09-07] MEDS: Clopidogrel Bisulfate 75 MG Tablet PO (21:34)
[2022-09-07] MEDS: Aspirin 81 MG TAB.CHEW PO (21:36)
[2022-09-07] MEDS: Atorvastatin Calcium 80 MG Tablet PO (21:36)
[2022-09-07 21:37] VITALS: BP 133/60; PULSE 62
[2022-09-07] MEDS: Metoprolol(XL)Succ 25 MG Tablet PO (21:37)
[2022-09-07] MEDS: MELATONIN 3 MG TABLET PO (21:40)
[2022-09-07] MEDS: Insulin Glargine-YFGN 100 UNIT/ML Pen SC (21:44)
[2022-09-08 06:10] LABS: Bedside Glucose 133 mg/dL (74-106)
[2022-09-08] MEDS: Senna/Docusate Sodium 1 Tablet 2 TABLET PO ×2 (06:26→18:17)
[2022-09-08] MEDS: Acetaminophen 500 MG Tablet 1000 MG PO ×3 (06:26→20:15)
[2022-09-08] MEDS: Sertraline 50 MG Tablet 25 MG PO (06:26)
[2022-09-08] MEDS: Isosorbide Mononitrate 30 MG Tablet PO (06:27)
[2022-09-08] MEDS: Lisinopril 40 MG Tablet PO (06:27)
[2022-09-08] MEDS: Menthol/Lanolin/Calamine/Znox 113 GM Tube 1 APPLIC TOPICAL ×2 (06:28→18:19)
[2022-09-08] MEDS: Iron Polysaccharide Complex 150 MG CAPSULE PO (06:29)
[2022-09-08] MEDS: Finasteride 5 MG Tablet PO (06:31)
[2022-09-08 06:48] VITALS: BP 137/53; PULSE 60; RESP 16
[2022-09-08] MEDS: Insulin Lispro 100 UNIT/ML INSULN.PEN SC ×2 (08:42→18:18)
[2022-09-08] MEDS: metFORMIN HCl 500 MG Tablet PO ×2 (08:42→18:17)
[2022-09-08] MEDS: Glucerna Shake 120 ML LIQUID PO ×3 (08:44→18:18)
[2022-09-08 11:25] LABS: Bedside Glucose 259 mg/dL (74-106)
[2022-09-08 13:37] VITALS: BP 129/57; PULSE 56; RESP 14; TEMP 36.3; O2SAT 97
[2022-09-08 16:40] LABS: Bedside Glucose 157 mg/dL (74-106)
[2022-09-08] MEDS: Primidone 50 MG Tablet PO (18:18)
[2022-09-08] MEDS: Tamsulosin HCl 0.4 MG Capsule PO (18:18)
[2022-09-08] MEDS: MELATONIN 3 MG TABLET PO (20:14)
[2022-09-08 20:15] VITALS: BP 153/56; PULSE 61
[2022-09-08] MEDS: amLODIPine 10 MG Tablet PO (20:15)
[2022-09-08] MEDS: Atorvastatin Calcium 80 MG Tablet PO (20:15)
[2022-09-08] MEDS: Metoprolol(XL)Succ 25 MG Tablet PO (20:15)
[2022-09-08] MEDS: Aspirin 81 MG TAB.CHEW PO (20:15)
[2022-09-08] MEDS: Clopidogrel Bisulfate 75 MG Tablet PO (20:15)
[2022-09-08] MEDS: Insulin Glargine-YFGN 100 UNIT/ML Pen SC (20:22)
[2022-09-08 22:08] LABS: Bedside Glucose 162 mg/dL (74-106)
[2022-09-09] MEDS: Iron Polysaccharide Complex 150 MG CAPSULE PO (06:23)
[2022-09-09] MEDS: Isosorbide Mononitrate 30 MG Tablet PO (06:23)
[2022-09-09] MEDS: Acetaminophen 500 MG Tablet 1000 MG PO ×3 (06:23→21:03)
[2022-09-09] MEDS: Senna/Docusate Sodium 1 Tablet 2 TABLET PO ×2 (06:23→18:50)
[2022-09-09] MEDS: Sertraline 50 MG Tablet 25 MG PO (06:24)
[2022-09-09] MEDS: Finasteride 5 MG Tablet PO (06:24)
[2022-09-09] MEDS: Lisinopril 40 MG Tablet PO (06:24)
[2022-09-09 06:35] VITALS: BP 144/57; PULSE 53
[2022-09-09 06:50] LABS: Bedside Glucose 149 mg/dL (74-106)
[2022-09-09] MEDS: metFORMIN HCl 500 MG Tablet PO ×2 (09:30→18:49)
[2022-09-09] MEDS: Menthol/Lanolin/Calamine/Znox 113 GM Tube 1 APPLIC TOPICAL ×2 (09:30→18:56)
[2022-09-09] MEDS: Insulin Lispro 100 UNIT/ML INSULN.PEN SC ×2 (09:30→18:48)
[2022-09-09] MEDS: Glucerna Shake 120 ML LIQUID PO ×3 (09:31→18:51)
[2022-09-09 11:44] LABS: Bedside Glucose 214 mg/dL (74-106)
[2022-09-09 14:30] VITALS: BP 144/62; PULSE 55; RESP 16; TEMP 36.3; O2SAT 96
[2022-09-09 17:01] LABS: Bedside Glucose 188 mg/dL (74-106)
[2022-09-09] MEDS: Tamsulosin HCl 0.4 MG Capsule PO (18:48)
[2022-09-09] MEDS: Primidone 50 MG Tablet PO (18:51)
[2022-09-09 20:36] VITALS: PULSE 55; RESP 16; O2SAT 95
[2022-09-09 21:03] VITALS: BP 138/44; PULSE 68
[2022-09-09] MEDS: Metoprolol(XL)Succ 25 MG Tablet PO (21:03)
[2022-09-09] MEDS: MELATONIN 3 MG TABLET PO (21:03)
[2022-09-09] MEDS: Insulin Glargine-YFGN 100 UNIT/ML Pen SC (21:04)
[2022-09-09] MEDS: Clopidogrel Bisulfate 75 MG Tablet PO (21:04)
[2022-09-09] MEDS: Aspirin 81 MG TAB.CHEW PO (21:04)
[2022-09-09] MEDS: amLODIPine 10 MG Tablet PO (21:04)
[2022-09-09] MEDS: Atorvastatin Calcium 80 MG Tablet PO (21:04)
[2022-09-09 21:41] LABS: Bedside Glucose 233 mg/dL (74-106)
[2022-09-10 05:49] LABS: Absolute Lymphocyte Count 0.76 X10^3/uL (0.83-4.51); Absolute Neutrophil Count 4.2 X10^3/uL (2.0-7.7); Basophil# 0.03 X10^3/uL; Basophil% 0.5 % (0-1); Eosinophil# 0.31 X10^3/uL; Hematocrit 30.6 % (40-54); Hemoglobin 10.3 g/dL (13.0-16.5); Lymphocyte # 0.76 X10^3/ul (0.83-4.51); Lymphocyte % 12.2 % (19-41); Mean Corp Hgb Conc 33.7 g/dL (32-36); Mean Corpuscular Hgb 32.2 pg (27.0-32.0); Mean Corpuscular Volume 95.6 fL (80-94); Monocyte# 0.87 X10^3/uL; Monocyte% 13.9 % (0-10); NRBC Flagged by Analyzer 0 % (0-5); Neutrophil # 4.24 X10^3/uL (2.7-7.7); Neutrophil % 67.9 % (47-70); Platelet Count 195 K/mm3 (150-450); RBC Distribution Width CV 13.5 % (11.6-14.6); RBC Distribution Width SD 47.7 fl (35.1-43.9); White Blood Count 6.2 K/mm3 (4.4-11.0)
[2022-09-10] MEDS: Sertraline 50 MG Tablet 25 MG PO (05:51)
[2022-09-10] MEDS: Acetaminophen 500 MG Tablet 1000 MG PO ×3 (05:51→20:50)
[2022-09-10] MEDS: Senna/Docusate Sodium 1 Tablet 2 TABLET PO ×2 (05:52→18:02)
[2022-09-10] MEDS: Finasteride 5 MG Tablet PO (05:52)
[2022-09-10] MEDS: Iron Polysaccharide Complex 150 MG CAPSULE PO (05:53)
[2022-09-10] MEDS: Menthol/Lanolin/Calamine/Znox 113 GM Tube 1 APPLIC TOPICAL ×2 (05:59→18:02)
[2022-09-10 06:00] VITALS: BP 117/45; PULSE 52
--- NOTE | 2022-09-10 06:01 | NURSING ---
Patient's BP/pulse 117/45, 52 this AM. Lisinopril and Isosorbide held at this time. Will continue to monitor.
[2022-09-10 06:24] LABS: Bedside Glucose 87 mg/dL (74-106)
[2022-09-10 06:40] LABS: Anion Gap 4 (5-15); BUN 25 mg/dL (7-18); BUN/Creat Ratio 31.8 RATIO (10-20); Calcium,Total 8.5 mg/dL (8.5-10.1); Chloride 105 mmol/L (98-107); Creatinine, Serum 0.79 mg/dL (0.70-1.30); EST Glomerular Filtration Rate 99 mL/min (>60); Est Glom Filt Rate - Afr Amer 120 mL/min (>60); Estimated Creatinine Clearance 45.41 ml/min; Glucose 146 mg/dL (74-106); Potassium 4.2 mmol/L (3.5-5.1); Sodium Level 136 mmol/L (136-145)
[2022-09-10] MEDS: Insulin Lispro 100 UNIT/ML INSULN.PEN SC ×2 (08:32→18:01)
[2022-09-10] MEDS: Glucerna Shake 120 ML LIQUID PO ×3 (08:32→18:03)
[2022-09-10] MEDS: metFORMIN HCl 500 MG Tablet PO ×2 (08:32→18:01)
[2022-09-10 08:44] VITALS: PULSE 53; RESP 16; O2SAT 95
--- NOTE | 2022-09-10 11:44 | CASEMGMT ---
Social Work SW received voicemail from dtr requesting call back to discuss DC plans for pt. SW returned dtr's call. Answered questions. Explained, per therapy, pt is at new baseline, and recommending setting DC date. Explained LOC- [facility] and has observed almost daily therapy sessions. Dtr stated 's health has deteriorated and cannot solely care for pt anymore. SW reminded dtr of T[employer] list provided to Saturday to hire additional assistance. Educated to AL - alone or with , or SNF. Offered to make referrals. Explained financial liability. Dtr to speak with family this evening and notify this worker of outcome. SW advised setting a DC end of this week/weekend. Dtr expressed understanding. SW will continue to follow. RAMONITA NguyễnW
[2022-09-10 12:08] LABS: Bedside Glucose 265 mg/dL (74-106)
[2022-09-10 16:58] LABS: Bedside Glucose 210 mg/dL (74-106)
[2022-09-10] MEDS: Primidone 50 MG Tablet PO (18:01)
[2022-09-10] MEDS: Tamsulosin HCl 0.4 MG Capsule PO (18:01)
[2022-09-10 20:50] VITALS: PULSE 58
[2022-09-10] MEDS: Aspirin 81 MG TAB.CHEW PO (20:50)
[2022-09-10] MEDS: Metoprolol(XL)Succ 25 MG Tablet PO (20:50)
[2022-09-10] MEDS: Clopidogrel Bisulfate 75 MG Tablet PO (20:50)
[2022-09-10] MEDS: amLODIPine 10 MG Tablet PO (20:50)
[2022-09-10] MEDS: Atorvastatin Calcium 80 MG Tablet PO (20:50)
[2022-09-10] MEDS: MELATONIN 3 MG TABLET PO (20:53)
[2022-09-10 20:56] VITALS: BP 161/67; PULSE 58; RESP 14; TEMP 36.3; O2SAT 98
[2022-09-10 21:51] LABS: Bedside Glucose 189 mg/dL (74-106)
[2022-09-10] MEDS: Insulin Glargine-YFGN 100 UNIT/ML Pen SC (21:55)
[2022-09-11] MEDS: Senna/Docusate Sodium 1 Tablet 2 TABLET PO ×2 (05:39→18:06)
[2022-09-11] MEDS: Isosorbide Mononitrate 30 MG Tablet PO (05:39)
[2022-09-11] MEDS: Sertraline 50 MG Tablet 25 MG PO (05:39)
[2022-09-11] MEDS: Lisinopril 40 MG Tablet PO (05:39)
[2022-09-11] MEDS: Acetaminophen 500 MG Tablet 1000 MG PO ×3 (05:39→21:43)
[2022-09-11] MEDS: Finasteride 5 MG Tablet PO (05:40)
[2022-09-11] MEDS: Iron Polysaccharide Complex 150 MG CAPSULE PO (05:40)
[2022-09-11] MEDS: Menthol/Lanolin/Calamine/Znox 113 GM Tube 1 APPLIC TOPICAL ×2 (05:40→18:07)
[2022-09-11 05:41] VITALS: BP 125/45; PULSE 52
[2022-09-11 06:42] LABS: Bedside Glucose 164 mg/dL (74-106)
[2022-09-11] MEDS: metFORMIN HCl 500 MG Tablet PO ×2 (08:00→18:06)
[2022-09-11] MEDS: Insulin Lispro 100 UNIT/ML INSULN.PEN SC ×2 (08:00→18:05)
[2022-09-11] MEDS: Glucerna Shake 120 ML LIQUID PO ×3 (08:01→18:10)
[2022-09-11 10:00] VITALS: PULSE 54; O2SAT 95
[2022-09-11 10:55] VITALS: BMI 21.7
[2022-09-11 11:46] LABS: Bedside Glucose 148 mg/dL (74-106)
[2022-09-11 14:49] VITALS: BP 112/52; PULSE 60; RESP 16; TEMP 36.7; O2SAT 96
--- NOTE | 2022-09-11 14:56 | CASEMGMT ---
Social Work SW spoke with pt and at bedside. Notified them of IDT setting DC date for 09/16. Both will speak with dtr to make a decision on home vs AL/SNF. SW offered ongoing assistance with DC planning. Danette Ocasio REWORK MACHINE OPERATOR CASHIER TICKET SELLING
[2022-09-11 16:35] LABS: Bedside Glucose 165 mg/dL (74-106)
[2022-09-11] MEDS: Primidone 50 MG Tablet PO (18:07)
[2022-09-11] MEDS: Tamsulosin HCl 0.4 MG Capsule PO (18:07)
[2022-09-11] MEDS: Atorvastatin Calcium 80 MG Tablet PO (21:43)
[2022-09-11] MEDS: Clopidogrel Bisulfate 75 MG Tablet PO (21:43)
[2022-09-11] MEDS: Aspirin 81 MG TAB.CHEW PO (21:43)
[2022-09-11] MEDS: MELATONIN 3 MG TABLET PO (21:43)
[2022-09-11] MEDS: Insulin Glargine-YFGN 100 UNIT/ML Pen SC (21:44)
[2022-09-11] MEDS: amLODIPine 10 MG Tablet PO (21:44)
[2022-09-11 21:47] VITALS: PULSE 64
[2022-09-11] MEDS: Metoprolol(XL)Succ 25 MG Tablet PO (21:47)
[2022-09-11 21:53] LABS: Bedside Glucose 184 mg/dL (74-106)
[2022-09-12 06:12] LABS: Bedside Glucose 138 mg/dL (74-106)
[2022-09-12] MEDS: Finasteride 5 MG Tablet PO (06:23)
[2022-09-12] MEDS: Senna/Docusate Sodium 1 Tablet 2 TABLET PO ×2 (06:23→17:37)
[2022-09-12] MEDS: Lisinopril 40 MG Tablet PO (06:24)
[2022-09-12] MEDS: Acetaminophen 500 MG Tablet 1000 MG PO ×3 (06:24→20:08)
[2022-09-12] MEDS: Isosorbide Mononitrate 30 MG Tablet PO (06:24)
[2022-09-12] MEDS: Sertraline 50 MG Tablet 25 MG PO (06:24)
[2022-09-12] MEDS: Iron Polysaccharide Complex 150 MG CAPSULE PO (06:25)
[2022-09-12 06:32] VITALS: BP 140/56; PULSE 55
[2022-09-12] MEDS: Glucerna Shake 120 ML LIQUID PO ×2 (07:51→17:35)
[2022-09-12] MEDS: metFORMIN HCl 500 MG Tablet PO ×2 (07:51→17:37)
[2022-09-12] MEDS: Insulin Lispro 100 UNIT/ML INSULN.PEN SC ×2 (07:51→17:36)
[2022-09-12] MEDS: Menthol/Lanolin/Calamine/Znox 113 GM Tube 1 APPLIC TOPICAL ×2 (07:52→19:59)
[2022-09-12 10:00] VITALS: PULSE 53; O2SAT 96
--- NOTE | 2022-09-12 10:41 | CASEMGMT ---
Addendum entered by Danette Ocasio 09/12/22 15:41: [facility] does not have beds. Addendum entered by Danette Ocasio 09/12/22 15:00: [facility] completing onsite with pt 09/13 at 1300. Addendum entered by Danette Ocasio 09/12/22 14:28: [facility] not [facility] beds. Left voicemail with [facility]. Addendum entered by Danette Ocasio 09/12/22 10:48: Dtr also requesting referral to [facility]. Referral made. Original Note: Social Work Received call from dtr stating the family is leaning toward AL for pt at [place]. Dtr requesting referrals to [facility], [facility], [facility], and [facility]. SW placed referrals to all ALs via [facility]. Will continue to follow. RAMONITA Nguyễn
[2022-09-12 11:14] LABS: Bedside Glucose 247 mg/dL (74-106)
[2022-09-12 14:14] VITALS: BP 119/50; PULSE 60; RESP 16; TEMP 37.6; O2SAT 94
[2022-09-12 17:18] LABS: Bedside Glucose 140 mg/dL (74-106)
[2022-09-12] MEDS: Primidone 50 MG Tablet PO (17:36)
[2022-09-12] MEDS: Tamsulosin HCl 0.4 MG Capsule PO (17:37)
[2022-09-12 19:58] VITALS: BP 145/61; PULSE 60
[2022-09-12] MEDS: Metoprolol(XL)Succ 25 MG Tablet PO (19:58)
[2022-09-12] MEDS: Clopidogrel Bisulfate 75 MG Tablet PO (19:59)
[2022-09-12] MEDS: Atorvastatin Calcium 80 MG Tablet PO (19:59)
[2022-09-12] MEDS: Aspirin 81 MG TAB.CHEW PO (19:59)
[2022-09-12] MEDS: amLODIPine 10 MG Tablet PO (19:59)
[2022-09-12] MEDS: MELATONIN 3 MG TABLET PO (20:04)
--- NOTE | 2022-09-12 21:17 | DS.PCM_ITS ---
Providers Date of Admission: 08/19/22 Primary Care Physician: Dr. Aron Patricia MD Reason For Visit: SEPSIS, ENCEPHALOPATHY, UTI, ACC HTN Diagnosis Discharge Diagnosis (1) Debility: Status: Inactive Code(s): R53.81 - Other malaise (2) Sepsis with acute organ dysfunction: Status: Inactive Code(s): A41.9 - Sepsis, unspecified organism; R65.20 - Severe sepsis without septic sh ock (3) Encephalopathy due to infection: Status: Inactive Code(s): G93.49 - Other encephalopathy; B99.9 - Unspecified infectious disease (4) Type 2 diabetes mellitus: Status: Chronic Code(s): E11.9 - Type 2 diabetes mellitus without complications Qualifiers: Diabetes mellitus senior living insulin use: without senior living use Diabetes mellitus complication status: with other specified complication Qualified Code(s): E11.69 - Type 2 diabetes mellitus with other specified complication (5) Monoclonal gammopathy: Status: Acute Code(s): D47.2 - Monoclonal gammopathy (6) Urine retention: Status: Acute Code(s): R33.9 - Retention of urine, unspecified (7) Parkinson disease: Status: Inactive Code(s): G20 - Parkinson's disease (8) BPH (benign prostatic hyperplasia): Status: Chronic Code(s): N40.0 - Benign prostatic hyperplasia without lower urinary tract symptoms (9) Hyperlipidemia: Status: Chronic Code(s): E78.5 - Hyperlipidemia, unspecified Qualifiers: Hyperlipidemia type: pure hypercholesterolemia Qualified Code(s): E78.00 - Pure hypercholesterolemia, unspecified; E78.0 - Pure hypercholesterolemia (10) Essential (primary) hypertension: Status: Chronic Code(s): I10 - Essential (primary) hypertension (11) History of CVA (cerebrovascular accident): Status: Acute Code(s): Z86.73 - Personal history of transient ischemic attack (TIA), and cerebral infarction without residual deficits (12) History of coronary artery stent placement: Status: Chronic Code(s): Z95.5 - Presence of coronary angioplasty implant and graft (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 transplanted heart: unspecified whether [place] or transplanted heart Qualified Code(s): I25.10 - Atherosclerotic heart disease of [place] coronary artery without angina pectoris (14) Fever: Status: Resolved Code(s): R50.9 - Fever, unspecified (15) Normochromic normocytic anemia: Status: Acute Code(s): D64.9 - Anemia, unspecified (16) Hyponatremia: Status: Acute Code(s): E87.1 - Hypo-osmolality and hyponatremia (17) Hypokalemia: Status: Acute Code(s): E87.6 - Hypokalemia (18) Dehydration, moderate: Status: Acute Code(s): E86.0 - Dehydration (19) Hypophosphatemia: Status: Acute Code(s): E83.39 - Other disorders of phosphorus metabolism (20) Abnormal LFTs (liver function tests): Status: Acute Code(s): R79.89 - Other specified abnormal findings of blood chemistry (21) Obstipation: Status: Acute Code(s): K59.00 - Constipation, unspecified (22) Bilateral pleural effusion: Status: Acute Code(s): J90 - Pleural effusion, not elsewhere classified Medications at Discharge Home Medications aspirin 81 mg chewable tablet 81 mg PO QHS heart 08/28/17 blood sugar diagnostic #100 ea 05/16/18 blood-glucose meter (OneFormula XOuch Ultra2 Meter) #1 ea 03/29/20 One touch ultra blue strip #100 ea 06/06/20 melatonin 3 mg tablet 3 mg PO QHS PRN PRN Insomnia 06/09/20 miscellaneous medical supply (Blood Pressure Cuff) #1 ea 08/09/20 walker (Ultra-Light Rollator misc) #1 ea 10/17/20 Juxtalite #1 ea 11/09/20 amlodipine 10 mg tablet 10 mg PO QHS blood pressure #90 tabs 08/28/21 sertraline 25 mg tablet 25 mg PO DAILY Mood #90 tabs 08/28/21 metoprolol succinate 25 mg tablet,extended release 24 hr 25 mg PO .PM BP #90 tabs 02/15/22 clopidogrel 75 mg tablet (Plavix) 75 mg PO QHS Blood Thinner 05/06/22 tamsulosin 0.4 mg capsule 0.4 mg PO DAILY BPH 05/06/22 lisinopril 40 mg tablet 40 mg PO QDAY bp #90 tabs 06/21/22 polysaccharide iron complex 150 mg iron capsule (Ferrex) 150 mg PO DAILY Supplement #90 caps 06/21/22 primidone 50 mg tablet 50 mg PO 1600 Seizure #90 tabs 06/21/22 atorvastatin 80 mg tablet 80 mg PO QHS Cholesterol #90 TABLETS 07/27/22 metformin 500 mg tablet 500 mg PO BID Diabetes #1 TAB 08/19/22 finasteride 5 mg tablet 5 mg PO DAILY 30 days #30 tabs 09/12/22 isosorbide mononitrate 30 mg tablet,extended release 24 hr 30 mg PO DAILY 30 days #30 tabs 09/12/22 Hospital Course Operations None Procedures None Summary of Care Provided Minutes Spent on Discharge: 35 Hospital Course: 87 year old male with below past medical history hospitalized for left sided pneumonia, admitted to TCU with debility, here for rehabilitation, strengthening, prior to discharge home with . Discharge to [facility] 09/16/2022, Home Health Care PT/OT/ST. Physical Exam Const alert General Appearance: cooperative HEENT normocephalic Eyes PERRL and EOMs intact bilaterally Neck supple, no JVD and no carotid bruits Resp normal respiratory effort, normal air movement and clear to auscultation bilaterally Cardio regular rate and regular rhythm GI normal to inspection, nondistended, normoactive bowel sounds, non-tender and non-distended Extremity normal capillary refill General Extremity: Negative for edema Skin no rashes or lesions noted General Skin Exam: no breakdown Psych affect normal Appearance: appropriate Weight / BMI Weight Weight: 63.049 kg Body Mass Index (BMI) 21.7 ABG / Lab / Microbiology Data 09/10/22 05:30 09/10/22 05:30 Laboratory: Laboratory Results - last 24 hr 09/11/22 21:30: POC Glucose 184 H 09/12/22 05:53: POC Glucose 138 H 09/12/22 10:45: POC Glucose 247 H 09/12/22 16:51: POC Glucose 140 H Microbiology: Microbiology 08/21/22 11:45 Urine, Clean Catch Streptococcus pneumoniae Antigen (M - Final 08/20/22 16:38 Mucosa - Nasopharyngeal Respiratory Panel (PCR) - Final D/C Instructions Discharge Diet: No restrictions Discharge Activity: Return to Normal Activity, May Shower and Use Walker Weight Bearing Status: Weight bearing as tolerated Call your doctor if you observe: Fever of 101 or Higher, Inability to urinate, Inability to have a bowel movement, Shortness of breath, Dizziness, Fainting spells, Swelling in the ankles, Chest pain and Uncontrolled pain Additional Instructions: Discharge to [facility] 09/16/2022, Home Health Care PT/OT/ST. Meaningful Use Info Meaningful Use Diagnoses (Choose all that apply): None applicable Discharge Plan Admission Admit Date/Time: 08/19/22 13:53 Primary Reason for Your Visit: Debility. Attending Provider: Inocencia Alejandra Primary Care Provider: Aron Patricia Instructions Additional Instructions / Restrictions: Discharge to [facility] 09/16/2022, Home Health Care PT/OT/ST. Discharge Orders/Prescriptions Prescriptions: New isosorbide mononitrate 30 mg Tablet Extended Release 24 Hr 30 mg PO DAILY 30 Days Qty: 30 0RF finasteride 5 mg Tablet 5 mg PO DAILY 30 Days Qty: 30 0RF Continued amlodipine 10 mg tablet 10 mg PO QHS Qty: 90 3RF sertraline 25 mg tablet 25 mg PO DAILY Qty: 90 3RF polysaccharide iron complex [Ferrex 150] 150 mg iron capsule 150 mg PO DAILY Qty: 90 2RF lisinopril 40 mg tablet 40 mg PO QDAY Qty: 90 0RF primidone 50 mg tablet 50 mg PO 1600 Qty: 90 0RF aspirin 81 MG tablet,chewable 81 mg PO QHS melatonin 3 MG tablet 3 mg PO QHS PRN PRN (Reason: Insomnia) 0RF tamsulosin 0.4 mg capsule 0.4 mg PO DAILY clopidogrel [Plavix] 75 mg tablet 75 mg PO QHS metformin 500 mg tablet 500 mg PO BID Qty: 1 0RF metoprolol succinate 25 mg tablet extended release 24 hr 25 mg PO .PM Qty: 90 1RF atorvastatin 80 mg tablet 80 mg PO QHS Qty: 90 3RF Discontinued sennosides-docusate sodium 1 TABLET tablet 2 tablet PO BID PRN PRN (Reason: Constipation) 0RF acetaminophen 325 mg Tablet 650 mg PO Q4H PRN PRN (Reason: Fever, pain 1-10) Qty: 0 0RF cephalexin 500 mg Capsule 500 mg PO Q12 Qty: 0 0RF Rx Instructions: Continue for 7 doses then discontinue isosorbide mononitrate 60 mg tablet extended release 24 hr 60 mg PO DAILY Qty: 90 1RF metoprolol succinate 50 mg tablet extended release 24 hr 50 mg PO QAM Qty: 90 1RF No Action (DME) Blood Pressure Cuff Misc See Rx Instructions .ROUTE .MEDSUPPLY Qty: 1 0RF Rx Instructions: As directed (DME) Juxtalite See Rx Instructions .Route .MEDSUPPLY Qty: 1 0RF Rx Instructions: Knee High. 30 - 40mmHg (DME) blood sugar diagnostic strip See Dose Instructions .ROUTE .MEDSUPPLY Qty: 100 3RF Dose Instruction: As directed Rx Instructions: As directed (DME) blood-glucose meter [OneTouch Ultra2 Meter] Misc See Rx Instructions .ROUTE .MEDSUPPLY Qty: 1 0RF Rx Instructions: As directed (DME) One touch ultra blue strip Qty: 100 3RF Dose Instruction: As directed Rx Instructions: Check blood sugar twice daily. (DME) Ultra-Light Rollator Misc See Rx Instructions .ROUTE .MEDSUPPLY Qty: 1 0RF Rx Instructions: As directed Referrals / Follow Up: Aron Patricia MD [Primary Care Provider] - Disposition Disposition (needs filled in before D/C Order can be placed): Assisted Living
--- NOTE | 2022-09-12 21:24 | TREXTCAR_ITS ---
Diet Diet Order/Speech Therapy: 08/19/22 14:31 Diet: Consistent Carb - Calorie Controlled Food consistency:: Regular Liquid Consistency:: [place]/Mildly Thick Dietary Modifications:: Cardiac / Heart Healthy Diet Comments: [place] thick liquids How many daily calories?: 1800 calorie Routine Orders/Code Status Code Status: DNRCC-A (No intubation.) Therapies Weight Bearing: Weight bearing as tolerated Extremity Affected:: Bilateral Lower Physical Therapy: Eval and Treat Occupational Therapy: Eval and Treat Speech Therapy: Eval and Treat Problem/Diagnosis (1) Debility: Status: Inactive Code(s): R53.81 - Other malaise (2) Sepsis with acute organ dysfunction: Status: Inactive Code(s): A41.9 - Sepsis, unspecified organism; R65.20 - Severe sepsis without septic shock (3) Encephalopathy due to infection: Status: Inactive Code(s): G93.49 - Other encephalopathy; B99.9 - Unspecified infectious disease (4) Type 2 diabetes mellitus: Status: Chronic Code(s): E11.9 - Type 2 diabetes mellitus without complications Comment: uncontrolled. 8.2 on 07/25/22 (5) Monoclonal gammopathy: Status: Acute Code(s): D47.2 - Monoclonal gammopathy Comment: Discussed causes of abnormal protein in the urine again. He has slight increase in light chains with normal [place]/Lambda ratio, no m- spike, Immunoglobins are normal, has no significant pathology. (6) Urine retention: Status: Acute Code(s): R33.9 - Retention of urine, unspecified (7) Parkinson disease: Status: Inactive Code(s): G20 - Parkinson's disease (8) BPH (benign prostatic hyperplasia): Status: Chronic Code(s): N40.0 - Benign prostatic hyperplasia without lower urinary tract symptoms (9) Hyperlipidemia: Status: Chronic Code(s): E78.5 - Hyperlipidemia, unspecified (10) Essential (primary) hypertension: Status: Chronic Code(s): I10 - Essential (primary) hypertension (11) History of CVA (cerebrovascular accident): Status: Acute Code(s): Z86.73 - Personal history of transient ischemic attack (TIA), and cerebral infarction without residual deficits Comment: Acute/subacute large infarct of the right caudate nucleus. 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 Asymptomatic L SLEEVE MAKER setnosis. (12) History of coronary artery stent placement: Status: Chronic Code(s): Z95.5 - Presence of coronary angioplasty implant and graft Comment: SUR-BYD-Vhwb LAD w/ 2.5 x 48 mm Synergy DS 04/28/2020 (13) Atherosclerotic heart disease of [place] coronary artery without angina pect jona: Status: Chronic Code(s): I25.10 - Atherosclerotic heart disease of [place] coronary artery without angina pectoris (14) Fever: Status: Resolved Code(s): R50.9 - Fever, unspecified (15) Normochromic normocytic anemia: Status: Acute Code(s): D64.9 - Anemia, unspecified (16) Hyponatremia: Status: Acute Code(s): E87.1 - Hypo-osmolality and hyponatremia (17) Hypokalemia: Status: Acute Code(s): E87.6 - Hypokalemia (18) Dehydration, moderate: Status: Acute Code(s): E86.0 - Dehydration (19) Hypophosphatemia: Status: Acute Code(s): E83.39 - Other disorders of phosphorus metabolism (20) Abnormal LFTs (liver function tests): Status: Acute Code(s): R79.89 - Other specified abnormal findings of blood chemistry Comment: Mixed obstructive and hepatic cellular (21) Obstipation: Status: Acute Code(s): K59.00 - Constipation, unspecified (22) Bilateral pleural effusion: Status: Acute Code(s): J90 - Pleural effusion, not elsewhere classified Allergies/Procedures Done in Hospital Allergies iodine Allergy (Verified 08/15/22 18:04) Rash Procedures: None Type of Care/Length of Stay Estimated LOS: Convalescent Care Less Than 30 days Type of Care Needed: Senior Living/Assisted Living Rehab Potential: Fair Prognosis: Fair Additional Orders/Day of Discharge Day of Discharge: 09/16/22 Dietary and Speech Recommendations Dietitian Recommendations/Changes: Will continue 1800 ronald CHO Controlled diet - consistency per METAL FABRICATING INSPECTOR Will continue 4 oz glucerna shake tid w/ medpass Will monitor need for changes in diet/ONS pending continued po intake/wt changes Discharge Plan Admission Admit Date/Time: 08/19/22 13:53 Primary Reason for Your Visit: Debility. Attending Provider: Inocencia Alejandra Primary Care Provider: Aron Patricia Instructions Additional Instructions / Restrictions: Discharge to [facility] 09/16/2022, Home Health Care PT/OT/ST. Discharge Orders/Prescriptions Prescriptions: New isosorbide mononitrate 30 mg Tablet Extended Release 24 Hr 30 mg PO DAILY 30 Days Qty: 30 0RF finasteride 5 mg Tablet 5 mg PO DAILY 30 Days Qty: 30 0RF Continued amlodipine 10 mg tablet 10 mg PO QHS Qty: 90 3RF sertraline 25 mg tablet 25 mg PO DAILY Qty: 90 3RF polysaccharide iron complex [Ferrex 150] 150 mg iron capsule 150 mg PO DAILY Qty: 90 2RF lisinopril 40 mg tablet 40 mg PO QDAY Qty: 90 0RF primidone 50 mg tablet 50 mg PO 1600 Qty: 90 0RF aspirin 81 MG tablet,chewable 81 mg PO QHS melatonin 3 MG tablet 3 mg PO QHS PRN PRN (Reason: Insomnia) 0RF tamsulosin 0.4 mg capsule 0.4 mg PO DAILY clopidogrel [Plavix] 75 mg tablet 75 mg PO QHS metformin 500 mg tablet 500 mg PO BID Qty: 1 0RF metoprolol succinate 25 mg tablet extended release 24 hr 25 mg PO .PM Qty: 90 1RF atorvastatin 80 mg tablet 80 mg PO QHS Qty: 90 3RF Discontinued sennosides-docusate sodium 1 TABLET tablet 2 tablet PO BID PRN PRN (Reason: Constipation) 0RF acetaminophen 325 mg Tablet 650 mg PO Q4H PRN PRN (Reason: Fever, pain 1-10) Qty: 0 0RF cephalexin 500 mg Capsule 500 mg PO Q12 Qty: 0 0RF Rx Instructions: Continue for 7 doses then discontinue isosorbide mononitrate 60 mg tablet extended release 24 hr 60 mg PO DAILY Qty: 90 1RF metoprolol succinate 50 mg tablet extended release 24 hr 50 mg PO QAM Qty: 90 1RF No Action (DME) Blood Pressure Cuff Misc See Rx Instructions .ROUTE .MEDSUPPLY Qty: 1 0RF Rx Instructions: As directed (DME) Juxtalite See Rx Instructions .Route .MEDSUPPLY Qty: 1 0RF Rx Instructions: Knee High. 30 - 40mmHg (DME) blood sugar diagnostic strip See Dose Instructions .ROUTE .MEDSUPPLY Qty: 100 3RF Dose Instruction: As directed Rx Instructions: As directed (DME) blood-glucose meter [OneTouch Ultra2 Meter] Misc See Rx Instructions .ROUTE .MEDSUPPLY Qty: 1 0RF Rx Instructions: As directed (DME) One touch ultra blue strip Qty: 100 3RF Dose Instruction: As directed Rx Instructions: Check blood sugar twice daily. (DME) Ultra-Light Rollator Misc See Rx Instructions .ROUTE .MEDSUPPLY Qty: 1 0RF Rx Instructions: As directed Referrals / Follow Up: Aron Patricia MD [Primary Care Provider] - Disposition Disposition (needs filled in before D/C Order can be placed): Assisted Living (4) Type 2 diabetes mellitus Qualifiers: Diabetes mellitus group home insulin use: without front facer use Diabetes mellitus complication status: with other specified complication Qualified Code(s): E11.69 - Type 2 diabetes mellitus with other specified complication (9) Hyperlipidemia Qualifiers: Hyperlipidemia type: pure hypercholesterolemia Qualified Code(s): E78.00 - Pure hypercholesterolemia, unspecified; E78.0 - Pure hypercholesterolemia (13) Atherosclerotic heart disease of [place] coronary artery without angina pectoris Qualifiers: [place] vs. transplanted heart: unspecified whether [place] or transplanted heart Qualified Code(s): I25.10 - Atherosclerotic heart disease of [place] coronary artery without angina pectoris
[2022-09-12 21:57] LABS: Bedside Glucose 193 mg/dL (74-106)
[2022-09-12] MEDS: Insulin Glargine-YFGN 100 UNIT/ML Pen SC (22:25)
[2022-09-13 05:35] VITALS: BP 126/53; PULSE 52
[2022-09-13] MEDS: Finasteride 5 MG Tablet PO (05:36)
[2022-09-13] MEDS: Sertraline 50 MG Tablet 25 MG PO (05:36)
[2022-09-13] MEDS: Iron Polysaccharide Complex 150 MG CAPSULE PO (05:36)
[2022-09-13] MEDS: Acetaminophen 500 MG Tablet 1000 MG PO ×3 (05:36→20:49)
[2022-09-13] MEDS: Lisinopril 40 MG Tablet PO (05:36)
[2022-09-13] MEDS: Senna/Docusate Sodium 1 Tablet 2 TABLET PO ×2 (05:36→17:30)
[2022-09-13] MEDS: Menthol/Lanolin/Calamine/Znox 113 GM Tube 1 APPLIC TOPICAL ×2 (05:37→17:30)
[2022-09-13] MEDS: Isosorbide Mononitrate 30 MG Tablet PO (05:37)
[2022-09-13 06:36] LABS: Bedside Glucose 149 mg/dL (74-106)
[2022-09-13] MEDS: metFORMIN HCl 500 MG Tablet PO ×2 (07:47→17:30)
[2022-09-13] MEDS: Glucerna Shake 120 ML LIQUID PO ×3 (07:47→17:30)
[2022-09-13] MEDS: Insulin Lispro 100 UNIT/ML INSULN.PEN SC ×2 (07:47→17:30)
--- NOTE | 2022-09-13 09:32 | NURSING ---
pt off floor with speech for cookie swallow
[2022-09-13 09:48] VITALS: PULSE 60; RESP 16; O2SAT 94
--- NOTE | 2022-09-13 10:11 | SP.MBSS_ITS ---
Modified Barium Swallow Patient Information Study Date: 09/13/22 Study Time: 09:15 Direct Billable Minutes: 120 Total Minutes procedure & reportin Diagnosis: G20 - Parkinson's disease, R12.13 - Oropharyngeal Dysphagia Referring Physician: Rojelio Self Chi Reason for Referral: Objectively assess swallow function, risk for aspiration and to determine recommendations for LRD and compensatory strategies to improve safety of swallow. Medical History: Killian Gagnon is an 87 y/o M w/ PMHx: CKD stage II [address] Dr. De La Rosa from prior reports, Chronic BL LE Edema/Lymphedema, CAD s/p PCI, HTN, HLD, Hx CVA w/ chronic L sided hemiparesis, Diabetes mellitus type II, Parkinson's disease, PVD, Monoclonal gammopathy following with Dr. Jacobsen, Chronic macrocytic anemia/Fe deficiency anemia, BPH who has been patient at [facility] for rehabilitation. Patient participated in MBSS on 08/23/22 w/ dx of moderate oropharyngeal dysphagia and further recommendations for modified diet of nectar thick liquids. Patient has been participating in skilled speech therapy sessions targeting oropharyngeal dysphagia w/ implementation of oropharyngeal exercise program. This study is a repeat MBSS prior to d/c to determine recommendations for LRD and compensatory strategies to improve safety of swallow. Current Diet Ordered: Regular Textures / NTL Dentition: WNL Mental Status: WNL Respiratory Status: Oxygenating on Room Air Penetration-Aspiration Scale Penetration-Aspiration Scale: OBJECTIVE ASSESSMENT OF SWALLOW FUNCTION (QUANTITATIVE ? PER TRIAL): PENETRATION / ASPIRATION SCALE (GUTHRIE): 1 = does not enter airway 2 = enters airway/above vocal folds/ejected 3 = enters airway/above vocal folds/not ejected 4 = enters airway/contacts vocal folds/ejected 5 = enters airway/contacts vocal folds/not ejected 6 = enters airway/below vocal folds/ejected 7 = enters airway/below vocal folds/not ejected despite effort 8 = enters airway/below vocal folds/no effort VIDEOFLOROSCOPIC SCALE SCORE (GUTHRIE): Grade I = aspiration of material that has penetrated into the laryngeal vestibule, intact cough reflex Grade II = aspiration < 10 % of the bolus, intact cough reflex Grade III = aspiration of < 10 % of the bolus, reduced cough reflex or aspiration of > 10 % of the bolus, intact cough reflex Grade IV = aspiration of > 10 % of the bolus, reduced cough reflex Penetration-Aspiration Scale Score Thin Liquid via teaspoon: Result: 2= enter airway/above vocal folds/ejected Thin Liquid via teaspoon Trial 2: Result: 2= enter airway/above vocal folds/ejected Thin Liquid via teaspoon Trial 3: Result: 2= enter airway/above vocal folds/ejected Thin Liquid via small single sip from cup: Result: 1= does not enter airway Thin Liquid via small single sip from cup Trial 2: Result: 1= does not enter airway Thin Liquid via small single sip from cup Trial 3: Result: 1= does not enter airway [place] Thick Liquid via small single sip from cup: Result: 1= does not enter airway Pudding: Result: 1= does not enter airway Cookie: Result: 1= does not enter airway Thin Liquid via small single sip from cup Trial 4: Result: 8= enters airway/below vocal folds/no effort Thin Liquid via small single sip from cup Trial 5: Result: 1= does not enter airway Thin Liquid via small single sip from cup Trial 6: Result: 1= does not enter airway Thin Liquid via small single sip from cup Trial 7: Result: 8= enters airway/below vocal folds/no effort Comment: delayed throat clear 1x Oral Phase Labial Seal: No Labial Escape Tongue Control During Bolus Hold: Posterior escape of less than half of bolus Bolus Preparation/Mastication: Slow prolonged chewing/mashing with complete recollection Bolus Transport/Lingual Motion: Slowed tongue motion Oral Residue: Residue collection on oral structures (residue w/ cookie ) Pharyngeal Phase Initiation of Pharyngeal Swallow: Bolus head at posterior laryngeal surgace of epiglottis Soft Palate Elevation: No bolus between soft palate and pharyngeal wall Laryngeal Elevation: Partial superior movement thyroid cart/partial apprx aryt- epig petiole Anterior Hyoid Excursion: Partial anterior movement Epiglottic Movement: Partial inversion Laryngeal Vestibule Closure at Height of Swallow: Incomplete; narrow column of air/contrast in laryngeal vestibule Pharyngeal Stripping Wave: Present - diminished Pharyngoesophageal Segment Opening: Complete distension and complete duration; no obstruction of flow Tongue Base Retraction: Wide column of contrast between tongue base & post. pharyngeal wall Pharyngeal Residue: Trace residue within or on pharyngeal structures Treatment Strategies Effects of treatment strategies attemped:: TIMEKEEPER SUPERVISOR frequently cued to use an effortful swallow w/ thin liquids = inconsistent Diagnosis/Impression Diagnosis: R12.13 - Oropharyngeal Dysphagia Impression: This is a repeat study w/ comparison from 08/23/22 study. * Patient continues to present w/ moderate oropharyngeal dysphagia. Oral phase primarily marked by... - mild mastication insufficiency w/ 1/2 Allyn Doone cookie - slowed tongue motion resulting in min oral residue w/ cookie - improved bolus control observed during this study w/ premature spillage to vallecula *previously observed w/ premature spillage to the vallecula and pyriforms Pharyngeal phase primarily marked by... - delayed pharyngeal onset timing resulting in suboptimal bolus location upon swallow onset - decreased airway closure during deglutition attributed to reduced laryngeal elevation and reduced anterior hyoid excursion resulting in insufficient epiglottic inversion - penetration w/ thin via tsp in 3/3 trials. Noteworthy TIMEKEEPER SUPERVISOR was provided thin via tsp as patient was unable to self feed thin via tsp. - SILENT aspiration seen w/ single sips of thin via cup w/ 1x noted delayed throat clear following cookie trial. Highly suspect fatigue following mastication of 1/2 cookie trial resulting in aspiration w/ several thin trials as the thin trials prior to cookie were all scored of PAS=1. This TIMEKEEPER SUPERVISOR is recommending continued diet of regular consistencies and nectar thick liquids w/ FFWP. Recommendations Diet: Regular Textures and [place]-thick Liquids Comment: W/ [place] Free Water Protocol Compensatory Strategies: Small Bites, Small Sips, No Straws, Slow Rate, Alternate bites/solids and sips/liquids, Sitting upright and Remain sitting upright for 30 minutes after PO intake Recommend Repeat Modified Barium Swallow: TBD Need for Skilled Speech Therapy Services: Yes Comment: Will recommend continued ST at current and next level of care to address moderate oropharyngeal deficits identified during this study. Would recommended continued implementation of oropharyngeal exercise program, patient and family would benefit from thorough education regarding diet recommendations (NTL w/ FFWP) and compensatory strategies. Education Completed: 1. Described result of evaluation., 2. Pt understands evaluation & agrees with goals and treatment plan. and 4. Family/caregivers understand evaluation & agree w/ goals & tx plan. Status Active ST Patient: Active Contact Information [facility] Speech Therapy:: Farheen Santos M.A. [facility]-TIMEKEEPER SUPERVISOR Speech-Language Pathologist [facility] [address] [place] [address] [email or web address] [phone]
--- NOTE | 2022-09-13 10:14 | CASEMGMT ---
Social Work Telephone call from Kaylene Arevalo. Kaylene request for referral to be faxed as unable to view referral in [facility]. Clinical information faxed. Proposed discharge date: 09/16/2022 PLAN: Assisted Living. Social Work to continue to follow. Pedro Luis SHIPMAN, DAISHA
[2022-09-13 11:45] LABS: Bedside Glucose 248 mg/dL (74-106)
--- NOTE | 2022-09-13 13:29 | MDS.RN ---
Pain interview for mds completed.
--- NOTE | 2022-09-13 13:39 | CASEMGMT ---
Social Work Telephone call from Kaylene Arevalo. Kaylene reports that patient needs are higher then [place] can provide for patient. Patient has been denied. This forensic social worker communicating above information to patient and patient spouse in room. This forensic social worker inquired if the [facility] had stopped to complete on-site assessment. Patient spouse confirmed and reports that patient did not qualify for assisted living. This forensic social worker inquired about snf under intermediate level of care as assisted livings either do not have an opening or are declining patient due to level of care needs. Patient spouse is agreeable to snf referrals being sent to [facility] and [facility]. Patient spouse aware that snf will be private pay. Referrals sent to [facility] and [facility] via [facility]. Proposed discharge date: 09/16/2022 PLAN: correction, intermediate level of care. Pedro Luis SHIPMAN, DAISHA
[2022-09-13 16:00] VITALS: BP 150/71; PULSE 57; RESP 15; TEMP 36.2; O2SAT 97
[2022-09-13 16:58] LABS: Bedside Glucose 225 mg/dL (74-106)
[2022-09-13] MEDS: Tamsulosin HCl 0.4 MG Capsule PO (17:30)
[2022-09-13] MEDS: Primidone 50 MG Tablet PO (17:30)
[2022-09-13 20:48] VITALS: BP 138/58; PULSE 60
[2022-09-13] MEDS: amLODIPine 10 MG Tablet PO (20:48)
[2022-09-13] MEDS: Metoprolol(XL)Succ 25 MG Tablet PO (20:48)
[2022-09-13] MEDS: MELATONIN 3 MG TABLET PO (20:48)
[2022-09-13] MEDS: Aspirin 81 MG TAB.CHEW PO (20:49)
[2022-09-13] MEDS: Atorvastatin Calcium 80 MG Tablet PO (20:49)
[2022-09-13] MEDS: Clopidogrel Bisulfate 75 MG Tablet PO (20:49)
[2022-09-13] MEDS: Insulin Glargine-YFGN 100 UNIT/ML Pen SC (20:52)
[2022-09-13 21:37] LABS: Bedside Glucose 140 mg/dL (74-106)
[2022-09-14] MEDS: Finasteride 5 MG Tablet PO (06:18)
[2022-09-14] MEDS: Sertraline 50 MG Tablet 25 MG PO (06:19)
[2022-09-14] MEDS: Lisinopril 40 MG Tablet PO (06:19)
[2022-09-14] MEDS: Senna/Docusate Sodium 1 Tablet 2 TABLET PO ×2 (06:19→17:29)
[2022-09-14] MEDS: Isosorbide Mononitrate 30 MG Tablet PO (06:19)
[2022-09-14] MEDS: Acetaminophen 500 MG Tablet 1000 MG PO ×3 (06:19→21:32)
[2022-09-14] MEDS: Iron Polysaccharide Complex 150 MG CAPSULE PO (06:20)
[2022-09-14] MEDS: Menthol/Lanolin/Calamine/Znox 113 GM Tube 1 APPLIC TOPICAL ×2 (06:25→17:33)
[2022-09-14 06:37] LABS: Bedside Glucose 158 mg/dL (74-106)
[2022-09-14 06:59] VITALS: BP 138/53; PULSE 52
[2022-09-14] MEDS: Insulin Lispro 100 UNIT/ML INSULN.PEN SC ×2 (08:48→17:30)
[2022-09-14] MEDS: metFORMIN HCl 500 MG Tablet PO ×2 (08:49→17:29)
[2022-09-14] MEDS: Glucerna Shake 120 ML LIQUID PO ×3 (08:52→17:33)
--- NOTE | 2022-09-14 09:13 | CASEMGMT ---
Social Work Telephone call to the [facility], Miriam. This social science manager inquired about status of referral. Miriam reports to have an open bed on the skilled unit and can see if this might be an option for patient. Miriam to review clinical information and get back to this social science manager. Proposed discharge date: 09/16/2022 PLAN: [facility], pending acceptance, plan is skilled. Pedro Luis SHIPMAN, BETY-S
--- NOTE | 2022-09-14 10:16 | CASEMGMT ---
Social Work Brief interview for mental status (BIMS) and resident mood assessment (PHQ-9) completed on this day. BIMS score . PHQ-9 score 04/16. Pedro Luis SHIPMAN, ILANS
[2022-09-14 11:54] LABS: Bedside Glucose 154 mg/dL (74-106)
--- NOTE | 2022-09-14 13:44 | CASEMGMT ---
Social Work Telephone call to [facility], Miriam. This high school social studies teacher inquired about status of referral. Miriam reports to still be reviewing. Miriam aware that discharge is planned for Saturday. Social Work to continue to follow. Pedro Luis SHIPMAN, DAISHA
--- NOTE | 2022-09-14 15:34 | CASEMGMT ---
Social Work Telephone call to [facility], Miriam. Voicemail left requesting return phone call. This marriage and family social worker collaborating with patient and patient family. Patient and patient family requesting for referral to be sent to [facility] as [facility] is not getting back. Referral sent to [facility] via [facility]. Pedro Luis SHIPMAN, BETY-S
[2022-09-14 16:00] VITALS: BP 156/63; PULSE 61; RESP 17; TEMP 37; O2SAT 95
--- NOTE | 2022-09-14 16:00 | CASEMGMT ---
Social Work Telephone call from the [facility], Miriam. They are able to accept patient under intermediate level of care in a private room. Miriam reports to need a COVID test completed on Saturday. This adoption social worker communicating above information to patient and patient spouse. Patient and patient spouse are agreeable to private pay and report to have the funds. Patient spouse reports that family will transport patient to the [facility]. PASRR completed and sent to [facility] via [facility] along with transfer summary. Medical team updated on above. Nursing updated to have COVID test completed on Saturday. Proposed discharge date: 09/16/2022 PLAN: [facility], intermediate level of care. Pedro Luis SHIPMAN, ILANS
[2022-09-14 16:43] LABS: Bedside Glucose 197 mg/dL (74-106)
[2022-09-14] MEDS: Primidone 50 MG Tablet PO (17:29)
[2022-09-14] MEDS: Tamsulosin HCl 0.4 MG Capsule PO (17:30)
[2022-09-14] MEDS: Insulin Glargine-YFGN 100 UNIT/ML Pen SC (21:29)
[2022-09-14 21:32] VITALS: BP 145/58; PULSE 58
[2022-09-14] MEDS: Clopidogrel Bisulfate 75 MG Tablet PO (21:32)
[2022-09-14] MEDS: MELATONIN 10 MG TABLET PO (21:32)
[2022-09-14] MEDS: Atorvastatin Calcium 80 MG Tablet PO (21:32)
[2022-09-14] MEDS: amLODIPine 10 MG Tablet PO (21:32)
[2022-09-14] MEDS: Metoprolol(XL)Succ 25 MG Tablet PO (21:32)
[2022-09-14] MEDS: Aspirin 81 MG TAB.CHEW PO (21:32)
[2022-09-14 21:39] VITALS: PULSE 58; RESP 16; O2SAT 95
[2022-09-14 22:28] LABS: Bedside Glucose 140 mg/dL (74-106)
[2022-09-15] MEDS: Acetaminophen 500 MG Tablet 1000 MG PO ×3 (05:06→23:04)
[2022-09-15] MEDS: Iron Polysaccharide Complex 150 MG CAPSULE PO (05:07)
[2022-09-15] MEDS: Senna/Docusate Sodium 1 Tablet 2 TABLET PO ×2 (05:07→17:45)
[2022-09-15] MEDS: Isosorbide Mononitrate 30 MG Tablet PO (05:08)
[2022-09-15] MEDS: Sertraline 50 MG Tablet 25 MG PO (05:08)
[2022-09-15] MEDS: Lisinopril 40 MG Tablet PO (05:08)
[2022-09-15] MEDS: Finasteride 5 MG Tablet PO (05:08)
[2022-09-15] MEDS: Menthol/Lanolin/Calamine/Znox 113 GM Tube 1 APPLIC TOPICAL ×2 (05:08→17:45)
[2022-09-15 06:36] LABS: Bedside Glucose 148 mg/dL (74-106)
[2022-09-15] MEDS: Insulin Lispro 100 UNIT/ML INSULN.PEN SC ×2 (08:17→17:43)
[2022-09-15] MEDS: Glucerna Shake 120 ML LIQUID PO ×3 (08:17→17:45)
[2022-09-15] MEDS: metFORMIN HCl 500 MG Tablet PO ×2 (08:17→17:44)
[2022-09-15 10:53] VITALS: BP 151/62; PULSE 62; RESP 14; TEMP 36.4; O2SAT 97
[2022-09-15 11:09] LABS: Bedside Glucose 182 mg/dL (74-106)
[2022-09-15 16:32] LABS: Bedside Glucose 181 mg/dL (74-106)
[2022-09-15] MEDS: Tamsulosin HCl 0.4 MG Capsule PO (17:44)
[2022-09-15] MEDS: Primidone 50 MG Tablet PO (17:44)
[2022-09-15 21:27] LABS: Bedside Glucose 174 mg/dL (74-106)
[2022-09-15] MEDS: Aspirin 81 MG TAB.CHEW PO (23:04)
[2022-09-15] MEDS: Insulin Glargine-YFGN 100 UNIT/ML Pen SC (23:04)
[2022-09-15 23:05] VITALS: BP 162/66; PULSE 61
[2022-09-15] MEDS: Atorvastatin Calcium 80 MG Tablet PO (23:05)
[2022-09-15] MEDS: Metoprolol(XL)Succ 25 MG Tablet PO (23:05)
[2022-09-15] MEDS: Clopidogrel Bisulfate 75 MG Tablet PO (23:05)
[2022-09-15] MEDS: MELATONIN 10 MG TABLET PO (23:06)
[2022-09-15] MEDS: amLODIPine 10 MG Tablet PO (23:07)
[2022-09-16 06:31] LABS: Bedside Glucose 148 mg/dL (74-106)
[2022-09-16] MEDS: Senna/Docusate Sodium 1 Tablet 2 TABLET PO (07:25)
[2022-09-16] MEDS: Finasteride 5 MG Tablet PO (07:26)
[2022-09-16] MEDS: Acetaminophen 500 MG Tablet 1000 MG PO (07:26)
[2022-09-16] MEDS: Lisinopril 40 MG Tablet PO (07:27)
[2022-09-16] MEDS: Sertraline 50 MG Tablet 25 MG PO (07:27)
[2022-09-16] MEDS: Iron Polysaccharide Complex 150 MG CAPSULE PO (07:28)
[2022-09-16] MEDS: Isosorbide Mononitrate 30 MG Tablet PO (07:28)
[2022-09-16] MEDS: Menthol/Lanolin/Calamine/Znox 113 GM Tube 1 APPLIC TOPICAL (07:31)
[2022-09-16 07:36] VITALS: BP 133/51; PULSE 49
[2022-09-16] MEDS: Glucerna Shake 120 ML LIQUID PO ×2 (07:58→11:18)
[2022-09-16] MEDS: Insulin Lispro 100 UNIT/ML INSULN.PEN SC (07:58)
[2022-09-16] MEDS: metFORMIN HCl 500 MG Tablet PO (07:58)
[2022-09-16 11:19] LABS: Bedside Glucose 220 mg/dL (74-106)
[2022-09-16 11:29] VITALS: BP 133/63; PULSE 67; RESP 18; TEMP 35.9; O2SAT 93
== END 2022-09-16 13:13 | disposition skilled nursing facility (03) | DRG 187 ==
PROVIDERS: Family Medicine Geriatric Medicine; Admitting Provider Internal Medicine; PCP Internal Medicine; Visit Provider Internal Medicine
DX: J90 Pleural effusion, not elsewhere classified (principal); I69.354 Hemiplegia and hemiparesis following cerebral infarction affecting left non-dominant side; E87.1 Hypo-osmolality and hyponatremia; E11.22 Type 2 diabetes mellitus with diabetic chronic kidney disease; D50.9 Iron deficiency anemia, unspecified; D47.2 Monoclonal gammopathy; E11.51 Type 2 diabetes mellitus with diabetic peripheral angiopathy without gangrene; G20 Parkinson's disease; D53.9 Nutritional anemia, unspecified; I25.10 Atherosclerotic heart disease of native coronary artery without angina pectoris; E78.00 Pure hypercholesterolemia, unspecified; N18.2 Chronic kidney disease, stage 2 (mild); I12.9 Hypertensive chronic kidney disease with stage 1 through stage 4 chronic kidney disease, or unspecified chronic kidney disease; E87.6 Hypokalemia; Z79.82 Long term (current) use of aspirin; Z79.84 Long term (current) use of oral hypoglycemic drugs; Z79.02 Long term (current) use of antithrombotics/antiplatelets; Z95.5 Presence of coronary angioplasty implant and graft; Z79.899 Other long term (current) drug therapy; N40.1 Benign prostatic hyperplasia with lower urinary tract symptoms; R33.8 Other retention of urine
CPT/HCPCS: 36415; 74230; 80048; 80076; 82140; 82570; 82962; 83690; 83735; 84100; 84132; 84300; 84443; 85025; 85610; 85730; 87449; 87633; 87811; 92507; 92523; 92526; 92610; 92611; 97110; 97116; 97129; 97162; 97166; 97530; 97535; 97802; J7040; J7050; A4216

== ENCOUNTER → 2022-08-20 | Outpatient (CLI) | payer MEDICARE, OTHER, SELFPAY ==
--- NOTE | 2022-08-20 16:38 | CT_ITS ---
INDICATION: ABN CHEST XRAY EXAMINATION: CT CHEST WITHOUT CONTRAST - CT Chest W/O Contrast Injection TECHNIQUE: Helically acquired images were obtained of the chest. A radiation dose optimization technique was used for this scan. IV Contrast dosage and agent: None. RADIATION DOSAGE (If Supplied By Facility): CTDIvol = ( 10.44 ) mGy, DLP = ( 310.57 ) mGycm COMPARISON: 08/15/2022 chest x-ray FINDINGS: LUNGS, PLEURA AND LARGE AIRWAYS: Faint bilateral lower lobe infiltrates. Small to moderate bilateral pleural effusions with overlying relaxation atelectasis. No pneumothorax. THYROID: 2 cm right thyroid nodule HEART AND PERICARDIUM: Heart size is normal. No pericardial effusion. CORONARY ARTERIES: Coronary artery calcification is seen. VESSELS: Thoracic aorta is not dilated. MEDIASTINUM AND MELANIE: No mediastinal or hilar adenopathy. Esophagus is unremarkable. No hiatal hernia. UPPER ABDOMEN: No acute abnormal finding. BONES: Normal thoracic vertebral alignment. CT/Chest without Contrast IMPRESSION: 1. Right thyroid nodule measuring up to 2 cm. Correlate with thyroid ultrasound. 2. Bilateral pleural effusions with overlying atelectasis and infiltrates. Electronically Signed: Henri Ortiz MD at 18:01 EDT ,
== END | disposition home or self-care (01) ==
PROVIDERS: PCP Internal Medicine; Referring Provider Internal Medicine; Visit Provider Internal Medicine
DX: R93.89 Abnormal findings on diagnostic imaging of other specified body structures (principal)
CPT/HCPCS: 71250

== ENCOUNTER → 2022-09-26 | Outpatient (CLI) | payer MEDICARE, OTHER, SELFPAY ==
[2022-09-26 12:27] LABS: Absolute Lymphocyte Count 0.92 X10^3/uL (0.83-4.51); Absolute Neutrophil Count 6.5 X10^3/uL (2.0-7.7); Basophil# 0.04 X10^3/uL; Basophil% 0.5 % (0-1); Eosinophil# 0.19 X10^3/uL; Eosinophils% 2.2 % (0-5); Hematocrit 34.2 % (40-54); Hemoglobin 11.5 g/dL (13.0-16.5); Lymphocyte # 0.92 X10^3/ul (0.83-4.51); Lymphocyte % 10.8 % (19-41); Mean Corp Hgb Conc 33.6 g/dL (32-36); Mean Corpuscular Volume 95.3 fL (80-94); Mean Platelet Vol. 12.2 fl (6.2-12.0); Monocyte# 0.83 X10^3/uL; Monocyte% 9.7 % (0-10); NRBC Flagged by Analyzer 0 % (0-5); Neutrophil # 6.53 X10^3/uL (2.7-7.7); Neutrophil % 76.4 % (47-70); Platelet Count 217 K/mm3 (150-450); RBC Distribution Width CV 13.6 % (11.6-14.6); RBC Distribution Width SD 47.8 fl (35.1-43.9); Red Blood Count 3.59 M/mm3 (4.6-6.2); White Blood Count 8.5 K/mm3 (4.4-11.0)
[2022-09-26 13:04] LABS: ALB/GLOB Ratio 0.8 RATIO (0.9-2.4); AST(SGOT) 15 U/L (15-37); Alanine Aminotransfer ALT/SGPT 30 U/L (16-61); Albumin, Serum 3.3 g/dL (3.2-5.0); Alkaline Phosphatase 110 U/L (45-117); Anion Gap 7 (5-15); BUN 27 mg/dL (7-18); BUN/Creat Ratio 26.7 RATIO (10-20); Calcium,Total 9.4 mg/dL (8.5-10.1); Chloride 101 mmol/L (98-107); Creatinine, Serum 1.01 mg/dL (0.70-1.30); EST Glomerular Filtration Rate 74 mL/min (>60); Est Glom Filt Rate - Afr Amer 90 mL/min (>60); Globulin 4.1 g/dL (2.2-4.2); Glucose 188 mg/dL (74-106); Potassium 4.3 mmol/L (3.5-5.1); Protein, Total 7.4 g/dL (6.4-8.2); Sodium Level 136 mmol/L (136-145)
== END | disposition home or self-care (01) ==
LOC: BIMLAB 11:29
PROVIDERS: PCP Internal Medicine; Referring Provider Internal Medicine; Visit Provider Internal Medicine
DX: E78.00 Pure hypercholesterolemia, unspecified (principal)
CPT/HCPCS: 36415; 80053; 85025

== ENCOUNTER → 2022-12-31 | Outpatient (CLI) | payer MEDICARE, OTHER, SELFPAY ==
[2022-12-31 15:30] LABS: Absolute Lymphocyte Count 0.82 X10^3/uL (0.83-4.51); Absolute Neutrophil Count 6.9 X10^3/uL (2.0-7.7); Basophil# 0.03 X10^3/uL; Basophil% 0.3 % (0-1); Eosinophil# 0.06 X10^3/uL; Eosinophils% 0.7 % (0-5); Hematocrit 35.3 % (40-54); Hemoglobin 11.8 g/dL (13.0-16.5); Lymphocyte # 0.82 X10^3/ul (0.83-4.51); Lymphocyte % 9.6 % (19-41); Mean Corp Hgb Conc 33.4 g/dL (32-36); Mean Corpuscular Hgb 32.7 pg (27.0-32.0); Mean Corpuscular Volume 97.8 fL (80-94); Mean Platelet Vol. 11.8 fl (6.2-12.0); Monocyte# 0.75 X10^3/uL; Monocyte% 8.7 % (0-10); NRBC Flagged by Analyzer 0 % (0-5); Neutrophil # 6.89 X10^3/uL (2.7-7.7); Neutrophil % 80.4 % (47-70); Platelet Count 215 K/mm3 (150-450); RBC Distribution Width CV 13.7 % (11.6-14.6); RBC Distribution Width SD 48.9 fl (35.1-43.9); Red Blood Count 3.61 M/mm3 (4.6-6.2); White Blood Count 8.6 K/mm3 (4.4-11.0)
[2022-12-31 15:47] LABS: Hemoglobin A1c 6.6 % (3.8-5.6)
[2022-12-31 17:16] LABS: Anion Gap 6 (5-15); BUN 22 mg/dL (7-18); BUN/Creat Ratio 22.9 RATIO (10-20); Chloride 101 mmol/L (98-107); Creatinine, Serum 0.96 mg/dL (0.70-1.30); EST Glomerular Filtration Rate 79 mL/min (>60); Est Glom Filt Rate - Afr Amer 95 mL/min (>60); Glucose 221 mg/dL (74-106); Potassium 4.1 mmol/L (3.5-5.1); Sodium Level 135 mmol/L (136-145)
== END | disposition home or self-care (01) ==
LOC: BIMLAB 14:17
PROVIDERS: PCP Internal Medicine; Referring Provider Internal Medicine; Visit Provider Internal Medicine
DX: E11.69 Type 2 diabetes mellitus with other specified complication (principal); E78.00 Pure hypercholesterolemia, unspecified
CPT/HCPCS: 36415; 80048; 83036; 85025